=== PATIENT | male | born 1940 | race Two or more races ===

== ENCOUNTER 2021-03-19 23:41 | Inpatient (IN) | payer OTHER, MEDICARE ==
--- NOTE | 2021-03-20 02:20 | XR ---
EXAMINATION TYPE: XR chest 2V DATE OF EXAM: 03/20/2021 COMPARISON: NONE HISTORY: Difficulty breathing TECHNIQUE: 2 views FINDINGS: There is diffuse airspace infiltrate in the right lung. Left lung is relatively clear. Hear t size is normal. There is no heart failure. Bony thorax is intact. IMPRESSION: Diffuse right-sided pneumonia. Normal heart.
[2021-03-20 02:33] LABS: Basophils # (A) 0.1 k/uL (0-0.2); Basophils % (A) 1 %; Eosinophils # (A) 0.2 k/uL (0-0.7); Eosinophils % (A) 2 %; HCT 35.5 % (39.0-53.0); HGB 11.6 gm/dL (13.0-17.5); Lymphocytes # (A) 1.7 k/uL (1.0-4.8); Lymphocytes % (A) 16 %; MCH 30.1 pg (25.0-35.0); MCHC 32.6 g/dL (31.0-37.0); MCV 92.5 fL (80.0-100.0); Mean Platelet Volume 7.7; Monocytes % (A) 10 %; Neutrophils # (A) 7.6 k/uL (1.3-7.7); Neutrophils % (A) 71 %; Platelet Count 550 k/uL (150-450); RBC 3.84 m/uL (4.30-5.90); RDW 12.8 % (11.5-15.5); WBC 10.7 k/uL (3.8-10.6)
[2021-03-20 02:44] LABS: Potassium 4.9 mmol/L (3.5-5.1)
[2021-03-20 02:45] LABS: Albumin 3.5 g/dL (3.5-5.0); Calcium 8.1 mg/dL (8.4-10.2); Magnesium 2.3 mg/dL (1.6-2.3); Total Bilirubin 0.4 mg/dL (0.2-1.3); Total Protein 7.1 g/dL (6.3-8.2)
[2021-03-20 02:46] LABS: INR 1.1 (<1.2); Partial Thromboplastin Time 23.8 sec (22.0-30.0); Prothrombin Time 11.1 sec (9.0-12.0)
[2021-03-20] MEDS ORDERED: AZITHROMYCIN 500 MG in SODIUM CHLORIDE 0.9% 250 ML IVPB STA (03:29)
[2021-03-20] MEDS ORDERED: PNEUMONIA PROTOCOL UTILIZED 1 EACH MISC PO PRN (03:29)
--- NOTE | 2021-03-20 03:29 | ED ---
General Adult HPI - General Chief complaint: Upper Respiratory Infection Stated complaint: SOB Time Seen by Provider: 03/20/21 00:22 Source: patient, RN notes reviewed Mode of arrival: ambulatory Limitations: no limitations - History of Present Illness Initial comments: Patient is an 80-year-old male with history of hypertension, hyperlipidemia, thyroid disorder, presenting to the emergency department with feeling short of breath over the past 3-4 days. He states he had very mild cough but nothing out of the ordinary. He states he feeling really winded doing his normal activities. He states he normally walks a lot and has not been able to do that. He denies any chest pain over the past couple days. Denies any fevers or chills, no abdominal pain, nausea or vomiting. He states he feels like he has still been eating his normal amount. He has had no changes in the medications. He denies history of heart disease, no blood clots in the past, no recent travel. He is not on blood thinners. Patient has no further complaints. Upon arrival to the ER, he was 89% on room air, rest of vitals normal. - Related Data Home Medications Medication Instructions Recorded Confirmed Aspirin EC [Ecotrin Low Dose] 81 mg PO Q48H 03/20/21 03/20/21 Carboxymethylcellulose Sodium 1 drop BOTH EYES QID PRN 03/20/21 03/20/21 [Refresh Tears] Levothyroxine Sodium [Synthroid] 125 mcg PO DAILY 03/20/21 03/20/21 Sildenafil Citrate [Viagra] 100 mg PO DAILY PRN 03/20/21 03/20/21 Simvastatin [Zocor] 40 mg PO HS 03/20/21 03/20/21 lisinopriL [Prinivil] 20 mg PO DAILY 03/20/21 03/20/21 metFORMIN HCL 500 mg PO BID 03/20/21 03/20/21 Previous Rx's Medication Instructions Recorded Acetaminophen Tab [Tylenol] 650 mg PO Q6HR PRN tab 03/23/21 Azithromycin [Zithromax] 500 mg PO DAILY 3 Days #3 tab 03/23/21 Cefdinir [Omnicef] 300 mg PO BID 5 Days #10 cap 03/23/21 Furosemide [Lasix] 40 mg PO DAILY 30 Days #30 tab 03/23/21 Metoprolol Tartrate [Lopressor] 25 mg PO BID 30 Days #60 tab 03/23/21 Allergies Allergy/AdvReac Type Severity Reaction Status Date / Time No Known Allergies Allergy Verified 03/20/21 00:02 Review of Systems ROS Statement: Those systems with pertinent positive or pertinent negative responses have been documented in the HPI. ROS Other: All systems not noted in ROS Statement are negative. Past Medical History Past Medical History: Hyperlipidemia, Hypertension, Thyroid Disorder History of Any Multi-Drug Resistant Organisms: None Reported Additional Past Surgical History / Comment(s): Thyroidectomy Past Psychological History: No Psychological Hx Reported Smoking Status: Current every day smoker Past Alcohol Use History: None Reported Past Drug Use History: None Reported - Past Family History Mother Family Medical History: Dementia Additional Family Medical History / Comment(s): alzheimers Father Family Medical History: Congestive Heart Failure (CHF) General Exam - General Exam Comments Initial Comments: GENERAL: Patient is well-developed and well-nourished. Patient is nontoxic and in no acute distress. HEAD: Atraumatic, normocephalic. EYES: Pupils equal round and reactive to light, extraocular movements intact, sclera anicteric, conjunctiva are normal. Eyelids were unremarkable. ENT: Nares patent, oropharynx clear without exudates. Moist mucous membranes. NECK: Normal range of motion, supple without lymphadenopathy or JVD. LUNGS: Unlabored respirations. Breath sounds clear to auscultation bilaterally and equal. No wheezes rales or rhonchi. HEART: Regular rate and rhythm without murmurs, rubs or gallops. ABDOMEN: Soft, nontender, normoactive bowel sounds. No guarding, no rebound. No masses appreciated. MUSCULOSKELETAL: Normal extremities with adequate strength and normal range of motion, no pitting or edema. No clubbing or cyanosis. NEUROLOGICAL: Patient is alert and oriented x 3. Motor and sensory are also intact. Cranial nerves II through XII grossly intact. Symmetrical smile. Normal speech, normal gait. PSYCH: Normal mood, normal affect. SKIN: Warm, Dry, normal turgor, no rashes or lesions noted. Limitations: no limitations Course Vital Signs 03/19/21 03/20/21 03/20/21 23:58 01:27 01:45 Temperature 97.4 F L Pulse Rate 66 75 Pulse Rate [ Right Pulse Oximetery] Respiratory 18 20 20 Rate Blood Pressure 134/58 135/89 Blood Pressure [Right Arm Supine] O2 Sat by Pulse 89 L 93 L Oximetry 03/20/21 03/20/21 03/20/21 02:00 03:00 04:00 Temperature Pulse Rate 77 72 80 Pulse Rate [ Right Pulse Oximetery] Respiratory 18 20 18 Rate Blood Pressure 150/64 139/73 147/76 Blood Pressure [Right Arm Supine] O2 Sat by Pulse 93 L 95 94 L Oximetry 03/20/21 03/20/21 03/20/21 06:38 08:00 11:57 Temperature 99.0 F 97.5 F L 97.8 F Pulse Rate 70 Pulse Rate [ 79 79 Right Pulse Oximetery] Respiratory 18 22 22 Rate Blood Pressure 146/77 Blood Pressure 148/83 151/89 [Right Arm Supine] O2 Sat by Pulse 92 L 92 L 90 L Oximetry 03/20/21 03/20/21 03/20/21 14:00 16:00 19:48 Temperature 99.3 F 98.1 F Pulse Rate 67 Pulse Rate [ 79 65 Right Pulse Oximetery] Respiratory 22 20 16 Rate Blood Pressure 130/60 Blood Pressure 132/65 [Right Arm Supine] O2 Sat by Pulse 95 93 L Oximetry 03/20/21 03/21/21 03/21/21 22:39 01:50 03:29 Temperature 98.5 F Pulse Rate 69 Pulse Rate [ 65 Right Pulse Oximetery] Respiratory 18 18 Rate Blood Pressure Blood Pressure 136/70 [Right Arm Supine] O2 Sat by Pulse 94 L 96 94 L Oximetry 03/21/21 06:00 Temperature Pulse Rate Pulse Rate [ Right Pulse Oximetery] Respiratory Rate Blood Pressure Blood Pressure [Right Arm Supine] O2 Sat by Pulse 91 L Oximetry - Reevaluation(s) Reevaluation #1: 03/20/21 03:33 Patient will be started on fluids at a rate of 100 mL per hour, secondary to heart failure for possible sepsis, dehydration. EKG Findings - EKG Comments: EKG Findings:: Sinus rhythm with occasional premature ventricular complexes, left axis deviation, left bundle branch block, no signs of acute ST segment elevation. There are no previous to compare this to. Ventricular rate 76, IN interval 164, QTC 430. Medical Decision Making - Medical Decision Making Patient is an 80-year-old male with history of hypertension, hyperlipidemia, thyroid disease, presenting with shortness of breath over the past 3-4 days. He said a mild cough. Patient arrived 89% on room air, rest of vitals within normal limits. He has been on 3 L at 94%, resting comfortably. He's had no chest pain over the past [address] segment changes on his EKG, left bundle mariza block. Labs show a white count of 10.7, d-dimer is mildly bumped at 0.91. Mild kidney failure with creatinine at 1.34, BUN is 37. Lactic acid is 2.1, troponin is 0.069 with a BNP almost 6000. Rapid Covid is negative. Ch est x-ray shows diffuse right sided pneumonia. No heart failure. Patient has no chest pain here today. Patient will be admitted for pneumonia, and consult to cardiology, started on antibiotics. Case discussed with Dr. Hernandez. - Lab Data Result diagrams: 03/22/21 11:16 03/22/21 11:16 Lab Results 03/20/21 03/20/21 03/20/21 Range/Units 01:41 01:41 01:41 WBC 10.7 H (3.8-10.6) k/uL RBC 3.84 L (4.30-5.90) m/uL Hgb 11.6 L (13.0-17.5) gm/dL Hct 35.5 L (39.0-53.0) % MCV 92.5 (80.0-100.0) fL MCH 30.1 (25.0-35.0) pg MCHC 32.6 (31.0-37.0) g/dL RDW 12.8 (11.5-15.5) % Plt Count 550 H (150-450) k/uL MPV 7.7 Neutrophils % 71 % Lymphocytes % 16 % Monocytes % 10 % Eosinophils % 2 % Basophils % 1 % Neutrophils # 7.6 (1.3-7.7) k/uL Lymphocytes # 1.7 (1.0-4.8) k/uL Monocytes # 1.0 (0-1.0) k/uL Eosinophils # 0.2 (0-0.7) k/uL Basophils # 0.1 (0-0.2) k/uL PT 11.1 (9.0-12.0) sec INR 1.1 (<1.2) APTT 23.8 (22.0-30.0) sec D-Dimer 0.91 H (<0.60) mg/L FEU Sodium 135 L (137-145) mmol/L Potassium 4.9 (3.5-5.1) mmol/L Chloride 103 (98-107) mmol/L Carbon Dioxide 22 (22-30) mmol/L Anion Gap 10 mmol/L BUN 37 H (9-20) mg/dL Creatinine 1.34 H (0.66-1.25) mg/dL Est GFR (CKD-EPI)AfAm 57 (>60 ml/min/1.73 sqM) Est GFR (CKD-EPI)NonAf 50 (>60 ml/min/1.73 sqM) Glucose 182 H (74-99) mg/dL Lactic Ac Sepsis Rflx Plasma Lactic Acid Rishabh (0.7-2.0) mmol/L Calcium 8.1 L (8.4-10.2) mg/dL Magnesium 2.3 (1.6-2.3) mg/dL Total Bilirubin 0.4 (0.2-1.3) mg/dL AST 32 (17-59) U/L ALT 18 (4-49) U/L Alkaline Phosphatase 120 (38-126) U/L Troponin I (0.000-0.034) ng/mL NT-Pro-B Natriuret Pep pg/mL Total Protein 7.1 (6.3-8.2) g/dL Albumin 3.5 (3.5-5.0) g/dL Coronavirus (PCR) (Not Detectd) 03/20/21 03/20/21 03/20/21 Range/Units 01:41 01:41 01:41 WBC (3.8-10.6) k/uL RBC (4.30-5.90) m/uL Hgb (13.0-17.5) gm/dL Hct (39.0-53.0) % MCV (80.0-100.0) fL MCH (25.0-35.0) pg MCHC (31.0-37.0) g/dL RDW (11.5-15.5) % Plt Count (150-450) k/uL MPV Neutrophils % % Lymphocytes % % Monocytes % % Eosinophils % % Basophils % % Neutrophils # (1.3-7.7) k/uL Lymphocytes # (1.0-4.8) k/uL Monocytes # (0-1.0) k/uL Eosinophils # (0-0.7) k/uL Basophils # (0-0.2) k/uL PT (9.0-12.0) sec INR (<1.2) APTT (22.0-30.0) sec D-Dimer (<0.60) mg/L FEU Sodium (137-145) mmol/L Potassium (3.5-5.1) mmol/L Chloride (98-107) mmol/L Carbon Dioxide (22-30) mmol/L Anion Gap mmol/L BUN (9-20) mg/dL Creatinine (0.66-1.25) mg/dL Est GFR (CKD-EPI)AfAm (>60 ml/min/1.73 sqM) Est GFR (CKD-EPI)NonAf (>60 ml/min/1.73 sqM) Glucose (74-99) mg/dL Lactic Ac Sepsis Rflx Plasma Lactic Acid Rishabh 2.1 H* (0.7-2.0) mmol/L Calcium (8.4-10.2) mg/dL Magnesium (1.6-2.3) mg/dL Total Bilirubin (0.2-1.3) mg/dL AST (17-59) U/L ALT (4-49) U/L Alkaline Phosphatase (38-126) U/L Troponin I 0.069 H* (0.000-0.034) ng/mL NT-Pro-B Natriuret Pep 5980 pg/mL Total Protein (6.3-8.2) g/dL Albumin (3.5-5.0) g/dL Coronavirus (PCR) (Not Detectd) 03/20/21 03/20/21 Range/Units 01:41 02:50 WBC (3.8-10.6) k/uL RBC (4.30-5.90) m/uL Hgb (13.0-17.5) gm/dL Hct (39.0-53.0) % MCV (80.0-100.0) fL MCH (25.0-35.0) pg MCHC (31.0-37.0) g/dL RDW (11.5-15.5) % Plt Count (150-450) k/uL MPV Neutrophils % % Lymphocytes % % Monocytes % % Eosinophils % % Basophils % % Neutrophils # (1.3-7.7) k/uL Lymphocytes # (1.0-4.8) k/uL Monocytes # (0-1.0) k/uL Eosinophils # (0-0.7) k/uL Basophils # (0-0.2) k/uL PT (9.0-12.0) sec INR (<1.2) APTT (22.0-30.0) sec D-Dimer (<0.60) mg/L FEU Sodium (137-145) mmol/L Potassium (3.5-5.1) mmol/L Chloride (98-107) mmol/L Carbon Dioxide (22-30) mmol/L Anion Gap mmol/L BUN (9-20) mg/dL Creatinine (0.66-1.25) mg/dL Est GFR (CKD-EPI)AfAm (>60 ml/min/1.73 sqM) Est GFR (CKD-EPI)NonAf (>60 ml/min/1.73 sqM) Glucose (74-99) mg/dL Lactic Ac Sepsis Rflx Y Plasma Lactic Acid Rishabh (0.7-2.0) mmol/L Calcium (8.4-10.2) mg/dL Magnesium (1.6-2.3) mg/dL Total Bilirubin (0.2-1.3) mg/dL AST (17-59) U/L ALT (4-49) U/L Alkaline Phosphatase (38-126) U/L Troponin I (0.000-0.034) ng/mL NT-Pro-B Natriuret Pep pg/mL Total Protein (6.3-8.2) g/dL Albumin (3.5-5.0) g/dL Coronavirus (PCR) Not Detected (Not Detectd) Disposition Clinical Impression: Pneumonia, Dyspnea, Elevated troponin, Dehydration Disposition: ADMITTED IP TO THIS [facility] Condition: Stable Decision Date: 03/20/21 Decision Time: 03:28
[2021-03-20] MEDS ORDERED: SODIUM CHLORIDE 0.9% 1,000 ML IV SCH (03:30)
[2021-03-20] MEDS ORDERED: ONDANSETRON 4 MG/2 ML VIAL IVP PRN (03:31)
[2021-03-20] MEDS ORDERED: IBUPROFEN 400 MG TAB PO PRN (03:31)
[2021-03-20] MEDS ORDERED: NALOXONE 0.4 MG/ML 1 ML VIAL IV PRN (03:31)
[2021-03-20] MEDS ORDERED: ACETAMINOPHEN TAB 325 MG TAB PO PRN (03:31)
--- NOTE | 2021-03-20 10:01 | ECHOF ---
Referral Reason:LV function MEASUREMENTS -------- HEIGHT: 177.8 cm WEIGHT: 97.5 kg BP: 148/83 RVIDd: 4.0 cm (< 3.3) IVSd: 1.4 cm (0.6 - 1.1) LVIDd: 4.8 cm (3.9 - 5.3) LVPWd: 1.3 cm (0.6 - 1.1) IVSs: 2.1 cm LVIDs: 3.5 cm LVPWs: 1.9 cm LAESV Index (A-L): 27.15 ml/m Ao Diam: 3.0 cm (2.0 - 3.7) AV Cusp: 2.0 cm (1.5 - 2.6) MV EXCURSION: 14.991 mm (> 18.000) MV EF SLOPE: 60 mm/s (70 - 150) EPSS: 1.1 cm MV E Mika: 0.88 m/s MV DecT: 329 ms MV A Mika: 1.28 m/s MV E/A Ratio: 0.69 RAP: 5.00 mmHg RVSP: 56.92 mmHg FINDINGS -------- Sinus rhythm with extra systolic beats. This was a technically difficult study with suboptimal apical views. The left ventricular size is normal. There is moderate concentric left ventricular hypertrophy. O verall left ventricular systolic function is mild-moderately impaired with, an EF between 40 - 45 %. The right ventricle is moderately enlarged. Normal LA size by volume 22+/-6 ml/m2. The right atrium was not well visualized. 5.0mg of Lumason was utilized for enhancement of images Interatrial and interventricular septum intact. There is no evidence of aortic regurgitation. There is no evidence of aortic stenosis. [id number] mitral regurgitation is present. Moderate to severe tricuspid regurgitation present. There is moderate to severe pulmonary hypertens ion. The right ventricular systolic pressure, as measured by Doppler, is 56.92mmHg. There is no pulmonic regurgitation present. The aortic root size is normal. IVC Not well visulized. There is no pericardial effusion. CONCLUSIONS -------- 1. The left ventricular size is normal. 2. There is moderate concentric left ventricular hypertrophy. 3. Overall left ventricular systolic function is mild-moderately impaired with, an EF between 40 - 45 %. 4. The right ventricle is moderately enlarged. 5. [id number] mitral regurgitation is present. 6. Moderate to severe tricuspid regurgitation present. 7. There is moderate to severe pulmonary hypertension. 8. The right ventricular systolic pressure, as measured by Doppler, is 56.92mmHg. [employer] RESIDENTIAL SERVICE TECHNICIAN: Tatum Avila RDCS
[2021-03-20] MEDS ORDERED: ARTIFICIAL TEARS-HYPROMELLOSE DROPS 15 ML BTL BOTH EYES PRN (10:32)
--- NOTE | 2021-03-20 10:41 | P.HPIM ---
History of Present Illness Patient is is a pleasant 80-year-old male came in with complaints of shortness of breath cough with sputum production found to have right upper lobe pneumonia. Patient does have leukocytosis and low-grade fever as well. Patient had a remote history of smoking quit in 1966. Patient does have a elevated BNP denied any significant the proximal nocturnal dyspnea questionable orthopnea. Patient did get an echo cardiac exam which showed mildly decreased EF of around 40-45% and patient doesn't have a known history of can start failure patient does have severe tricuspid regurgitation and the moderate to severe pulmonary hypertens ion. Patient has mildly elevated troponins without any significant chest pain. Troponins are flat. Cardiology will evaluate the patient. REVIEW OF SYSTEMS: CONSTITUTIONAL: no malaise, no fatigue. HEENT: No recent visual problems or hearing problems. Denied any sore throat. CARDIOVASCULAR: No chest pain, orthopnea, PND, no palpitations, no syncope. PULMONARY: As mentioned in HPI GASTROINTESTINAL: No diarrhea, no nausea, no vomiting, no abdominal pain. NEUROLOGICAL: No headaches, no weakness, no numbness. HEMATOLOGICAL: Denies any bleeding or petechiae. GENITOURINARY: Denies any burning micturition, frequency, or urgency. MUSCULOSKELETAL/RHEUMATOLOGICAL: Denies any joint pain, swelling, or any muscle pain. ENDOCRINE: Denies any polyuria or polydipsia. The rest of the 14-point review of systems is negative. PHYSICAL EXAMINATION: GENERAL: The patient is alert and oriented x3, not in any acute distress. Obese HEENT: Pupils are round and equally reacting to light. EOMI. No scleral icterus. No conjunctival pallor. Normocephalic, atraumatic. No pharyngeal erythema. No thyromegaly. CARDIOVASCULAR: S1 and S2 present. No murmurs, rubs, or gallops. PULMONARY: Chest is clear to auscultation, no wheezing or crackles. ABDOMEN: Soft, nontender, nondistended, normoactive bowel sounds. No palpable organomegaly. MUSCULOSKELETAL: No joint swelling or deformity. EXTREMITIES: No cyanosis, clubbing, or pedal edema. NEUROLOGICAL: Gross neurological examination did not reveal any focal deficits. SKIN: No rashes. Assessment and plan -Acute hypoxic respiratory failure probably secondary to pneumonia patient may have a competent of sleep apnea and does have pulmonary hypertension of as well because of which are patient is requiring oxygen around 4 L at this time. He continued on Rocephin and azithromycin. Sputum cultures will be obtained. -Mild troponin elevation secondary to hypoxemia and pneumonia cardiology will evaluate the patient. Patient has left bundle branch block on EKG previous EKGs are not available to compare -moderate to severe pulmonary hypertension probably secondary to mitral regurgitation and/or sleep apnea. --Elevated creatinine unsure whether patient has acute renal failure chronic kidney disease possibility of acute failure patient received IV fluids with because of the concerns of her decreased ejection fraction and elevated BNP I'm stopping his IV fluids at this time although patient clinically and presently not in heart failure exacerbation and will be continued on lisinopril if his creatinine continued get was then we'll let this can you. We'll at that time. We'll recheck patient's creatinine tomorrow -Congestive heart failure chronic systolic dysfunction without any acute exacerbation -Severe tricuspid regurgitation -Possibly of pulmonary hypertension -Hypothyroidism Type 2 diabetes mellitus: Hold off on metformin patient will be started on sliding scale insulin DVT prophylaxis: Subcutaneous heparin Past Medical History Past Medical History: Hyperlipidemia, Hypertension, Thyroid Disorder History of Any Multi-Drug Resistant Organisms: None Reported Additional Past Surgical History / Comment(s): Thyroidectomy Past Psychological History: No Psychological Hx Reported Smoking Status: Current every day smoker Past Alcohol Use History: None Reported Past Drug Use History: None Reported Medications and Allergies Home Medications Medication Instructions Recorded Confirmed Type Aspirin EC [Ecotrin Low Dose] 81 mg PO Q48H 03/20/21 03/20/21 History Carboxymethylcellulose Sodium 1 drop BOTH EYES QID PRN 03/20/21 03/20/21 History [Refresh Tears] Levothyroxine Sodium [Synthroid] 125 mcg PO DAILY 03/20/21 03/20/21 History Sildenafil Citrate [Viagra] 100 mg PO DAILY PRN 03/20/21 03/20/21 History Simvastatin [Zocor] 40 mg PO HS 03/20/21 03/20/21 History amLODIPine [Norvasc] 10 mg PO DAILY 03/20/21 03/20/21 History lisinopriL [Prinivil] 20 mg PO DAILY 03/20/21 03/20/21 History metFORMIN HCL 500 mg PO BID 03/20/21 03/20/21 History Allergies Allergy/AdvReac Type Severity Reaction Status Date / Time No Known Allergies Allergy Verified 03/20/21 00:02 Physical Exam Vitals: Vital Signs Temp Pulse Pulse Resp BP BP Pulse Ox 03/20/21 08:00 97.5 F L 78 19 148/83 92 L 03/20/21 06:38 99.0 F 70 18 146/77 92 L 03/20/21 04:00 80 18 147/76 94 L 03/20/21 03:00 72 20 139/73 95 03/20/21 02:00 77 18 150/64 93 L 03/20/21 01:45 75 20 135/89 93 L 03/20/21 01:27 20 03/19/21 23:58 97.4 F L 66 18 134/58 89 L Intake and Output 03/19/21 03/20/21 03/20/21 22:59 06:59 14:59 Other: Weight 97.522 kg Results CBC & Chem 7: 03/20/21 01:41 03/20/21 01:41 Labs: Abnormal Lab Results - Last 24 Hours (Table) 03/20/21 03/20/21 03/20/21 Range/Units 01:41 01:41 01:41 WBC 10.7 H (3.8-10.6) k/uL RBC 3.84 L (4.30-5.90) m/uL Hgb 11.6 L (13.0-17.5) gm/dL Hct 35.5 L (39.0-53.0) % Plt Count 550 H (150-450) k/uL D-Dimer 0.91 H (<0.60) mg/L FEU Sodium 135 L (137-145) mmol/L BUN 37 H (9-20) mg/dL Creatinine 1.34 H (0.66-1.25) mg/dL Glucose 182 H (74-99) mg/dL Plasma Lactic Acid Rishabh (0.7-2.0) mmol/L Calcium 8.1 L (8.4-10.2) mg/dL Troponin I (0.000-0.034) ng/mL 03/20/21 03/20/21 03/20/21 Range/Units 01:41 01:41 05:34 WBC (3.8-10.6) k/uL RBC (4.30-5.90) m/uL Hgb (13.0-17.5) gm/dL Hct (39.0-53.0) % Plt Count (150-450) k/uL D-Dimer (<0.60) mg/L FEU Sodium (137-145) mmol/L BUN (9-20) mg/dL Creatinine (0.66-1.25) mg/dL Glucose (74-99) mg/dL Plasma Lactic Acid Rishabh 2.1 H* (0.7-2.0) mmol/L Calcium (8.4-10.2) mg/dL Troponin I 0.069 H* 0.075 H* (0.000-0.034) ng/mL 03/20/21 Range/Units 08:25 WBC (3.8-10.6) k/uL RBC (4.30-5.90) m/uL Hgb (13.0-17.5) gm/dL Hct (39.0-53.0) % Plt Count (150-450) k/uL D-Dimer (<0.60) mg/L FEU Sodium (137-145) mmol/L BUN (9-20) mg/dL Creatinine (0.66-1.25) mg/dL Glucose (74-99) mg/dL Plasma Lactic Acid Rishabh (0.7-2.0) mmol/L Calcium (8.4-10.2) mg/dL Troponin I 0.056 H* (0.000-0.034) ng/mL
[2021-03-20] MEDS ORDERED: NON FORMULARY DRUG (Aspirin Ec 81 MG Tablet) PO SCH (10:45)
[2021-03-20 11:43] LABS: Glucose,Whole Blood 159 mg/dL (75-99)
--- NOTE | 2021-03-20 12:14 | P.CRDCN ---
History of Present Illness History of present illness: HISTORY OF PRESENTING ILLNESS This is a pleasant 80-year-old male past medical history significant for hypertension, dyslipidemia, hypothyroidism, type 2 diabetes. He does not follow with a oncology pharmacist. We have been asked to see in consultation for elevated troponin. Patient is seen and examined in the emergency department. Patient presents to the emergency department with complaints of shortness of breath and non-productive cough. His symptoms started 03/14 and progressively were getting worse and decided presents emergency department for further evaluation.. He denies any chest pain, nausea, diaphoresis, palpitations, lightheadedness, dizziness, symptoms of presyncope or syncope. Denies symptoms of orthopnea or PND. He denies fevers or chills. He denies any history of [place], stroke, coronary artery disease. He denies a family history of heart disease. He denies smoking, states he quit smoking many years ago. DIAGNOSTICS EKG reveals sinus rhythm with PVCs, left bundle branch block, heart rate 76, Left axis deviation. No prior EKG to compare Echocardiogram revealed an EF 4045 percent, RV is mildly enlarged, mild to moderate mitral regurgitation, moderate severe tricuspid regurgitation, moderate to severe pulmonary hypertension with RVSP of 57 mmHg Telemetry tracings indicate sinus mechanism heart rates 70s80s. Chest xray revealed diffuse right-sided pneumonia. Laboratory reviewed, WBC 10.7, hemoglobin 11.6, platelets 550, d-dimer 0.91, sodium 135, potassium 4., BUN 37, serum creatinine 1.3, lactate 2.1, repeat 1.4, troponin 0.06, 0.7, 0.05, proBNP 5008, COVID-19 PCR negative. Current cardiac medications include simvastatin 40 mg nightly, lisinopril 20 mg daily, aspirin 81 mg daily, amlodipine 10 mg daily REVIEW OF SYSTEMS At the time of my exam: CONSTITUTIONAL: Denies fever or chills. CARDIOVASCULAR: Positive shortness of breath, positive cough Denies chest pain, orthopnea, PND or palpitations. RESPIRATORY: + cough GASTROINTESTINAL: Denies abdominal pain, diarrhea, constipation, nausea or vomiting. MUSCULOSKELETAL: Denies myalgias. NEUROLOGIC: Denies numbness, tingling, headacbe or weakness. ENDOCRINE: Denies fatigue, weight change, polydipsia or polyurina. GENITOURINARY: Denies burning, hematuria or urgency with micturation. HEMATOLOGIC: Denies history of anemia or bleeding. PHYSICAL EXAMINATION Blood pressure 151/89, heart 69, afebrile saturations 90% on 4 L nasal cannula CONSTITUTIONAL: No apparent distress. HEENT: Head is normocephalic. Pupils are equal, round. Sclerae anicteric. Mucous membranes of the mouth are moist. No JVD. No carotid bruit. CHEST EXAMINATION: Lungs are clear to auscultation. No chest wall tenderness is noted on palpation or with deep breathing. HEART EXAMINATION: Regular rate and rhythm. S1, S2 heard.Systolic ejection murmur at apex. ABDOMEN: Soft, nontender. Positive bowel sounds. EXTREMITIES: 2+ peripheral pulses, no lower extremity edema and no calf tenderness. NEUROLOGIC EXAMINATION: Patient is awake, alert and oriented x3. ASSESSMENT Acute hypoxic respiratory failure probably secondary to pneumonia Elevated troponin, mild, likely due to supply an demand mismatch, no consistent with acute coronary syndrome Acute Kidney Injury Severe tricuspid regurgitation History of hypertension Dyslipidemia Type 2 diabetes Echocardiogram revealed cardiomyopathy with EF 40-45%, unclear if ischemic vs non-ischemic at this time, patient appears euvolemic on exam History of hypothyroidism PLAN 2D Echocardiogram obtained and reviewed. Start aspirin 81 mg daily, continue statin. Continue lisinopril 20 mg daily Start metoprolol tartrate 12.5 mg twice a day Further recommendations based on clinical course Nurse Practitioner note has been reviewed, I agree with a documented findings and plan of care. Patient was seen and examined. Past Medical History Past Medical History: Hyperlipidemia, Hypertension, Thyroid Disorder History of Any Multi-Drug Resistant Organisms: None Reported Additional Past Surgical History / Comment(s): Thyroidectomy Past Psychological History: No Psychological Hx Reported Smoking Status: Current every day smoker Past Alcohol Use History: None Reported Past Drug Use History: None Reported Medications and Allergies Home Medications Medication Instructions Recorded Confirmed Type Aspirin EC [Ecotrin Low Dose] 81 mg PO Q48H 03/20/21 03/20/21 History Carboxymethylcellulose Sodium 1 drop BOTH EYES QID PRN 03/20/21 03/20/21 History [Refresh Tears] Levothyroxine Sodium [Synthroid] 125 mcg PO DAILY 03/20/21 03/20/21 History Sildenafil Citrate [Viagra] 100 mg PO DAILY PRN 03/20/21 03/20/21 History Simvastatin [Zocor] 40 mg PO HS 03/20/21 03/20/21 History amLODIPine [Norvasc] 10 mg PO DAILY 03/20/21 03/20/21 History lisinopriL [Prinivil] 20 mg PO DAILY 03/20/21 03/20/21 History metFORMIN HCL 500 mg PO BID 03/20/21 03/20/21 History Allergies Allergy/AdvReac Type Severity Reaction Status Date / Time No Known Allergies Allergy Verified 03/20/21 00:02 Physical Exam Vitals: Vital Signs Temp Pulse Resp BP Pulse Ox 03/20/21 06:38 99.0 F 70 18 146/77 92 L 03/20/21 04:00 80 18 147/76 94 L 03/20/21 03:00 72 20 139/73 95 03/20/21 02:00 77 18 150/64 93 L 03/20/21 01:45 75 20 135/89 93 L 03/20/21 01:27 20 03/19/21 23:58 97.4 F L 66 18 134/58 89 L Intake and Output 03/19/21 03/20/21 03/20/21 22:59 06:59 14:59 Other: Weight 97.522 kg Results 03/20/21 01:41 03/20/21 01:41 Cardiac Enzymes 03/20/21 03/20/21 03/20/21 Range/Units 01:41 01:41 05:34 AST 32 (17-59) U/L Troponin I 0.069 H* 0.075 H* (0.000-0.034) ng/mL Coagulation 03/20/21 Range/Units 01:41 PT 11.1 (9.0-12.0) sec APTT 23.8 (22.0-30.0) sec CBC 03/20/21 Range/Units 01:41 WBC 10.7 H (3.8-10.6) k/uL RBC 3.84 L (4.30-5.90) m/uL Hgb 11.6 L (13.0-17.5) gm/dL Hct 35.5 L (39.0-53.0) % Plt Count 550 H (150-450) k/uL Comprehensive Metabolic Panel 03/20/21 Range/Units 01:41 Sodium 135 L (137-145) mmol/L Potassium 4.9 (3.5-5.1) mmol/L Chloride 103 (98-107) mmol/L Carbon Dioxide 22 (22-30) mmol/L BUN 37 H (9-20) mg/dL Creatinine 1.34 H (0.66-1.25) mg/dL Glucose 182 H (74-99) mg/dL Calcium 8.1 L (8.4-10.2) mg/dL AST 32 (17-59) U/L ALT 18 (4-49) U/L Alkaline Phosphatase 120 (38-126) U/L Total Protein 7.1 (6.3-8.2) g/dL Albumin 3.5 (3.5-5.0) g/dL Current Medications Generic Name Dose Route Start Last Admin Trade Name Freq PRN Reason Stop Dose Admin Acetaminophen 650 mg 03/20/21 03:31 Acetaminophen Tab 325 Mg Tab PO Q6HR PRN Mild Pain or Fever > 100.5 Sodium Chloride 1,000 mls @ 100 mls/hr 03/20/21 03:30 03/20/21 03:55 Saline 0.9% IV 100 mls/hr .Q10H PAPITO Administration Ibuprofen 400 mg 03/20/21 03:31 Ibuprofen 400 Mg Tab PO Q6HR PRN Mild Pain or Fever > 100.5 Miscellaneous Information 1 each 03/20/21 03:29 Pneumonia Protocol Utilized 1 Each Misc PO ONCE PRN Per Protocol Naloxone HCl 0.2 mg 03/20/21 03:31 Naloxone 0.4 Mg/Ml 1 Ml Vial IV Q2M PRN Opioid Reversal Ondansetron HCl 4 mg 03/20/21 03:31 Ondansetron 4 Mg/2 Ml Vial IVP Q8HR PRN Nausea And Vomiting Intake and Output 03/19/21 03/20/21 03/20/21 22:59 06:59 14:59 Other: Weight 97.522 kg 03/20/21 01:41 03/20/21 01:41
[2021-03-20] MEDS: AZITHROMYCIN 500 MG TAB PO SCH (12:40)
[2021-03-20] MEDS: lisinopriL 20 MG TAB PO SCH (12:40)
[2021-03-20] MEDS: ASPIRIN 81 MG PO SCH (12:40)
[2021-03-20] MEDS: METOPROLOL TARTRATE 12.5 MG TAB PO SCH ×2 (12:40→22:41)
[2021-03-20] MEDS: HEPARIN SODIUM,PORCINE/PF 5,000 UNIT/0.5 ML SYRINGE SQ SCH ×2 (12:41→22:41)
[2021-03-20] MEDS: INSULIN ASPART (NovoLOG) 100 UNIT/ML VIAL SQ SCH ×2 (12:41→17:56)
[2021-03-20 16:46] LABS: Glucose,Whole Blood 194 mg/dL (75-99)
[2021-03-20 20:43] LABS: Glucose,Whole Blood 112 mg/dL (75-99)
[2021-03-21] MEDS: INSULIN ASPART (NovoLOG) 100 UNIT/ML VIAL SQ SCH ×5 (01:40→20:14)
[2021-03-21] MEDS: ATORVASTATIN 20 MG TAB PO SCH ×2 (03:42→20:14)
[2021-03-21 08:12] LABS: Glucose,Whole Blood 127 mg/dL (75-99)
[2021-03-21] MEDS: HEPARIN SODIUM,PORCINE/PF 5,000 UNIT/0.5 ML SYRINGE SQ SCH ×2 (09:04→20:14)
[2021-03-21] MEDS: AZITHROMYCIN 500 MG TAB PO SCH (09:04)
[2021-03-21] MEDS: ASPIRIN 81 MG PO SCH (09:05)
[2021-03-21] MEDS: lisinopriL 20 MG TAB PO SCH (09:05)
[2021-03-21] MEDS: LEVOTHYROXINE 125 MCG TAB PO SCH (09:05)
[2021-03-21 09:48] LABS: African American GFR (CKD) 54.7 (60.0-200.0); Anion Gap 14.4 mmol/L (4.00-12.00); BUN/Creat Ratio 23.74 Ratio (12.00-20.00); Calcium 7.5 mg/dL (8.7-10.3); Carbon Dioxide 20.1 mmol/L (21.6-31.8); HCT 32.2 % (39.6-50.0); HGB 10.4 g/dL (13.0-17.0); MCH 30.2 pg (27.0-32.0); MCHC 32.3 g/dL (32.0-37.0); MCV 93.6 fL (80.0-97.0); Non-African American GFR(CKD) 47.2 (60.0-200.0); Platelet Count 530 X 10*3/uL (140-440); Potassium 4.4 mmol/L (3.5-5.5); RBC 3.44 X 10*6/uL (4.40-5.60); RDW 13.2 % (11.5-14.5); WBC 10.62 X 10*3/uL (4.50-10.00)
--- NOTE | 2021-03-21 10:17 | P.PN ---
Subjective Progress Note Date: 03/21/21 HISTORY OF PRESENTING ILLNESS This is a pleasant 80-year-old male past medical history significant for hyp ertension, dyslipidemia, hypothyroidism, type 2 diabetes. He does not follow with a pharmacy grad intern. We have been asked to see in consultation for elevated troponin. Patient is seen and examined in the emergency department. Patient presents to the emergency department with complaints of shortness of breath and non-productive cough. His symptoms started 03/14 and progressively were getting worse and decided presents emergency department for further evaluation.. He denies any chest pain, nausea, diaphoresis, palpitations, lightheadedness, dizziness, symptoms of presyncope or syncope. Denies symptoms of orthopnea or PND. He denies fevers or chills. He denies any history of [place], stroke, coronary artery disease. He denies a family history of heart disease. He denies smoking, states he quit smoking many years ago. DIAGNOSTICS EKG reveals sinus rhythm with PVCs, left bundle branch block, heart rate 76, Left axis deviation. No prior EKG to compare Echocardiogram revealed an EF 4045 percent, RV is mildly enlarged, mild to moderate mitral regurgitation, moderate severe tricuspid regurgitation, moderate to severe pulmonary hypertension with RVSP of 57 mmHg Telemetry tracings indicate sinus mechanism heart rates 70s80s. Chest xray revealed diffuse right-sided pneumonia. Laboratory reviewed, WBC 10.7, hemoglobin 11.6, platelets 550, d-dimer 0.91, sodium 135, potassium 4., BUN 37, serum creatinine 1.3, lactate 2.1, repeat 1.4, troponin 0.06, 0.7, 0.05, proBNP 5008, COVID-19 PCR negative. Current cardiac medications include simvastatin 40 mg nightly, lisinopril 20 mg daily, aspirin 81 mg daily, amlodipine 10 mg daily 03/21/2021 Patient examined this morning with Dr. Rutledge. The patient states he is feeling much better today. He reports improvement in his shortness of breath. He remains on nasal cannula. He does report shortness of breath with exertion. He reports a nonproductive cough. He denies chest pain or pressure. PHYSICAL EXAMINATION CONSTITUTIONAL: No apparent distress. HEENT: Head is normocephalic. Pupils are equal, round. Sclerae anicteric. Mucous membranes of the mouth are moist. No JVD. No carotid bruit. CHEST EXAMINATION: Lungs are clear to auscultation. No chest wall tenderness is noted on palpation or with deep breathing. HEART EXAMINATION: Regular rate and rhythm. S1, S2 heard. Systolic ejection murmur at apex. ABDOMEN: Soft, nontender. Positive bowel sounds. EXTREMITIES: 2+ peripheral pulses, no lower extremity edema and no calf tenderness. NEUROLOGIC EXAMINATION: Patient is awake, alert and oriented x3. ASSESSMENT Acute hypoxic respiratory failure probably secondary to pneumonia Elevated troponin, mild, likely due to supply an demand mismatch, no consistent with acute coronary syndrome Acute Kidney Injury Severe tricuspid regurgitation History of hypertension Dyslipidemia Type 2 diabetes Echocardiogram revealed cardiomyopathy with EF 40-45%, unclear if ischemic vs non-ischemic at this time History of hypothyroidism PLAN Continue current cardiac medications Begin IV lasix 40mg daily Accurate I&O Daily weights Patient to undergo Lexiscan stress test tomorrow secondary to cardiomyopathy (EF 40-45%) and abnormal troponins Further recommendations pending patient course Nurse Practitioner note has been reviewed, I agree with a documented findings and plan of care. Patient was seen and examined. Objective - Vital Signs Vital signs: Vital Signs Temp 97.5 F L 03/21/21 07:31 Pulse 69 03/21/21 08:00 Resp 18 03/21/21 08:00 BP 129/66 03/21/21 07:31 Pulse Ox 91 L 03/21/21 08:14 Intake & Output 03/20/21 03/21/21 03/21/21 18:59 06:59 18:59 Output Total 200 Balance -200 Weight 97.522 kg Output: Urine 200 Other: Voiding Method Toilet Toilet Toilet # Voids 3 # Bowel Movements 2 - Labs CBC & Chem 7: 03/21/21 03:24 03/21/21 03:24 Labs: Abnormal Lab Results - Last 24 Hours (Table) 03/20/21 03/20/21 03/20/21 Range/Units 11:42 16:45 20:41 WBC (4.50-10.00) X 10*3/uL RBC (4.40-5.60) X 10*6/uL Hgb (13.0-17.0) g/dL Hct (39.6-50.0) % Plt Count (140-440) X 10*3/uL Carbon Dioxide (21.6-31.8) mmol/L Anion Gap (4.00-12.00) mmol/L BUN (9.0-27.0) mg/dL Est GFR (CKD-EPI)AfAm (60.0-200.0) Est GFR (CKD-EPI)NonAf (60.0-200.0) BUN/Creatinine Ratio (12.00-20.00) Ratio Glucose (70-110) mg/dL POC Glucose (mg/dL) 159 H 194 H 112 H (75-99) mg/dL Calcium (8.7-10.3) mg/dL 03/21/21 03/21/21 03/21/21 Range/Units 03:24 03:24 08:02 WBC 10.62 H (4.50-10.00) X 10*3/uL RBC 3.44 L (4.40-5.60) X 10*6/uL Hgb 10.4 L (13.0-17.0) g/dL Hct 32.2 L (39.6-50.0) % Plt Count 530 H (140-440) X 10*3/uL Carbon Dioxide 20.1 L (21.6-31.8) mmol/L Anion Gap 14.40 H (4.00-12.00) mmol/L BUN 33.0 H (9.0-27.0) mg/dL Est GFR (CKD-EPI)AfAm 54.7 L (60.0-200.0) Est GFR (CKD-EPI)NonAf 47.2 L (60.0-200.0) BUN/Creatinine Ratio 23.74 H (12.00-20.00) Ratio Glucose 128 H (70-110) mg/dL POC Glucose (mg/dL) 127 H (75-99) mg/dL Calcium 7.5 L (8.7-10.3) mg/dL Microbiology - Last 24 Hours (Table) 03/20/21 03:45 Blood Culture - Preliminary Blood No Growth after 24 hours 03/20/21 03:30 Blood Culture - Preliminary Blood No Growth after 24 hours
[2021-03-21] MEDS: METOPROLOL TARTRATE 12.5 MG TAB PO SCH ×2 (10:18→20:14)
[2021-03-21] MEDS: FUROSEMIDE 10 MG/ML 4 ML VIAL IV SCH (10:18)
[2021-03-21 11:34] LABS: Glucose,Whole Blood 174 mg/dL (75-99)
--- NOTE | 2021-03-21 13:12 | XR ---
EXAMINATION TYPE: XR chest 2V DATE OF EXAM: 03/21/2021 COMPARISON: Chest x-ray 03/20/2021 HISTORY: Pneumonia TECHNIQUE: Frontal and lateral views of the chest are obtained. FINDINGS: Airspace disease seen within the right lung shows a similar appearance. No significant int erval change. Region is rotated. Cardiac mediastinal silhouette is stable. No evident pneumothorax or pleural effusion. IMPRESSION: Findings consistent with patient's history of pneumonia.
--- NOTE | 2021-03-21 13:52 | P.PN ---
Subjective Progress Note Date: 03/21/21 Patient is is a pleasant 80-year-old male came in with complaints of shortness of breath cough with sputum production found to have right upper lobe pneumonia. Patient does have leukocytosis and low-grade fever as well. Patient had a remote history of smoking quit in 1966. Patient does have a elevated BNP denied any significant the proximal nocturnal dyspnea questionable orthopnea. Patient did get an echo cardiac exam which showed mildly decreased EF of around 40-45% and patient doesn't have a known history of can start failure patient does have severe tricuspid regurgitation and the moderate to severe pulmonary hypertension. Patient has mildly elevated troponins without any significant chest pain. Troponins are flat. Cardiology will evaluate the patient. 03/21/2020 Patient is evaluated today resting the bed. He is dyspneic however he states that he was just getting back from the bathroom. There is no wheezing noted. Plan is for patient to undergo a stress test tomorrow. He is 91% on 4 L nasal cannula. Does not wear any oxygen at home. Blood pressure today is 110/66, heart rate 69, temp 97.5. Labs today show a white count of 10.62, hemoglobin 10.4. CO2 is 20, BUN 33, creatinine 1.4, glucoses in the 170s. Patient continues on IV Rocephin, IV Lasix. Chest x-ray completed this afternoon shows findings consistent with history of pneumonia. ROS Constitutional: Denied any fatigue denied any fever. Cardio vascular: denied any chest pain, palpitations Gastrointestinal denied any nausea vomiting Pulmonary: Denies cough, reports shortness of breath with exertion Neurologic denied any new focal deficits All inpatient medications were reviewed and appropriate changes in these medications as dictated in the interval history and assessment and plan. PHYSICAL EXAMINATION: GENERAL: The patient is alert and oriented x3, not in any acute distress. Obese HEENT: Pupils are round and equally reacting to light. EOMI. No scleral icterus. No conjunctival pallor. Normocephalic, atraumatic. No pharyngeal erythema. No thyromegaly. CARDIOVASCULAR: S1 and S2 present. No murmurs, rubs, or gallops. PULMONARY: Chest is clear to auscultation, no wheezing or crackles. ABDOMEN: Soft, nontender, nondistended, normoactive bowel sounds. No palpable organomegaly. MUSCULOSKELETAL: No joint swelling or deformity. EXTREMITIES: No cyanosis, clubbing, or pedal edema. NEUROLOGICAL: Gross neurological examination did not reveal any focal deficits. SKIN: No rashes. Assessment and plan -Acute hypoxic respiratory failure probably secondary to pneumonia, chest x-ray demonstrates pneumonia, white count trending down -Mild troponin elevation secondary to hypoxemia from pneumonia, not suggestive of ACS, stress test planned for tomorrow -moderate to severe pulmonary hypertension probably secondary to mitral regurgitation and/or sleep apnea. 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% -Severe tricuspid regurgitation -Hypothyroidism Type 2 diabetes mellitus: Hold off on metformin patient will be started on sliding scale insulin DVT prophylaxis: Subcutaneous heparin Plan Repeat labs tomorrow IV Lasix daily Continue with IV and PO antibiotics Continue nasal cannula, wean as tolerated Stress test planned for tomorrow Continue all other supportive care Objective - Vital Signs Vital signs: Vital Signs Temp 97.5 F L 03/21/21 07:31 Pulse 69 03/21/21 07:31 Resp 18 03/21/21 07:31 BP 129/66 03/21/21 07:31 Pulse Ox 91 L 03/21/21 08:14 Intake & Output 03/20/21 03/21/21 03/21/21 18:59 06:59 18:59 Output Total 200 Balance -200 Weight 97.522 kg Output: Urine 200 Other: Voiding Method Toilet Toilet # Voids 3 # Bowel Movements 2 - Labs CBC & Chem 7: 03/21/21 03:24 03/21/21 03:24 Labs: Abnormal Lab Results - Last 24 Hours (Table) 03/20/21 03/20/21 03/20/21 Range/Units 08:25 11:42 16:45 POC Glucose (mg/dL) 159 H 194 H (75-99) mg/dL Troponin I 0.056 H* (0.000-0.034) ng/mL 03/20/21 03/21/21 Range/Units 20:41 08:02 POC Glucose (mg/dL) 112 H 127 H (75-99) mg/dL Troponin I (0.000-0.034) ng/mL Microbiology - Last 24 Hours (Table) 03/20/21 03:45 Blood Culture - Preliminary Blood No Growth after 24 hours 03/20/21 03:30 Blood Culture - Preliminary Blood No Growth after 24 hours Assessment and Plan Time with Patient: Greater than 30
[2021-03-21 20:04] LABS: Glucose,Whole Blood 210 mg/dL (75-99)
[2021-03-22 05:51] LABS: Glucose,Whole Blood 128 mg/dL (75-99)
[2021-03-22] MEDS ORDERED: AMINOPHYLLINE 500 MG/20 ML VIAL IV PRN (06:00)
[2021-03-22] MEDS ORDERED: REGADENOSON 0.4 MG/5 ML SYRINGE IV PRN (06:00)
[2021-03-22] MEDS ORDERED: CAFFEINE CITRATE 60 MG/3 ML VIAL IV PRN (06:00)
[2021-03-22] MEDS: INSULIN ASPART (NovoLOG) 100 UNIT/ML VIAL SQ SCH ×4 (06:11→22:10)
[2021-03-22] MEDS: LEVOTHYROXINE 125 MCG TAB PO SCH ×2 (06:12→11:47)
[2021-03-22] MEDS: lisinopriL 20 MG TAB PO SCH (11:47)
[2021-03-22] MEDS: HEPARIN SODIUM,PORCINE/PF 5,000 UNIT/0.5 ML SYRINGE SQ SCH ×2 (11:47→22:10)
[2021-03-22] MEDS: ASPIRIN 81 MG PO SCH (11:47)
[2021-03-22] MEDS: AZITHROMYCIN 500 MG TAB PO SCH (11:48)
[2021-03-22] MEDS: METOPROLOL TARTRATE 12.5 MG TAB PO SCH ×2 (11:48→22:10)
[2021-03-22 12:01] LABS: Glucose,Whole Blood 145 mg/dL (75-99)
[2021-03-22 12:01] LABS: Basophils # (A) 0.1 k/uL (0-0.2); Basophils % (A) 1 %; Eosinophils # (A) 0.5 k/uL (0-0.7); Eosinophils % (A) 6 %; HCT 36.9 % (39.0-53.0); HGB 11.8 gm/dL (13.0-17.5); Lymphocytes # (A) 1.8 k/uL (1.0-4.8); Lymphocytes % (A) 20 %; MCH 30.3 pg (25.0-35.0); MCHC 31.9 g/dL (31.0-37.0); Mean Platelet Volume 7.1; Monocytes # (A) 0.9 k/uL (0-1.0); Monocytes % (A) 10 %; Neutrophils # (A) 5.6 k/uL (1.3-7.7); Neutrophils % (A) 62 %; Platelet Count 587 k/uL (150-450); RBC 3.88 m/uL (4.30-5.90); RDW 12.8 % (11.5-15.5); WBC 9.1 k/uL (3.8-10.6)
[2021-03-22 12:02] LABS: Calcium 7.8 mg/dL (8.4-10.2); Potassium 4.5 mmol/L (3.5-5.1)
[2021-03-22] MEDS: FUROSEMIDE 10 MG/ML 4 ML VIAL IV SCH (12:04)
--- NOTE | 2021-03-22 12:34 | P.STRESS ---
- Stress Test Note Stress Test Results/Findings: Exam Performed: NM stress lexiscan cardiolite Exam Date: 03/22/21 Reason for Exam: CARDIOMYOPATHY Height: 5 ft 10 in Weight: 101.9 kg Protocol: LEXISCAN CARDIOLITE Stage: NA Duration of Exercise: NA Resting Heart Rate: 62 Resting Blood Pressure: 150/67 Maximum Achieved Heart Rate: 71 Maximum Achieved Blood Pressure: 150/67 85% PMHR: 118 100% PMHR: 139 METS: NA Technologist Comment: Stress Test Results/Findings: At baseline EKG showed normal sinus rhythm, left bundle branch block. Patient recieved IV infusion of Lexiscan 0.4mg and at peak infusion EKG showed no significant change from baseline. Conclusions: 1. Nonspecific EKG portion secondary baseline EKG abnormalities with a left bundle-branch block. 2. Nuclear imaging to be reported separately.
--- NOTE | 2021-03-22 12:39 | NM ---
EXAMINATION TYPE: NM stress lexiscan cardiolite DATE OF EXAM: 03/22/2021 COMPARISON: NONE HISTORY: Cardiomyopathy TECHNIQUE: After the intravenous administration of 10.4 mCi Tc 99m Sestamibi - Cardiolite resting SP ECT images acquired 65 minutes post injection. The patient received 0.4mg Lexiscan, 27.1 mCi Tc 99m Sestamibi - Stress images obtained [address] injection FINDINGS: Review of stress and rest SPECT images demonstrates question of a small reversible perfusion defect i nvolving the apical lateral portion of the myocardium. Gated analysis shows normal wall motion with an estimated left ventricular ejection fraction of 49 %. IMPRESSION: 1. Cannot exclude a small stress-induced reversible ischemia involving the apical lateral myocardium. Correlate clinically.
--- NOTE | 2021-03-22 13:28 | P.PN ---
Subjective Progress Note Date: 03/22/21 Patient is is a pleasant 80-year-old male came in with complaints of shortness of breath cough with sputum production found to have right upper lobe pneumonia. Patient does have leukocytosis and low-grade fever as well. Patient had a remote history of smoking quit in 1966. Patient does have a elevated BNP denied any significant the proximal nocturnal dyspnea questionable orthopnea. Patient did get an echo cardiac exam which showed mildly decreased EF of around 40-45% and patient doesn't have a known history of can start failure patient does have severe tricuspid regurgitation and the moderate to severe pulmonary hypertension. Patient has mildly elevated troponins without any significant chest pain. Troponins are flat. Cardiology will evaluate the patient. 03/21/2020 Patient is evaluated today resting the bed. He is dyspneic however he states that he was just getting back from the bathroom. There is no wheezing noted. Plan is for patient to undergo a stress test tomorrow. He is 91% on 4 L nasal cannula. Does not wear any oxygen at home. Blood pressure today is 110/66, heart rate 69, temp 97.5. Labs today show a white count of 10.62, hemoglobin 10.4. CO2 is 20, BUN 33, creatinine 1.4, glucoses in the 170s. Patient continues on IV Rocephin, IV Lasix. Chest x-ray completed this afternoon shows findings consistent with history of pneumonia. 03/22/2021 Patient evaluated today status post Lexiscan stress test. Vital signs today show a temp of 98.9, heart rate 69 sinus rhythm, blood pressure 163/68 and he is 91% 3 L nasal cannula. Breathing is improved as compared to yesterday, there is no wheezing noted. Labs today show a hemoglobin of 11.8, sodium 137, potassium 4.5, BUN 28, creatinine 1.27. Sugars are running in the 160s. Nuclear imaging stress test results cannot exclude a small stress-induced reversible ischemia involving the apical lateral myocardium. There was nonspecific EKG portion secondary baseline EKG abnormalities with a left bundle branch block. Echocardiogram showed an EF of 40-45% with [id number] mitral regurgitation and moderate to severe tricuspid regurgitation, moderate to severe pulmonary hypertension. Further recommendations from cardiology. ROS Constitutional: Denied any fatigue denied any fever. Cardio vascular: denied any chest pain, palpitations Gastrointestinal denied any nausea vomiting Pulmonary: Denies cough, reports shortness of breath with exertion Neurologic denied any new focal deficits All inpatient medications were reviewed and appropriate changes in these medications as dictated in the interval history and assessment and plan. PHYSICAL EXAMINATION: GENERAL: The patient is alert and oriented x3, not in any acute distress. Obese HEENT: Pupils are round and equally reacting to light. EOMI. No scleral icterus. No conjunctival pallor. Normocephalic, atraumatic. No pharyngeal erythema. No thyromegaly. CARDIOVASCULAR: S1 and S2 present. No murmurs, rubs, or gallops. PULMONARY: Chest is clear to auscultation, no wheezing or crackles. ABDOMEN: Soft, nontender, nondistended, normoactive bowel sounds. No palpable organomegaly. MUSCULOSKELETAL: No joint swelling or deformity. EXTREMITIES: No cyanosis, clubbing, or pedal edema. NEUROLOGICAL: Gross neurological examination did not reveal any focal deficits. SKIN: No rashes. Assessment and plan -Acute hypoxic respiratory failure probably secondary to pneumonia, chest x-ray demonstrates pneumonia, white count trending down -Mild troponin elevation secondary to hypoxemia from pneumonia, unable to rule out ACS, possible stress-induced reversible ischemia found on stress test -moderate to severe pulmonary hypertension probably secondary to mitral regurgitation and/or sleep apnea. 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 Objective - Vital Signs Vital signs: Vital Signs Temp 99.3 F 03/22/21 04:00 Pulse 59 L 03/22/21 04:00 Resp 18 03/22/21 04:00 BP 146/56 03/22/21 04:00 Pulse Ox 92 L 03/22/21 04:00 Intake & Output 03/21/21 03/22/21 03/22/21 18:59 06:59 18:59 Intake Total 10 Balance 10 Weight 101.9 kg Intake: IV 10 Invasive Line 2 10 Other: Voiding Method Toilet Toilet # Voids 1 - Labs CBC & Chem 7: 03/22/21 11:16 03/22/21 11:16 Labs: Abnormal Lab Results - Last 24 Hours (Table) 03/21/21 03/21/21 03/21/21 Range/Units 03:24 03:24 11:31 WBC 10.62 H (4.50-10.00) X 10*3/uL RBC 3.44 L (4.40-5.60) X 10*6/uL Hgb 10.4 L (13.0-17.0) g/dL Hct 32.2 L (39.6-50.0) % Plt Count 530 H (140-440) X 10*3/uL Carbon Dioxide 20.1 L (21.6-31.8) mmol/L Anion Gap 14.40 H (4.00-12.00) mmol/L BUN 33.0 H (9.0-27.0) mg/dL Est GFR (CKD-EPI)AfAm 54.7 L (60.0-200.0) Est GFR (CKD-EPI)NonAf 47.2 L (60.0-200.0) BUN/Creatinine Ratio 23.74 H (12.00-20.00) Ratio Glucose 128 H (70-110) mg/dL POC Glucose (mg/dL) 174 H (75-99) mg/dL Calcium 7.5 L (8.7-10.3) mg/dL 03/21/21 03/22/21 Range/Units 20:02 05:49 WBC (4.50-10.00) X 10*3/uL RBC (4.40-5.60) X 10*6/uL Hgb (13.0-17.0) g/dL Hct (39.6-50.0) % Plt Count (140-440) X 10*3/uL Carbon Dioxide (21.6-31.8) mmol/L Anion Gap (4.00-12.00) mmol/L BUN (9.0-27.0) mg/dL Est GFR (CKD-EPI)AfAm (60.0-200.0) Est GFR (CKD-EPI)NonAf (60.0-200.0) BUN/Creatinine Ratio (12.00-20.00) Ratio Glucose (70-110) mg/dL POC Glucose (mg/dL) 210 H 128 H (75-99) mg/dL Calcium (8.7-10.3) mg/dL Microbiology - Last 24 Hours (Table) 03/20/21 03:30 Blood Culture - Preliminary Blood No Growth after 48 hours 03/20/21 03:45 Blood Culture - Preliminary Blood No Growth after 48 hours Assessment and Plan Time with Patient: Greater than 30
--- NOTE | 2021-03-22 13:43 | P.PN ---
Subjective HISTORY OF PRESENTING ILLNESS This is a pleasant 80-year-old male past medical history significant for hypertension, dyslipidemia, hypothyroidism, type 2 diabetes. He does not follow with a test desk trouble locator. We have been asked to see in consultation for elevated troponin. Patient is seen and examined in the emergency department. Patient presents to the emergency department with complaints of shortness of breath and non-productive cough. His symptoms started 03/14 and progressively were getting worse and decided presents emergency department for further evaluation.. He denies any chest pain, nausea, diaphoresis, palpitations, lightheadedness, di zziness, symptoms of presyncope or syncope. Denies symptoms of orthopnea or PND. He denies fevers or chills. He denies any history of CT, stroke, coronary artery disease. He denies a family history of heart disease. He denies smoking, states he quit smoking many years ago. DIAGNOSTICS EKG reveals sinus rhythm with PVCs, left bundle branch block, heart rate 76, Left axis deviation. No prior EKG to compare Echocardiogram revealed an EF 4045% RV is mildly enlarged, mild to moderate mitral regurgitation, moderate severe tricuspid regurgitation, moderate to severe pulmonary hypertension with RVSP of 57 mmHg 03/22/21 Patient seen at bedside after stress test. His Lexiscan revealed cannot exclude small stress-induced reversible ischemia involving the apical lateral mycoardium. He reports improvement in his shortness of breath. He is on 3L Nasal cannula SpO2 90%. He does report shortness of breath with exertion. He reports a nonproductive cough. He denies chest pain or pressure. PHYSICAL EXAMINATION CONSTITUTIONAL: No apparent distress. HEENT: Neck Supple No JVD. CHEST EXAMINATION: Lungs are clear to auscultation. No chest wall tenderness is noted on palpation or with deep breathing. HEART EXAMINATION: Regular rate and rhythm. S1, S2 heard. Systolic ejection murmur at apex. ABDOMEN: Soft, nontender. Positive bowel sounds. EXTREMITIES: 2+ peripheral pulses, no lower extremity edema and no calf tenderness. NEUROLOGIC EXAMINATION: Patient is awake, alert and oriented x3. ASSESSMENT Acute hypoxic respiratory failure probably secondary to pneumonia Elevated troponin, mild, likely due to supply an demand mismatch Acute Kidney Injury Severe tricuspid regurgitation History of hypertension Dyslipidemia Type 2 diabetes Echocardiogram revealed cardiomyopathy with EF 40-45%, unclear if ischemic vs non-ischemic at this time History of hypothyroidism Lexiscan stresst test 03/22 cannot exclude small stress-induced reversible ischemia involving the apical lateral myocardium. PLAN -At this time, we will continue with current medical therapy with aspirin, statin, ACEI, and beta josette -Transition to PO Lasix 40mg daily -Patient will need a cardiac catheterization, most likely will let patient recover from Pneumonia with hypoxia and this can be performed at a later day. Discussed Lexiscan stress test results with Dr. Vides. -I also discussed the risks, benefits and alternative therapies for left heart catheterization with patient and for both sedation/analgesia to this patient. The patient has indicated understanding of the risks and procedures discussed. At this time, he is not interested in the cardiac catheterization during this hospitalization, however, recommend monitor patient overnight due to hypoxia and will address again with patient tomorrow. -Further recommendations based on clinical course. Nurse Practitioner note has been reviewed, I agree with a documented findings and plan of care. Patient was seen and examined. Objective - Vital Signs Vital signs: Vital Signs Temp 98.9 F 03/22/21 11:40 Pulse 69 03/22/21 11:40 Resp 19 03/22/21 12:01 BP 163/68 03/22/21 11:40 Pulse Ox 91 L 03/22/21 12:01 Intake & Output 03/21/21 03/22/21 03/22/21 18:59 06:59 18:59 Intake Total 10 240 Balance 10 240 Weight 101.9 kg 101.9 kg Intake: IV 10 Invasive Line 2 10 Oral 240 Other: Voiding Method Toilet Toilet Toilet # Voids 1 # Bowel Movements 1 - Labs CBC & Chem 7: 03/22/21 11:16 03/22/21 11:16 Labs: Abnormal Lab Results - Last 24 Hours (Table) 03/21/21 03/22/21 03/22/21 Range/Units 20:02 05:49 11:16 RBC 3.88 L (4.30-5.90) m/uL Hgb 11.8 L (13.0-17.5) gm/dL Hct 36.9 L (39.0-53.0) % Plt Count 587 H (150-450) k/uL BUN (9-20) mg/dL Creatinine (0.66-1.25) mg/dL Glucose (74-99) mg/dL POC Glucose (mg/dL) 210 H 128 H (75-99) mg/dL Calcium (8.4-10.2) mg/dL 03/22/21 03/22/21 Range/Units 11:16 11:38 RBC (4.30-5.90) m/uL Hgb (13.0-17.5) gm/dL Hct (39.0-53.0) % Plt Count (150-450) k/uL BUN 28 H (9-20) mg/dL Creatinine 1.27 H (0.66-1.25) mg/dL Glucose 161 H (74-99) mg/dL POC Glucose (mg/dL) 145 H (75-99) mg/dL Calcium 7.8 L (8.4-10.2) mg/dL Microbiology - Last 24 Hours (Table) 03/20/21 03:30 Blood Culture - Preliminary Blood No Growth after 48 hours 03/20/21 03:45 Blood Culture - Preliminary Blood No Growth after 48 hours
[2021-03-22 16:49] LABS: Glucose,Whole Blood 148 mg/dL (75-99)
[2021-03-22 20:59] LABS: Glucose,Whole Blood 133 mg/dL (75-99)
[2021-03-22] MEDS: ATORVASTATIN 20 MG TAB PO SCH (22:10)
[2021-03-23] MEDS: LEVOTHYROXINE 125 MCG TAB PO SCH (06:30)
[2021-03-23 06:44] LABS: Glucose,Whole Blood 137 mg/dL (75-99)
[2021-03-23] MEDS: INSULIN ASPART (NovoLOG) 100 UNIT/ML VIAL SQ SCH ×2 (07:04→12:15)
[2021-03-23] MEDS ORDERED: FUROSEMIDE 40 MG TAB PO SCH (09:00)
[2021-03-23] MEDS ORDERED: METOPROLOL TARTRATE 25 MG TAB PO SCH (09:00)
[2021-03-23] MEDS: lisinopriL 20 MG TAB PO SCH (09:55)
[2021-03-23] MEDS: HEPARIN SODIUM,PORCINE/PF 5,000 UNIT/0.5 ML SYRINGE SQ SCH (09:56)
[2021-03-23] MEDS: AZITHROMYCIN 500 MG TAB PO SCH (09:56)
[2021-03-23] MEDS: ASPIRIN 81 MG PO SCH (09:56)
[2021-03-23 12:14] LABS: Glucose,Whole Blood 141 mg/dL (75-99)
--- NOTE | 2021-03-23 12:25 | PN ---
PROGRESS NOTE Mr. Moore is an 80-year-old gentleman admitted to the hospital with shortness of breath, was found to have a pneumonia and is on antibiotics. Because of mildly elevated troponin, and a slightly abnormal echo with mild lateral wall hypokinesia, he was advised a Lexiscan stress test which revealed a questionable area of reversible defect. I have reviewed the scan myself. The area that is in question is very small and to me does not seem significant. Patient however has significant risk factors. I am recommending that we will treat him with medications at this time and upon discharge I will see him in the office on the tieth of this month. Once his pneumonia is cleared, I will re-evaluate him in the office and make further recommendations. He will be on aspirin, statin, and beta blockers. He is asymptomatic. He has not had any episodes of chest pain. He is resting comfortably without symptoms. Vital signs stable. No JVD. S1-S2 heard normally. Short systolic murmur noted. Lungs are clear. Abdomen is soft, nontender. Lower extremities reveal normal pulses. No edema. Central nervous system is normal. RECOMMENDATIONS: Plan is to treat him medically and after discharge I will see him in the office on the and we will then discuss different options including cardiac catheterization. MMODL / IJN: [id number] /
[2021-03-23 12:51] VITALS: BP 161/73; PULSE 68; RESP 19; TEMP 98
[2021-03-23] MEDS ORDERED: ATORVASTATIN 40 MG TAB PO SCH (21:00)
[2021-03-24] MEDS ORDERED: CEFDINIR 300 MG CAP PO SCH (09:00)
--- NOTE | 2021-03-24 11:38 | P.DS ---
Providers Date of admission: 03/20/21 03:15 Expected date of discharge: 03/23/21 Attending physician: Aureliano Ford Consults: 03/20/21 03:34 Consult Physician Urgent Consulting Provider: [facility] Consult Reason/Comments: elevated trop, CHF Do you want consulting provider notified?: Yes, Notify in am Primary care physician: [facility] Hospital Course: Final Diagnosis -Acute hypoxic respiratory failure secondary to pneumonia -Mild troponin elevation secondary to hypoxemia from pneumonia, unable to rule out ACS, possible stress-induced reversible ischemia found on stress test -moderate to severe pulmonary hypertension probably secondary to mitral regurgitation and/or sleep apnea. 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 Patient to follow- up with primary care provider at the [facility] upon discharge along with cardiology in the outpatient setting. Patient to complete a short course of cefdinir and zithromax to complete the course. Total time taken is greater than 35 minutes. Hospital Course Patient is is a pleasant 80-year-old male came in with complaints of shortness of breath cough with sputum production found to have right upper lobe pneumonia. Patient does have leukocytosis and low-grade fever as well. Patient had a remote history of smoking quit in 1966. Patient does have a elevated BNP denied any significant the proximal nocturnal dyspnea questionable orthopnea. Patient did get an echo cardiac exam which showed mildly decreased EF of around 40-45% and patient doesn't have a known history of can start failure patient does have severe tricuspid regurgitation and the moderate to severe pulmonary hypertension. Patient has mildly elevated troponins without any significant chest pain. Troponins are flat. Cardiology will evaluate the patient. 03/21/2020 Patient is evaluated today resting the bed. He is dyspneic however he states that he was just getting back from the bathroom. There is no wheezing noted. Plan is for patient to undergo a stress test tomorrow. He is 91% on 4 L nasal cannula. Does not wear any oxygen at home. Blood pressure today is 110/66, heart rate 69, temp 97.5. Labs today show a white count of 10.62, hemoglobin 10.4. CO2 is 20, BUN 33, creatinine 1.4, glucoses in the 170s. Patient continues on IV Rocephin, IV Lasix. Chest x-ray completed this afternoon shows findings consistent with history of pneumonia. 03/22/2021 Patient evaluated today status post Lexiscan stress test. Vital signs today show a temp of 98.9, heart rate 69 sinus rhythm, blood pressure 163/68 and he is 91% 3 L nasal cannula. Breathing is improved as compared to yesterday, there is no wheezing noted. Labs today show a hemoglobin of 11.8, sodium 137, potassium 4.5, BUN 28, creatinine 1.27. Sugars are running in the 160s. Nuclear imaging stress test results cannot exclude a small stress-induced reversible ischemia involving the apical lateral myocardium. There was nonspecific EKG portion secondary baseline EKG abnormalities with a left bundle branch block. Echocardiogram showed an EF of 40-45% with [id number] mitral regurgitation and moderate to severe tricuspid regurgitation, moderate to severe pulmonary hypertension. Further recommendations from cardiology. 03/23/2021 Patient is seen in follow up this morning and anticipating discharge. Patient was evaluated by cardiology and recommending cardiac catheterization and patient has opted to continue current medication regimen and discuss outpatient cardiac catheterization. Patient is requiring oxygen at 2 Liter via NC secondary to CHF and is being planned with case management for delivery to the room. Patient will continue on oral cefdinir and zithromax for the next few days to complete the course. Currently no reports of chest pain, shortness of breath, or pa lpitations. Patient is afebrile. No reports of nausea or vomiting and patient is tolerating diet. Patient will be discharged home today with home care. Guarded prognosis. GENERAL: The patient is alert and oriented x3, Well developed, well nourished. HEENT: Pupils are round and equally reacting to light. EOMI. No scleral icterus. Does have conjunctival pallor. Normocephalic, atraumatic. No pharyngeal erythema. No thyromegaly. CARDIOVASCULAR: S1 and S2 muffled PULMONARY: diminished breath sounds bilaterally with coarse rhonchi noted. ABDOMEN: Soft, non-tender, normoactive bowel sounds. No palpable organomegaly. MUSCULOSKELETAL: No joint swelling or deformity. EXTREMITIES: No cyanosis, clubbing, or pedal edema. NEUROLOGICAL: Gross neurological examination did not reveal any focal deficits. SKIN: No rashes. Please see medication reconcilation for list of current medications. Patient Condition at Discharge: Stable Plan - Discharge Summary Discharge Rx Participant: No New Discharge Prescriptions: New Metoprolol Tartrate [Lopressor] 25 mg PO BID 30 Days #60 tab Acetaminophen Tab [Tylenol] 650 mg PO Q6HR PRN tab PRN Reason: Mild Pain Or Fever > 100.5 Azithromycin [Zithromax] 500 mg PO DAILY 3 Days #3 tab Furosemide [Lasix] 40 mg PO DAILY 30 Days #30 tab Cefdinir [Omnicef] 300 mg PO BID 5 Days #10 cap Continue lisinopriL [Prinivil] 20 mg PO DAILY Levothyroxine Sodium [Synthroid] 125 mcg PO DAILY Carboxymethylcellulose Sodium [Refresh Tears] 1 drop BOTH EYES QID PRN PRN Reason: Dry Eye(S) Aspirin EC [Ecotrin Low Dose] 81 mg PO Q48H Sildenafil Citrate [Viagra] 100 mg PO DAILY PRN PRN Reason: sexual intercourse metFORMIN HCL 500 mg PO BID Simvastatin [Zocor] 40 mg PO HS Discontinued amLODIPine [Norvasc] 10 mg PO DAILY Discharge Medication List Aspirin EC [Ecotrin Low Dose] 81 mg PO Q48H 03/20/21 [History] Carboxymethylcellulose Sodium [Refresh Tears] 1 drop BOTH EYES QID PRN 03/20/21 [History] Levothyroxine Sodium [Synthroid] 125 mcg PO DAILY 03/20/21 [History] Sildenafil Citrate [Viagra] 100 mg PO DAILY PRN 03/20/21 [History] Simvastatin [Zocor] 40 mg PO HS 03/20/21 [History] lisinopriL [Prinivil] 20 mg PO DAILY 03/20/21 [History] metFORMIN HCL 500 mg PO BID 03/20/21 [History] Acetaminophen Tab [Tylenol] 650 mg PO Q6HR PRN tab 03/23/21 [Rx] Azithromycin [Zithromax] 500 mg PO DAILY 3 Days #3 tab 03/23/21 [Rx] Cefdinir [Omnicef] 300 mg PO BID 5 Days #10 cap 03/23/21 [Rx] Furosemide [Lasix] 40 mg PO DAILY 30 Days #30 tab 03/23/21 [Rx] Metoprolol Tartrate [Lopressor] 25 mg PO BID 30 Days #60 tab 03/23/21 [Rx] Follow up Appointment(s)/Referral(s): Gene Vides MD [STAFF PHYSICIAN] - 04/03/21 3:15 pm (At [facility], by the [employer]) [facility] [Primary Care Provider] - 04/02/21 2:30 pm Patient Instructions/Handouts: Heart Attack (DC), Community Acquired Pneumonia (DC) Activity/Diet/Wound Care/Special Instructions: Patient will require home oxygen at discharge to manage CHF Activity Limited until follow-up Follow-up with primary care provider on discharge Continue taking medications as prescribed Continue antibiotics until finished Follow-up cardiology as discussed and scheduled continue with heart healthy diabetic diet Discharge/Stand Alone Forms: Personal Right Of Way Man Discharge Disposition: HOME SELF-CARE
== END 2021-03-23 14:06 | disposition home or self-care (01) | DRG 193 ==
LOC: EC 23:41 → 3SCARD 03-20 03:15 → 1SOBS 03-20 11:44 → 4SSUR 03-20 14:53 → 1SOBS 03-21 04:10 → 3SCARD 03-21 18:31
PROVIDERS: ADMIT Hospitalist; ATTEND Hospitalist
DX: J18.9 Pneumonia, unspecified organism (principal); J96.01 Acute respiratory failure with hypoxia; I50.22 Chronic systolic (congestive) heart failure; I42.9 Cardiomyopathy, unspecified; N17.9 Acute kidney failure, unspecified; I24.9 Acute ischemic heart disease, unspecified; E11.9 Type 2 diabetes mellitus without complications; E78.5 Hyperlipidemia, unspecified; E86.0 Dehydration; E89.0 Postprocedural hypothyroidism; F17.200 Nicotine dependence, unspecified, uncomplicated; I08.1 Rheumatic disorders of both mitral and tricuspid valves; I11.0 Hypertensive heart disease with heart failure; I27.20 Pulmonary hypertension, unspecified; I44.7 Left bundle-branch block, unspecified; Z20.822 Contact with and (suspected) exposure to COVID-19; Z79.82 Long term (current) use of aspirin; Z79.84 Long term (current) use of oral hypoglycemic drugs; Z79.890 Hormone replacement therapy; Z79.899 Other long term (current) drug therapy; Z82.0 Family history of epilepsy and other diseases of the nervous system; Z82.49 Family history of ischemic heart disease and other diseases of the circulatory system; Z87.01 Personal history of pneumonia (recurrent)
CPT/HCPCS: 36415; 71046; 78452; 80048; 80053; 83605; 83735; 83880; 84484; 85025; 85027; 85379; 85610; 85730; 87040; 87635; 93005; 93017; 93306; 94760; 96361; 96365; 96366; 96367; 99285

== ENCOUNTER 2021-07-27 02:12 | Inpatient (IN) | payer OTHER, MEDICARE ==
--- NOTE | 2021-07-27 02:46 | XR ---
EXAMINATION TYPE: XR chest 2V DATE OF EXAM: 07/27/2021 COMPARISON: 03/21/2021 HISTORY: Short of breath TECHNIQUE: FINDINGS: There is some pulmonary interstitial and airspace edema. There is fluid in the major fissur es. There is mild blunting of the costophrenic angles. Heart size is normal. Bony thorax is intact. IMPRESSION: Pulmonary edema and pleural fluid similar to last exam and could relate to chronic conges tive heart failure. There is some improvement in the right upper lobe compared to last exam.
[2021-07-27] MEDS ORDERED: NITROGLYCERIN SL TABS 0.4 MG TAB SUBLINGUAL STA (03:22)
[2021-07-27] MEDS ORDERED: FUROSEMIDE 10 MG/ML 4 ML VIAL IV STA (03:22)
--- NOTE | 2021-07-27 03:26 | ED ---
SOB HPI - General Chief Complaint: Shortness of Breath Stated Complaint: SOB Time Seen by Provider: 07/27/21 02:53 Source: patient Mode of arrival: wheelchair Limitations: no limitations - History of Present Illness Initial Comments: This patient is an 81-year-old man who presents with cough and shortness of breath is been going on for number days up to a week. He states that the breathing is worse if he lies flat. He had not noted any congestion. No fever or chills. Cough is nonproductive. No chest pain. He has not had leg pain or swelling. No change in urination or bowel movements. MD Complaint: shortness of breath, cough Onset/Timin -: week(s) Consistency: constant Improves With: nothing Worsens With: lying flat Associated Symptoms: cough Treatments Prior to Arrival: none - Related Data Home Medications Medication Instructions Recorded Confirmed Aspirin EC [Ecotrin Low Dose] 81 mg PO Q48H 03/20/21 07/27/21 Carboxymethylcellulose Sodium 1 drop BOTH EYES QID PRN 03/20/21 07/27/21 [Refresh Tears] Levothyroxine Sodium [Synthroid] 125 mcg PO DAILY 03/20/21 07/27/21 Sildenafil Citrate [Viagra] 100 mg PO DAILY PRN 03/20/21 07/27/21 Simvastatin [Zocor] 40 mg PO HS 03/20/21 07/27/21 lisinopriL [Prinivil] 20 mg PO DAILY 03/20/21 07/27/21 metFORMIN HCL 500 mg PO BID 03/20/21 07/27/21 Previous Rx's Medication Instructions Recorded Acetaminophen Tab [Tylenol] 650 mg PO Q6HR PRN tab 03/23/21 Furosemide [Lasix] 40 mg PO DAILY 30 Days #30 tab 03/23/21 Metoprolol Tartrate [Lopressor] 25 mg PO BID 30 Days #60 tab 03/23/21 Allergies Allergy/AdvReac Type Severity Reaction Status Date / Time No Known Allergies Allergy Verified 07/27/21 06:47 Review of Systems ROS Statement: Those systems with pertinent positive or pertinent negative responses have been documented in the HPI. ROS Other: All systems not noted in ROS Statement are negative. Constitutional: Denies: fever, chills Respiratory: Reports: cough, dyspnea. Denies: wheezes, hemoptysis Cardiovascular: Reports: orthopnea. Denies: chest pain, palpitations, edema, syncope Gastrointestinal: Denies: abdominal pain, vomiting, diarrhea Genitourinary: Denies: dysuria Musculoskeletal: Denies: back pain Neurological: Denies: headache, weakness Past Medical History Past Medical History: Hyperlipidemia, Hypertension, Thyroid Disorder History of Any Multi-Drug Resistant Organisms: None Reported Additional Past Surgical History / Comment(s): Thyroidectomy Past Anesthesia/Blood Transfusion Reactions: No Reported Reaction Past Psychological History: No Psychological Hx Reported Smoking Status: Former smoker Past Alcohol Use History: None Reported Past Drug Use History: None Reported - Past Family History Mother Family Medical History: Dementia Additional Family Medical History / Comment(s): alzheimers Father Family Medical History: Congestive Heart Failure (CHF) General Exam Limitations: no limitations General appearance: alert, in no apparent distress Head exam: Present: atraumatic, normocephalic Eye exam: Present: normal appearance Neck exam: Present: normal inspection Respiratory exam: Present: rales (Bilateral lower lung schafer). Absent: respiratory distress, wheezes, rhonchi, stridor, chest wall tenderness, accessory muscle use, decreased breath sounds Cardiovascular Exam: Present: regular rate, normal rhythm, normal heart sounds. Absent: systolic murmur, diastolic murmur, rubs, gallop GI/Abdominal exam: Present: soft. Absent: distended, tenderness, guarding, rebound, rigid, mass Extremities exam: Present: normal inspection, normal capillary refill. Absent: pedal edema, calf tenderness Back exam: Present: normal inspection Neurological exam: Present: alert Skin exam: Present: warm, dry, intact, normal color. Absent: rash Course Vital Signs 07/27/21 07/27/21 07/27/21 02:18 03:54 06:50 Temperature 97.6 F Pulse Rate 75 61 70 Respiratory 24 18 18 Rate Blood Pressure 186/63 168/103 157/78 O2 Sat by Pulse 96 95 94 L Oximetry Medical Decision Making - Lab Data Result diagrams: 07/27/21 03:09 07/27/21 03:10 Lab Results 07/27/21 07/27/21 07/27/21 Range/Units 03:09 03:09 03:09 WBC 5.9 (3.8-10.6) k/uL RBC 4.64 (4.30-5.90) m/uL Hgb 13.2 (13.0-17.5) gm/dL Hct 41.5 (39.0-53.0) % MCV 89.5 (80.0-100.0) fL MCH 28.5 (25.0-35.0) pg MCHC 31.9 (31.0-37.0) g/dL RDW 15.1 (11.5-15.5) % Plt Count 346 (150-450) k/uL MPV 8.0 Neutrophils % 46 % Lymphocytes % 34 % Monocytes % 11 % Eosinophils % 5 % Basophils % 2 % Neutrophils # 2.7 (1.3-7.7) k/uL Lymphocytes # 2.0 (1.0-4.8) k/uL Monocytes # 0.6 (0-1.0) k/uL Eosinophils # 0.3 (0-0.7) k/uL Basophils # 0.1 (0-0.2) k/uL PT 11.2 (9.0-12.0) sec INR 1.0 (<1.2) APTT 25.4 (22.0-30.0) sec Sodium (137-145) mmol/L Potassium (3.5-5.1) mmol/L Chloride (98-107) mmol/L Carbon Dioxide (22-30) mmol/L Anion Gap mmol/L BUN (9-20) mg/dL Creatinine (0.66-1.25) mg/dL Est GFR (CKD-EPI)AfAm (>60 ml/min/1.73 sqM) Est GFR (CKD-EPI)NonAf (>60 ml/min/1.73 sqM) Glucose (74-99) mg/dL Plasma Lactic Acid Rishabh 1.6 (0.7-2.0) mmol/L Calcium (8.4-10.2) mg/dL Total Bilirubin (0.2-1.3) mg/dL AST (17-59) U/L ALT (4-49) U/L Alkaline Phosphatase (38-126) U/L Troponin I (0.000-0.034) ng/mL NT-Pro-B Natriuret Pep pg/mL Total Protein (6.3-8.2) g/dL Albumin (3.5-5.0) g/dL 07/27/21 07/27/2107/27/22 Range/Units 03:09 03:10 03:43 WBC (3.8-10.6) k/uL RBC (4.30-5.90) m/uL Hgb (13.0-17.5) gm/dL Hct (39.0-53.0) % MCV (80.0-100.0) fL MCH (25.0-35.0) pg MCHC (31.0-37.0) g/dL RDW (11.5-15.5) % Plt Count (150-450) k/uL MPV Neutrophils % % Lymphocytes % % Monocytes % % Eosinophils % % Basophils % % Neutrophils # (1.3-7.7) k/uL Lymphocytes # (1.0-4.8) k/uL Monocytes # (0-1.0) k/uL Eosinophils # (0-0.7) k/uL Basophils # (0-0.2) k/uL PT (9.0-12.0) sec INR (<1.2) APTT (22.0-30.0) sec Sodium 138 (137-145) mmol/L Potassium 3.7 (3.5-5.1) mmol/L Chloride 103 (98-107) mmol/L Carbon Dioxide 24 (22-30) mmol/L Anion Gap 11 mmol/L BUN 27 H (9-20) mg/dL Creatinine 1.07 (0.66-1.25) mg/dL Est GFR (CKD-EPI)AfAm 75 (>60 ml/min/1.73 sqM) Est GFR (CKD-EPI)NonAf 65 (>60 ml/min/1.73 sqM) Glucose 156 H (74-99) mg/dL Plasma Lactic Acid Rishabh (0.7-2.0) mmol/L Calcium 7.9 L (8.4-10.2) mg/dL Total Bilirubin 0.8 (0.2-1.3) mg/dL AST 26 (17-59) U/L ALT 12 (4-49) U/L Alkaline Phosphatase 101 (38-126) U/L Troponin I 0.062 H* (0.000-0.034) ng/mL NT-Pro-B Natriuret Pep 00232 pg/mL Total Protein 7.8 (6.3-8.2) g/dL Albumin 3.7 (3.5-5.0) g/dL Disposition Clinical Impression: Congestive heart failure Disposition: ADMITTED IP TO THIS HOSP Condition: Good Is patient prescribed a controlled substance at d/c from ED?: No
[2021-07-27 03:54] LABS: Basophils # (A) 0.1 k/uL (0-0.2); Basophils % (A) 2 %; Eosinophils # (A) 0.3 k/uL (0-0.7); Eosinophils % (A) 5 %; HCT 41.5 % (39.0-53.0); HGB 13.2 gm/dL (13.0-17.5); Lymphocytes % (A) 34 %; MCH 28.5 pg (25.0-35.0); MCHC 31.9 g/dL (31.0-37.0); MCV 89.5 fL (80.0-100.0); Monocytes # (A) 0.6 k/uL (0-1.0); Monocytes % (A) 11 %; Neutrophils # (A) 2.7 k/uL (1.3-7.7); Neutrophils % (A) 46 %; Platelet Count 346 k/uL (150-450); RBC 4.64 m/uL (4.30-5.90); RDW 15.1 % (11.5-15.5); WBC 5.9 k/uL (3.8-10.6)
[2021-07-27 04:03] LABS: Partial Thromboplastin Time 25.4 sec (22.0-30.0); Prothrombin Time 11.2 sec (9.0-12.0)
[2021-07-27 04:09] LABS: Albumin 3.7 g/dL (3.5-5.0); Calcium 7.9 mg/dL (8.4-10.2); Potassium 3.7 mmol/L (3.5-5.1); Total Bilirubin 0.8 mg/dL (0.2-1.3); Total Protein 7.8 g/dL (6.3-8.2)
[2021-07-27] MEDS ORDERED: NON FORMULARY DRUG (Sildenafil Citrate [Viagra] 100 MG Tablet) PO PRN (07:32)
[2021-07-27] MEDS ORDERED: ARTIFICIAL TEARS-HYPROMELLOSE DROPS 15 ML BTL BOTH EYES PRN (07:32)
[2021-07-27] MEDS ORDERED: ACETAMINOPHEN TAB 325 MG TAB PO PRN (07:32)
[2021-07-27] MEDS ORDERED: POTASSIUM CHLORIDE ER 20 MEQ TAB.ER PO STA (08:05)
--- NOTE | 2021-07-27 08:38 | P.CRDCN ---
History of Present Illness Consult date: 07/27/21 History of present illness: History of Present Illness: The patient is an 81-year-old male who presents with symptoms of progressive dyspnea. He was in the hospital in March with pneumonia and dyspnea and at that time his echocardiogram showed an ejection fraction of 40-45% with [id number] mitral and moderate to severe tricuspid regurgitation was moderate to severe pulmonary hypertension. He had mild elevation of his troponin at that time and had an MPI that showed an apical lateral wall small area of possible ischemia. His ejection fraction was 49%. The patient was scheduled to be seen by Dr. Vides for discussing cardiac catheterization but he did not keep his appointment. For the last couple weeks he's been complaining of dyspnea on exertion without any chest discomfort. He has a mild cough, nonproductive. He denies any fever, PND or orthopnea. He denies any peripheral edema. On the monitor he is in sinus mechanism with episodes of frequent PVCs, asymptomatic. The patient has no prior history of documented ischemic heart disease in the past. He denies any dizziness or syncope. He is relatively compliant with low salt intake. His coronary risk factors are positive for hypertension and hyperlipidemia, he stopped smoking over 30 years ago. He is diabetic. His medication at home include metformin 500 mg twice a day, Prinivil 20 mg daily, simvastatin 40 mg daily, metoprolol tartrate 25 mg twice a day, Lasix 40 mg daily, levothyroxine and aspirin once a day. Review of Systems: Respiratory: He has a history of dyspnea with no significant cough GI: She had nausea and vomiting today. No history of peptic ulcer disease. No recent GI bleed. : No hematuria or dysuria. Nervous System: No stroke or seizure. Physical Examination: 81-year-old male, alert oriented no apparent distress. Blood pressure running in the 160s to 180s, heart rate in the 70s Head: Normocephalic. Eyes: Sclerae nonicteric. Neck: Good carotid upstroke, no bruit, no jugular venous distention. Lungs: Few crackles at the bases Heart: Regular rate and rhythm, S1-S2, no S3, no rub. Systolic murmur at the apex, 2/6. Abdomen: Soft nontender, positive bowel sounds no organomegaly. Extremities: No edema, intact distal pulses. Labs: BUN 27, creatinine 1.07, hemoglobin 13.2, NT proBNP 10,300. Troponin 0.062. EKG shows sinus mechanism with left bundle branch block, first-degree AV block and left axis deviation. Chest x-ray consistent was lung congestion Impression: 1. Progressive dyspnea with evidence of congestive heart failure with moderate ly impaired systolic function in the past and evidence of pulmonary hypertension 2. Mild troponin elevation of unclear etiology, no evidence to suggest acute coronary syndrome. Probably type II event. Patient had an MPI in March and was scheduled to be evaluated for possible cardiac catheterization 3. Hypertension, elevated 4. Hyperlipidemia 5. Diabetes mellitus Plan: 1. Continue IV diuretics for 24 hours 2. Follow renal functions 3. Adjust antihypertensive regimen 4. Patient would require cardiac catheterization to further assess his status and guide his treatment. He will be reassessed in the next 24-48 hours regarding the timing of his cardiac catheterization.If he has no evidence of obstructive coronary disease and continues to have symptoms of CHF he may be a candidate for biventricular pacing 5. Depending on his progress further recommendations will be made. Thank you for this consult we will follow with you. Past Medical History Past Medical History: Hyperlipidemia, Hypertension, Thyroid Disorder History of Any Multi-Drug Resistant Organisms: None Reported Additional Past Surgical History / Comment(s): Thyroidectomy Past Anesthesia/Blood Transfusion Reactions: No Reported Reaction Past Psychological History: No Psychological Hx Reported Smoking Status: Former smoker Past Alcohol Use History: None Reported Past Drug Use History: None Reported - Past Family History Mother Family Medical History: Dementia Additional Family Medical History / Comment(s): alzheimers Father Family Medical History: Congestive Heart Failure (CHF) Medications and Allergies Home Medications Medication Instructions Recorded Confirmed Type Aspirin EC [Ecotrin Low Dose] 81 mg PO Q48H 03/20/21 07/27/21 History Carboxymethylcellulose Sodium 1 drop BOTH EYES QID PRN 03/20/21 07/27/21 History [Refresh Tears] Levothyroxine Sodium [Synthroid] 125 mcg PO DAILY 03/20/21 07/27/21 History Sildenafil Citrate [Viagra] 100 mg PO DAILY PRN 03/20/21 07/27/21 History Simvastatin [Zocor] 40 mg PO HS 03/20/21 07/27/21 History lisinopriL [Prinivil] 20 mg PO DAILY 03/20/21 07/27/21 History metFORMIN HCL 500 mg PO BID 03/20/21 07/27/21 History Acetaminophen Tab [Tylenol] 650 mg PO Q6HR PRN tab 03/23/21 07/27/21 Rx Furosemide [Lasix] 40 mg PO DAILY 30 Days #30 tab 03/23/21 07/27/21 Rx Metoprolol Tartrate [Lopressor] 25 mg PO BID 30 Days #60 tab 03/23/21 07/27/21 Rx Allergies Allergy/AdvReac Type Severity Reaction Status Date / Time No Known Allergies Allergy Verified 07/27/21 06:47 Physical Exam Vitals: Vital Signs Temp Pulse Resp BP Pulse Ox 07/27/21 06:50 70 18 157/78 94 L 07/27/21 03:54 61 18 168/103 95 07/27/21 02:18 97.6 F 75 24 186/63 96 Intake and Output 07/26/21 07/27/21 07/27/21 22:59 06:59 14:59 Other: Weight 89.358 kg Results 07/27/21 03:09 07/27/21 03:10 Cardiac Enzymes 07/27/21 07/27/21 Range/Units 03:09 03:10 AST 26 (17-59) U/L Troponin I 0.062 H* (0.000-0.034) ng/mL Coagulation 07/27/21 Range/Units 03:09 PT 11.2 (9.0-12.0) sec APTT 25.4 (22.0-30.0) sec CBC 07/27/21 Range/Units 03:09 WBC 5.9 (3.8-10.6) k/uL RBC 4.64 (4.30-5.90) m/uL Hgb 13.2 (13.0-17.5) gm/dL Hct 41.5 (39.0-53.0) % Plt Count 346 (150-450) k/uL Comprehensive Metabolic Panel 07/27/21 Range/Units 03:10 Sodium 138 (137-145) mmol/L Potassium 3.7 (3.5-5.1) mmol/L Chloride 103 (98-107) mmol/L Carbon Dioxide 24 (22-30) mmol/L BUN 27 H (9-20) mg/dL Creatinine 1.07 (0.66-1.25) mg/dL Glucose 156 H (74-99) mg/dL Calcium 7.9 L (8.4-10.2) mg/dL AST 26 (17-59) U/L ALT 12 (4-49) U/L Alkaline Phosphatase 101 (38-126) U/L Total Protein 7.8 (6.3-8.2) g/dL Albumin 3.7 (3.5-5.0) g/dL Current Medications Generic Name Dose Route Start Last Admin Trade Name Freq PRN Reason Stop Dose Admin Acetaminophen 650 mg 07/27/21 07:32 Acetaminophen Tab 325 Mg Tab PO Q6HR PRN Mild Pain or Fever > 100.5 Artificial Tears 1 drops 07/27/21 07:32 Artificial Tears-Hypromellose Drops 15 Ml Btl BOTH EYES QID PRN Dry Eye(s) Aspirin 81 mg 07/28/21 09:00 Aspirin 81 Mg PO Q48H [facility] Atorvastatin Calcium 20 mg 07/27/21 21:00 Atorvastatin 20 Mg Tab PO HS PAPITO Famotidine 20 mg 07/27/21 09:00 Famotidine 20 Mg/2 Ml Vial IV Q12HR [facility] Furosemide 40 mg 07/27/21 18:00 Furosemide 10 Mg/Ml 4 Ml Vial IV Q12H [facility] Heparin Sodium (Porcine) 5,000 unit 07/27/21 09:00 Heparin Sodium,Porcine/Pf 5,000 Unit/0.5 Ml Syringe SQ Q12HR [facility] Levothyroxine Sodium 125 mcg 07/27/21 09:00 Levothyroxine 125 Mcg Tab PO DAILY@0630 [facility] Lisinopril 20 mg 07/27/21 09:00 Lisinopril 20 Mg Tab PO DAILY [facility] Metformin HCl 500 mg 07/27/21 09:00 Metformin 500 Mg Tab PO BID [facility] Metoprolol Tartrate 25 mg 07/27/21 09:00 Metoprolol Tartrate 25 Mg Tab PO BID [facility] Nitroglycerin 0.5 inch 07/27/21 09:00 Nitroglycerin Oint 1 Inch/Gm Packet TOPICAL QID [facility] Sodium Chloride 10 ml 07/27/21 09:00 Sodium Chloride 0.9% Flush 10 Ml Syringe IV BID PAPITO Intake and Output 07/26/21 07/27/21 07/27/21 22:59 06:59 14:59 Other: Weight 89.358 kg 07/27/21 03:09 07/27/21 03:10
[2021-07-27] MEDS ORDERED: HEPARIN SODIUM,PORCINE/PF 5,000 UNIT/0.5 ML SYRINGE SQ SCH (09:00)
[2021-07-27] MEDS ORDERED: lisinopriL 20 MG TAB PO SCH (09:00)
[2021-07-27] MEDS ORDERED: METOPROLOL TARTRATE 25 MG TAB PO SCH (09:00)
[2021-07-27] MEDS ORDERED: NITROGLYCERIN OINT 1 INCH/GM PACKET TOPICAL SCH (09:00)
[2021-07-27] MEDS: lisinopriL 20 MG TAB PO SCH ×2 (09:06→20:53)
[2021-07-27] MEDS: metFORMIN 500 MG TAB PO SCH ×2 (09:06→20:53)
[2021-07-27] MEDS: SPIRONOLACTONE 25 MG TAB PO SCH (09:06)
[2021-07-27] MEDS: LEVOTHYROXINE 125 MCG TAB PO SCH (09:06)
[2021-07-27] MEDS: FAMOTIDINE 20 MG/2 ML VIAL IV SCH ×2 (09:07→20:54)
[2021-07-27] MEDS: METOPROLOL TARTRATE 25 MG TAB PO SCH ×3 (09:07→20:53)
[2021-07-27] MEDS: HEPARIN SODIUM,PORCINE/PF 5,000 UNIT/0.5 ML SYRINGE SQ SCH ×2 (09:07→20:54)
[2021-07-27 10:02] LABS: Magnesium 1.8 mg/dL (1.6-2.3)
[2021-07-27 10:42] VITALS: BMI 28.3
--- NOTE | 2021-07-27 12:54 | P.HPIM ---
History of Present Illness this is a pleasant 81 yo Female with past medical history of hypertension , hyperlipidemia, and hypothyoridism . she follow up with the [facility] clinic this time she presents to the hospital with dyspnea and orthopnea, worsening ove r the last few days Associated with little dry cough. Patient denies chest pain or epigastric pain. No history of heart disease before, he saw a tariff publishing agent before [facility] where he was in the hospital for pneumonia Vitals are stable and she is saturating 94-96% on room air. Labs including CBC, INR, BMP and liver enzymes are unremarkable. Troponin is elevated at 0.06. ProBNP is elevated at 10 300 Chest x-ray: Pulmonary edema and pleural fluid similar to last exam and could be related to chronic congestive heart failure In the emergency room patient was started on Lasix Review of Systems CONSTITUTIONAL: No fever, no malaise, no fatigue. HEENT: No recent visual problems or hearing problems. Denied any sore throat. CARDIOVASCULAR: No orthopnea, PND, no palpitations, no syncope. PULMONARY: No chest wall tenderness, no hemoptysis. GASTROINTESTINAL: No diarrhea, no nausea, no vomiting, no abdominal pain. Normoactive bowel sounds. NEUROLOGICAL: No headaches, no weakness, no numbness. HEMATOLOGICAL: Denies any bleeding or petechiae. GENITOURINARY: Denies any burning micturition, frequency, or urgency. MUSCULOSKELETAL/RHEUMATOLOGICAL: Denies any joint pain, swelling, or any muscle pain. ENDOCRINE: Denies any polyuria or polydipsia. Past Medical History Past Medical History: Hyperlipidemia, Hypertension, Thyroid Disorder History of Any Multi-Drug Resistant Organisms: None Reported Additional Past Surgical History / Comment(s): Thyroidectomy Past Anesthesia/Blood Transfusion Reactions: No Reported Reaction Past Psychological History: No Psychological Hx Reported Smoking Status: Former smoker Past Alcohol Use History: None Reported Past Drug Use History: None Reported - Past Family History Mother Family Medical History: Dementia Additional Family Medical History / Comment(s): alzheimers Father Family Medical History: Congestive Heart Failure (CHF) Medications and Allergies Home Medications Medication Instructions Recorded Confirmed Type Aspirin EC [Ecotrin Low Dose] 81 mg PO Q48H 03/20/21 07/27/21 History Carboxymethylcellulose Sodium 1 drop BOTH EYES QID PRN 03/20/21 07/27/21 History [Refresh Tears] Levothyroxine Sodium [Synthroid] 125 mcg PO DAILY 03/20/21 07/27/21 History Sildenafil Citrate [Viagra] 100 mg PO DAILY PRN 03/20/21 07/27/21 History Simvastatin [Zocor] 40 mg PO HS 03/20/21 07/27/21 History lisinopriL [Prinivil] 20 mg PO DAILY 03/20/21 07/27/21 History metFORMIN HCL 500 mg PO BID 03/20/21 07/27/21 History Acetaminophen Tab [Tylenol] 650 mg PO Q6HR PRN tab 03/23/21 07/27/21 Rx Furosemide [Lasix] 40 mg PO DAILY 30 Days #30 tab 03/23/21 07/27/21 Rx Metoprolol Tartrate [Lopressor] 25 mg PO BID 30 Days #60 tab 03/23/21 07/27/21 Rx Allergies Allergy/AdvReac Type Severity Reaction Status Date / Time No Known Allergies Allergy Verified 07/27/21 06:47 Physical Exam Vitals: Vital Signs Temp Pulse Resp BP Pulse Ox 07/27/21 06:50 70 18 157/78 94 L 07/27/21 03:54 61 18 168/103 95 07/27/21 02:18 97.6 F 75 24 186/63 96 Intake and Output 07/26/21 07/27/21 07/27/21 22:59 06:59 14:59 Other: Weight 89.358 kg GENERAL: The patient is alert and oriented x3, not in any acute distress. Well developed, well nourished. HEENT: Pupils are round and equally reacting to light. EOMI. No scleral icterus. No conjunctival pallor. Normocephalic, atraumatic. No pharyngeal erythema. No thyromegaly. CARDIOVASCULAR: S1 and S2 present. No murmurs, rubs, or gallops. -PULMONARY: Chest is clear to auscultation, no wheezing. Bilateral basal crepitation ABDOMEN: Soft, nontender, nondistended, normoactive bowel sounds. No palpable organomegaly. MUSCULOSKELETAL: No joint swelling or deformity. -EXTREMITIES: No cyanosis, clubbing, mild bilateral pitting like edema NEUROLOGICAL: Gross neurological examination did not reveal any focal deficits. SKIN: No rashes. No petechiae Results CBC & Chem 7: 07/27/21 03:09 07/27/21 03:10 Labs: Abnormal Lab Results - Last 24 Hours (Table) 07/27/21 07/27/21 Range/Units 03:09 03:10 BUN 27 H (9-20) mg/dL Glucose 156 H (74-99) mg/dL Calcium 7.9 L (8.4-10.2) mg/dL Troponin I 0.062 H* (0.000-0.034) ng/mL Assessment and Plan Assessment: Acute CHF exacerbation Elevated troponin Hypertension Hyperlipidemia Hypothyroidism Plan: This is a pleasant 81 years old female who presents with CHF and elevated troponin Continue with IV Lasix Cardiology consult Continue with aspirin 81 mg Monitor input and output. Check TSH, hemoglobin A1c and procalcitonin Labs and medication were reviewed.. Continue same treatment. Continue with symptomatic treatment. Resume home medication. Monitor lytes and vitals. DVT and GI prophylaxis. Further recommendations depends on the clinical course of the patient DVT prophylaxis: Subcutaneous heparin GI Prophylaxis: Pepcid PT/OT: Pending Prognosis is guarded
[2021-07-27] MEDS: FUROSEMIDE 10 MG/ML 4 ML VIAL IV SCH (17:10)
[2021-07-27 20:28] LABS: Glucose,Whole Blood 143 mg/dL (75-99)
[2021-07-27] MEDS: ATORVASTATIN 20 MG TAB PO SCH (20:53)
[2021-07-28 06:12] LABS: Glucose,Whole Blood 132 mg/dL (75-99)
[2021-07-28] MEDS: FUROSEMIDE 10 MG/ML 4 ML VIAL IV SCH (06:33)
[2021-07-28] MEDS: LEVOTHYROXINE 125 MCG TAB PO SCH (06:33)
[2021-07-28] MEDS: METOPROLOL TARTRATE 25 MG TAB PO SCH (08:24)
[2021-07-28] MEDS: HEPARIN SODIUM,PORCINE/PF 5,000 UNIT/0.5 ML SYRINGE SQ SCH ×2 (08:24→20:47)
[2021-07-28] MEDS: FAMOTIDINE 20 MG/2 ML VIAL IV SCH (08:24)
[2021-07-28] MEDS: ASPIRIN 81 MG PO SCH (08:24)
[2021-07-28] MEDS: lisinopriL 20 MG TAB PO SCH ×2 (08:24→20:46)
[2021-07-28] MEDS: SPIRONOLACTONE 25 MG TAB PO SCH (08:24)
[2021-07-28 10:08] LABS: Calcium 7.7 mg/dL (8.4-10.2); Magnesium 1.7 mg/dL (1.6-2.3); Potassium 3.5 mmol/L (3.5-5.1)
[2021-07-28 11:44] LABS: Glucose,Whole Blood 105 mg/dL (75-99)
[2021-07-28] MEDS: metFORMIN 500 MG TAB PO SCH (12:53)
--- NOTE | 2021-07-28 15:45 | P.PN ---
Subjective Progress Note Date: 07/28/21 PROGRESS NOTE The patient is a 81-year-old male who presents with progressive dyspnea. He had an abnormal MPI recently and was scheduled to be followed by Dr. Vides for possible coronary angiography. He is feeling better today. His breathing is better. He denies any chest discomfort, dizziness or palpitations. He denies any PND or orthopnea. He continues to be on aspirin once a day, Lasix 40 mg IV every 12 hours, lisinopril 20 mg twice a day, Glucophage 500 mg twice a day, metoprolol 25 mg 3 times a day, spironolactone 25 mg daily PHYSICAL EXAMINATION: Blood pressure 148/60 heart rate 63 LUNGS: Clear to auscultation HEART: Regular rate and rhythm, S1, S2. No S3. Systolic murmur at the apex ABDOMEN: Soft, nontender, no organomegaly EXTREMETIES: No edema LAB: Potassium 3.5, creatinine 1.38, NT proBNP 7740. Improved IMPRESSION: 1. Congestive heart failure with impaired systolic function 2. Worsening renal function 3. Abnormal MPI 4. History of hypertension PLAN: 1. Changed to oral diuretics 2. Follow renal functions 3. If stable proceed with cardiac catheterization on Friday by Dr. Vides, if renal functions have not improved then consider cardiac catheterization as an outpatient. Objective - Vital Signs Vital signs: Vital Signs Temp 98.1 F 07/28/21 15:34 Pulse 63 07/28/21 15:34 Resp 18 07/28/21 15:34 BP 148/67 07/28/21 15:34 Pulse Ox 96 07/28/21 15:34 Intake & Output 07/27/21 07/28/21 07/28/21 18:59 06:59 18:59 Intake Total 240 480 Output Total 575 500 150 Balance -335 -500 330 Weight 89.358 kg 90.2 kg Intake: Oral 240 480 Output: Urine 575 500 150 Other: # Bowel Movements 2 - Labs CBC & Chem 7: 07/27/21 03:09 07/28/21 09:29 Labs: Abnormal Lab Results - Last 24 Hours (Table) 07/27/21 07/28/21 07/28/21 Range/Units 20:27 06:11 09:29 Sodium 136 L (137-145) mmol/L BUN 30 H (9-20) mg/dL Creatinine 1.38 H (0.66-1.25) mg/dL Glucose 288 H (74-99) mg/dL POC Glucose (mg/dL) 143 H 132 H (75-99) mg/dL Calcium 7.7 L (8.4-10.2) mg/dL 07/28/21 Range/Units 11:42 Sodium (137-145) mmol/L BUN (9-20) mg/dL Creatinine (0.66-1.25) mg/dL Glucose (74-99) mg/dL POC Glucose (mg/dL) 105 H (75-99) mg/dL Calcium (8.4-10.2) mg/dL
[2021-07-28 16:32] LABS: Glucose,Whole Blood 132 mg/dL (75-99)
[2021-07-28] MEDS: FUROSEMIDE 40 MG TAB PO SCH (16:55)
--- NOTE | 2021-07-28 19:10 | P.PN ---
Subjective this is a pleasant 81 yo Female with past medical history of hypertension , hyperlipidemia, and hypothyoridism . she follow up with the [facility] clinic this time she presents to the hospital with dyspnea and orthopnea, worsening over the last few days Associated with little dry cough. Patient denies chest pain or epigastric pain. No history of heart disease before, he saw a hog scraper before [place] where he was in the hospital for pneumonia Vitals are stable and she is saturating 94-96% on room air. Labs including CBC, INR, BMP and liver enzymes are unremarkable. Troponin is elevated at 0.06. ProBNP is elevated at 10 300 Chest x-ray: Pulmonary edema and pleural fluid similar to last exam and could be related to chronic congestive heart failure In the emergency room patient was started on Lasix 07/28/2021 Patient only with mild exertional dyspnea, he is able to walk freely by himself back and forth to the restroom and in his room with no difficulty. He denies any chest pain and he denies any other symptoms other than exertional dyspnea which looks improving and mild now. His creatinine increased 1.0 (21.3, most likely secondary to diuretics, his IV Lasix 40 mg twice a day switched to by mouth 20 daily Check creatinine tomorrow [employer] team are considering cardiac cath on Friday, if kidney function does not improve then this could be postponed outpatient. Objective - Vital Signs Vital signs: Vital Signs Temp 97.9 F 07/28/21 11:52 Pulse 62 07/28/21 11:52 Resp 18 07/28/21 11:52 BP 143/74 07/28/21 11:52 Pulse Ox 95 07/28/21 11:52 Intake & Output 07/27/21 07/28/21 07/28/21 18:59 06:59 18:59 Intake Total 240 240 Output Total 575 500 150 Balance -335 -500 90 Weight 89.358 kg 90.2 kg Intake: Oral 240 240 Output: Urine 575 500 150 Other: # Bowel Movements 2 - Exam GENERAL: The patient is alert and oriented x3, not in any acute distress. Well developed, well nourished. HEENT: Pupils are round and equally reacting to light. EOMI. No scleral icterus. No conjunctival pallor. Normocephalic, atraumatic. No pharyngeal erythema. No thyromegaly. CARDIOVASCULAR: S1 and S2 present. No murmurs, rubs, or gallops. PULMONARY: Chest is clear to auscultation, no wheezing or crackles. ABDOMEN: Soft, nontender, nondistended, normoactive bowel sounds. No palpable organomegaly. MUSCULOSKELETAL: No joint swelling or deformity. EXTREMITIES: No cyanosis, clubbing, or pedal edema. NEUROLOGICAL: Gross neurological examination did not reveal any focal deficits. SKIN: No rashes. no petechiae. - Labs CBC & Chem 7: 07/27/21 03:09 07/28/21 09:29 Labs: Abnormal Lab Results - Last 24 Hours (Table) 07/27/21 07/27/21 07/27/21 Range/Units 08:09 12:15 20:27 Sodium (137-145) mmol/L BUN (9-20) mg/dL Creatinine (0.66-1.25) mg/dL Glucose (74-99) mg/dL POC Glucose (mg/dL) 143 H (75-99) mg/dL Hemoglobin A1c 7.5 H (0.0-6.0) % Calcium (8.4-10.2) mg/dL Troponin I 0.050 H* (0.000-0.034) ng/mL 07/28/21 07/28/21 07/28/21 Range/Units 06:11 09:29 11:42 Sodium 136 L (137-145) mmol/L BUN 30 H (9-20) mg/dL Creatinine 1.38 H (0.66-1.25) mg/dL Glucose 288 H (74-99) mg/dL POC Glucose (mg/dL) 132 H 105 H (75-99) mg/dL Hemoglobin A1c (0.0-6.0) % Calcium 7.7 L (8.4-10.2) mg/dL Troponin I (0.000-0.034) ng/mL Assessment and Plan Assessment: Acute CHF exacerbation Elevated troponin Diabetes mellitus, with uncontrolled glucose and in the globe an A1c 7.5% Hypertension Hyperlipidemia Hypothyroidism Plan: This is a pleasant 81 years old female who presents with CHF and elevated troponin Change IV Lasix and to oral dose 20 mg daily Cardiology consult Continue with aspirin 81 mg [employer] team are considering cardiac cath on Friday, if kidney function does not improve then this could be postponed outpatient. Hold metformin until creatinine improved. At the neck lifting anyway because of uncontrolled diabetes and A1c of 7.4%. Continue with ISS Labs and medication were reviewed.. Continue same treatment. Continue with symptomatic treatment. Resume home medication. Monitor lytes and vitals. DVT and GI prophylaxis. Further recommendations depends on the clinical course of the patient DVT prophylaxis: Subcutaneous heparin GI Prophylaxis: Pepcid PT/OT: Pending Prognosis is guarded
[2021-07-28 20:26] LABS: Glucose,Whole Blood 140 mg/dL (75-99)
[2021-07-28] MEDS: ATORVASTATIN 20 MG TAB PO SCH (20:45)
[2021-07-28] MEDS: METOPROLOL TARTRATE 50 MG TAB PO SCH (20:45)
[2021-07-28] MEDS: LINAGLIPTIN 5 MG TABLET PO SCH (20:46)
[2021-07-29 04:17] VITALS: RESP 18
[2021-07-29] MEDS: LEVOTHYROXINE 125 MCG TAB PO SCH (06:24)
[2021-07-29 06:40] LABS: Glucose,Whole Blood 137 mg/dL (75-99)
[2021-07-29 07:42] LABS: Potassium 3.8 mmol/L (3.5-5.1)
[2021-07-29] MEDS: HEPARIN SODIUM,PORCINE/PF 5,000 UNIT/0.5 ML SYRINGE SQ SCH ×2 (07:46→20:23)
[2021-07-29] MEDS: METOPROLOL TARTRATE 50 MG TAB PO SCH ×2 (08:40→20:23)
[2021-07-29] MEDS: LINAGLIPTIN 5 MG TABLET PO SCH (08:40)
[2021-07-29] MEDS: lisinopriL 20 MG TAB PO SCH ×2 (08:40→20:23)
[2021-07-29] MEDS: FUROSEMIDE 40 MG TAB PO SCH (08:40)
[2021-07-29] MEDS: SPIRONOLACTONE 25 MG TAB PO SCH (08:40)
[2021-07-29] MEDS: FAMOTIDINE 20 MG TAB PO SCH (08:40)
[2021-07-29 11:38] LABS: Glucose,Whole Blood 115 mg/dL (75-99)
--- NOTE | 2021-07-29 11:55 | P.NPCON ---
History of Present Illness - Reason for Consult Consult date: 07/29/21 acute renal failure - Chief Complaint Acute kidney injury - History of Present Illness This is a 81-year-old male seen in consultation because of acute kidney injury that occurred after he was hospitalized. His creatinine was 1.07 on admission has gone up to 1.47 likely related to diuresis. Is on Lasix 40 by mouth twice a day, his lisinopril was also increased from 20 daily to 20 twice a day He came in because of shortness of breath and a dry cough. Chest x-ray is suggestive congestive heart failure. He was diuresed 107 5 mL for today and 150 mL today last 24 hours. Patient is feeling much better. Denies any dizziness on standing up. Good appetite no chest pain no nausea vomiting diarrhea. Blood pressures are 137/65 heart rate in the 50s to 60s is afebrile Patient denies taking any nonsteroidals, no history suggestive of prostatism Past Medical History Past Medical History: Hyperlipidemia, Hypertension, Thyroid Disorder History of Any Multi-Drug Resistant Organisms: None Reported Additional Past Surgical History / Comment(s): Thyroidectomy Past Anesthesia/Blood Transfusion Reactions: No Reported Reaction Past Psychological History: No Psychological Hx Reported Smoking Status: Former smoker Past Alcohol Use History: None Reported Past Drug Use History: None Reported - Past Family History Mother Family Medical History: Dementia Additional Family Medical History / Comment(s): alzheimers Father Family Medical History: Congestive Heart Failure (CHF) Medications and Allergies Home Medications Medication Instructions Recorded Confirmed Type Aspirin EC [Ecotrin Low Dose] 81 mg PO Q48H 03/20/21 07/27/21 History Carboxymethylcellulose Sodium 1 drop BOTH EYES QID PRN 03/20/21 07/27/21 History [Refresh Tears] Levothyroxine Sodium [Synthroid] 125 mcg PO DAILY 03/20/21 07/27/21 History Sildenafil Citrate [Viagra] 100 mg PO DAILY PRN 03/20/21 07/27/21 History Simvastatin [Zocor] 40 mg PO HS 03/20/21 07/27/21 History lisinopriL [Prinivil] 20 mg PO DAILY 03/20/21 07/27/21 History metFORMIN HCL 500 mg PO BID 03/20/21 07/27/21 History Acetaminophen Tab [Tylenol] 650 mg PO Q6HR PRN tab 03/23/21 07/27/21 Rx Furosemide [Lasix] 40 mg PO DAILY 30 Days #30 tab 03/23/21 07/27/21 Rx Metoprolol Tartrate [Lopressor] 25 mg PO BID 30 Days #60 tab 03/23/21 07/27/21 Rx Allergies Allergy/AdvReac Type Severity Reaction Status Date / Time No Known Allergies Allergy Verified 07/27/21 06:47 Physical Exam Vitals: Vital Signs Temp Pulse Resp BP Pulse Ox 07/29/21 11:17 63 07/29/21 08:00 98 F 63 18 137/65 97 07/29/21 07:38 58 L 18 07/29/21 04:00 58 L 18 152/81 95 07/28/21 23:44 97.9 F 54 L 16 150/75 96 07/28/21 19:42 98.5 F 63 18 147/70 96 07/28/21 15:34 98.1 F 63 18 148/67 96 07/28/21 11:52 97.9 F 62 18 143/74 95 07/28/21 11:47 68 18 Intake and Output 07/28/21 07/29/21 07/29/21 22:59 06:59 14:59 Intake Total 240 180 Balance 240 180 Intake: Oral 240 180 Other: # Voids 2 6 Weight 89.7 kg Examination he is sitting out in a chair comfortable on room air HEENT exam no JVP neck is supple no facial asymmetry Lungs are clear to auscultation good air entry bilaterally Heart sounds unremarkable for any murmur rub gallop Abdomen is soft nontender Extremity exam was trace edema Neurologically awake alert oriented Results - Lab Results Most recent lab results Calcium 8.0 mg/dL (8.4-10.2) L 07/29/21 07:15 Magnesium 1.7 mg/dL (1.6-2.3) 07/28/21 09:29 07/27/21 03:09 07/29/21 07:15 Assessment and Plan Plan: Impression 1. Acute kidney injury likely secondary to diuresis. 2. Chronic kidney disease stage III with GFR of 53 mL per minute a creatinine of on 03/22/2021 but on admission his GFR was 65 and per minute and creatinine was 1.07 etiology is nephrosclerosis. Rule out diabetic nephropathy urinalysis is not available 3. Congestive heart failure improved 4. Pulmonary hypertension with severe tricuspid regurg with a ventricle pressure of 56 mm by echocardiogram dated 03/20/2021 5. Cardiomyopathy ejection fraction is 45%. Recommendation 1. Hold Lasix for 1 day 2. Maintain spironolactone 25 daily 3. Check orthostatic changes 4. Check postvoid residual 5. Check urinalysis and urine protein to creatinine ratio. Thank you for this consultation we will follow closely follow closely
--- NOTE | 2021-07-29 13:16 | P.PN ---
Subjective The patient is a pleasant 81-year-old male who presents with progressive dyspnea. He had an abnormal MPI recently and was scheduled to be followed by Dr. Vides for possible coronary angiography. He is feeling better today. His breathing is better. He denies any chest discomfort, dizziness or palpitations. He denies any PND or orthopnea. His renal function is worse. He continues to be on aspirin once a day, lisinopril 20 mg twice a day, Glucophage 500 mg twice a day, metoprolol 25 mg 3 times a day, spironolactone 25 mg daily. He has been seen and evaluated by nephrology and his Lasix has been decreased. Objective - Vital Signs Vital signs: Vital Signs Temp 98 F 07/29/21 12:00 Pulse 59 L 07/29/21 12:00 Resp 18 07/29/21 12:00 BP 141/76 07/29/21 12:00 Pulse Ox 98 07/29/21 12:00 Intake & Output 07/28/21 07/29/21 07/29/21 18:59 06:59 18:59 Intake Total 720 180 Output Total 150 Balance 570 180 Weight 89.7 kg Intake: Oral 720 180 Output: Urine 150 Other: # Voids 2 6 - Exam PHYSICAL EXAMINATION: HEENT: Head is atraumatic, normocephalic. Pupils equal, round. Neck is supple. There is no elevated jugular venous pressure. HEART EXAMINATION: Heart sounds regular, S1 and S2 normal. A systolic murmur at the apex. CHEST EXAMINATION: Lungs are clear to auscultation. No chest wall tenderness is noted on palpation or with deep breathing. ABDOMEN: Soft, nontender. Bowel sounds are heard. No organomegaly noted. EXTREMITIES: No evidence of peripheral edema and no calf tenderness noted. NEUROLOGIC patient is awake, alert and oriented x3. . - Labs CBC & Chem 7: 07/27/21 03:09 07/29/21 07:15 Labs: Abnormal Lab Results - Last 24 Hours (Table) 07/28/21 07/28/21 07/29/21 Range/Units 16:30 20:10 06:39 Carbon Dioxide (22-30) mmol/L BUN (9-20) mg/dL Creatinine (0.66-1.25) mg/dL Glucose (74-99) mg/dL POC Glucose (mg/dL) 132 H 140 H 137 H (75-99) mg/dL Calcium (8.4-10.2) mg/dL 07/29/21 07/29/21 Range/Units 07:15 11:34 Carbon Dioxide 32 H (22-30) mmol/L BUN 32 H (9-20) mg/dL Creatinine 1.47 H (0.66-1.25) mg/dL Glucose 140 H (74-99) mg/dL POC Glucose (mg/dL) 115 H (75-99) mg/dL Calcium 8.0 L (8.4-10.2) mg/dL Assessment and Plan Assessment: 1. Congestive heart failure with impaired systolic function 2. Worsening renal function 3. Abnormal MPI 4. History of hypertension Plan: From cardiology's perspective continue to follow nephrology is recommendations. Continue to follow renal function closely. Depending on the patient's status and renal function may consider cardiac catheterization on Friday by Dr. ELIN Vides. Will be reevaluated in the morning. INDUSTRIAL MAINTENANCE MANAGER note has been reviewed, I agree with a documented findings and plan of care. Patient was seen and examined.
[2021-07-29 13:56] LABS: Appearance,Urine Clear (Clear); Bilirubin,Urine Negative (Negative); Blood,Urine Negative (Negative); Color,Urine Yellow; Glucose,Urine (UA) Negative (Negative); Ketones,Urine Negative (Negative); Leukocyte Esterase,Urine Negative (Negative); Mucus,Urine Rare /hpf; Nitrite,Urine Negative (Negative); Protein,Urine 1+ (Negative); RBC,Urine <1 /hpf (0-5); Specific Gravity,Urine 1.017 (1.001-1.035); Squamous Epithelial Cell,Urine <1 /hpf (0-4); Urobilinogen,Urine <2.0 mg/dL (<2.0); WBC,Urine 1 /hpf (0-5)
[2021-07-29 14:12] LABS: Creatinine,Urine Random 152.4 mg/dL; Protein/Creatinine Ratio,Urine 0.302
[2021-07-29 16:57] LABS: Glucose,Whole Blood 124 mg/dL (75-99)
--- NOTE | 2021-07-29 17:05 | P.PN ---
Subjective this is a pleasant 81 yo Female with past medical history of hypertension , hyperlipidemia, and hypothyoridism . she follow [facility] with [facility] this time she presents to the hospital with dyspnea and orthopnea, worsening over the last few days Associated with little dry cough. Patient denies chest pain or epigastric pain. 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 Labs including CBC, INR, BMP and liver enzymes are unremarkable. Troponin is elevated at 0.06. ProBNP is elevated at 10 300 Chest x-ray: Pulmonary edema and pleural fluid similar to last exam and could be related to chronic congestive heart failure In the emergency room patient was started on Lasix 07/28/2021 Patient only with mild exertional dyspnea, he is able to walk freely by himself back and forth to the restroom and in his room with no difficulty. He denies any chest pain and he denies any other symptoms other than exertional dyspnea which looks improving and mild now. His creatinine increased 1.0 (21.3, most likely secondary to diuretics, his IV Lasix 40 mg twice a day switched to by mouth 20 daily Check creatinine tomorrow [employer] team are considering cardiac cath on Friday, if kidney function does not improve then this could be postponed outpatient. 07/29/2021 Patient's exertional dyspnea significantly improvement but does not completely resolved, no other symptoms. Patient looks board and wants to go home, explained to him the need to monitor his kidney function and need to be reevaluated for possible cardiac cath tomorrow and he agrees to stay. Creatinine is 1.39, urinalysis is negative, lecturer in marketing recommendation is appreciated, hold Lasix today and resume tomorrow at 20 mg daily. Metformin is on hold secondary to high creatinine, started on the medical team and was controlled. Informed patient needed to better control his diabetes, hemoglobin A1c 7.5% and patient informed and he agrees. Cardiology will evaluate the patient tomorrow for possible inpatient versus outpatient cardiac cath Objective - Vital Signs Vital signs: Vital Signs Temp 98 F 07/29/21 08:00 Pulse 63 07/29/21 11:17 Resp 18 07/29/21 08:00 BP 137/65 07/29/21 08:00 Pulse Ox 97 07/29/21 08:00 Intake & Output 07/28/21 07/29/21 07/29/21 18:59 06:59 18:59 Intake Total 720 180 Output Total 150 Balance 570 180 Weight 89.7 kg Intake: Oral 720 180 Output: Urine 150 Other: # Voids 2 6 - Exam GENERAL: The patient is alert and oriented x3, not in any acute distress. Well developed, well nourished. HEENT: Pupils are round and equally reacting to light. EOMI. No scleral icterus. No conjunctival pallor. Normocephalic, atraumatic. No pharyngeal erythema. No thyromegaly. CARDIOVASCULAR: S1 and S2 present. No murmurs, rubs, or gallops. PULMONARY: Chest is clear to auscultation, no wheezing or crackles. ABDOMEN: Soft, nontender, nondistended, normoactive bowel sounds. No palpable organomegaly. MUSCULOSKELETAL: No joint swelling or deformity. EXTREMITIES: No cyanosis, clubbing, or pedal edema. NEUROLOGICAL: Gross neurological examination did not reveal any focal deficits. SKIN: No rashes. no petechiae. - Labs CBC & Chem 7: 07/27/21 03:09 07/29/21 07:15 Labs: Abnormal Lab Results - Last 24 Hours (Table) 07/28/21 07/28/21 07/29/21 Range/Units 16:30 20:10 06:39 Carbon Dioxide (22-30) mmol/L BUN (9-20) mg/dL Creatinine (0.66-1.25) mg/dL Glucose (74-99) mg/dL POC Glucose (mg/dL) 132 H 140 H 137 H (75-99) mg/dL Calcium (8.4-10.2) mg/dL 07/29/21 07/29/21 Range/Units 07:15 11:34 Carbon Dioxide 32 H (22-30) mmol/L BUN 32 H (9-20) mg/dL Creatinine 1.47 H (0.66-1.25) mg/dL Glucose 140 H (74-99) mg/dL POC Glucose (mg/dL) 115 H (75-99) mg/dL Calcium 8.0 L (8.4-10.2) mg/dL Assessment and Plan Assessment: Acute CHF exacerbation Elevated troponin Diabetes mellitus, with uncontrolled glucose and in the globe an A1c 7.5% Hypertension Hyperlipidemia Hypothyroidism Plan: This is a pleasant 81 years old female who presents with CHF and elevated troponin Change IV Lasix and to oral dose 20 mg daily Cardiology consult Continue with aspirin 81 mg [employer] team are considering cardiac cath on Friday, if kidney function does not improve then this could be postponed outpatient. Hold metformin until creatinine improved. At the neck lifting anyway because of uncontrolled diabetes and A1c of 7.4%. Continue with ISS Labs and medication were reviewed.. Continue same treatment. Continue with symptomatic treatment. Resume home medication. Monitor lytes and vitals. DVT and GI prophylaxis. Further recommendations depends on the clinical course of the patient DVT prophylaxis: Subcutaneous heparin GI Prophylaxis: Pepcid PT/OT: Pending Prognosis is guarded
[2021-07-29] MEDS: ATORVASTATIN 20 MG TAB PO SCH (20:23)
[2021-07-29 21:13] LABS: Glucose,Whole Blood 154 mg/dL (75-99)
[2021-07-30 05:57] LABS: Glucose,Whole Blood 146 mg/dL (75-99)
[2021-07-30] MEDS: LEVOTHYROXINE 125 MCG TAB PO SCH (06:06)
[2021-07-30 07:37] VITALS: BP 157/71; PULSE 54; TEMP 97.8
[2021-07-30 08:22] LABS: Calcium 7.5 mg/dL (8.4-10.2); Magnesium 1.8 mg/dL (1.6-2.3); Potassium 3.9 mmol/L (3.5-5.1)
[2021-07-30] MEDS: SPIRONOLACTONE 25 MG TAB PO SCH (08:26)
[2021-07-30] MEDS: ASPIRIN 81 MG PO SCH (08:26)
[2021-07-30] MEDS: lisinopriL 20 MG TAB PO SCH (08:27)
[2021-07-30] MEDS: LINAGLIPTIN 5 MG TABLET PO SCH (08:27)
[2021-07-30] MEDS: METOPROLOL TARTRATE 50 MG TAB PO SCH (08:27)
[2021-07-30] MEDS: FAMOTIDINE 20 MG TAB PO SCH (08:27)
[2021-07-30] MEDS: HEPARIN SODIUM,PORCINE/PF 5,000 UNIT/0.5 ML SYRINGE SQ SCH (08:27)
[2021-07-30] MEDS ORDERED: FUROSEMIDE 20 MG TAB PO SCH (09:00)
--- NOTE | 2021-07-30 10:17 | P.PN ---
Subjective HISTORY OF PRESENTING ILLNESS The patient is a pleasant 81-year-old male who presents with progressive dyspnea. He had an abnormal MPI recently and was scheduled to be followed by Dr. Vides for possible coronary angiography. He is feeling better today. His breathing is better. He denies any chest discomfort, dizziness or palpitations. He denies any PND or orthopnea. His renal function is worse. He continues to be on aspirin once a day, lisinopril 20 mg twice a day, Glucophage 500 mg twice a day, metoprolol 25 mg 3 times a day, spironolactone 25 mg daily. He has been seen and evaluated by nephrology and his Lasix has been decreased. 07/30 Patient seen and examined. Patient states overall he has been feeling much better. He denies any chest pain or pressure. States his shortness breath is nearly at his baseline however not quite. He still does have mild crackles at the bases on exam. He was decreased to Lasix 20 mg oral daily. Creatinine has been stable, mildly improved to 1.2 today. PHYSICAL EXAMINATION Vital signs reviewed. CONSTITUTIONAL: No apparent distress. HEENT: Head is normocephalic. Pupils are equal, round. Sclerae anicteric. Mucous membranes of the mouth are moist. No JVD. No carotid bruit. CHEST EXAMINATION: Lungs are clear to auscultation. +mild crackles ar bases HEART EXAMINATION: Regular rate and rhythm. S1, S2 heard. No murmurs, gallops or rub. ABDOMEN: Soft, nontender. Positive bowel sounds. EXTREMITIES: 2+ peripheral pulses, no lower extremity edema and no calf tenderness. NEUROLOGIC EXAMINATION: Patient is awake, alert and oriented x3. Assessment: 1. Acute on chronic systolic heart failure ejection fraction 40-45% 2. Chronic kidney disease appears stable 3. Abnormal MPI from March however has been fairly stable 4. History of hypertension 5. Mildly elevated troponins, chronically elevated related to chronic kidney disease do not suspect acute coronary syndrome Plan: Patient overall feels much better after diuresis and main presentation of shortness breath appears related to congestive heart failure and has improved af ter diuretics. He still does have mild crackles at the bases and given his CKD would recommend Lasix 80 mg daily going home. He appears stable for discharge home. Discussed possible heart catheterization however given improvement in symptoms and stress test with questionable small area of ischemia without any symptoms suggestive of acute coronary syndrome continue with medical therapy and outpatient follow-up and may consider heart catheterization in the future. Stable for DC home on Lasix 80mg daily. Objective - Vital Signs Vital signs: Vital Signs Temp 97.8 F 07/30/21 07:36 Pulse 54 L 07/30/21 07:36 Resp 18 07/30/21 07:36 BP 157/71 07/30/21 07:36 Pulse Ox 98 07/30/21 07:36 Intake & Output 07/29/21 07/30/21 07/30/21 18:59 06:59 18:59 Intake Total 360 Output Total 50 600 Balance 310 -600 Weight 90.9 kg Intake: Oral 360 Output: Urine 50 600 Other: Voiding Method Urinal # Bowel Movements 0 - Labs CBC & Chem 7: 07/27/21 03:09 07/30/21 07:12 Labs: Abnormal Lab Results - Last 24 Hours (Table) 07/29/21 07/29/21 07/29/21 Range/Units 11:34 13:40 16:54 Sodium (137-145) mmol/L BUN (9-20) mg/dL Creatinine (0.66-1.25) mg/dL Glucose (74-99) mg/dL POC Glucose (mg/dL) 115 H 124 H (75-99) mg/dL Calcium (8.4-10.2) mg/dL Urine Protein 1+ H (Negative) Urine Mucus Rare H (None) /hpf 07/29/21 07/30/21 07/30/21 Range/Units 21:02 05:42 07:12 Sodium 136 L (137-145) mmol/L BUN 34 H (9-20) mg/dL Creatinine 1.28 H (0.66-1.25) mg/dL Glucose 144 H (74-99) mg/dL POC Glucose (mg/dL) 154 H 146 H (75-99) mg/dL Calcium 7.5 L (8.4-10.2) mg/dL Urine Protein (Negative) Urine Mucus (None) /hpf
--- NOTE | 2021-07-30 10:27 | P.PN ---
Subjective Patient is seen in follow-up for acute kidney injury. Renal function better. Denies chest pain or shortness of breath. Good urine output. No vomiting or diarrhea. Blood pressure stable this morning. Vital signs are stable. General: The patient appeared well nourished and normally developed. HEENT: Head exam is unremarkable. LUNGS: Breath sounds decreased. HEART: Rate and Rhythm are regular. ABDOMEN: Soft, no distention. EXTREMITITES: No edema. Objective - Vital Signs Vital signs: Vital Signs Temp 97.8 F 07/30/21 07:36 Pulse 54 L 07/30/21 07:36 Resp 18 07/30/21 07:36 BP 157/71 07/30/21 07:36 Pulse Ox 98 07/30/21 07:36 Intake & Output 07/29/21 07/30/21 07/30/21 18:59 06:59 18:59 Intake Total 360 Output Total 50 600 Balance 310 -600 Weight 90.9 kg Intake: Oral 360 Output: Urine 50 600 Other: Voiding Method Urinal # Bowel Movements 0 - Labs CBC & Chem 7: 07/27/21 03:09 07/30/21 07:12 Labs: Abnormal Lab Results - Last 24 Hours (Table) 07/29/21 07/29/21 07/29/21 Range/Units 11:34 13:40 16:54 Sodium (137-145) mmol/L BUN (9-20) mg/dL Creatinine (0.66-1.25) mg/dL Glucose (74-99) mg/dL POC Glucose (mg/dL) 115 H 124 H (75-99) mg/dL Calcium (8.4-10.2) mg/dL Urine Protein 1+ H (Negative) Urine Mucus Rare H (None) /hpf 07/29/21 07/30/21 07/30/21 Range/Units 21:02 05:42 07:12 Sodium 136 L (137-145) mmol/L BUN 34 H (9-20) mg/dL Creatinine 1.28 H (0.66-1.25) mg/dL Glucose 144 H (74-99) mg/dL POC Glucose (mg/dL) 154 H 146 H (75-99) mg/dL Calcium 7.5 L (8.4-10.2) mg/dL Urine Protein (Negative) Urine Mucus (None) /hpf Assessment and Plan Plan: Assessment: 1. Acute kidney injury mostly prerenal secondary to diuresis. Renal function better today. Creatinine 1.28. 2. Chronic kidney disease stage III secondary to nephrosclerosis with baseline creatinine 1.1-1.2. 3. Hypertension with chronic kidney disease. 4. Acute on chronic systolic CHF with ejection fraction of 40-55% with mild to moderate mitral regurgitation, moderate to severe tricuspid regurgitation and pulmonary hypertension. 5. Diabetes mellitus. Plan: Lasix increased to 80 mg orally once today by cardiology. Check renal ultrasound. Avoid nephrotoxins. Monitor renal function with increased dose of diuretic. Repeat BMP and magnesium level 2-3 days postdischarge. Follow up outpatient in 1 week. Advised patient to monitor his weight closely at home and to call physician if gains more than 3 pounds in 1 week duration or edema worsens. He was also advised to follow low salt diet upon discharge.
[2021-07-30] MEDS ORDERED: FUROSEMIDE 80 MG TAB PO SCH (10:30)
--- NOTE | 2021-07-30 14:02 | P.EN ---
Patient normally takes metformin in the outpatient setting although kidney functions are elevated and also adjustments to cardiac medications including lisinopril have been increased and patient is at increased risk for worsening kidney functions and was started on tradjenta 5mg and blood sugars fairly controlled and prescription provided for this in the outpatient setting. Per nursing staff co-pays are over $5-$600 and unable to afford and patient normally goes to the [facility] pharmacy in medical supply and will provide prescription along with a 2-3 day supply of tradjenta in order for the patient to bring it to the [place] to be covered. The impression and plan of care has been dictated by Sara Pettit, Nurse Practitioner as directed. Dr. Kumar MD I have performed a history and examination and MDM of this patient, discussed the same with the dictator, and agree with the dictator's assessment and plan as written ,documented as a scribe. Based on total visit time, I have performed more than 50% of the visit.
--- NOTE | 2021-07-30 21:31 | P.DS ---
Providers Date of admission: 07/27/21 06:05 Attending physician: Berhane Heath MD Consults: 07/27/21 06:10 Consult Physician Routine Consulting Provider: Cesar Benton Consult Reason/Comments: CHF exacerbation Do you want consulting provider notified?: Yes 07/29/21 09:06 Consult Physician Routine Consulting Provider: Elayne Avilez Consult Reason/Comments: elevated kidney function Do you want consulting provider notified?: Yes Primary care physician: [facility] Hospital Course: Diagnoses: Acute systolic CHF exacerbation, ejection fraction 40-45% Elevated troponin, with no EKG changes or chest pain. Patient instructed to follow up with [facility] for stress test/cardiac cath as an outpatient and he agrees Diabetes mellitus, with uncontrolled glucose and hemoglobin A1c 7.5% Hypertension Hyperlipidemia Hypothyroidism Hospital course: his is a pleasant 81 yo Female with past medical history of hypertension , hyperlipidemia, and hypothyoridism . she follow up with the [facility] this time she presents to the hospital with dyspnea and orthopnea, worsening over the last few days. Patient was found and heart failure with elevated proBNP. EF was 40-45% and [facility] evaluated the patient, patient responded to therapy with IV Lasix which is used was to oral Lasix 80 mg daily upon discharge. Because of his worsening creatinine thought secondary to diuresis and possible other medication patient instructed to do ischemic workup for his heart as an outpatient and he agrees. Client Care Specialist at the [facility] will follow the patient closely, his creatinine went up yesterday to 1.4, today improved to 1.2. However patient is still at- risk of worsening kidney function after doubling the dose of lisinopril, Lasix and add Aldactone, because of these we held his home dose of metformin and placed him on linagliptin, his sugars controlled [facility] prescription for linagliptin to be covered therefore a prescription for 2-3 days was provided for him upon discharge for out of pocket cost and instructed to follow up with his [facility] for further coverage of the linagliptin . Patient informed and he agrees. Patient was cleared for [facility] for discharge with recommendation to check BMP and magnesium in 2-3 days, I made an appointment for him with his PCP on 08/07 and he agrees to follow-up as recommended with his PCP Dr.tery james, was not available in the office so I spoke with his nurse Ms. Solorio and discussed the case with her and she kindly took note of this to check his blood test in 2-3 days That patient was fairly asymptomatic on the day of discharge with no chest pain or dyspnea, no GI or urinary symptoms. No fever. No neurological complaints. Problems and management plan were discussed with the patient and he verbalized understanding and acceptance Patient was found stable and can be discharged home however he needs follow-up as an outpatient. Patient was instructed to follow up with PCP within one week and patient agrees with the appointments made for him on 08/07 Patient was instructed to follow up with his skip [facility] Dr. Elmore in one week and he agrees to call and make appointment Patient also instructed to follow up with pumper helper Dr. Jewell in one week and he agrees Physical exam Gen: patient is a AAOx3, no distress CVS: S1-S2, RRR, no murmur Lungs: B/L CTA, no wheezing Abdomen: soft, no distention, no tenderness, positive bowel sounds Extremity: no leg edema or induration Time spent more than 35 minutes Patient Condition at Discharge: Good Plan - Discharge Summary New Discharge Prescriptions: New RX: Spironolactone [Aldactone] 25 mg PO DAILY #30 tab RX: Furosemide [Lasix] 80 mg PO DAILY #30 tab RX: Metoprolol Tartrate [Lopressor] 50 mg PO BID #60 tab RX: Linagliptin [Tradjenta] 5 mg PO DAILY #30 tablet RX: lisinopriL [Zestril] 20 mg PO BID #60 tab Continue RX: lisinopriL [Prinivil] 20 mg PO DAILY RX: Levothyroxine Sodium [Synthroid] 125 mcg PO DAILY RX: Carboxymethylcellulose Sodium [Refresh Tears] 1 drop BOTH EYES QID PRN PRN Reason: Dry Eye(S) RX: Aspirin EC [Ecotrin Low Dose] 81 mg PO Q48H RX: Acetaminophen Tab [Tylenol] 650 mg PO Q6HR PRN tab PRN Reason: Mild Pain Or Fever > 100.5 RX: Simvastatin [Zocor] 40 mg PO HS Discontinued RX: Metoprolol Tartrate [Lopressor] 25 mg PO BID 30 Days #60 tab RX: Sildenafil Citrate [Viagra] 100 mg PO DAILY PRN PRN Reason: sexual intercourse RX: metFORMIN HCL 500 mg PO BID RX: Furosemide [Lasix] 40 mg PO DAILY 30 Days #30 tab Discharge Medication List RX: Aspirin EC [Ecotrin Low Dose] 81 mg PO Q48H 03/20/21 [History] RX: Carboxymethylcellulose Sodium [Refresh Tears] 1 drop BOTH EYES QID PRN 03/20/21 [History] RX: Levothyroxine Sodium [Synthroid] 125 mcg PO DAILY 03/20/21 [History] RX: Simvastatin [Zocor] 40 mg PO HS 03/20/21 [History] RX: lisinopriL [Prinivil] 20 mg PO DAILY 03/20/21 [History] RX: Acetaminophen Tab [Tylenol] 650 mg PO Q6HR PRN tab 03/23/21 [Rx] RX: Furosemide [Lasix] 80 mg PO DAILY #30 tab 07/30/21 [Rx] RX: Linagliptin [Tradjenta] 5 mg PO DAILY #30 tablet 07/30/21 [Rx] RX: Metoprolol Tartrate [Lopressor] 50 mg PO BID #60 tab 07/30/21 [Rx] RX: Spironolactone [Aldactone] 25 mg PO DAILY #30 tab 07/30/21 [Rx] RX: lisinopriL [Zestril] 20 mg PO BID #60 tab 07/30/21 [Rx] Follow up Appointment(s)/Referral(s): Anand Jewell DO [STAFF PHYSICIAN] - 1 Week Steven Elmore MD [STAFF PHYSICIAN] - 1 Week [facility],Clinic [Primary Care Provider] - 08/07/21 3:30 am Patient Instructions/Handouts: Heart Failure (DC), Dyspnea (DC) Activity/Diet/Wound Care/Special Instructions: Heart healthy diet with fluid and salt restriction Activity is restricted until you see your doctor We recommend to check her glucose 4 times a day, before each meal and at bedtime, keep the results in a log book and bring it to your doctor on your appointment date if your glucose less than 70 or more than 400 been call 911 and come to emergency room discharge instructions: We recommend to check your basic metabolic panel (BMP) and magnesium level (Mg) in 2-3 days if possible. Please follow-up with your [facility] clinic for this purpose Discharge Disposition: HOME SELF-CARE
== END 2021-07-30 13:59 | disposition home or self-care (01) | DRG 291 ==
LOC: EC 02:12 → 3SCARD 06:05
PROVIDERS: ADMIT Internal Medicine; ATTEND Internal Medicine
DX: I13.0 Hypertensive heart and chronic kidney disease with heart failure and stage 1 through stage 4 chronic kidney disease, or unspecified chronic kidney disease (principal); I50.23 Acute on chronic systolic (congestive) heart failure; N17.9 Acute kidney failure, unspecified; E11.22 Type 2 diabetes mellitus with diabetic chronic kidney disease; E78.5 Hyperlipidemia, unspecified; E89.0 Postprocedural hypothyroidism; I08.1 Rheumatic disorders of both mitral and tricuspid valves; I27.20 Pulmonary hypertension, unspecified; I42.9 Cardiomyopathy, unspecified; I49.3 Ventricular premature depolarization; N18.30 Chronic kidney disease, stage 3 unspecified; T50.2X5A Adverse effect of carbonic-anhydrase inhibitors, benzothiadiazides and other diuretics, initial encounter; Z79.84 Long term (current) use of oral hypoglycemic drugs; Z79.890 Hormone replacement therapy; Z79.899 Other long term (current) drug therapy; Z82.0 Family history of epilepsy and other diseases of the nervous system; Z82.49 Family history of ischemic heart disease and other diseases of the circulatory system; Z87.891 Personal history of nicotine dependence; Z87.01 Personal history of pneumonia (recurrent); R77.8 Other specified abnormalities of plasma proteins
CPT/HCPCS: 36415; 71046; 80048; 80053; 81001; 82570; 83036; 83605; 83735; 83880; 84145; 84156; 84439; 84443; 84484; 85025; 85610; 85730; 93005; 96374; 99285

== ENCOUNTER → 2021-09-25 | Outpatient (CLI) | payer OTHER ==
--- NOTE | 2021-09-25 12:58 | US ---
EXAMINATION TYPE: US kidneys/renal and bladder DATE OF EXAM: 09/25/2021 COMPARISON: NONE CLINICAL HISTORY: 81-year-old male N17.9 Acute kidney failure. Abnormal labs TECHNIQUE: Multiple sonographic images of the kidneys and bladder are obtained. FINDINGS: EXAM MEASUREMENTS: Right Kidney: 11.2 x 5.1 x 5.4 cm Left Kidney: 9.6 x 5.6 x 4.9 cm Right Kidney: Tiny upper pole cortical cyst measuring 0.8 x 0.7 x 0.9 cm. Internal echoes felt to be artifactual. No hydronephrosis. Left Kidney: Cyst upper [place] 3.8 x 3.9 x 3.9 cm, cyst mid/lateral= 3.8 x 3.8 x 2.8 cm. No hydronephros is. Bladder: Possible small bladder wall diverticula/trabeculations, otherwise appeared wnl Bilateral Jets seen: Only right jet visualized IMPRESSION: No hydronephrosis. Renal cysts measuring up to 3.9 cm on the left. Somewhat trabeculated appearance t o the bladder. Correlate for any potential chronic bladder outlet obstruction/BPH.
== END | disposition home or self-care (01) ==
LOC: RADUSWWP 08:53
PROVIDERS: ATTEND Family Medicine
DX: N17.9 Acute kidney failure, unspecified (principal)
CPT/HCPCS: 76770

== ENCOUNTER 2022-01-23 10:52 | Inpatient (IN) | payer OTHER ==
[2022-01-23] MEDS ORDERED: SODIUM CHLORIDE 0.9% 500 ML 500 ML IV ONE (11:08)
[2022-01-23 11:36] LABS: Basophils # (A) 0.1 k/uL (0-0.2); Basophils % (A) 1 %; Eosinophils # (A) 0.4 k/uL (0-0.7); Eosinophils % (A) 6 %; HCT 37.7 % (39.0-53.0); Lymphocytes # (A) 2.1 k/uL (1.0-4.8); Lymphocytes % (A) 29 %; MCH 31.5 pg (25.0-35.0); MCHC 31.9 g/dL (31.0-37.0); MCV 98.7 fL (80.0-100.0); Mean Platelet Volume 8.1; Monocytes # (A) 0.4 k/uL (0-1.0); Monocytes % (A) 5 %; Neutrophils # (A) 4.1 k/uL (1.3-7.7); Neutrophils % (A) 56 %; Platelet Count 273 k/uL (150-450); RBC 3.82 m/uL (4.30-5.90); RDW 13.2 % (11.5-15.5); WBC 7.2 k/uL (3.8-10.6)
[2022-01-23 11:46] LABS: Calcium 8.5 mg/dL (8.4-10.2); Magnesium 1.8 mg/dL (1.6-2.3); Total Bilirubin 0.3 mg/dL (0.2-1.3)
[2022-01-23 12:20] LABS: Albumin 4.6 g/dL (3.5-5.0)
[2022-01-23 12:25] LABS: Potassium 8.2 mmol/L (3.5-5.1)
[2022-01-23] MEDS ORDERED: DEXTROSE 50% SYRINGE 50 ML IVP ONE (12:27)
[2022-01-23] MEDS ORDERED: INSULIN REGULAR 100 UNIT/ML VIAL (IV) IV ONE ×2 (12:27→20:11)
[2022-01-23] MEDS ORDERED: SODIUM BICARB 8.4% 50 ML SYR (1 MEQ/ML) IV ONE (12:27)
[2022-01-23] MEDS ORDERED: CALCIUM GLUCONATE IN NACL 1 GM in SALINE 1 100ML.BAG IVPB ONE (12:27)
[2022-01-23] MEDS: SODIUM POLYSTYRENE SULFONATE 15 GM/60 ML BOTTLE PO ONE (12:46)
--- NOTE | 2022-01-23 12:53 | ED ---
General Adult HPI - General Chief complaint: Recheck/Abnormal Lab/Rx Stated complaint: high potassium Time Seen by Provider: 01/23/22 11:07 Source: patient, RN notes reviewed Mode of arrival: ambulatory Limitations: no limitations - History of Present Illness Initial comments: This a 81-year-old male presents emergency Department chief complaint of abnor mal labs. Patient states is at his PCPs office in which she was told his potassium was elevated. Patient states that he was on potassium supplements states that he was on Lasix also. Patient states he does feel that they. Patient has noted that he's had some renal dysfunction versus has been evaluated in the past. Appears to be worsening. Patient states she is currently symptomatic denies chest pain palpitations dizziness nausea vomiting diarrhea constipation or fevers chills no other associated complaints. - Related Data Home Medications Medication Instructions Recorded Confirmed Aspirin EC [Ecotrin Low Dose] 81 mg PO Q48H 03/20/21 07/27/21 Carboxymethylcellulose Sodium 1 drop BOTH EYES QID PRN 03/20/21 07/27/21 [Refresh Tears] Levothyroxine Sodium [Synthroid] 125 mcg PO DAILY 03/20/21 07/27/21 Simvastatin [Zocor] 40 mg PO HS 03/20/21 07/27/21 lisinopriL [Prinivil] 20 mg PO DAILY 03/20/21 07/27/21 Previous Rx's Medication Instructions Recorded Acetaminophen Tab [Tylenol] 650 mg PO Q6HR PRN tab 03/23/21 Furosemide [Lasix] 80 mg PO DAILY #30 tab 07/30/21 Linagliptin [Tradjenta] 5 mg PO DAILY #30 tablet 07/30/21 Metoprolol Tartrate [Lopressor] 50 mg PO BID #60 tab 07/30/21 Spironolactone [Aldactone] 25 mg PO DAILY #30 tab 07/30/21 lisinopriL [Zestril] 20 mg PO BID #60 tab 07/30/21 Allergies Allergy/AdvReac Type Severity Reaction Status Date / Time No Known Allergies Allergy Verified 01/23/22 12:59 Review of Systems ROS Statement: Those systems with pertinent positive or pertinent negative responses have been documented in the HPI. ROS Other: All systems not noted in ROS Statement are negative. Past Medical History Past Medical History: Hyperlipidemia, Thyroid Disorder History of Any Multi-Drug Resistant Organisms: None Reported Additional Past Surgical History / Comment(s): Thyroidectomy Past Anesthesia/Blood Transfusion Reactions: No Reported Reaction Past Psychological History: No Psychological Hx Reported Smoking Status: Former smoker Past Alcohol Use History: None Reported Past Drug Use History: None Reported - Past Family History Mother Family Medical History: Dementia Additional Family Medical History / Comment(s): alzheimers Father Family Medical History: Congestive Heart Failure (CHF) General Exam Limitations: no limitations General appearance: alert, in no apparent distress Head exam: Present: atraumatic, normocephalic, normal inspection Eye exam: Present: normal appearance, PERRL, EOMI. Absent: scleral icterus, conjunctival injection, periorbital swelling ENT exam: Present: normal exam, normal oropharynx, mucous membranes moist Neck exam: Present: normal inspection, full ROM. Absent: tenderness, meningismus, lymphadenopathy Respiratory exam: Present: normal lung sounds bilaterally. Absent: respiratory distress, wheezes, rales, rhonchi, stridor Cardiovascular Exam: Present: normal rhythm, bradycardia, normal heart sounds. Absent: systolic murmur, diastolic murmur, rubs, gallop, clicks GI/Abdominal exam: Present: soft, normal bowel sounds. Absent: distended, t enderness, guarding, rebound, rigid Back exam: Absent: CVA tenderness (R), CVA tenderness (L) Neurological exam: Present: alert Skin exam: Present: warm, dry, intact, normal color. Absent: rash Course Vital Signs 01/23/22 01/23/22 01/23/22 10:58 11:56 12:54 Temperature 98.4 F Pulse Rate 62 60 68 Respiratory 16 16 16 Rate Blood Pressure 94/62 104/69 130/68 O2 Sat by Pulse 99 99 98 Oximetry Medical Decision Making - Medical Decision Making 81-year-old male presented for hyperkalemia. Patient is asymptomatic was likely cause for acute kidney injury, potassium supplement. Patient was given hype rkalemic cocktail will be admitted for further monitoring. - Lab Data Result diagrams: 01/23/22 11:27 01/23/22 11:27 Lab Results 01/23/22 01/23/22 Range/Units 11:27 11:27 WBC 7.2 (3.8-10.6) k/uL RBC 3.82 L (4.30-5.90) m/uL Hgb 12.0 L (13.0-17.5) gm/dL Hct 37.7 L (39.0-53.0) % MCV 98.7 (80.0-100.0) fL MCH 31.5 (25.0-35.0) pg MCHC 31.9 (31.0-37.0) g/dL RDW 13.2 (11.5-15.5) % Plt Count 273 (150-450) k/uL MPV 8.1 Neutrophils % 56 % Lymphocytes % 29 % Monocytes % 5 % Eosinophils % 6 % Basophils % 1 % Neutrophils # 4.1 (1.3-7.7) k/uL Lymphocytes # 2.1 (1.0-4.8) k/uL Monocytes # 0.4 (0-1.0) k/uL Eosinophils # 0.4 (0-0.7) k/uL Basophils # 0.1 (0-0.2) k/uL Sodium 135 L (137-145) mmol/L Potassium 8.2 H* (3.5-5.1) mmol/L Chloride 103 (98-107) mmol/L Carbon Dioxide 16 L (22-30) mmol/L Anion Gap 16 mmol/L BUN 72 H (9-20) mg/dL Creatinine 2.54 H (0.66-1.25) mg/dL Est GFR (CKD-EPI)AfAm 26 (>60 ml/min/1.73 sqM) Est GFR (CKD-EPI)NonAf 23 (>60 ml/min/1.73 sqM) Glucose 196 H (74-99) mg/dL Calcium 8.5 (8.4-10.2) mg/dL Magnesium 1.8 (1.6-2.3) mg/dL Total Bilirubin 0.3 (0.2-1.3) mg/dL AST 24 (17-59) U/L ALT 20 (4-49) U/L Alkaline Phosphatase 82 (38-126) U/L Total Protein 8.0 (6.3-8.2) g/dL Albumin 4.6 (3.5-5.0) g/dL Critical Care Time Critical Care Time: Yes Total Critical Care Time: 30 Disposition Clinical Impression: Acute kidney injury, Hyperkalemia Disposition: ADMITTED IP TO THIS HOSP Condition: Fair Referrals: [facility],Clinic [Primary Care Provider] - 1-2 days Time of Disposition: 13:13
[2022-01-23] MEDS ORDERED: NALOXONE 0.4 MG/ML 1 ML VIAL IV PRN (13:14)
[2022-01-23] MEDS ORDERED: ACETAMINOPHEN TAB 325 MG TAB PO PRN (13:14)
[2022-01-23] MEDS ORDERED: ALBUTEROL NEBULIZED 2.5 MG/3 ML INHALATION STA (14:18)
[2022-01-23] MEDS ORDERED: SODIUM POLYSTYRENE SULFONATE 15 GM/60 ML BOTTLE PO STA (15:32)
[2022-01-23] MEDS ORDERED: DEXTROSE 50% SYRINGE 50 ML IVP PRN ×2 (15:43)
[2022-01-23] MEDS: SODIUM CHLORIDE 0.9% 1,000 ML IV SCH ×2 (15:59→19:56)
--- NOTE | 2022-01-23 16:31 | P.HPIM ---
History of Present Illness H&P Date: 01/23/22 Chief Complaint: Abnormal labs This a 81-year-old male presents to [facility] emergency Department chief complaint of abnormal labs. Patient states is at his PCPs office in which she was told his potassium was elevated. Patient states that he was on potassium supplements states that he was on Lasix also. Patient has noted that he's had some renal dysfunction versus has been evaluated in the past. Appears to be worsening. Patient states he is currently asymptomatic denies chest pain palpitations dizziness nausea vomiting diarrhea constipation or fevers chills no other associated complaints. Patient lives alone. However, his daughter lives a short distance away. She is alert and oriented 4 and states he does not want to bother his family with his medical issues at this time. Patient's daughter Geno is on vacation in [place] and does not want to worry her. Patient states he is a DO NOT RESUSCITATE. Patient has no complaints and is sitting in bed comfortably. She denies history of heart failure. Patient has a past medical history of hypertension, hyperlipidemia, renal insufficiency, and [id number] diabetes mellitus. Review of Systems A 14 point review of systems was assessed patient was only positive for those pertinent in HPI. Past Medical History Past Medical History: Hyperlipidemia, Thyroid Disorder History of Any Multi-Drug Resistant Organisms: None Reported Additional Past Surgical History / Comment(s): Thyroidectomy Past Anesthesia/Blood Transfusion Reactions: No Reported Reaction Past Psychological History: No Psychological Hx Reported Smoking Status: Former smoker Past Alcohol Use History: None Reported Past Drug Use History: None Reported - Past Family History Mother Family Medical History: Dementia Additional Family Medical History / Comment(s): alzheimers Father Family Medical History: Congestive Heart Failure (CHF) Medications and Allergies Home Medications Medication Instructions Recorded Confirmed Type Aspirin EC [Ecotrin Low Dose] 81 mg PO Q48H 03/20/21 01/23/22 History Levothyroxine Sodium [Synthroid] 125 mcg PO DAILY 03/20/21 01/23/22 History Simvastatin [Zocor] 40 mg PO HS 03/20/21 01/23/22 History Metoprolol Tartrate [Lopressor] 50 mg PO BID #60 tab 07/30/21 01/23/22 Rx Spironolactone [Aldactone] 25 mg PO DAILY #30 tab 07/30/21 01/23/22 Rx lisinopriL [Zestril] 20 mg PO BID #60 tab 07/30/21 01/23/22 Rx Furosemide [Lasix] 80 mg PO DAILY 01/23/22 01/23/22 History Potassium Chloride ER [K-Dur 20] 20 meq PO DAILY 01/23/22 01/23/22 History metFORMIN HCL [Glucophage] 500 mg PO BID 01/23/22 01/23/22 History Allergies Allergy/AdvReac Type Severity Reaction Status Date / Time No Known Allergies Allergy Verified 01/23/22 13:16 Physical Exam Osteopathic Statement: *. No significant issues noted on an osteopathic structural exam other than those noted in the History and Physical/Consult. Vitals: Vital Signs Temp Pulse Resp BP Pulse Ox 01/23/22 12:54 68 16 130/68 98 01/23/22 11:56 60 16 104/69 99 01/23/22 10:58 98.4 F 62 16 94/62 99 Intake and Output 01/23/22 01/23/22 01/23/22 06:59 14:59 22:59 Other: Weight 91.172 kg General: [non toxic], [no distress], [appears at stated age] Derm: [warm], [dry] Head: [atraumatic], [normocephalic], [symmetric] Eyes: [EOMI], [no lid lag], [anicteric sclera] Mouth: [no lip lesion], [mucus membranes moist] Cardiovascular: [S1S2 reg], [no murmur], [positive posterior tibial pulse bilateral], Lungs: [CTA bilateral], [no rhonchi, no rales] , [no accessory muscle use] Abdominal: [soft], [ nontender to palpation], [no guarding], [no appreciable organomegaly] Ext: [no gross muscle atrophy], [no edema], [no contractures] Neuro: [ CN II-XI grossly intact], [no focal neuro deficits] Psych: [Alert], [oriented], [appropriate affect] Results CBC & Chem 7: 01/23/22 11:27 01/23/22 14:28 Labs: Abnormal Lab Results - Last 24 Hours (Table) 01/23/22 01/23/22 01/23/22 Range/Units 11:27 11:27 14:28 RBC 3.82 L (4.30-5.90) m/uL Hgb 12.0 L (13.0-17.5) gm/dL Hct 37.7 L (39.0-53.0) % Sodium 135 L (137-145) mmol/L Potassium 8.2 H* 6.6 H* (3.5-5.1) mmol/L Carbon Dioxide 16 L (22-30) mmol/L BUN 72 H (9-20) mg/dL Creatinine 2.54 H (0.66-1.25) mg/dL Glucose 196 H (74-99) mg/dL Thrombosis Risk Factor Assmnt - DVT/VTE Prophylaxis DVT/VTE Prophylaxis: Pharmacologic Prophylaxis ordered Assessment and Plan Assessment: 1. Hyperkalemia likely caused by dehydration and medications Hold all nephrotoxic agents Lasix, Metformin, spironolactone, lisinopril all held Consult nephrology placed Patient given insulin, calcium gluconate, Kayexalate Repeat potassium level was 6.6 from 8.2 Repeat potassium level ordered IV fluids placed Telemetry Vitals every 4 2. Lbd-arjalgk-dpdloljci diabetes mellitus Hold metformin Insulin sliding scale with long-acting insulin placed Hypoglycemic protocol ordered 3. History of hypertension currently controlled Diuretics and SURI inhibitor held Metoprolol continued with parameters placed 4. History of hyperlipidemia resume statin 5. GI DVT prophylaxis 6. A.m. labs 7. PT OT Patient is a DO NOT RESUSCITATE Admit to medical telemetry Anticipated length of stay greater than 2 days Greater than 45 minutes spent coordinating care, counseling, and documenting Time with Patient: Greater than 30
[2022-01-23] MEDS: HEPARIN SODIUM,PORCINE/PF 5,000 UNIT/0.5 ML SYRINGE SQ SCH ×2 (16:39→23:12)
[2022-01-23 19:46] LABS: Albumin 3.8 g/dL (3.5-5.0); Total Bilirubin 0.1 mg/dL (0.2-1.3); Total Protein 6.6 g/dL (6.3-8.2)
[2022-01-23 19:48] LABS: Potassium 6.2 mmol/L (3.5-5.1)
[2022-01-23] MEDS: ATORVASTATIN 20 MG TAB PO SCH (19:56)
[2022-01-23] MEDS: METOPROLOL TARTRATE 50 MG TAB PO SCH (19:56)
--- NOTE | 2022-01-23 20:08 | US ---
EXAMINATION TYPE: US kidneys/renal and bladder DATE OF EXAM: 01/23/2022 COMPARISON: 09/25/21 CLINICAL HISTORY: ENA. EXAM MEASUREMENTS: Right Kidney: 11.0 x 4.2 x 5.5 cm Left Kidney: 11.7 x 5.7 x 6.2 cm Right Kidney: No hydronephrosis or masses seen Left Kidney: Cyst seen in superior pole measuring 3.9 x 3.6 x 3.4 cm Bladder: wnl Bilateral Jets seen: Only right jet seen IMPRESSION: 1. No evidence of obstructive uropathy. 2. Left renal cyst.
[2022-01-23] MEDS ORDERED: DEXTROSE 50% SYRINGE 50 ML IVP STA (20:11)
[2022-01-23 20:21] LABS: Glucose,Whole Blood 181 mg/dL (70-110)
[2022-01-23] MEDS ORDERED: METOPROLOL TARTRATE 50 MG TAB PO SCH (21:00)
[2022-01-23 23:30] LABS: % Iron Saturation 35.71 (15.00-50.00)
[2022-01-24 00:34] LABS: Potassium 5.7 mmol/L (3.5-5.1)
[2022-01-24 05:57] LABS: Glucose,Whole Blood 123 mg/dL (70-110)
[2022-01-24] MEDS: INSULIN DETEMIR (LEVEMIR) 100 UNIT/ML SYR SQ SCH (06:09)
[2022-01-24] MEDS: LEVOTHYROXINE 125 MCG TAB PO SCH (06:09)
[2022-01-24] MEDS ORDERED: SODIUM POLYSTYRENE SULFONATE 15 GM/60 ML BOTTLE PO STA (07:27)
[2022-01-24] MEDS ORDERED: CALCIUM GLUCONATE IN NACL 1 GM in SALINE 1 100ML.BAG IVPB ONE (08:00)
[2022-01-24] MEDS: HEPARIN SODIUM,PORCINE/PF 5,000 UNIT/0.5 ML SYRINGE SQ SCH ×3 (08:29→22:57)
[2022-01-24] MEDS: METOPROLOL TARTRATE 50 MG TAB PO SCH ×2 (08:29→20:00)
[2022-01-24] MEDS: SODIUM CHLORIDE 0.9% 1,000 ML IV SCH ×2 (08:34→20:00)
[2022-01-24 09:52] LABS: Basophils % (A) 1 %; Eosinophils # (A) 0.3 k/uL (0-0.7); Eosinophils % (A) 6 %; HCT 31.7 % (39.0-53.0); Hypochromasia Slight; Lymphocytes # (A) 1.5 k/uL (1.0-4.8); Lymphocytes % (A) 28 %; MCH 31.4 pg (25.0-35.0); MCHC 31.4 g/dL (31.0-37.0); MCV 99.8 fL (80.0-100.0); Mean Platelet Volume 8.1; Monocytes # (A) 0.4 k/uL (0-1.0); Monocytes % (A) 8 %; Neutrophils % (A) 55 %; Platelet Count 198 k/uL (150-450); RBC 3.18 m/uL (4.30-5.90); RDW 13.2 % (11.5-15.5); WBC 5.5 k/uL (3.8-10.6)
[2022-01-24 09:59] LABS: Albumin 3.4 g/dL (3.5-5.0); Calcium 7.5 mg/dL (8.4-10.2); Magnesium 1.6 mg/dL (1.6-2.3); Phosphorus 3.9 mg/dL (2.5-4.5); Potassium 5.6 mmol/L (3.5-5.1); Total Bilirubin 0.3 mg/dL (0.2-1.3); Total Protein 6.2 g/dL (6.3-8.2)
[2022-01-24 11:44] LABS: Glucose,Whole Blood 110 mg/dL (70-110)
--- NOTE | 2022-01-24 12:21 | P.NPCON ---
History of Present Illness - Reason for Consult acute renal failure - History of Present Illness Patient is an 81-year-old male with history of hyperlipidemia. He was admitted from his primary care physician's office due to abnormal labs. Serum potassium was at 8.2 and equal as per liter. Serum creatinine 2.5. Previous creatinine at 1.2 on 07/30/2021. Patient states that he was recently started on potassium supplementation. He did admit to increase potassium intake in diet as well. Maintained on SURI inhibitor's and Aldactone. Blood pressure was low with systolic in the 90s on initial admission Patient denies any nausea vomiting or diarrhea No history of fever chills or cough. Patient denies any significant history of kidney diseases although he states that his kidney function has been week on and off since he was started on diuretics. No history of use of NSAIDs Review of Systems As per HPI Past Medical History Past Medical History: Hyperlipidemia, Thyroid Disorder History of Any Multi-Drug Resistant Organisms: None Reported Additional Past Surgical History / Comment(s): Thyroidectomy Past Anesthesia/Blood Transfusion Reactions: No Reported Reaction Past Psychological History: No Psychological Hx Reported Smoking Status: Former smoker Past Alcohol Use History: None Reported Past Drug Use History: None Reported - Past Family History Mother Family Medical History: Dementia Additional Family Medical History / Comment(s): alzheimers Father Family Medical History: Congestive Heart Failure (CHF) Medications and Allergies Home Medications Medication Instructions Recorded Confirmed Type Aspirin EC [Ecotrin Low Dose] 81 mg PO Q48H 03/20/21 01/23/22 History Levothyroxine Sodium [Synthroid] 125 mcg PO DAILY 03/20/21 01/23/22 History Simvastatin [Zocor] 40 mg PO HS 03/20/21 01/23/22 History Metoprolol Tartrate [Lopressor] 50 mg PO BID #60 tab 07/30/21 01/23/22 Rx Spironolactone [Aldactone] 25 mg PO DAILY #30 tab 07/30/21 01/23/22 Rx lisinopriL [Zestril] 20 mg PO BID #60 tab 07/30/21 01/23/22 Rx Furosemide [Lasix] 80 mg PO DAILY 01/23/22 01/23/22 History Potassium Chloride ER [K-Dur 20] 20 meq PO DAILY 01/23/22 01/23/22 History metFORMIN HCL [Glucophage] 500 mg PO BID 01/23/22 01/23/22 History Allergies Allergy/AdvReac Type Severity Reaction Status Date / Time No Known Allergies Allergy Verified 01/23/22 13:16 Physical Exam Vitals: Vital Signs Temp Pulse Pulse Resp BP BP Pulse Ox 01/24/22 11:56 98.2 F 60 16 135/72 99 01/24/22 11:19 55 L 18 148/65 100 01/24/22 08:25 98.2 F 71 16 120/54 99 01/24/22 08:00 97.6 F 70 17 118/68 100 01/24/22 03:42 98.1 F 63 16 109/56 97 01/23/22 23:53 97.6 F 61 16 119/57 98 01/23/22 20:00 97.8 F 62 18 102/61 99 01/23/22 17:19 64 16 136/85 97 01/23/22 16:40 63 16 139/58 97 01/23/22 16:36 56 L 01/23/22 16:26 56 L 01/23/22 16:03 64 16 104/64 98 01/23/22 15:49 98.0 F 87 18 124/77 97 01/23/22 14:00 66 16 110/60 98 01/23/22 12:54 68 16 130/68 98 Intake and Output 01/23/22 01/24/22 01/24/22 22:59 06:59 14:59 Intake Total 240 180 Balance 240 180 Intake: Oral 240 180 Other: Voiding Method Toilet Toilet Toilet # Voids 1 2 # Bowel Movements 0 Weight 91.172 kg Awake, comfortable, not in any acute distress Examination of the heart S1 and S2 Examination of the lungs bilateral breath sounds are heard Abdomen is soft nontender Examination of the lower extremity shows no significant edema 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 Acute kidney injury secondary to hypotension, nonoliguric with ischemic ATN in the setting of use of SURI inhibitor's. Currently improving. Check UA. Ultrasound shows no evidence of obstructive uropathy 2. Hyperkalemia associated with acute kidney injury, recent potassium supplementation in the setting of use of SURI inhibitor's and Aldactone. Rule out urine retention. 3. Metabolic acidosis associated with acute kidney injury currently improved 4. Type 2 diabetes maintained on metformin as outpatient 5. Hypertension with blood pressures low on admission Plan: Continue to hold off on SURI inhibitor's and Aldactone. Continue with IV fluids Avoid use of Kayexalate, rather we can use lokema if needed for hyperkalemia due to associated risk of colonic necrosis with Kayexalate especially in the elderly. Repeat labs in a.m. Check bladder scan and rule out urine retention. Next Thank you for the consultation. We'll continue to follow the patient with you during his hospitalization
--- NOTE | 2022-01-24 15:54 | P.PN ---
Subjective Progress Note Date: 01/24/22 Patient seen and examined at bedside. Patient denies chest pain shortness of breath nausea vomiting fevers or chills. Patient's dates he feels good. Objective - Vital Signs Vital signs: Vital Signs Temp 98.2 F 01/24/22 11:56 Pulse 60 01/24/22 11:56 Resp 16 01/24/22 11:56 BP 135/72 01/24/22 11:56 Pulse Ox 99 01/24/22 11:56 FiO2 Intake & Output 01/23/22 01/24/22 01/24/22 18:59 06:59 18:59 Intake Total 240 360 Balance 240 360 Weight 91.172 kg Intake: Oral 240 360 Other: Voiding Method Toilet Toilet # Voids 0 2 # Bowel Movements 0 - Exam General: [non toxic], [no distress], [appears at stated age] Derm: [warm], [dry] Head: [atraumatic], [normocephalic], [symmetric] Eyes: [EOMI], [no lid lag], [anicteric sclera] Mouth: [no lip lesion], [mucus membranes moist] Cardiovascular: [S1S2 reg], [no murmur], [positive posterior tibial pulse bilateral], Lungs: [CTA bilateral], [no rhonchi, no rales] , [no accessory muscle use] Abdominal: [soft], [ nontender to palpation], [no guarding], [no appreciable organomegaly] Ext: [no gross muscle atrophy], [no edema], [no contractures] Neuro: [ CN II-XI grossly intact], [no focal neuro deficits] Psych: [Alert], [oriented], [appropriate affect] - Labs CBC & Chem 7: 01/24/22 09:00 01/24/22 09:00 Labs: Abnormal Lab Results - Last 24 Hours (Table) 01/23/22 01/23/22 01/23/22 Range/Units 11:27 19:17 20:21 RBC (4.30-5.90) m/uL Hgb (13.0-17.5) gm/dL Hct (39.0-53.0) % Sodium 136 L (137-145) mmol/L Potassium 6.2 H* (3.5-5.1) mmol/L Carbon Dioxide 17 L (22-30) mmol/L BUN 72 H (9-20) mg/dL Creatinine 2.43 H (0.66-1.25) mg/dL Glucose 200 H (74-99) mg/dL POC Glucose (mg/dL) 181 H (70-110) mg/dL Hemoglobin A1c 7.3 H (0.0-6.0) % Calcium 8.0 L (8.4-10.2) mg/dL Total Bilirubin 0.1 L (0.2-1.3) mg/dL Total Protein (6.3-8.2) g/dL Albumin (3.5-5.0) g/dL 01/24/22 01/24/22 01/24/22 Range/Units 00:01 05:54 09:00 RBC 3.18 L (4.30-5.90) m/uL Hgb 10.0 L D (13.0-17.5) gm/dL Hct 31.7 L (39.0-53.0) % Sodium (137-145) mmol/L Potassium 5.7 H (3.5-5.1) mmol/L Carbon Dioxide 21 L (22-30) mmol/L BUN 68 H (9-20) mg/dL Creatinine 2.32 H (0.66-1.25) mg/dL Glucose 127 H (74-99) mg/dL POC Glucose (mg/dL) 123 H (70-110) mg/dL Hemoglobin A1c (0.0-6.0) % Calcium 8.0 L (8.4-10.2) mg/dL Total Bilirubin (0.2-1.3) mg/dL Total Protein (6.3-8.2) g/dL Albumin (3.5-5.0) g/dL 01/24/22 Range/Units 09:00 RBC (4.30-5.90) m/uL Hgb (13.0-17.5) gm/dL Hct (39.0-53.0) % Sodium (137-145) mmol/L Potassium 5.6 H (3.5-5.1) mmol/L Carbon Dioxide 21 L (22-30) mmol/L BUN 58 H (9-20) mg/dL Creatinine 1.96 H (0.66-1.25) mg/dL Glucose 192 H (74-99) mg/dL POC Glucose (mg/dL) (70-110) mg/dL Hemoglobin A1c (0.0-6.0) % Calcium 7.5 L (8.4-10.2) mg/dL Total Bilirubin (0.2-1.3) mg/dL Total Protein 6.2 L (6.3-8.2) g/dL Albumin 3.4 L (3.5-5.0) g/dL Assessment and Plan Assessment: 1. Hyperkalemia likely caused by dehydration and medications Hold all nephrotoxic agents Lasix, Metformin, spironolactone, lisinopril all held Nephrology following Repeat potassium level was 6.6 from 8.2 Repeat potassium level ordered IV fluids placed Telemetry Vitals every 4 2. Rem-vljryke-llbllwjuc diabetes mellitus Hold metformin Insulin sliding scale with long-acting insulin placed Hypoglycemic protocol ordered 3. History of hypertension currently controlled Diuretics and SURI inhibitor held Metoprolol continued with parameters placed 4. History of hyperlipidemia resume statin 5. GI DVT prophylaxis 6. A.m. labs 7. PT OT Patient is a DO NOT RESUSCITATE Admit to medical telemetry Anticipated discharge the next 24 hours Greater than 45 minutes spent coordinating care, counseling, and documenting Time with Patient: Greater than 30
[2022-01-24 16:25] LABS: Glucose,Whole Blood 85 mg/dL (70-110)
[2022-01-24] MEDS: ATORVASTATIN 20 MG TAB PO SCH (20:00)
[2022-01-24 20:04] LABS: Glucose,Whole Blood 130 mg/dL (70-110)
[2022-01-25 05:48] LABS: Glucose,Whole Blood 118 mg/dL (70-110)
[2022-01-25] MEDS: SODIUM CHLORIDE 0.9% 1,000 ML IV SCH (06:12)
[2022-01-25] MEDS: LEVOTHYROXINE 125 MCG TAB PO SCH (06:12)
[2022-01-25] MEDS: INSULIN DETEMIR (LEVEMIR) 100 UNIT/ML SYR SQ SCH (06:12)
[2022-01-25] MEDS: METOPROLOL TARTRATE 50 MG TAB PO SCH (08:08)
[2022-01-25] MEDS: HEPARIN SODIUM,PORCINE/PF 5,000 UNIT/0.5 ML SYRINGE SQ SCH (08:08)
[2022-01-25 08:55] LABS: Basophils % (A) 1 %; Eosinophils # (A) 0.3 k/uL (0-0.7); Eosinophils % (A) 7 %; HCT 31.2 % (39.0-53.0); HGB 9.8 gm/dL (13.0-17.5); Hypochromasia Slight; Lymphocytes # (A) 1.6 k/uL (1.0-4.8); Lymphocytes % (A) 33 %; MCH 31.6 pg (25.0-35.0); MCHC 31.3 g/dL (31.0-37.0); MCV 100.8 fL (80.0-100.0); Mean Platelet Volume 7.9; Monocytes # (A) 0.4 k/uL (0-1.0); Monocytes % (A) 8 %; Neutrophils # (A) 2.5 k/uL (1.3-7.7); Neutrophils % (A) 50 %; Platelet Count 192 k/uL (150-450); RDW 13.3 % (11.5-15.5)
[2022-01-25] MEDS ORDERED: ASPIRIN 81 MG PO SCH (09:00)
[2022-01-25 09:05] LABS: Albumin 3.3 g/dL (3.5-5.0); Calcium 7.3 mg/dL (8.4-10.2); Potassium 5.1 mmol/L (3.5-5.1); Total Bilirubin 0.3 mg/dL (0.2-1.3); Total Protein 5.9 g/dL (6.3-8.2)
[2022-01-25 11:40] VITALS: BP 128/60; PULSE 50; RESP 16; TEMP 97.9
[2022-01-25 11:44] LABS: Glucose,Whole Blood 107 mg/dL (70-110)
--- NOTE | 2022-01-25 11:47 | P.PN ---
Subjective Patient is seen for follow-up for acute kidney injury and hyperkalemia. Renal function has improved Serum potassium is down to I 0.1. Creatinine decreased to 1.7 today from 2.5 on initial admission. No complaints today Objective - Vital Signs Vital signs: Vital Signs Temp 97.9 F 01/25/22 11:39 Pulse 50 L 01/25/22 11:39 Resp 16 01/25/22 11:39 BP 128/60 01/25/22 11:39 Pulse Ox 99 01/25/22 11:39 FiO2 Intake & Output 01/24/22 01/25/22 01/25/22 18:59 06:59 18:59 Intake Total 540 240 Output Total 300 Balance 540 -60 Intake: Oral 540 240 Output: Urine 300 Other: Voiding Method Toilet Toilet Toilet Urinal Urinal # Voids 2 - Exam Patient is awake, comfortable, not in any acute distress Examination of the heart S1 and S2 Examination of the lungs bilateral breath sounds are heard Abdomen is soft nontender Examination of the lower extremities shows no evidence of edema CHIEF CRNA exam grossly intact - Labs CBC & Chem 7: 01/25/22 08:01 01/25/22 08:01 Labs: Abnormal Lab Results - Last 24 Hours (Table) 01/24/22 01/25/22 01/25/22 Range/Units 20:01 05:46 08:01 RBC 3.10 L (4.30-5.90) m/uL Hgb 9.8 L (13.0-17.5) gm/dL Hct 31.2 L (39.0-53.0) % MCV 100.8 H (80.0-100.0) fL BUN (9-20) mg/dL Creatinine (0.66-1.25) mg/dL Glucose (74-99) mg/dL POC Glucose (mg/dL) 130 H 118 H (70-110) mg/dL Calcium (8.4-10.2) mg/dL Total Protein (6.3-8.2) g/dL Albumin (3.5-5.0) g/dL 01/25/22 Range/Units 08:01 RBC (4.30-5.90) m/uL Hgb (13.0-17.5) gm/dL Hct (39.0-53.0) % MCV (80.0-100.0) fL BUN 41 H (9-20) mg/dL Creatinine 1.77 H (0.66-1.25) mg/dL Glucose 181 H (74-99) mg/dL POC Glucose (mg/dL) (70-110) mg/dL Calcium 7.3 L (8.4-10.2) mg/dL Total Protein 5.9 L (6.3-8.2) g/dL Albumin 3.3 L (3.5-5.0) g/dL Assessment and Plan Assessment: 1. Acute kidney injury secondary to hypotension, nonoliguric with ischemic ATN in the setting of use of SURI inhibitor's. Currently improving. Check UA. Ultrasound shows no evidence of obstructive uropathy 2. Hyperkalemia associated with acute kidney injury, recent potassium funez pplementation in the setting of use of SURI inhibitor's and Aldactone. Rule out urine retention. 3. Metabolic acidosis associated with acute kidney injury currently improved 4. Type 2 diabetes maintained on metformin as outpatient 5. Hypertension with blood pressures low on admission Plan: Continue to hold off on SURI inhibitor's and Aldactone. Patient is stable for discharge Repeat labs in 2-3 days post discharge Recommend follow-up for CK D.
--- NOTE | 2022-01-25 13:45 | P.DS ---
Providers Date of admission: 01/23/22 13:14 Attending physician: Du Fernandez MD Consults: 01/23/22 13:14 Consult Physician Urgent Consulting Provider: Dyana Warner Consult Reason/Comments: Hyperkalemia, acute kidney injury Do you want consulting provider notified?: Yes Primary care physician: [facility] Course: Admitting diagnoses: Abnormal lab Discharge diagnoses: Hyperkalemia resolved ENA on CKD improved Hypertension controlled Hyperlipidemia stable Rav-rlgfigy-czauadkel diabetes mellitus Hospital course: This a 81-year-old male presents to [facility] emergency Department chief complaint of abnormal labs. Patient states is at his PCPs office in which she was told his potassium was elevated. Patient states that he was on potassium supplements states that he was on Lasix also. Patient has noted that he's had some renal dysfunction versus has been evaluated in the past. Appears to be worsening. Patient states he is currently asymptomatic denies chest pain palpitations dizziness nausea vomiting diarrhea constipation or fevers chills no other associated complaints. Patient lives alone. However, his daughter lives a short distance away. She is alert and oriented 4 and states he does not want to bother his family with his medical issues at this time. Patient's daughter Geno is on vacation in [place] and does not want to worry her. Patient states he is a DO NOT RESUSCITATE. Patient has no complaints and is sitting in bed comfortably. She denies history of heart failure. Patient has a past medical history of hypertension, hyperlipidemia, renal insufficiency, and mxz-bnjbetk-zlqlgxnbq diabetes mellitus. Physical exam: General: [non toxic], [no distress], [appears at stated age] Derm: [warm], [dry] Head: [atraumatic], [normocephalic], [symmetric] Eyes: [EOMI], [no lid lag], [anicteric sclera] Mouth: [no lip lesion], [mucus membranes moist] Cardiovascular: [S1S2 reg], [no murmur], [positive posterior tibial pulse bilateral], Lungs: [CTA bilateral], [no rhonchi, no rales] , [no accessory muscle use] Abdominal: [soft], [ nontender to palpation], [no guarding], [no appreciable organomegaly] Ext: [no gross muscle atrophy], [no edema], [no contractures] Neuro: [ CN II-XI grossly intact], [no focal neuro deficits] Psych: [Alert], [oriented], [appropriate affect] Clinical course: 1. Hyperkalemia likely caused by dehydration and medications Hold all nephrotoxic agents Lasix, Metformin, spironolactone, lisinopril all held during hospital stay Nephrology closely follow Patient given insulin, calcium gluconate, Kayexalate Repeat potassium level today was 5.1 Repeat levels in the next 2-3 days if patient 2. Pzq-kavsmpg-dschdbbwn diabetes mellitus Hold metformin Insulin sliding scale with long-acting insulin placed during hospital stay Hypoglycemic protocol ordered Restart metformin as an outpatient 3. History of hypertension currently controlled Diuretics and SURI inhibitor held Metoprolol continued with parameters placed 4. History of hyperlipidemia resume statin Disposition: Home with home care Activity: As tolerated Diet: Diabetic Condition: Fair Follow-up with PCP in the next 2-3 days Follow-up with nephrology within 1 week Patient Condition at Discharge: Fair Plan - Discharge Summary Discharge Rx Participant: Yes New Discharge Prescriptions: New Metoprolol Tartrate [Lopressor] 50 mg PO BID #0 tab Continue Levothyroxine Sodium [Synthroid] 125 mcg PO DAILY Aspirin EC [Ecotrin Low Dose] 81 mg PO Q48H metFORMIN HCL [Glucophage] 500 mg PO BID Simvastatin [Zocor] 40 mg PO HS Metoprolol Tartrate [Lopressor] 50 mg PO BID #60 tab Discontinued Spironolactone [Aldactone] 25 mg PO DAILY #30 tab Potassium Chloride ER [K-Dur 20] 20 meq PO DAILY Furosemide [Lasix] 80 mg PO DAILY lisinopriL [Zestril] 20 mg PO BID #60 tab Discharge Medication List Aspirin EC [Ecotrin Low Dose] 81 mg PO Q48H 03/20/21 [History] Levothyroxine Sodium [Synthroid] 125 mcg PO DAILY 03/20/21 [History] Simvastatin [Zocor] 40 mg PO HS 03/20/21 [History] Metoprolol Tartrate [Lopressor] 50 mg PO BID #60 tab 07/30/21 [Rx] metFORMIN HCL [Glucophage] 500 mg PO BID 01/23/22 [History] Metoprolol Tartrate [Lopressor] 50 mg PO BID #0 tab 01/25/22 [Rx] Follow up Appointment(s)/Referral(s): [facility],Clinic [Primary Care Provider] - 1-2 days Dyana Warner MD [STAFF PHYSICIAN] - 1 Week Patient Instructions/Handouts: Heart Failure (ER), Hyperkalemia (GEN), Acute Kidney Injury (GEN) Discharge Disposition: HOME WITH HOME HEALTH SERVICES
--- NOTE | 2022-01-28 08:50 | CDI ---
Documentation Clarification Form Date: 01/2622 From: Camille Abrams Admit Date: 01/23/2022 01:14:00 PM Patient Name: Volodymyr Moore Visit Number: [id number] Discharge Date: 01/25/2022 02:42:00 PM ATTENTION: The Clinical Documentation Specialists (CDI) and [facility] Coding Staff appreciate your assistance in clarifying documentation. Please respond to the clarification below the line at the bottom and electronically sign. The CDI & [facility] Coding staff will review the response and follow-up if needed. Please note: Queries are made part of the Legal Health Record. If you have any questions, please contact the author of this message via ITS. Dr. Palomo Wills, Unspecified CKD is documented in the discharge summary. Additional clarification regarding the stage of CKD is requested. History/Risk Factors: T2DM w CKD, hyperkalemia caused by dehydration and medications. Patients Historical BUN/CR/GFR: none available Clinical Indicators: Current BUN: 72, 72, 68, 58, 41 Current CR: 2.54, 2.43, 2.32, 1.96, 1.77 Current GFR: 23, 24, 25, 31, 35 Treatment: IV fluids, IV calcium gluconate, IV Sod Bicarb Consults Hyperkalemia likely caused by dehydration and medications. Hold all nephrotoxic agents: Lasix, Metformin, spironolactone, lisinopril all held. Please clarify the stage of the CKD, if known: [ ] CKD Stage 1 (GFR > 90) [ ] CKD Stage 2 (GFR 60-89) [ ] CKD Stage 3 (GFR 30-59) [ ] CKD Stage 3a (GFR 45-59) [ ] CKD Stage 3b (GFR 30-44) [ X ] CKD Stage 4 (GFR 15-29) [ ] CKD Stage 5 (GFR <15) [ ] ESRD [ ] Other, please specify [ ] Unable to determine MTDD
== END 2022-01-25 14:42 | disposition home or self-care (01) | DRG 640 ==
LOC: EC 10:52 → 3SCARD 13:14
PROVIDERS: ADMIT Internal Medicine; ATTEND Internal Medicine
DX: E87.5 Hyperkalemia (principal); N17.0 Acute kidney failure with tubular necrosis; N18.4 Chronic kidney disease, stage 4 (severe); E11.22 Type 2 diabetes mellitus with diabetic chronic kidney disease; E87.2 Acidosis; I95.9 Hypotension, unspecified; I12.9 Hypertensive chronic kidney disease with stage 1 through stage 4 chronic kidney disease, or unspecified chronic kidney disease; E86.0 Dehydration; T46.4X5A Adverse effect of angiotensin-converting-enzyme inhibitors, initial encounter; Z28.310 Unvaccinated for COVID-19; E78.5 Hyperlipidemia, unspecified; E89.0 Postprocedural hypothyroidism; Z66 Do not resuscitate; Z79.890 Hormone replacement therapy; Z79.82 Long term (current) use of aspirin; Z79.84 Long term (current) use of oral hypoglycemic drugs; Z79.899 Other long term (current) drug therapy; Z87.891 Personal history of nicotine dependence; Z60.2 Problems related to living alone
CPT/HCPCS: 36415; 76770; 80048; 80053; 83036; 83540; 83550; 83735; 84100; 84132; 85025; 93005; 96361; 96365; 96366; 96372; 96375; 99291

== ENCOUNTER 2022-02-08 01:35 | Inpatient (IN) | payer OTHER, MEDICARE ==
[2022-02-08 02:28] LABS: Basophils # (A) 0.1 k/uL (0-0.2); Basophils % (A) 1 %; Eosinophils # (A) 0.4 k/uL (0-0.7); Eosinophils % (A) 6 %; HCT 31.1 % (39.0-53.0); HGB 10.2 gm/dL (13.0-17.5); Hypochromasia Slight; Lymphocytes # (A) 2.5 k/uL (1.0-4.8); Lymphocytes % (A) 34 %; MCH 31.8 pg (25.0-35.0); MCHC 32.9 g/dL (31.0-37.0); MCV 96.8 fL (80.0-100.0); Mean Platelet Volume 7.9; Monocytes # (A) 0.6 k/uL (0-1.0); Monocytes % (A) 8 %; Neutrophils # (A) 3.5 k/uL (1.3-7.7); Neutrophils % (A) 48 %; Platelet Count 321 k/uL (150-450); RBC 3.22 m/uL (4.30-5.90); RDW 13.4 % (11.5-15.5); WBC 7.2 k/uL (3.8-10.6)
--- NOTE | 2022-02-08 02:38 | ED ---
General Adult HPI - General Chief complaint: Shortness of Breath Stated complaint: SOB Time Seen by Provider: 02/08/22 02:04 Source: patient Mode of arrival: ambulatory - History of Present Illness Initial comments: Dictation was produced using [employer] dictation software. please excuse any grammatical, word or spelling errors. Chief Complaint: 81-year-old male with recent admission for hyperkalemia presents emergency department for dyspnea History of Present Illness: 81-year-old male who has past medical history dyslipidemia, hypertension. Presents emergency department for 3-5 days of shortness of breath. Patient states that he feels short of breath whenever he tries to exert himself or bend forward. Denies any cough. No chest pain. Patient denies any lower extremity symptoms. Patient was recently discharged to the hospital for hyperkalemia about 2 weeks ago. At that time he had baseline labs drawn which when the hyperkalemia was discovered. The timing is asymptomatic. Patient has any fever constitutional symptoms. The ROS documented in this emergency department record has been reviewed and confirmed by me. Those systems with pertinent positive or negative responses have been documented in the HPI. All other systems are other negative and/or noncontributory. PHYSICAL EXAM: General Impression: Alert and oriented x3, not in acute distress HEENT: Normocephalic atraumatic, extra-ocular movements intact, pupils equal and reactive to light bilaterally, mucous membranes moist. Cardiovascular: Heart regular rate and rhythm Chest: Able to complete full sentences, no retractions, no tachypnea, clear to auscultation bilaterally Abdomen: abdomen soft, non-tender, non-distended, no organomegaly Musculoskeletal: Pulses present and equal in all extremities, no peripheral edema Motor: no focal deficits noted Neurological: CN II-XII grossly intact, no focal motor or sensory deficits noted Skin: Intact with no visualized rashes Psych: Normal affect and mood ED course: 81-year-old male presents to the emergency department for dyspnea. On arrival are within acceptable limits. Patient does not appear dyspneic. He is not hypoxic. His lung exam is unremarkable. Clear to auscultation. EKG appears to be baseline. Laboratory evaluation obtained. CBC unremarkable. Metabolic panel within acceptable limits. Troponin is 0.034. Patient is a history of troponin leak. Prematurity peptide is significantly elevated at 15,000. Patient has history of elevated BNP though not this high. Chest x-ray is unremarkable for any acute processes. Patient reevaluated bedside at 3:00 AM. Does not appear winded until he starts to exert himself. Patient would benefit from observation admission for gentle diuresis. Patient given dose of Lasix. Patient will be admitted to [facility] emergency department physician group. EKG interpretation: Ventricular rate 59, sinus bradycardia,. Interval 186, QS 149, QTC 476.. No CT prolongation, no QTC prolongation, no ST or T-wave changes noted. EKG compared to the tender 2021 showing no changes. Overall, this EKG is unremarkable - Related Data Home Medications Medication Instructions Recorded Confirmed Aspirin EC [Ecotrin Low Dose] 81 mg PO Q48H 03/20/21 01/23/22 Levothyroxine Sodium [Synthroid] 125 mcg PO DAILY 03/20/21 01/23/22 Simvastatin [Zocor] 40 mg PO HS 03/20/21 01/23/22 metFORMIN HCL [Glucophage] 500 mg PO BID 01/23/22 01/23/22 Previous Rx's Medication Instructions Recorded Metoprolol Tartrate [Lopressor] 50 mg PO BID #60 tab 07/30/21 Metoprolol Tartrate [Lopressor] 50 mg PO BID #0 tab 01/25/22 Allergies Allergy/AdvReac Type Severity Reaction Status Date / Time No Known Allergies Allergy Verified 02/08/22 01:56 Review of Systems ROS Statement: Those systems with pertinent positive or pertinent negative responses have been documented in the HPI. ROS Other: All systems not noted in ROS Statement are negative. Past Medical History Past Medical History: Hyperlipidemia, Thyroid Disorder Additional Past Medical History / Comment(s): abnormal K+ History of Any Multi-Drug Resistant Organisms: None Reported Additional Past Surgical History / Comment(s): Thyroidectomy Past Anesthesia/Blood Transfusion Reactions: No Reported Reaction Past Psychological History: No Psychological Hx Reported Smoking Status: Former smoker Past Alcohol Use History: None Reported Past Drug Use History: None Reported - Past Family History Mother Family Medical History: Dementia Additional Family Medical History / Comment(s): alzheimers Father Family Medical History: Congestive Heart Failure (CHF) Course Vital Signs 02/08/22 02/08/22 01:54 02:21 Temperature 98.1 F Pulse Rate 58 L Respiratory 19 16 Rate Blood Pressure 174/66 O2 Sat by Pulse 98 Oximetry Medical Decision Making - Lab Data Result diagrams: 02/08/22 02:15 02/08/22 02:15 Lab Results 02/08/22 02/08/22 02/08/22 Range/Units 02:15 02:15 02:15 WBC 7.2 (3.8-10.6) k/uL RBC 3.22 L (4.30-5.90) m/uL Hgb 10.2 L (13.0-17.5) gm/dL Hct 31.1 L (39.0-53.0) % MCV 96.8 (80.0-100.0) fL MCH 31.8 (25.0-35.0) pg MCHC 32.9 (31.0-37.0) g/dL RDW 13.4 (11.5-15.5) % Plt Count 321 (150-450) k/uL MPV 7.9 Neutrophils % 48 % Lymphocytes % 34 % Monocytes % 8 % Eosinophils % 6 % Basophils % 1 % Neutrophils # 3.5 (1.3-7.7) k/uL Lymphocytes # 2.5 (1.0-4.8) k/uL Monocytes # 0.6 (0-1.0) k/uL Eosinophils # 0.4 (0-0.7) k/uL Basophils # 0.1 (0-0.2) k/uL Hypochromasia Slight Sodium 138 (137-145) mmol/L Potassium 4.6 (3.5-5.1) mmol/L Chloride 103 (98-107) mmol/L Carbon Dioxide 24 (22-30) mmol/L Anion Gap 11 mmol/L BUN 24 H (9-20) mg/dL Creatinine 1.45 H (0.66-1.25) mg/dL Est GFR (CKD-EPI)AfAm 52 (>60 ml/min/1.73 sqM) Est GFR (CKD-EPI)NonAf 45 (>60 ml/min/1.73 sqM) Glucose 135 H (74-99) mg/dL Calcium 8.1 L (8.4-10.2) mg/dL Troponin I 0.034 (0.000-0.034) ng/mL NT-Pro-B Natriuret Pep pg/mL 02/08/22 Range/Units 02:15 WBC (3.8-10.6) k/uL RBC (4.30-5.90) m/uL Hgb (13.0-17.5) gm/dL Hct (39.0-53.0) % MCV (80.0-100.0) fL MCH (25.0-35.0) pg MCHC (31.0-37.0) g/dL RDW (11.5-15.5) % Plt Count (150-450) k/uL MPV Neutrophils % % Lymphocytes % % Monocytes % % Eosinophils % % Basophils % % Neutrophils # (1.3-7.7) k/uL Lymphocytes # (1.0-4.8) k/uL Monocytes # (0-1.0) k/uL Eosinophils # (0-0.7) k/uL Basophils # (0-0.2) k/uL Hypochromasia Sodium (137-145) mmol/L Potassium (3.5-5.1) mmol/L Chloride (98-107) mmol/L Carbon Dioxide (22-30) mmol/L Anion Gap mmol/L BUN (9-20) mg/dL Creatinine (0.66-1.25) mg/dL Est GFR (CKD-EPI)AfAm (>60 ml/min/1.73 sqM) Est GFR (CKD-EPI)NonAf (>60 ml/min/1.73 sqM) Glucose (74-99) mg/dL Calcium (8.4-10.2) mg/dL Troponin I (0.000-0.034) ng/mL NT-Pro-B Natriuret Pep 53550 pg/mL Disposition Clinical Impression: Heart failure Disposition: ADMITTED IP TO THIS HOSP Condition: Fair [facility]errals: [facility] [Primary Care Provider] - 1-2 days Decision Time: 03:05
--- NOTE | 2022-02-08 02:41 | XR ---
EXAMINATION TYPE: XR chest 2V DATE OF EXAM: 02/07/2022 COMPARISON: 07/27/2021 HISTORY: Pain TECHNIQUE: 2 view FINDINGS: There is bilateral patchy areas of pulmonary infiltrate. There is thickening along the righ t major fissure. No heart failure seen. Heart size is normal. IMPRESSION: There is chronic pleural thickening and pulmonary infiltrates not significantly different than old exam. No evidence of any new infiltrate. No obvious heart failure.
[2022-02-08 02:42] LABS: Calcium 8.1 mg/dL (8.4-10.2); Potassium 4.6 mmol/L (3.5-5.1)
[2022-02-08] MEDS ORDERED: FUROSEMIDE 10 MG/ML 4 ML VIAL IV STA (02:57)
--- NOTE | 2022-02-08 04:59 | P.HPIM ---
History of Present Illness H&P Date: 02/08/22 Chief Complaint: exertional SOB 81 year old male with CHF , hypertension , DM patient comes in due to 5 day history of progressive exertional dyspnea, and today he was short of breath at rest. he reports orthopnea and PNDs. and getting SOB by just walking to the bathroom. he denies any leg swelling, coughing, fever, chills, chest pain , abd pain , nausea or vomting , denies any changes in bowel or urinary habits. he was recently hospitalized for ENA and hyperkalemia. he was discharged on 01/25 to home, he lives alone, independent , still drives and take care of himself he feels better at time of my evaluation , he can rest in the bed with the head up, without having SOB. however, when he tried to walk to the bathroom while in the ED, he got SOB quickly . he claims to be compliant with meds, but he is not currently on diuretics. he also is trying to drink a lot of water while at home, to help the kidneys recover workup inthe ED showed stable CKD, and chronic anemia . Review of Systems Pertinent positives as noted in HPI. All other systems were reviewed and are negative Past Medical History Past Medical History: Diabetes Mellitus, Hyperlipidemia, Thyroid Disorder Additional Past Medical History / Comment(s): abnormal K+ History of Any Multi-Drug Resistant Organisms: None Reported Additional Past Surgical History / Comment(s): Thyroidectomy Past Anesthesia/Blood Transfusion Reactions: No Reported Reaction Past Psychological History: No Psychological Hx Reported Smoking Status: Former smoker Past Alcohol Use History: None Reported Past Drug Use History: None Reported - Past Family History Mother Family Medical History: Dementia Additional Family Medical History / Comment(s): alzheimers Father Family Medical History: Congestive Heart Failure (CHF) Medications and Allergies Home Medications Medication Instructions Recorded Confirmed Type Aspirin EC [Ecotrin Low Dose] 81 mg PO Q48H 03/20/21 01/23/22 History Levothyroxine Sodium [Synthroid] 125 mcg PO DAILY 03/20/21 01/23/22 History Simvastatin [Zocor] 40 mg PO HS 03/20/21 01/23/22 History Metoprolol Tartrate [Lopressor] 50 mg PO BID #60 tab 07/30/21 01/23/22 Rx metFORMIN HCL [Glucophage] 500 mg PO BID 01/23/22 01/23/22 History Metoprolol Tartrate [Lopressor] 50 mg PO BID #0 tab 01/25/22 Rx Allergies Allergy/AdvReac Type Severity Reaction Status Date / Time No Known Allergies Allergy Verified 02/08/22 01:56 Physical Exam Vitals: Vital Signs Temp Pulse Resp BP Pulse Ox 02/08/22 02:21 16 02/08/22 01:54 98.1 F 58 L 19 174/66 98 Intake and Output 02/07/22 02/07/22 02/08/22 14:59 22:59 06:59 Other: Weight 90.718 kg Constitutional: No acute distress, conversant, pleasant Eyes: Anicteric sclerae, moist conjunctiva, Pupils equal round reactive to light ENMT: NC/AT Oropharynx clear, no erythema, or exudates Neck: Supple no masses, or JVD No carotid bruits No thyromegaly Lungs: Decreased breath sounds at lung bases with inspiratory rales b ilaterally Clear to percussion Normal respiratory effort, no accessory muscle use Cardiovascular: Heart regular in rate and rhythm, No murmurs, gallops, or rubs No peripheral edema Abdominal: Soft Nontender, no guarding, rebound or rigidity Abdomen moving with respiration Normoactive bowel sounds No hepatomegaly, No splenomegaly No palpable mass No abdominal wall hernia noted Skin: Normal temperature, tone, texture, turgor No induration No subcutaneous nodules No rash, lesions No ulcers Extremities: No digital cyanosis No clubbing Pedal pulses intact and symmetrical Radial pulses intact and symmetrical No calf tenderness Psychiatric: Alert and oriented to person, place and time Appropriate affect fair judgement Neuro Muscles Strength 5/5 in all 4 extremities Sensation to light touch grossly present throughout Cranial nerves II-XII grossly intact No focal sensory deficits Lymphatics: no palpable cervical or supraclavicular , or inguinal lymph nodes Results CBC & Chem 7: 02/08/22 02:15 02/08/22 02:15 Labs: Abnormal Lab Results - Last 24 Hours (Table) 02/08/22 02/08/22 02/08/22 Range/Units 02:15 02:15 02:15 RBC 3.22 L (4.30-5.90) m/uL Hgb 10.2 L (13.0-17.5) gm/dL Hct 31.1 L (39.0-53.0) % D-Dimer 1.72 H (<0.60) mg/L FEU BUN 24 H (9-20) mg/dL Creatinine 1.45 H (0.66-1.25) mg/dL Glucose 135 H (74-99) mg/dL Calcium 8.1 L (8.4-10.2) mg/dL Assessment and Plan Assessment: Acute mild CHF exacerbation Patient counseled regarding fluid restrictions 2 L per day Initiated on IV Lasix Daily weights Check ambulatory oxygen saturation Resume metoprolol and lisinopril Continue with by mouth diuresis summer analyst Monitor vital signs Cardiology consult Most recent left ventricular ejection fraction 40% Chronic conditions Chronic anemia secondary to chronic disease stable denies any bleeding CK D stage III stable Diabetes mellitus continue with insulin sliding scale Hypothyroidism continue levothyroxine dvt prophylaxis heparin subcu 3 times a day Full code
[2022-02-08 07:53] LABS: Glucose,Whole Blood 135 mg/dL (70-110)
[2022-02-08] MEDS ORDERED: FUROSEMIDE 40 MG TAB PO SCH (08:00)
[2022-02-08] MEDS ORDERED: HEPARIN SODIUM,PORCINE/PF 5,000 UNIT/0.5 ML SYRINGE SQ SCH (08:00)
[2022-02-08] MEDS: INSULIN ASPART (NovoLOG) 100 UNIT/ML VIAL SQ SCH ×4 (08:22→20:27)
[2022-02-08] MEDS: METOPROLOL TARTRATE 50 MG TAB PO SCH ×2 (08:27→20:31)
[2022-02-08] MEDS: LEVOTHYROXINE 125 MCG TAB PO SCH (08:27)
[2022-02-08] MEDS ORDERED: ASPIRIN 81 MG PO SCH (09:00)
[2022-02-08] MEDS ORDERED: METOPROLOL TARTRATE 50 MG TAB PO SCH (09:00)
[2022-02-08] MEDS ORDERED: FUROSEMIDE 10 MG/ML 4 ML VIAL IV SCH (10:00)
[2022-02-08] MEDS ORDERED: HEPARIN SODIUM 1,000 UN/ML (10ML VL) IV PRN (10:23)
[2022-02-08] MEDS ORDERED: HEPARIN SODIUM 1,000 UN/ML (10ML VL) IV ONE (10:23)
[2022-02-08] MEDS ORDERED: HEPARIN SOD,PORK IN 0.45% NACL 25,000 UNIT in 0.45% NACL 1 250ML.BAG IV SCH (10:30)
[2022-02-08 10:44] LABS: Basophils # (A) 0.1 k/uL (0-0.2); Basophils % (A) 1 %; Eosinophils # (A) 0.3 k/uL (0-0.7); Eosinophils % (A) 5 %; HCT 32.1 % (39.0-53.0); HGB 10.3 gm/dL (13.0-17.5); Hypochromasia Slight; Lymphocytes # (A) 1.8 k/uL (1.0-4.8); Lymphocytes % (A) 28 %; MCH 31.3 pg (25.0-35.0); MCV 97.9 fL (80.0-100.0); Mean Platelet Volume 7.6; Monocytes # (A) 0.7 k/uL (0-1.0); Monocytes % (A) 10 %; Neutrophils # (A) 3.6 k/uL (1.3-7.7); Neutrophils % (A) 54 %; Platelet Count 349 k/uL (150-450); RBC 3.28 m/uL (4.30-5.90); RDW 13.4 % (11.5-15.5); WBC 6.6 k/uL (3.8-10.6)
[2022-02-08 10:54] LABS: Partial Thromboplastin Time 25.6 sec (22.0-30.0); Prothrombin Time 10.8 sec (9.0-12.0)
--- NOTE | 2022-02-08 11:40 | P.CRDCN ---
History of Present Illness Consult date: 02/08/22 History of present illness: HISTORY OF PRESENT ILLNESS: This is a 81-year-old male with a past medical history significant for congestive heart failure, diabetes, hypertension, and hyperlipidemia. 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 We have been asked to see the patient in consultation for congestive heart failure. Patient examined at the bedside. Patient presented to the hospital with a chief complaint of shortness of breath. He states he has been feeling short of breath over the past 5 days. He denies having any lower extremity edema. He reports taking a water pill at home but states he is unsure of the name. He denies any chest pain or pressure. Patient underwent a Lexiscan stress test in March 2021 revealing possibility of small stress-induced reversible ischemia involving the apical lateral myocardium. Patient was supposed to follow up on an outpatient basis regarding this however he has not followed up in office. * EKG reveals sinus bradycardia with left bundle branch block. Left axis deviation. PVCs. * Chest xray chronic pleural thickening and pulmonary infiltrates not significantly different an old exam. No evidence of any infiltrate. No obvious heart failure. * Laboratory data: WBC 6.6. Hemoglobin 10.3. Platelet count 349. D-dimer 1.72. Sodium 138. Potassium 4.6. BUN 24. Creatinine 1.45. Troponin negative 1. ProBNP 15,000. * Current home cardiac medications include simvastatin 40 mg at night, metoprolol titrate 50 mg twice a day, aspirin 81 mg every 48 hours * Most recent echocardiogram obtained in March 2021 revealed ejection fraction 40-45%, [id number] mitral regurgitation, moderate to severe tricuspid regurgitation, moderate to severe pulmonary hypertension * Cardiac catheterization history: Patient denies REVIEW OF SYSTEMS: At the time of my exam: CONSTITUTIONAL: Denies fever or chills. HEENT: Denies blurred vision, vision changes, or eye pain. Denies hemoptysis CARDIOVASCULAR: Denies chest pain. Denies orthopnea. Denies PND. Denies palpitations RESPIRATORY: Denies shortness of breath. GASTROINTESTINAL: Denies abdominal pain. Denies nausea or vomiting. HEMATOLOGIC: Denies bleeding disorders. GENITOURINARY: Denies any blood in urine. SKIN: Denies pruitis. Denies rash. PHYSICAL EXAM: VITAL SIGNS: Reviewed. GENERAL: Well-developed in no acute distress. HEENT: Head is normocephalic. Pupils are equal, round. Sclerae anicteric. Mucous membranes of the mouth are moist. Neck supple. No JVD or thyromegaly LUNGS: Respirations even and unlabored. Lungs essentially clear to auscultation bilaterally. HEART: Regular rate and rhythm. S1 and S2 heard. + systolic murmur. ABDOMEN: Soft. Nondistended. Nontender. EXTREMITIES: Normal range of motion. No clubbing or cyanosis. Peripheral pulses intact. No lower extremity edema NEUROLOGIC: Awake and alert. Oriented x 3. ASSESSMENT: Shortness of breath Elevated d-dimer, rule out PE Acute on chronic heart failure with mildly reduced EF, 40-45% Chronic kidney disease Cardiomyopathy, unclear if ischemic or nonischemic Hypertension Hyperlipidemia Diabetes PLAN: Obtain 2D echo to assess cardiac structure and function Obtain VQ scan to rule out PE Begin IV heparin. May DC if VQ scan negative. Continue IV lasix Resume home cardiac medications Add Losartan 25mg daily Monitor kidney function Patient will require further outpatient workup regarding cardiomyopathy and abnormal stress test from last year Further recommendations pending patient course Nurse practitioner note has been reviewed by physician. Signing provider agrees with the documented findings, assessment, and plan of care. Past Medical History Past Medical History: Diabetes Mellitus, Hyperlipidemia, Thyroid Disorder Additional Past Medical History / Comment(s): abnormal K+ History of Any Multi-Drug Resistant Organisms: None Reported Additional Past Surgical History / Comment(s): Thyroidectomy Past Anesthesia/Blood Transfusion Reactions: No Reported Reaction Past Psychological History: No Psychological Hx Reported Smoking Status: Former smoker Past Alcohol Use History: None Reported Past Drug Use History: None Reported - Past Family History Mother Family Medical History: Dementia Additional Family Medical History / Comment(s): alzheimers Father Family Medical History: Congestive Heart Failure (CHF) Medications and Allergies Home Medications Medication Instructions Recorded Confirmed Type Aspirin EC [Ecotrin Low Dose] 81 mg PO Q48H 03/20/21 02/08/22 History Levothyroxine Sodium [Synthroid] 125 mcg PO DAILY 03/20/21 02/08/22 History Simvastatin [Zocor] 40 mg PO HS 03/20/21 02/08/22 History Metoprolol Tartrate [Lopressor] 50 mg PO BID #60 tab 07/30/21 02/08/22 Rx metFORMIN HCL [Glucophage] 500 mg PO BID 01/23/22 02/08/22 History Allergies Allergy/AdvReac Type Severity Reaction Status Date / Time No Known Allergies Allergy Verified 02/08/22 07:59 Physical Exam Vitals: Vital Signs Temp Pulse Resp BP Pulse Ox 02/08/22 07:25 50 L 26 H 141/71 20 L 02/08/22 05:29 50 L 18 164/89 02/08/22 02:21 16 02/08/22 01:54 98.1 F 58 L 19 174/66 98 Intake and Output 02/07/22 02/08/22 02/08/22 22:59 06:59 14:59 Other: Weight 90.718 kg Results 02/08/22 10:28 02/08/22 02:15 Cardiac Enzymes 02/08/22 Range/Units 02:15 Troponin I 0.034 (0.000-0.034) ng/mL Coagulation 02/08/22 Range/Units 10: PT 10.8 (9.0-12.0) sec APTT 25.6 (22.0-30.0) sec CBC 02/08/22 02/08/22 Range/Units 02:15 10:28 WBC 7.2 6.6 (3.8-10.6) k/uL RBC 3.22 L 3.28 L (4.30-5.90) m/uL Hgb 10.2 L 10.3 L (13.0-17.5) gm/dL Hct 31.1 L 32.1 L (39.0-53.0) % Plt Count 321 349 (150-450) k/uL Comprehensive Metabolic Panel 02/08/22 Range/Units 02:15 Sodium 138 (137-145) mmol/L Potassium 4.6 (3.5-5.1) mmol/L Chloride 103 (98-107) mmol/L Carbon Dioxide 24 (22-30) mmol/L BUN 24 H (9-20) mg/dL Creatinine 1.45 H (0.66-1.25) mg/dL Glucose 135 H (74-99) mg/dL Calcium 8.1 L (8.4-10.2) mg/dL Current Medications Generic Name Dose Route Start Last Admin Trade Name Freq PRN Reason Stop Dose Admin Aspirin 81 mg 02/08/22 09:00 02/08/22 08:27 Aspirin 81 Mg PO 81 mg Q48H PAPITO Administration Atorvastatin Calcium 20 mg 02/08/22 21:00 Atorvastatin 20 Mg Tab PO HS PAPITO Furosemide 40 mg 02/08/22 21:00 Furosemide 10 Mg/Ml 4 Ml Vial IV Q12HR [facility] Heparin Sodium (Porcine) 0 unit 02/08/22 10:23 Heparin Sodium 1,000 Un/Ml (10ml Vl) IV PER PROTOCOL PRN Low PTT Protocol Heparin Sodium/Sodium Chloride 250 mls @ 9.979 mls/hr 02/08/22 10:30 25,000 unit/ Sodium Chloride IV .Q24H [facility] Protocol 11 UNITS/KG/HR Insulin Aspart 0 unit 02/08/22 07:30 02/08/22 08:22 Insulin Aspart (Novolog) 100 Unit/Ml Vial SQ Not Given ACHS [facility] Protocol Levothyroxine Sodium 125 mcg 02/08/22 06:30 02/08/22 08:27 Levothyroxine 125 Mcg Tab PO 125 mcg DAILY@0630 PAPITO Administration Losartan Potassium 25 mg 02/08/22 10:30 Losartan 25 Mg Tab PO DAILY [facility] Metoprolol Tartrate 50 mg 02/08/22 09:00 02/08/22 08:27 Metoprolol Tartrate 50 Mg Tab PO 50 mg BID PAPITO Administration Intake and Output 02/07/22 02/08/22 02/08/22 22:59 06:59 14:59 Other: Weight 90.718 kg 02/08/22 10:28 02/08/22 02:15
[2022-02-08 12:51] LABS: Glucose,Whole Blood 107 mg/dL (70-110)
[2022-02-08] MEDS: LOSARTAN 25 MG TAB PO SCH (15:29)
--- NOTE | 2022-02-08 15:34 | NM ---
EXAMINATION TYPE: NM pul vent and perfuse DATE OF EXAM: 02/08/2022 COMPARISON: None HISTORY: Shortness of breath TECHNIQUE: Utilizing inhalation of 38.4 mCi Tc 99m DTPA aerosol and intravenous injection of 4.7 mCi of Tc 99m MAA, ventilation and perfusion images are acquired post injection in multiple projections. FINDINGS: There are multiple scattered matched perfusion and ventilation defects throughout both lungs. There a re no large mismatch perfusion defects. IMPRESSION: Low probability for pulmonary embolism.
--- NOTE | 2022-02-08 16:01 | P.PN ---
Subjective Progress Note Date: 02/08/22 Hospital course: Patient is a very pleasant 81-year-old male with a past medical history of congestive heart failure, hypertension, hyperlipidemia, fro-jafniis-tegrlssug diabetes mellitus, chronic kidney disease stage III, anemia of chronic disease, and hypothyroidism. He presented to the emergency department with reports of progressively worsening shortness of breath 5 days. Patient reports significant exertional dyspnea with any activity such as walking to the restroom accompanied by orthopnea resulting in him having to sleep upright in his chair. The emergency department, patient underwent full evaluation. CBC revealed mild normocytic anemia with hemoglobin stable at 10.2 at baseline levels. BMP consistent with stage III chronic kidney disease with BUN of 24, creatinine 1.45, GFR 45. Troponin 0.034 and pro-BMP 15,000. EKG completed revealing sinus bradycardia at 59 bpm with frequent PVCs. Chest x-ray revealing chronic pleural thickening and pulmonary infiltrates. Physical exam: Vital signs reviewed and stable. General: Nontoxic, no distress and appears stated age. Derm: Skin warm and dry, normal coloration for ethnicity. Head: Atraumatic, normocephalic and symmetric. Eyes: EOMs intact, no lid lag, and anicteric sclera Mouth: no lip lesions, mucus membranes moist Cardiovascular: regular rate and rhythm with normal S1S2, systolic murmur, positive posterior tibial pulses bilaterally, and cap refill < 2 seconds. Lungs: Respirations even, regular, and unlabored on room air. Lungs bibasilar crackles, no rhonchi, no rales, no wheezing, and no accessory muscle usage. Abdominal: soft, nontender to palpation, no guarding, no appreciable organom egaly Ext: ROM intact. No gross muscle atrophy, 1+ pitting edema, no contractures Neuro: Speech clear, face symmetrical and CN II-XII grossly intact with no noted focal neuro deficits Psych: Alert and oriented to person, place, time, and situation. Appropriate and pleasant affect. Assessment and Plan of Care: Acute mild congestive heart failure exacerbation Exertional dyspnea Orthopnea -Cardiology consulted, appreciate recommendations. -Telemetry monitoring -ProBNP 15,000 -Daily weights -Close monitoring of I's and O's -Cardiac diet -Lasix 40 mg IVP every 12 hours -Continuation of daily medications including: Aspirin, atorvastatin, and metoprolol -Continued close monitoring of electrolytes while diuresing. -Echocardiogram CODE STATUS: Full code DVT prophylaxis: Heparin Discussed with: Patient and RN Anticipated discharge date: Clinical course to determine Anticipated discharge place: Home A total of 38 minutes was spent on the care of this complex patient more than 50% of the time was spent in counseling and care coordination. Objective - Vital Signs Vital signs: Vital Signs Temp 98.1 F 02/08/22 01:54 Pulse 50 L 02/08/22 07:25 Resp 26 H 02/08/22 07:25 BP 141/71 02/08/22 07:25 Pulse Ox 20 L 02/08/22 07:25 FiO2 Intake & Output 02/07/22 02/08/22 02/08/22 18:59 06:59 18:59 Weight 90.718 kg - Labs CBC & Chem 7: 02/08/22 10:28 02/08/22 02:15 Labs: Abnormal Lab Results - Last 24 Hours (Table) 02/08/22 02/08/22 02/08/22 Range/Units 02:15 02:15 02:15 RBC 3.22 L (4.30-5.90) m/uL Hgb 10.2 L (13.0-17.5) gm/dL Hct 31.1 L (39.0-53.0) % D-Dimer 1.72 H (<0.60) mg/L FEU BUN 24 H (9-20) mg/dL Creatinine 1.45 H (0.66-1.25) mg/dL Glucose 135 H (74-99) mg/dL POC Glucose (mg/dL) (70-110) mg/dL Calcium 8.1 L (8.4-10.2) mg/dL 02/08/22 Range/Units 07:52 RBC (4.30-5.90) m/uL Hgb (13.0-17.5) gm/dL Hct (39.0-53.0) % D-Dimer (<0.60) mg/L FEU BUN (9-20) mg/dL Creatinine (0.66-1.25) mg/dL Glucose (74-99) mg/dL POC Glucose (mg/dL) 135 H (70-110) mg/dL Calcium (8.4-10.2) mg/dL
[2022-02-08 20:21] LABS: Glucose,Whole Blood 116 mg/dL (70-110)
[2022-02-08] MEDS: ATORVASTATIN 20 MG TAB PO SCH (20:30)
[2022-02-08] MEDS: FUROSEMIDE 10 MG/ML 4 ML VIAL IV SCH (20:30)
[2022-02-09] MEDS: LEVOTHYROXINE 125 MCG TAB PO SCH (05:54)
[2022-02-09 06:06] LABS: Glucose,Whole Blood 146 mg/dL (70-110)
[2022-02-09] MEDS: INSULIN ASPART (NovoLOG) 100 UNIT/ML VIAL SQ SCH ×4 (06:32→20:27)
--- NOTE | 2022-02-09 07:58 | P.PN ---
Subjective Progress Note Date: 02/09/22 Principal diagnosis: Heart failure with reduced ejection fraction The patient is a pleasant 81-year-old gentleman with a past medical history significant for hypertension and dyslipidemia and also cardiomyopathy was EF around 40-45% who presented to the hospital with shortness of breath. He was diagnosed with heart failure. He was started on Lasix IV. Also there was a concern about pulmonary embolic treatment for that reason VQ scan was ordered and showed low priority for PE. In 2020 when he had the echo which showed an EF between 40-45% he underwent myocardial perfusion imaging stress is and that showed an ischemia and for some reason further investigation including heart catheterization was not performed. The patient was seen this morning. He is feeling better indeterminable shortness of breath. He reports no pain in the chest. No lower extremities edema. He his hemodynamic the stable with mildly elevated blood pressure. Currently he is on Lasix IV. On examination he still have a few crackles bilaterally but no lower except his edema noted. I advised the patient to stay on Lasix for one more day but he is somewhat reluctant. An echocardiogram still pending. Objective - Vital Signs Vital signs: Vital Signs Temp 98.4 F 02/09/22 04:00 Pulse 52 L 02/09/22 04:00 Resp 16 02/09/22 04:00 BP 157/79 02/09/22 04:00 Pulse Ox 98 02/08/22 15:27 FiO2 Intake & Output 02/08/22 02/09/22 02/09/22 18:59 06:59 18:59 Weight 94 kg Other: Voiding Method Toilet - Constitutional General appearance: Present: no acute distress - Respiratory Respiratory: bilateral: rales - Cardiovascular Rhythm: regular Heart sounds: normal: S1, S2 - Labs CBC & Chem 7: 02/08/22 10:28 02/08/22 02:15 Labs: Abnormal Lab Results - Last 24 Hours (Table) 02/08/22 02/08/22 02/08/22 Range/Units 10: 16:37 20:20 RBC 3.28 L (4.30-5.90) m/uL Hgb 10.3 L (13.0-17.5) gm/dL Hct 32.1 L (39.0-53.0) % APTT 47.1 H (22.0-30.0) sec POC Glucose (mg/dL) 116 H (70-110) mg/dL 02/09/22 Range/Units 06:04 RBC (4.30-5.90) m/uL Hgb (13.0-17.5) gm/dL Hct (39.0-53.0) % APTT (22.0-30.0) sec POC Glucose (mg/dL) 146 H (70-110) mg/dL Assessment and Plan Assessment: Assessment #1 heart failure with reduced ejection fraction exacerbation #2 cardiomyopathy with EF between 40-45% and known to be ischemic and nonischemic #3 abnormal myocardial perfusion imaging stress test #4 hypertension #5 dyslipidemia Plan #1 follow-up on the echo to assess the ejection fraction. Last echo was in 2020 #2 continue IV Lasix for additional 24 hours #3 coronary angiogram to be done to rule out severe CAD #4 follow-up with the patient
[2022-02-09] MEDS: METOPROLOL TARTRATE 50 MG TAB PO SCH ×2 (09:42→20:22)
[2022-02-09] MEDS: FUROSEMIDE 10 MG/ML 4 ML VIAL IV SCH ×2 (09:42→20:27)
[2022-02-09] MEDS: LOSARTAN 25 MG TAB PO SCH (09:42)
[2022-02-09] MEDS: ASPIRIN 81 MG PO SCH (09:42)
[2022-02-09 10:07] LABS: Basophils % (A) 1 %; Eosinophils # (A) 0.4 k/uL (0-0.7); Eosinophils % (A) 6 %; HCT 31.2 % (39.0-53.0); HGB 9.8 gm/dL (13.0-17.5); Hypochromasia Moderate; Lymphocytes % (A) 30 %; MCH 31.1 pg (25.0-35.0); MCHC 31.3 g/dL (31.0-37.0); MCV 99.6 fL (80.0-100.0); Mean Platelet Volume 8.2; Monocytes # (A) 0.5 k/uL (0-1.0); Monocytes % (A) 8 %; Neutrophils # (A) 3.5 k/uL (1.3-7.7); Neutrophils % (A) 54 %; Platelet Count 332 k/uL (150-450); RBC 3.13 m/uL (4.30-5.90); RDW 13.5 % (11.5-15.5); WBC 6.5 k/uL (3.8-10.6)
[2022-02-09 10:15] LABS: Partial Thromboplastin Time 28.7 sec (22.0-30.0); Prothrombin Time 10.8 sec (9.0-12.0)
[2022-02-09 10:31] LABS: Calcium 7.9 mg/dL (8.4-10.2); Potassium 4.9 mmol/L (3.5-5.1)
[2022-02-09 11:53] LABS: Glucose,Whole Blood 138 mg/dL (70-110)
--- NOTE | 2022-02-09 12:40 | P.PN ---
Subjective Progress Note Date: 02/09/22 Hospital course: Patient is a very pleasant 81-year-old male with a past medical history of congestive heart failure, hypertension, hyperlipidemia, [id number]-quzbativa diabetes mellitus, chronic kidney disease stage III, anemia of chronic disease, and hypothyroidism. He presented to the emergency department with reports of progressively worsening shortness of breath 5 days. Patient reports significant exertional dyspnea with any activity such as walking to the restroom accompanied by orthopnea resulting in him having to sleep upright in his chair. The emergency department, patient underwent full evaluation. CBC revealed mild normocytic anemia with hemoglobin stable at 10.2 at baseline levels. BMP consistent with stage III chronic kidney disease with BUN of 24, creatinine 1.45, GFR 45. Troponin 0.034 and pro-BMP 15,000. EKG completed revealing sinus bradycardia at 59 bpm with frequent PVCs. Chest x-ray revealing chronic pleural thickening and pulmonary infiltrates. Physical exam: Patient was seen and fully evaluated at bedside this morning. Patient reports he is doing well and feels as though he is breathing much better. Documented urinary output over the past 24 hours was 800 mL. Patient currently resting in bed and denies having any headache, lightheadedness, dizziness, chest pain, p alpitations, or any other complaint at this time. Bilateral lower extremity pitting edema is nearly resolved. Renal function slightly elevated with BUN 29 creatinine 1.68, and GFR 37. We will continue to monitor closely with repeat a.m. labs. Vital signs reviewed and stable. General: Nontoxic, no distress and appears stated age. Derm: Skin warm and dry, normal coloration for ethnicity. Head: Atraumatic, normocephalic and symmetric. Eyes: EOMs intact, no lid lag, and anicteric sclera Mouth: no lip lesions, mucus membranes moist Cardiovascular: regular rate and rhythm with normal S1S2, systolic murmur, positive posterior tibial pulses bilaterally, and cap refill < 2 seconds. Lungs: Respirations even, regular, and unlabored on room air. Lungs slightly diminished with no crackles, no rhonchi, no rales, no wheezing, and no accessory muscle usage. Abdominal: soft, nontender to palpation, no guarding, no appreciable organomegaly Ext: ROM intact. No gross muscle atrophy, scant bilateral lower extremity pitting edema, no contractures Neuro: Speech clear, face symmetrical and CN II-XII grossly intact with no noted focal neuro deficits Psych: Alert and oriented to person, place, time, and situation. Appropriate and pleasant affect. Assessment and Plan of Care: Acute systolic congestive heart failure exacerbation Cardiomyopathy with EF between 40-45% Exertional dyspnea Orthopnea -Cardiology consulted, appreciate recommendations. -Telemetry monitoring -ProBNP 15,000 -Daily weights -Close monitoring of I's and O's -Cardiac diet -Lasix 40 mg IVP every 12 hours -Continuation of daily medications including: Aspirin, atorvastatin, and metoprolol -Continued close monitoring of electrolytes while diuresing. -Echocardiogram CODE STATUS: Full code DVT prophylaxis: Heparin Discussed with: Patient and RN Anticipated discharge date: Clinical course to determine Anticipated discharge place: Home A total of 36 minutes was spent on the care of this complex patient more than 50% of the time was spent in counseling and care coordination. I reviewed the documentation as provided by the CONY above, who is the original author of this note. I agree with the documented assessment and plan, with the following changes: none Objective - Vital Signs Vital signs: Vital Signs Temp 98.4 F 02/09/22 04:00 Pulse 52 L 02/09/22 04:00 Resp 16 02/09/22 04:00 BP 157/79 02/09/22 04:00 Pulse Ox 98 02/08/22 15:27 FiO2 Intake & Output 02/08/22 02/09/22 02/09/22 18:59 06:59 18:59 Weight 94 kg Other: Voiding Method Toilet - Labs CBC & Chem 7: 02/09/22 09:22 02/09/22 09:22 Labs: Abnormal Lab Results - Last 24 Hours (Table) 02/08/22 02/08/22 02/08/22 Range/Units 10:28 16:37 20:20 RBC 3.28 L (4.30-5.90) m/uL Hgb 10.3 L (13.0-17.5) gm/dL Hct 32.1 L (39.0-53.0) % APTT 47.1 H (22.0-30.0) sec POC Glucose (mg/dL) 116 H (70-110) mg/dL 02/09/22 Range/Units 06:04 RBC (4.30-5.90) m/uL Hgb (13.0-17.5) gm/dL Hct (39.0-53.0) % APTT (22.0-30.0) sec POC Glucose (mg/dL) 146 H (70-110) mg/dL
[2022-02-09 12:54] VITALS: BMI 29.7
--- NOTE | 2022-02-09 16:09 | CA ---
Transthoracic Echo Report Name: Volodymyr Moore Age: 81 Gender: M : 1940 Exam Date: 02/08/2022 13:33 Exam Location: [place] Echo Ht (in): 70 Wt (lb): 200 Ordering Physician: Nuzhat Dallas Attending/Referring Phys: [id number], [facility] Sushma Espinal, ESSIE Procedure CPT: Indications: LV function Cardiac Hx: Technical Quality: Good Contrast 1: Total Dose (mL): Contrast 2: Total Dose (mL): MEASUREMENTS (Male / Female) Normal Values 2D ECHO LV Diastolic Diameter PLAX 5.0 cm 4.2 - 5.9 / 3.9 - 5.3 cm LV Systolic Diameter PLAX 3.9 cm IVS Diastolic Thickness 1.4 cm 0.6 - 1.0 / 0.6 - 0.9 cm LVPW Diastolic Thickness 1.3 cm 0.6 - 1.0 / 0.6 - 0.9 cm LV Relative Wall Thickness 0.5 RV Internal Dim ED PLAX 3.1 cm LA Systolic Diameter LX 3.7 cm 3.0 - 4.0 / 2.7 - 3.8 cm LA Volume 57.2 cm??? 18 - 58 / 22 - 52 cm??? M-MODE Aortic Root Diameter MM 3.6 cm MV E Point Septal Separation 1.2 cm AV Cusp Separation MM 2.3 cm DOPPLER AV Peak Velocity 149.7 cm/s AV Peak Gradient 9.0 mmHg MV Area PHT 1.5 cm??? Mitral E Point Velocity 71.3 cm/s Mitral A Point Velocity 99.0 cm/s Mitral E to A Ratio 0.7 MV Deceleration Time 496.9 ms MV E' Velocity 3.1 cm/s Mitral E to MV E' Ratio 22.8 TR Peak Velocity 341.7 cm/s TR Peak Gradient 46.7 mmHg Right Ventricular Systolic Press 51.7 mmHg FINDINGS Left Ventricle Left ventricular ejection fraction is estimated at 40-45 %. Left ventricular cavity size normal. Moderate concentric left ventricular hypertrophy. Right Ventricle Normal right ventricular size and function. Moderate pulmonary hypertension. Right Atrium Normal right atrial size. Left Atrium Normal left atrial size. No evidence for an atrial septal defect. Mitral Valve Mitral annular calcification. Mild mitral regurgitation. Aortic Valve Trileaflet aortic valve. Mild aortic regurgitation. Tricuspid Valve Mild tricuspid regurgitation. Pulmonic Valve Structurally normal pulmonic valve. Pericardium Normal pericardium. No pericardial effusion. Aorta Normal size aortic root and proximal ascending aorta. CONCLUSIONS Mildly impaired LV function with EF between 40-45% Previewed by: Dr. Cesar Benton MD (Electronically Signed) Final Date: 09 February 2022 16:08
[2022-02-09 17:15] LABS: Glucose,Whole Blood 116 mg/dL (70-110)
[2022-02-09 20:08] LABS: Glucose,Whole Blood 153 mg/dL (70-110)
[2022-02-09] MEDS: ATORVASTATIN 20 MG TAB PO SCH (20:28)
[2022-02-10] MEDS: LEVOTHYROXINE 125 MCG TAB PO SCH (06:10)
[2022-02-10 06:29] LABS: Glucose,Whole Blood 141 mg/dL (70-110)
[2022-02-10] MEDS: INSULIN ASPART (NovoLOG) 100 UNIT/ML VIAL SQ SCH ×2 (06:37→11:57)
--- NOTE | 2022-02-10 07:45 | P.PN ---
Subjective Progress Note Date: 02/10/22 Principal diagnosis: Heart failure with reduced ejection fraction The patient is a pleasant 81-year-old gentleman with a past medical history significant for hypertension and dyslipidemia and also cardiomyopathy was EF around 40-45% who presented to the hospital with shortness of breath. He was diagnosed with heart failure. He was started on Lasix IV. Also there was a concern about pulmonary embolic treatment for that reason VQ scan was ordered and showed low priority for PE. In 2020 when he had the echo which showed an EF between 40-45% he underwent myocardial perfusion imaging stress is and that showed an ischemia and for some reason further investigation including heart catheterization was not performed. The patient was seen this morning. He is feeling better indeterminable shortness of breath. He reports no pain in the chest. No lower extremities edema. He his hemodynamic the stable with mildly elevated blood pressure. Currently he is on Lasix IV. On examination he still have a few crackles bilaterally but no lower except his edema noted. I advised the patient to stay on Lasix for one more day but he is somewhat reluctant. An echocardiogram still pending. February 102021 The patient was seen this morning. He is overall feeling better. The shortness of breath has improved significantly. No lower extremities edema. No symptoms of chest pain or chest discomfort. On examination he seems to be euvolemic. He underwent an echo which showed an EF between 40-45% with moderate pulmonary hypertension. From the cardiac standpoint of view, going to stop the Lasix IV and start the patient on Lasix by mouth. He potentially can be discharged later on today and follow-up with his primary travel counselor [employer]. Further investigation needed including a heart catheterization to rule out severe CAD in the light off abnormal myocardial perfusion imaging stress is and that can be done as an outpatient. Objective - Vital Signs Vital signs: Vital Signs Temp 97.9 F 02/10/22 04:00 Pulse 59 L 02/10/22 04:00 Resp 16 02/10/22 04:00 BP 146/81 02/10/22 04:00 Pulse Ox 98 02/10/22 04:00 FiO2 Intake & Output 02/09/22 02/10/22 02/10/22 18:59 06:59 18:59 Intake Total 480 20 Output Total 1200 950 Balance -720 -930 Weight 94 kg 92.4 kg Intake: IV 20 Invasive Line 1 20 Oral 480 Output: Urine 1200 950 Other: Voiding Method Toilet Toilet - Constitutional General appearance: Present: no acute distress - Respiratory Respiratory: bilateral: CTA - Cardiovascular Rhythm: regular Abnormal Heart Sounds: Present: systolic murmur - Labs CBC & Chem 7: 02/09/22 09:22 02/09/22 09:22 Labs: Abnormal Lab Results - Last 24 Hours (Table) 02/09/22 02/09/22 02/09/22 Range/Units 09:22 09:22 11:47 RBC 3.13 L (4.30-5.90) m/uL Hgb 9.8 L (13.0-17.5) gm/dL Hct 31.2 L (39.0-53.0) % Sodium 136 L (137-145) mmol/L Chloride 97 L (98-107) mmol/L BUN 29 H (9-20) mg/dL Creatinine 1.68 H (0.66-1.25) mg/dL Glucose 277 H (74-99) mg/dL POC Glucose (mg/dL) 138 H (70-110) mg/dL Calcium 7.9 L (8.4-10.2) mg/dL 02/09/22 02/09/22 02/10/22 Range/Units 16:49 20:07 06:28 RBC (4.30-5.90) m/uL Hgb (13.0-17.5) gm/dL Hct (39.0-53.0) % Sodium (137-145) mmol/L Chloride (98-107) mmol/L BUN (9-20) mg/dL Creatinine (0.66-1.25) mg/dL Glucose (74-99) mg/dL POC Glucose (mg/dL) 116 H 153 H 141 H (70-110) mg/dL Calcium (8.4-10.2) mg/dL Assessment and Plan Assessment: Assessment #1 heart failure with reduced ejection fraction exacerbation #2 cardiomyopathy with EF between 40-45% and known to be ischemic and non ischemic #3 abnormal myocardial perfusion imaging stress test #4 hypertension #5 dyslipidemia Plan #1 DC Lasix IV and start the patient on Lasix by mouth #2 the echo was reviewed and showed an EF between 40-45% with moderate pulmonary hypertension #3 further investigation regarding abnormal myocardial perfusion imaging stress test need to be done including possibly heart catheterization #4 the patient can be discharged home.
--- NOTE | 2022-02-10 08:43 | P.DS ---
Providers Date of admission: 02/08/22 03:03 Expected date of discharge: 02/10/22 Attending physician: Tobi Pena MD Consults: 02/08/22 03:03 Consult Physician Routine Consulting Provider: Avery Rutledge Consult Reason/Comments: heart failure Do you want consulting provider notified?: Yes Primary care physician: [facility] Hospital Course: Discharge Diagnosis: Acute systolic congestive heart failure exacerbation. patient discharged home on Lasix 40 mg daily. Patient to follow up outpatient with cardiology as discussed for scheduling of a cardiac catheterization. 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 Orthopnea, secondary to acute systolic congestive heart failure exacerbation.Improved. Bradycardia, asymptomatic. Metoprolol was decreased from 50 mg twice daily to 25 mg twice daily. Hypertension, metoprolol decreased from 50 mg twice daily to 25 mg twice daily and patient was started on amlodipine 5 mg daily. Hyperlipidemia, Continue daily medication regimen with simvastatin. Cio-dxwowat-fefornrok diabetes mellitus. continue daily medication regimen with Glucophage. Stage III chronic kidney disease. Creatinine increased from 1.45-1.94 throughout hospitalization and administration of IV diuretics. Lasix decreased upon discharge to 40 mg orally once daily and patient given prescription to have BMP redrawn in 3 days to ensure improvement of renal function with decrease of Lasix. Results to go to PCP for follow-up. Anemia of chronic disease, stable Hypothyroidism, continue home medication regimen with levothyroxine. Hospital Course: Patient is a very pleasant 81-year-old male with a past medical history of congestive heart failure, hypertension, hyperlipidemia, ngi-qzjvaeg-zjwgqjggi diabetes mellitus, chronic kidney disease stage III, anemia of chronic disease, and hypothyroidism. He presented to the emergency department with reports of progressively worsening shortness of breath 5 days. Patient reports significant exertional dyspnea with any activity such as walking to the restroom accompanied by orthopnea resulting in him having to sleep upright in his chair. The emergency department, patient underwent full evaluation. CBC revealed mild normocytic anemia with hemoglobin stable at 10.2 at baseline levels. BMP consistent with stage III chronic kidney disease with BUN of 24, creatinine 1.45, GFR 45. Troponin 0.034 and pro-BMP 15,000. EKG completed revealing sinus bradycardia at 59 bpm with frequent PVCs. Chest x-ray revealing chronic pleural thickening and pulmonary infiltrates. Pt was admitted under our services with consultation to cardiology. He underwent an inpatient hospitalization for treatment of acute systolic heart failure and received IV diuretics. An echocardiogram was completed revealing EF of 40-45% with moderate concentric left ventricular hypertrophy. Creatinine increased from 1.45-1.94 throughout hospitalization due to administration of IV diuretics. Lasix decreased down to 40 mg orally once daily and patient given prescription to have BMP redrawn in 3 days to ensure improvement of renal function with decrease of Lasix. Cardiology recommended patient follow-up outpatient in their office for outpatient cardiac cath to be completed. medically, patient is stable for discharge at this time. Patient instructed he will need to follow-up with PCP and 1-2 days and cardiology in 1 week. Physical exam: Vital signs reviewed and stable. General: Nontoxic, no distress and appears stated age. Derm: Skin warm and dry, normal coloration for ethnicity. Head: Atraumatic, normocephalic and symmetric. Eyes: EOMs intact, no lid lag, and anicteric sclera Mouth: no lip lesions, mucus membranes moist Cardiovascular: regular rate and rhythm with normal S1S2, systolic murmur, positive posterior tibial pulses bilaterally, and cap refill < 2 seconds. Lungs: Respirations even, regular, and unlabored on room air. Lungs slightly diminished with no crackles, no rhonchi, no rales, no wheezing, and no accessory muscle usage. Abdominal: soft, nontender to palpation, no guarding, no appreciable organomegaly Ext: ROM intact. No gross muscle atrophy, scant bilateral lower extremity pitting edema, no contractures Neuro: Speech clear, face symmetrical and CN II-XII grossly intact with no noted focal neuro deficits Psych: Alert and oriented to person, place, time, and situation. Appropriate and pleasant affect. A total of 38 minutes of time were spent preparing this complex discharge summary. Pt was discharged on 02/10/2022 at 9:50 AM. .I reviewed the documentation as provided by the CONY above, who is the original author of this note. I agree with the documented assessment and plan, with the following changes: none Patient Condition at Discharge: Stable Plan - Discharge Summary Discharge Rx Participant: No New Discharge Prescriptions: New amLODIPine [Norvasc] 5 mg PO DAILY 60 Days #60 tab Furosemide [Lasix] 40 mg PO DAILY 30 Days #30 tab Continue Levothyroxine Sodium [Synthroid] 125 mcg PO DAILY Aspirin EC [Ecotrin Low Dose] 81 mg PO Q48H metFORMIN HCL [Glucophage] 500 mg PO BID Simvastatin [Zocor] 40 mg PO HS Changed Metoprolol Tartrate [Lopressor] 25 mg PO BID #60 tab Discharge Medication List Aspirin EC [Ecotrin Low Dose] 81 mg PO Q48H 03/20/21 [History] Levothyroxine Sodium [Synthroid] 125 mcg PO DAILY 03/20/21 [History] Simvastatin [Zocor] 40 mg PO HS 03/20/21 [History] metFORMIN HCL [Glucophage] 500 mg PO BID 01/23/22 [History] Furosemide [Lasix] 40 mg PO DAILY 30 Days #30 tab 02/10/22 [Rx] Metoprolol Tartrate [Lopressor] 25 mg PO BID #60 tab 02/10/22 [Rx] amLODIPine [Norvasc] 5 mg PO DAILY 60 Days #60 tab 02/10/22 [Rx] Follow up Appointment(s)/Referral(s): Gene Vides MD [STAFF PHYSICIAN] - 1 Week [facility],Clinic [Primary Care Provider] - 1-2 days Ambulatory/Diagnostic Orders: Basic Metabolic Panel [LAB.AMB] Time Frame: 3 Days, Location: None Selected Magnesium [LAB.AMB] Location: None Selected Patient Instructions/Handouts: Heart Failure (DC) Activity/Diet/Wound Care/Special Instructions: Activity: As tolerated. Take breaks as needed. Diet: Heart healthy and carb consistent diet. Avoid salts, or foods with hidden salts such as canned or boxed foods and frozen dinners. Extra salt makes your heart work harder and traps the fluid in your body for longer. Special Instructions: Take all of your medications as directed and remember to keep all of your doctor's appointments and follow-up as needed. You will need to follow up as Dr. Benton, Winter Sports Manager disussed with you to schedule an outpatient cardiac cath. Please call the office first thing Friday morning to schedule an appointment with Dr. Vides. I want to thank you for your service, it is always an honor caring for a [place]!!!!!!! Thank you for allowing us to participate in your care, it was truly a pleasure having you for our patient!!! Discharge Disposition: HOME SELF-CARE
[2022-02-10] MEDS ORDERED: FUROSEMIDE 40 MG TAB PO SCH (09:00)
[2022-02-10] MEDS ORDERED: amLODIPine 5 MG TAB PO SCH (09:00)
[2022-02-10] MEDS: METOPROLOL TARTRATE 50 MG TAB PO SCH (09:11)
[2022-02-10] MEDS: ASPIRIN 81 MG PO SCH (09:11)
[2022-02-10 09:27] VITALS: RESP 17
[2022-02-10 10:39] LABS: Albumin 3.9 g/dL (3.5-5.0); Calcium 7.6 mg/dL (8.4-10.2); Magnesium 1.8 mg/dL (1.6-2.3); Potassium 4.6 mmol/L (3.5-5.1); Total Bilirubin 0.4 mg/dL (0.2-1.3)
[2022-02-10 10:41] LABS: HCT 31.7 % (39.0-53.0); HGB 10.4 gm/dL (13.0-17.5); Hypochromasia Slight; MCH 32.1 pg (25.0-35.0); MCHC 32.7 g/dL (31.0-37.0); MCV 98.3 fL (80.0-100.0); Mean Platelet Volume 8.7; Platelet Count 352 k/uL (150-450); RBC 3.23 m/uL (4.30-5.90); RDW 13.3 % (11.5-15.5)
[2022-02-10 11:25] VITALS: BP 118/72; PULSE 51; TEMP 98
[2022-02-10 11:43] LABS: Glucose,Whole Blood 118 mg/dL (70-110)
== END 2022-02-10 13:04 | disposition home or self-care (01) | DRG 291 ==
LOC: EC 01:35 → 3SCARD 03:03
PROVIDERS: ADMIT Internal Medicine; ATTEND Internal Medicine
PROC: B246ZZ4 Ultrasonography of Right and Left Heart, Transesophageal (ICD-10-PCS; principal; 2022-02-08)
DX: I13.0 Hypertensive heart and chronic kidney disease with heart failure and stage 1 through stage 4 chronic kidney disease, or unspecified chronic kidney disease (principal); I50.23 Acute on chronic systolic (congestive) heart failure; R00.1 Bradycardia, unspecified; D63.8 Anemia in other chronic diseases classified elsewhere; E11.22 Type 2 diabetes mellitus with diabetic chronic kidney disease; N18.30 Chronic kidney disease, stage 3 unspecified; E78.5 Hyperlipidemia, unspecified; I49.3 Ventricular premature depolarization; I08.3 Combined rheumatic disorders of mitral, aortic and tricuspid valves; E89.0 Postprocedural hypothyroidism; I42.8 Other cardiomyopathies; I25.5 Ischemic cardiomyopathy; I27.20 Pulmonary hypertension, unspecified; I44.7 Left bundle-branch block, unspecified; Z79.84 Long term (current) use of oral hypoglycemic drugs; Z79.890 Hormone replacement therapy; Z82.49 Family history of ischemic heart disease and other diseases of the circulatory system; Z87.891 Personal history of nicotine dependence; Z79.899 Other long term (current) drug therapy
CPT/HCPCS: 36415; 71046; 78582; 80048; 80053; 83735; 83880; 84484; 85025; 85027; 85379; 85610; 85730; 93005; 93306; 96365; 96366; 96372; 96375; 99285

== ENCOUNTER 2022-12-10 05:01 | Inpatient (IN) | payer OTHER, MEDICARE ==
--- NOTE | 2022-12-10 05:26 | ED ---
General Adult HPI - General Chief complaint: Shortness of Breath Stated complaint: Possible pneumonia Time Seen by Provider: 12/10/22 05:02 Source: patient, RN notes reviewed, old records reviewed Mode of arrival: ambulatory Limitations: no limitations - History of Present Illness Initial comments: 82-year-old male presenting for evaluation of increasing dyspnea. Patient states his symptoms have progressed over the past several days. He denies centr al chest pain. Denies fever. He reports a minor cough. Cough is nonproductive. No history of asthma or COPD. Patient does have history of congestive heart failure. - Related Data Home Medications Medication Instructions Recorded Confirmed Aspirin EC [Ecotrin Low Dose] 81 mg PO Q48H 03/20/21 02/08/22 Levothyroxine Sodium [Synthroid] 125 mcg PO DAILY 03/20/21 02/08/22 Simvastatin [Zocor] 40 mg PO HS 03/20/21 02/08/22 metFORMIN HCL [Glucophage] 500 mg PO BID 01/23/22 02/08/22 Previous Rx's Medication Instructions Recorded Furosemide [Lasix] 40 mg PO DAILY 30 Days #30 tab 02/10/22 Metoprolol Tartrate [Lopressor] 25 mg PO BID #60 tab 02/10/22 amLODIPine [Norvasc] 5 mg PO DAILY 60 Days #60 tab 02/10/22 Allergies Allergy/AdvReac Type Severity Reaction Status Date / Time No Known Allergies Allergy Verified 12/10/22 05:08 Review of Systems ROS Statement: Those systems with pertinent positive or pertinent negative responses have been documented in the HPI. ROS Other: All systems not noted in ROS Statement are negative. Past Medical History Past Medical History: Heart Failure, Diabetes Mellitus, Hyperlipidemia, Thyroid Disorder Additional Past Medical History / Comment(s): abnormal K+ History of Any Multi-Drug Resistant Organisms: None Reported Additional Past Surgical History / Comment(s): Thyroidectomy Past Anesthesia/Blood Transfusion Reactions: No Reported Reaction Past Psychological History: No Psychological Hx Reported Smoking Status: Former smoker Past Alcohol Use History: None Reported Past Drug Use History: None Reported - Past Family History Mother Family Medical History: Dementia Additional Family Medical History / Comment(s): alzheimers Father Family Medical History: Congestive Heart Failure (CHF) General Exam Limitations: no limitations General appearance: alert, in no apparent distress Head exam: Present: atraumatic, normocephalic Eye exam: Present: normal appearance, PERRL ENT exam: Present: normal exam Neck exam: Present: normal inspection. Absent: tenderness Respiratory exam: Present: rales (Right lung base). Absent: wheezes Cardiovascular Exam: Present: regular rate, normal rhythm GI/Abdominal exam: Present: soft Course Vital Signs 12/10/22 12/10/22 12/10/22 05:05 05:11 05:30 Temperature 97.8 F Pulse Rate 63 55 L Respiratory 20 22 24 Rate Blood Pressure 127/66 O2 Sat by Pulse 95 94 L Oximetry 12/10/22 06:37 Temperature 98.0 F Pulse Rate 57 L Respiratory 20 Rate Blood Pressure 141/71 O2 Sat by Pulse 95 Oximetry Medical Decision Making - Medical Decision Making Was pt. sent in by a medical professional or institution (, PA, PARTS SPECIALIST, urgent care, hospital, or penitentiary...) When possible be specific @ -No Did you speak to anyone other than the patient for history (EMS, parent, family, police, friend...)? What history was obtained from this source @ -No Did you review nursing and triage notes (agree or disagree)? Why? @ -I reviewed and agree with nursing and triage notes Were old charts reviewed (outside hosp., previous admission, EMS record, old EKG, old radiological studies, urgent care reports/EKG's, penitentiary records)? Report findings @ -No old charts were reviewed Differential Diagnosis (chest pain, altered mental status, abdominal pain women, abdominal pain men, vaginal bleeding, weakness, fever, dyspnea, syncope, headache, dizziness, GI bleed, back pain, seizure, CVA, palpatations, mental health, musculoskeletal)? @ -not applicable EKG interpreted by me (3pts min.). @ Sinus bradycardia with PVC left bundle branch block, rate 58, IN interval 196, QRS duration 169, QTC 501 X-rays interpreted by me (1pt min.). @ -Chest x-ray showing concern for mass in the left upper lung, cardiomegaly, and increased pulmonary vascular congestion CT interpreted by me (1pt min.). @ -None done U/S interpreted by me (1pt. min.). @ -None done What testing was considered but not performed or refused? (CT, X-rays, U/S, labs)? Why? @ -None What meds were considered but not given or refused? Why? @ -None Did you discuss the management of the patient with other professionals (professionals i.e. , PA, PARTS SPECIALIST, lab, RT, psych nurse, vp digital marketing social media and crm, heel packer, teacher, parking regulation enforcement officer, bottle caser)? Give summary @ -No Was smoking cessation discussed for >3mins.? @ -No Was critical care preformed (if so, how long)? @ -No Were there social determinants of health that impacted care today? How? (Homelessness, low income, unemployed, alcoholism, drug addiction, transportation, low edu. Level, literacy, decrease access to med. care, custodial, rehab)? @ -No Was there de-escalation of care discussed even if they declined (Discuss DNR or withdrawal of care, Hospice)? DNR status @ -No What co-morbidities impacted this encounter? (DM, HTN, Smoking, COPD, CAD, Cancer, CVA, ARF, Chemo, Hep., AIDS, mental health diagnosis, sleep apnea, morbid obesity)? @ -CHF Was patient admitted / discharged? Hospital course, mention meds given and route, prescriptions, significant lab abnormalities, going to OR and other pertinent info. @ -[82-year-old male with increased exertional dyspnea, Rales on lung auscultation and elevated BNP and minimally elevated troponin. Will be admitted to [facility] with cardiology on consult. Troponin level will be trended. No active chest pain. Undiagnosed new problem with uncertain prognosis? @ -No Drug Therapy requiring intensive monitoring for toxicity (Heparin, Nitro, Insulin, Cardizem)? @ -No Were any procedures done? @ -No Diagnosis/symptom? @CHF, lung mass Acute, or Chronic, or Acute on Chronic? @ -Acute Uncomplicated (without systemic symptoms) or Complicated (systemic symptoms)? @ -default Side effects of treatment? @ -No Exacerbation, Progression, or Severe Exacerbation? @ -No Poses a threat to life or bodily function? How? (Chest pain, [place], [place], pneumonia, PE, COPD, DKA, ARF, appy, cholecystitis, CVA, Diverticulitis, Homicidal, Suicidal, threat to staff... and all critical care pts) @, Yes, CHF - Lab Data Result diagrams: 12/10/22 05:14 12/10/22 05:14 Lab Results 12/10/22 12/10/22 12/10/22 Range/Units 05:14 05:14 05:14 WBC 7.3 (3.8-10.6) k/uL RBC 4.06 L (4.30-5.90) m/uL Hgb 11.9 L (13.0-17.5) gm/dL Hct 36.6 L (39.0-53.0) % MCV 90.3 (80.0-100.0) fL MCH 29.3 (25.0-35.0) pg MCHC 32.5 (31.0-37.0) g/dL RDW 14.6 (11.5-15.5) % Plt Count 339 (150-450) k/uL MPV 8.4 Neutrophils % 59 % Lymphocytes % 24 % Monocytes % 9 % Eosinophils % 4 % Basophils % 1 % Neutrophils # 4.3 (1.3-7.7) k/uL Lymphocytes # 1.8 (1.0-4.8) k/uL Monocytes # 0.6 (0-1.0) k/uL Eosinophils # 0.3 (0-0.7) k/uL Basophils # 0.1 (0-0.2) k/uL PT 11.0 (9.0-12.0) sec INR 1.1 (<1.2) APTT 22.2 (22.0-30.0) sec Sodium 139 (137-145) mmol/L Potassium 4.3 (3.5-5.1) mmol/L Chloride 103 (98-107) mmol/L Carbon Dioxide 24 (22-30) mmol/L Anion Gap 12 mmol/L BUN 36 H (9-20) mg/dL Creatinine 1.67 H (0.66-1.25) mg/dL Est GFR (CKD-EPI)AfAm 43 (>60 ml/min/1.73 sqM) Est GFR (CKD-EPI)NonAf 37 (>60 ml/min/1.73 sqM) Glucose 164 H (74-99) mg/dL Calcium 7.4 L (8.4-10.2) mg/dL Magnesium 2.2 (1.6-2.3) mg/dL Total Bilirubin 0.9 (0.2-1.3) mg/dL AST 32 (17-59) U/L ALT 22 (4-49) U/L Alkaline Phosphatase 104 (38-126) U/L Troponin I (0.000-0.034) ng/mL NT-Pro-B Natriuret Pep 68453 pg/mL Total Protein 7.7 (6.3-8.2) g/dL Albumin 3.9 (3.5-5.0) g/dL 12/10/22 Range/Units 05:14 WBC (3.8-10.6) k/uL RBC (4.30-5.90) m/uL Hgb (13.0-17.5) gm/dL Hct (39.0-53.0) % MCV (80.0-100.0) fL MCH (25.0-35.0) pg MCHC (31.0-37.0) g/dL RDW (11.5-15.5) % Plt Count (150-450) k/uL MPV Neutrophils % % Lymphocytes % % Monocytes % % Eosinophils % % Basophils % % Neutrophils # (1.3-7.7) k/uL Lymphocytes # (1.0-4.8) k/uL Monocytes # (0-1.0) k/uL Eosinophils # (0-0.7) k/uL Basophils # (0-0.2) k/uL PT (9.0-12.0) sec INR (<1.2) APTT (22.0-30.0) sec Sodium (137-145) mmol/L Potassium (3.5-5.1) mmol/L Chloride (98-107) mmol/L Carbon Dioxide (22-30) mmol/L Anion Gap mmol/L BUN (9-20) mg/dL Creatinine (0.66-1.25) mg/dL Est GFR (CKD-EPI)AfAm (>60 ml/min/1.73 sqM) Est GFR (CKD-EPI)NonAf (>60 ml/min/1.73 sqM) Glucose (74-99) mg/dL Calcium (8.4-10.2) mg/dL Magnesium (1.6-2.3) mg/dL Total Bilirubin (0.2-1.3) mg/dL AST (17-59) U/L ALT (4-49) U/L Alkaline Phosphatase (38-126) U/L Troponin I 0.045 H* (0.000-0.034) ng/mL NT-Pro-B Natriuret Pep pg/mL Total Protein (6.3-8.2) g/dL Albumin (3.5-5.0) g/dL Disposition Clinical Impression: Elevated troponin, Congestive heart failure Disposition: ADMITTED IP TO THIS HOSP Condition: Stable Is patient prescribed a controlled substance at d/c from ED?: No Referrals: [facility],Clinic [Primary Care Provider] - 1-2 days Time of Disposition: 07:07
[2022-12-10 05:41] LABS: Basophils # (A) 0.1 k/uL (0-0.2); Basophils % (A) 1 %; Eosinophils # (A) 0.3 k/uL (0-0.7); Eosinophils % (A) 4 %; HCT 36.6 % (39.0-53.0); HGB 11.9 gm/dL (13.0-17.5); Lymphocytes # (A) 1.8 k/uL (1.0-4.8); Lymphocytes % (A) 24 %; MCH 29.3 pg (25.0-35.0); MCHC 32.5 g/dL (31.0-37.0); MCV 90.3 fL (80.0-100.0); Mean Platelet Volume 8.4; Monocytes # (A) 0.6 k/uL (0-1.0); Monocytes % (A) 9 %; Neutrophils # (A) 4.3 k/uL (1.3-7.7); Neutrophils % (A) 59 %; Platelet Count 339 k/uL (150-450); RBC 4.06 m/uL (4.30-5.90); RDW 14.6 % (11.5-15.5); WBC 7.3 k/uL (3.8-10.6)
[2022-12-10 05:51] LABS: INR 1.1 (<1.2); Partial Thromboplastin Time 22.2 sec (22.0-30.0)
[2022-12-10 06:01] LABS: ALT 22 U/L (4-49); AST 32 U/L (17-59); African American GFR (CKD) 43 (>60 ml/min/1.73 sqM); Albumin 3.9 g/dL (3.5-5.0); Alkaline Phosphatase 104 U/L (38-126); Anion Gap 12 mmol/L; Blood Urea Nitrogen 36 mg/dL (9-20); Calcium 7.4 mg/dL (8.4-10.2); Carbon Dioxide 24 mmol/L (22-30); Chloride 103 mmol/L (98-107); Glucose 164 mg/dL (74-99); Magnesium 2.2 mg/dL (1.6-2.3); Non-African American GFR(CKD) 37 (>60 ml/min/1.73 sqM); Sodium 139 mmol/L (137-145); Total Bilirubin 0.9 mg/dL (0.2-1.3); Total Protein 7.7 g/dL (6.3-8.2)
[2022-12-10 06:09] LABS: NT-Pro-B-Type Natriuretic Pept 21400 pg/mL; Potassium 4.3 mmol/L (3.5-5.1)
[2022-12-10] MEDS ORDERED: FUROSEMIDE 10 MG/ML 4 ML VIAL IV STA (06:44)
--- NOTE | 2022-12-10 06:57 | XR ---
EXAMINATION TYPE: XR chest 2V DATE OF EXAM: 12/10/2022 COMPARISON: 02/08/2022 HISTORY: Shortness of breath TECHNIQUE: Frontal and lateral views of the chest are obtained. FINDINGS: Scattered senescent parenchymal changes noted. Hyperinflation compatible with COPD. There is left upper lobe masslike area measuring approximately 8.[address] is recommended for fu rther evaluation. There is stable interstitial change throughout the right lung likely reflecting seq uela of prior infection. Heart size is stable. Mediastinal structures are stable and grossly unremarkable. No evidence for hilar prominence. Degenerative changes dorsal spine. IMPRESSION: 1. There is left upper lobe masslike area measuring approximately 8.[address] is recommended for further evaluation. There is stable interstitial change throughout the right lung likely reflecting sequela of prior infection.
[2022-12-10] MEDS ORDERED: NALOXONE 0.4 MG/ML 1 ML VIAL IV PRN (07:00)
[2022-12-10] MEDS ORDERED: DEXTROSE 50% SYRINGE 50 ML IVP PRN ×2 (08:10)
[2022-12-10] MEDS ORDERED: METOPROLOL TARTRATE 25 MG TAB PO SCH (09:00)
[2022-12-10] MEDS ORDERED: ASPIRIN 81 MG PO SCH (09:00)
[2022-12-10] MEDS ORDERED: amLODIPine 5 MG TAB PO SCH (09:00)
--- NOTE | 2022-12-10 09:41 | P.HPIM ---
History of Present Illness H&P Date: 12/10/22 History of Presenting Illness: Patient is a pleasant 82-year-old male with a past medical history of cardiomyopathy, chronic systolic heart failure with previously known EF of 40- 45%, hypertension, hyperlipidemia, chronic kidney disease stage IIIB hypothyro idism, and xeg-bbszdne-sltbiltqi diabetes mellitus. He presented to the emergency department with a chief complaint of shortness of breath. Patient reports he has noticed increasing shortness of breath over the past few days, almost 1 week. He reports this shortness of breath has been accompanied by cough But denies any other associated symptoms including headache, lightheadedness, dizziness, fever, chills, diaphoresis, chest pain or palpitations, abdominal pain, nausea, vomiting, or experiencing any noted swelling/weakness/tingling in his extremities. Patient does report that his left lower extremity has been swollen for approximately 2 weeks but states he thinks he might have "twisted his ankle". He underwent full evaluation in the emergency department. Vital signs reviewed. Blood pressure 127/66, heart rate 63, respiratory rate 20, temp 97.8F, and SpO2 of 95% on room air. EKG completed showing sinus bradycardia at 58 bpm with frequent PVCs and a left bundle branch block, left bundle branch block previously known and showing no changes when compared to EKG completed on 02/08/22 upon personal review and interpretation. Chest x-ray completed showing left upper lobe masslike area measuring approximately 8.9 x 6.4 cm. Labs completed and reviewed. Initial troponin 0.045. Normocytic anemia with hemoglobin 11.9. Coagulation profile normal findings. BMP consistent with stage III chronic kidney disease with BUN of 36, creatinine 1.67, and GFR of 37 which is at baseline creatinine levels. Liver profile showing no significant abnormalities. ProBNP elevated at 21,400. Discussed patient complains, physical exam findings, laboratory analysis, and imaging results in detail with the ED physician. Patient admitted under our services with consultation to cardiology. Review of systems: Pertinent positives and negatives as discussed in HPI, a complete review of systems was performed and all other systems are negative. Physical exam: Vital signs reviewed and stable. General: Nontoxic, no distress and appears stated age. Derm: Skin warm and dry, normal coloration for ethnicity. Head: Atraumatic, normocephalic and symmetric. Eyes: EOMs intact, no lid lag, and anicteric sclera Mouth: no lip lesions, mucus membranes moist Cardiovascular: regular rate and rhythm with normal S1S2, systolic murmur, positive posterior tibial pulses bilaterally, and cap refill < 2 seconds. Lungs: Respirations even, regular, and unlabored on room air. Lungs CTA bilaterally, no rhonchi, no rales, no wheezing, and no accessory muscle usage. Abdominal: soft, nontender to palpation, no guarding, no appreciable organomegaly Ext: ROM intact. No gross muscle atrophy, left lower extremity 1+ pitting edema right lower extremity no edema. no contractures Neuro: Speech clear, face symmetrical and CN II-XII grossly intact with no noted focal neuro deficits Psych: Alert and oriented to person, place, time, and situation. Appropriate and pleasant affect. Assessment and Plan of Care: Patient is a pleasant 82-year-old male with a past medical history of chronic systolic heart failure with previously known EF 40-45% and presented to the emergency department with progressively worsening shortness of breath over the past few days. -Vital signs reviewed. Blood pressure 127/66, heart rate 63, respiratory rate 20, temp 97.8F, and SpO2 of 95% on room air. -EKG completed showing sinus bradycardia at 58 bpm with frequent PVCs and a left bundle branch block, left bundle branch block previously known and showing no changes when compared to EKG completed on 02/08/22 upon personal review and interpretation. -Chest x-ray completed showing left upper lobe masslike area measuring approximately 8.9 x 6.4 cm. -Labs completed and reviewed. Initial troponin 0.045. Normocytic anemia with hemoglobin 11.9. Coagulation profile normal findings. BMP consistent with stage III chronic kidney disease with BUN of 36, creatinine 1.67, and GFR of 37 which is at baseline creatinine levels. Liver profile showing no significant abnormalities. ProBNP elevated at 21,400. -Discussed patient complains, physical exam findings, laboratory analysis, and imaging results in detail with the ED physician. -Patient admitted under our services to general medical unit with telemetry with consultation to cardiology. Acute on chronic systolic heart failure with previously known EF of 40-45% Elevated troponin, chronic likely secondary to chronic kidney disease and chronic systolic heart failure Cardiomyopathy History of CAD Hypertension Hyperlipidemia Chronic kidney disease stage IIIB Hypothyroidism Vuw-fapoobg-nzjlvdtdl diabetes mellitus -Cardiology consulted, appreciate further recommendations -Telemetry monitoring -Trend troponins -Daily weights -Close monitoring of I's and O's -Cardiac diet -Lasix 40 mg IVP every 12 hours -Hold Juardiance and Glucophage and place patient on glycemic protocol with NovoLog sliding scale -Lipid profile and Hgb A1c with a.m. labs. -Continued close monitoring of electrolytes while diuresing. 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 This document was prepared using [employer] dictation software. Please allow for errors in dumper while rare they do occur. Dakota Rogel NP rendered care for this patient independently, reviewed the findings and plan as documented in the note above. I did not physically speak with or examine the patient on this date. Past Medical History Past Medical History: Heart Failure, Diabetes Mellitus, Hyperlipidemia, Thyroid Disorder Additional Past Medical History / Comment(s): abnormal K+ History of Any Multi-Drug Resistant Organisms: None Reported Additional Past Surgical History / Comment(s): Thyroidectomy Past Anesthesia/Blood Transfusion Reactions: No Reported Reaction Past Psychological History: No Psychological Hx Reported Smoking Status: Former smoker Past Alcohol Use History: None Reported Past Drug Use History: None Reported - Past Family History Mother Family Medical History: Dementia Additional Family Medical History / Comment(s): alzheimers Father Family Medical History: Congestive Heart Failure (CHF) Medications and Allergies Home Medications Medication Instructions Recorded Confirmed Type Levothyroxine Sodium [Synthroid] 125 mcg PO DAILY 03/20/21 12/10/22 History Simvastatin [Zocor] 40 mg PO HS 03/20/21 12/10/22 History metFORMIN HCL [Glucophage] 500 mg PO BID 01/23/22 12/10/22 History amLODIPine [Norvasc] 5 mg PO DAILY 60 Days #60 tab 02/10/22 12/10/22 Rx Empagliflozin [Jardiance] 25 mg PO DAILY 12/10/22 12/10/22 History Furosemide [Lasix] 80 mg PO DAILY 12/10/22 12/10/22 History Allergies Allergy/AdvReac Type Severity Reaction Status Date / Time No Known Allergies Allergy Verified 12/10/22 09:53 Physical Exam Vitals: Vital Signs Temp Pulse Resp BP Pulse Ox 12/10/22 07:19 98.1 F 55 L 18 145/71 92 L 12/10/22 06:37 98.0 F 57 L 20 141/71 95 12/10/22 05:30 55 L 24 94 L 12/10/22 05:11 22 12/10/22 05:05 97.8 F 63 20 127/66 95 Intake and Output 12/09/22 12/10/22 12/10/22 22:59 06:59 14:59 Other: Weight 95.254 kg Results CBC & Chem 7: 12/13/22 05:57 12/13/22 05:57 Labs: Abnormal Lab Results - Last 24 Hours (Table) 12/10/22 12/10/22 12/10/22 Range/Units 05:14 05:14 05:14 RBC 4.06 L (4.30-5.90) m/uL Hgb 11.9 L (13.0-17.5) gm/dL Hct 36.6 L (39.0-53.0) % BUN 36 H (9-20) mg/dL Creatinine 1.67 H (0.66-1.25) mg/dL Glucose 164 H (74-99) mg/dL Calcium 7.4 L (8.4-10.2) mg/dL Troponin I 0.045 H* (0.000-0.034) ng/mL
--- NOTE | 2022-12-10 10:42 | P.CRDCN ---
History of Present Illness History of present illness: HISTORY OF PRESENT ILLNESS: This is a 82-year-old male with a past medical history significant for congestive heart failure, diabetes, hypertension, hyperlipidemia, and cardiomyopathy. Patient does not follow with a gin inspector. We have been asked to see the patient in consultation for congestive heart failure. Patient examined at the bedside. Patient presented to the hospital with a chief complaint of shortness of breath. Patient was found to be in congestive heart failure. He was started on IV Lasix. He denies any chest pain or pressure. He denies any dizziness or lightheadedness. Patient states he has been compliant with his medications. Patient underwent Lexiscan stress testing in March 2021 revealing possibility of small stress-induced reversible ischemia involving the apical lateral myocardium. Patient was posterior follow up on an outpatient basis regarding this however he has not followed up in the office. When the patient was asked about this, he states that he is not interested in seeing a gin inspector and does not want to pursue any further cardiac testing. * EKG reveals sinus bradycardia with PVCs. Left axis deviation. Left bundle branch block. * Chest xray there is left upper lobe masslike area measuring 8.9 x 6.4 cm. S table interstitial change throughout the right lung likely reflecting sequela of prior infection * Laboratory data: WBC 7.3. Hemoglobin 11.9. Platelet count 339. Sodium 139. Potassium 4.3. BUN 36. Creatinine 1.67. Troponin 0.045. ProBNP 21,400. * Current home cardiac medications include amlodipine 5 mrem daily, Lasix 80 mg daily, simvastatin 40 mg at night * Most recent echocardiogram obtained in February 2022 revealing ejection fraction 40-45%, moderate pulmonary hypertension, mild mitral regurgitation, mild aortic regurgitation, mild tricuspid regurgitation * Cardiac catheterization history: Patient denies REVIEW OF SYSTEMS: At the time of my exam: CONSTITUTIONAL: Denies fever or chills. HEENT: Denies blurred vision, vision changes, or eye pain. Denies hemoptysis CARDIOVASCULAR: Denies chest pain. Denies orthopnea. Denies PND. Denies palpitations RESPIRATORY: Denies shortness of breath. GASTROINTESTINAL: Denies abdominal pain. Denies nausea or vomiting. HEMATOLOGIC: Denies bleeding disorders. GENITOURINARY: Denies any blood in urine. SKIN: Denies pruitis. Denies rash. PHYSICAL EXAM: VITAL SIGNS: Reviewed. GENERAL: Well-developed in no acute distress. HEENT: Head is normocephalic. Pupils are equal, round. Sclerae anicteric. Mucous membranes of the mouth are moist. Neck supple. No JVD or thyromegaly LUNGS: Respirations even and unlabored. Lungs diminished to auscultation bilaterally. HEART: Regular rate and rhythm. S1 and S2 heard. ABDOMEN: Soft. Nondistended. Nontender. EXTREMITIES: Normal range of motion. No clubbing or cyanosis. Peripheral pulses intact. Minimal lower extremity edema NEUROLOGIC: Awake and alert. Oriented x 3. ASSESSMENT: Shortness of breath Acute on chronic heart failure with reduced ejection fraction Cardiomyopathy, ejection fraction 40-45%, unknown if ischemic or nonischemic Chronic kidney disease Hypertension Hyperlipidemia Diabetes PLAN: Obtain 2-D echo to assess cardiac structure and function Continue IV Lasix Daily weights, accurate I&O, and monitoring of kidney function Discontinue metoprolol. Add carvedilol 3.125 mg twice a day Add losartan 25 mg daily Patient had abnormal stress test in 2020 and further ischemic workup was recommended. Patient has not followed up in the office since that time. When asked about this, patient states that he does not want to see a gin inspector and has no interest in pursuing further cardiac testing. Further recommendations pending patient's course Nurse practitioner note has been reviewed by physician. Signing provider agrees with the documented findings, assessment, and plan of care. Past Medical History Past Medical History: Heart Failure, Diabetes Mellitus, Hyperlipidemia, Thyroid Disorder Additional Past Medical History / Comment(s): abnormal K+ History of Any Multi-Drug Resistant Organisms: None Reported Additional Past Surgical History / Comment(s): Thyroidectomy Past Anesthesia/Blood Transfusion Reactions: No Reported Reaction Past Psychological History: No Psychological Hx Reported Smoking Status: Former smoker Past Alcohol Use History: None Reported Past Drug Use History: None Reported - Past Family History Mother Family Medical History: Dementia Additional Family Medical History / Comment(s): alzheimers Father Family Medical History: Congestive Heart Failure (CHF) Medications and Allergies Home Medications Medication Instructions Recorded Confirmed Type Levothyroxine Sodium [Synthroid] 125 mcg PO DAILY 03/20/21 12/10/22 History Simvastatin [Zocor] 40 mg PO HS 03/20/21 12/10/22 History metFORMIN HCL [Glucophage] 500 mg PO BID 01/23/22 12/10/22 History amLODIPine [Norvasc] 5 mg PO DAILY 60 Days #60 tab 02/10/22 12/10/22 Rx Furosemide [Lasix] 80 mg PO DAILY 12/10/22 12/10/22 History Allergies Allergy/AdvReac Type Severity Reaction Status Date / Time No Known Allergies Allergy Verified 12/10/22 09:53 Physical Exam Vitals: Vital Signs Temp Pulse Pulse Resp BP BP Pulse Ox 12/10/22 08:45 97.7 F 59 L 19 153/75 95 12/10/22 07:19 98.1 F 55 L 18 145/71 92 L 12/10/22 06:37 98.0 F 57 L 20 141/71 95 12/10/22 05:30 55 L 24 94 L 12/10/22 05:11 22 12/10/22 05:05 97.8 F 63 20 127/66 95 Intake and Output 12/09/22 12/10/22 12/10/22 22:59 06:59 14:59 Other: Weight 95.254 kg Results 12/10/22 05:14 12/10/22 05:14 Cardiac Enzymes 12/10/22 12/10/22 Range/Units 05:14 05:14 AST 32 (17-59) U/L Troponin I 0.045 H* (0.000-0.034) ng/mL Coagulation 12/10/22 Range/Units 05:14 PT 11.0 (9.0-12.0) sec APTT 22.2 (22.0-30.0) sec CBC 12/10/22 Range/Units 05:14 WBC 7.3 (3.8-10.6) k/uL RBC 4.06 L (4.30-5.90) m/uL Hgb 11.9 L (13.0-17.5) gm/dL Hct 36.6 L (39.0-53.0) % Plt Count 339 (150-450) k/uL Comprehensive Metabolic Panel 12/10/22 Range/Units 05:14 Sodium 139 (137-145) mmol/L Potassium 4.3 (3.5-5.1) mmol/L Chloride 103 (98-107) mmol/L Carbon Dioxide 24 (22-30) mmol/L BUN 36 H (9-20) mg/dL Creatinine 1.67 H (0.66-1.25) mg/dL Glucose 164 H (74-99) mg/dL Calcium 7.4 L (8.4-10.2) mg/dL AST 32 (17-59) U/L ALT 22 (4-49) U/L Alkaline Phosphatase 104 (38-126) U/L Total Protein 7.7 (6.3-8.2) g/dL Albumin 3.9 (3.5-5.0) g/dL Current Medications Generic Name Dose Route Start Last Admin Trade Name Freq PRN Reason Stop Dose Admin Aspirin 81 mg 12/10/22 09:00 Aspirin 81 Mg PO DAILY [facility] Atorvastatin Calcium 20 mg 12/10/22 21:00 Atorvastatin 20 Mg Tab PO HS [facility] Carvedilol 3.125 mg 12/10/22 09:00 Carvedilol 3.125 Mg Tab PO BID-W/MEALS [facility] Dextrose/Water 25 ml 12/10/22 08:10 Dextrose 50% Syringe 50 Ml IVP PER PROTOCOL PRN Hypoglycemia Protocol Dextrose/Water 50 ml 12/10/22 08:10 Dextrose 50% Syringe 50 Ml IVP PER PROTOCOL PRN Hypoglycemia Protocol Furosemide 40 mg 12/10/22 09:00 Furosemide 10 Mg/Ml 4 Ml Vial IV Q12HR [facility] Heparin Sodium (Porcine) 5,000 unit 12/10/22 09:00 Heparin Sodium,Porcine 5,000 Unit/Ml 1 Ml Vial SQ Q12HR [facility] Insulin Aspart 0 unit 12/10/22 12:30 Insulin Aspart (Novolog) 100 Unit/Ml Vial SQ ACHS [facility] Protocol Levothyroxine Sodium 125 mcg 12/11/22 06:30 Levothyroxine 125 Mcg Tab PO DAILY@0630 [facility] Losartan Potassium 25 mg 12/10/22 09:00 Losartan 25 Mg Tab PO DAILY [facility] Naloxone HCl 0.2 mg 12/10/22 07:00 Naloxone 0.4 Mg/Ml 1 Ml Vial IV Q2M PRN Opioid Reversal Intake and Output 12/09/22 12/10/22 12/10/22 22:59 06:59 14:59 Other: Weight 95.254 kg 12/10/22 05:14 12/10/22 05:14
[2022-12-10 11:28] LABS: Glucose,Whole Blood 169 mg/dL (70-110)
--- NOTE | 2022-12-10 11:30 | CA ---
Transthoracic Echo Report Name: Volodymyr Moore Age: 82 Gender: M : 1940 Exam Date: 12/10/2022 10:40 Exam Location: [place] [facility] Ht (in): 70 Wt (lb): 210 Ordering Physician: Dakota Rogel Attending/Referring Phys: Ferry Engineer Sushma Espinal RDCS Procedure CPT: Indications: chf exacerbation, previous EF 40-45% Cardiac Hx: Technical Quality: Good Contrast 1: Total Dose (mL): Contrast 2: Total Dose (mL): MEASUREMENTS (Male / Female) Normal Values 2D ECHO LV Diastolic Diameter PLAX 5.9 cm 4.2 - 5.9 / 3.9 - 5.3 cm LV Systolic Diameter PLAX 4.0 cm IVS Diastolic Thickness 1.3 cm 0.6 - 1.0 / 0.6 - 0.9 cm LVPW Diastolic Thickness 1.1 cm 0.6 - 1.0 / 0.6 - 0.9 cm LV Relative Wall Thickness 0.4 RV Internal Dim ED PLAX 2.7 cm LA Systolic Diameter LX 4.2 cm 3.0 - 4.0 / 2.7 - 3.8 cm LV Diastolic Volume MOD 4C 113.5 cm??? LV Systolic Volume MOD 4C 59.8 cm??? LV Ejection Fraction MOD 4C 47.3 % LV Cardiac Index MOD 4C 1935.1 cm???/min???m??? LV Diastolic Length 4C 9.0 cm LV Systolic Length 4C 7.8 cm LV Diastolic Volume MOD 2C 114.7 cm??? LV Systolic Volume MOD 2C 61.6 cm??? LV Ejection Fraction MOD 2C 46.3 % LV Cardiac Index MOD 2C 1912.2 cm???/min???m??? LV Diastolic Length 2C 9.5 cm LV Systolic Length 2C 7.8 cm LA Volume 56.3 cm??? 18 - 58 / 22 - 52 cm??? M-MODE Aortic Root Diameter MM 3.4 cm MV E Point Septal Separation 1.0 cm AV Cusp Separation MM 2.0 cm DOPPLER AV Peak Velocity 208.8 cm/s AV Peak Gradient 17.4 mmHg AV Mean Velocity 135.8 cm/s AV Mean Gradient 8.6 mmHg AV Velocity Time Integral 49.5 cm LVOT Peak Velocity 121.7 cm/s LVOT Peak Gradient 5.9 mmHg MV Area PHT 4.0 cm??? Mitral E Point Velocity 134.6 cm/s Mitral A Point Velocity 110.9 cm/s Mitral E to A Ratio 1.2 MV Deceleration Time 191.7 ms MV E' Velocity 5.8 cm/s Mitral E to MV E' Ratio 23.1 TR Peak Velocity 360.0 cm/s TR Peak Gradient 51.9 mmHg Right Ventricular Systolic Press 55.3 mmHg FINDINGS Left Ventricle Mildly increased septal wall thickness. Left ventricular ejection fraction is estimated at 40-45 %. Left ventricular cavity size uppear normal. There is atypical septal motion noted. There is inferior wall hypokinesia Right Ventricle Normal right ventricular size. Moderate to severe pulmonary hypertension. Right ventricular systolic pressure estimated at 50 mm hg. Right Atrium Normal right atrial size. Left Atrium Mildly increased left atrial diameter. Mitral Valve Structurally normal mitral valve. [id number] mitral regurgitation. Aortic Valve Trileaflet aortic valve. There is mild AOV gradient of 9 mmHg Tricuspid Valve Structurally normal tricuspid valve. [id number] tricuspid regurgitation. Pulmonic Valve Structurally normal pulmonic valve. No pulmonic regurgitation. Pericardium Normal pericardium. No pericardial effusion. Aorta Normal size aortic root and proximal ascending aorta. CONCLUSIONS Left ventricle is at upper limits of normal with atypical septal motion inferior wall hypokinesia ejection fraction is about 40-45%. There is a lot of ectopy. Right ventricle is at upper limits of normal with moderate pulmonary hypertension. There is mild to moderate mitral and tricuspid regurgitation. No significant gradient across aortic valve no pericardial effusion. Previewed by: Dr. Gene Vides MD (Electronically Signed) Final Date: 10 December 2022 11:29
[2022-12-10] MEDS: LOSARTAN 25 MG TAB PO SCH (11:54)
[2022-12-10] MEDS: FUROSEMIDE 10 MG/ML 4 ML VIAL IV SCH ×2 (11:54→22:30)
[2022-12-10] MEDS: ASPIRIN 81 MG PO SCH (11:54)
[2022-12-10] MEDS: carvediloL 3.125 MG TAB PO SCH ×2 (11:54→17:26)
[2022-12-10] MEDS: HEPARIN SODIUM,PORCINE 5,000 UNIT/ML 1 ML VIAL SQ SCH ×2 (11:55→22:30)
[2022-12-10] MEDS: INSULIN ASPART (NovoLOG) 100 UNIT/ML VIAL SQ SCH ×3 (13:03→22:31)
--- NOTE | 2022-12-10 13:55 | US ---
EXAMINATION TYPE: US venous doppler duplex LE LT DATE OF EXAM: 12/10/2022 11:20 AM COMPARISON: NONE CLINICAL INDICATION: Male, 82 years old with history of LLE swelling x 1 week; No hx of DVT. Swelling x 1 week. SIDE PERFORMED: Left TECHNIQUE: The lower extremity deep venous system is examined utilizing real time linear array sonog namrata with graded compression, doppler sonography and color-flow sonography. VESSELS IMAGED: Common Femoral Vein Deep Femoral Vein Greater Saphenous Vein * Femoral Vein Popliteal Vein Small Saphenous Vein * Proximal Calf Veins (* superficial vessels) Left Leg: No evidence of DVT. IMPRESSION: No evidence for DVT at this time.
[2022-12-10] MEDS ORDERED: hydrALAZINE HCL 25 MG TAB PO STA (14:04)
[2022-12-10] MEDS: ISOSORBIDE DINITRATE 10 MG TAB PO SCH ×2 (16:05→22:32)
[2022-12-10] MEDS: hydrALAZINE HCL 25 MG TAB PO SCH ×2 (16:06→22:30)
[2022-12-10 16:47] LABS: Glucose,Whole Blood 160 mg/dL (70-110)
[2022-12-10 19:45] LABS: Glucose,Whole Blood 201 mg/dL (70-110)
[2022-12-10] MEDS ORDERED: RX INFO: IV CONTRAST WAS GIVEN 1 EACH MISC MISCELLANE PRN (19:55)
[2022-12-10] MEDS: ATORVASTATIN 20 MG TAB PO SCH (22:30)
[2022-12-11 06:12] LABS: Glucose,Whole Blood 156 mg/dL (70-110)
[2022-12-11 06:24] LABS: HCT 33.1 % (39.0-53.0); HGB 10.8 gm/dL (13.0-17.5); MCH 29.3 pg (25.0-35.0); MCHC 32.6 g/dL (31.0-37.0); MCV 89.8 fL (80.0-100.0); Mean Platelet Volume 8.3; Platelet Count 283 k/uL (150-450); RBC 3.68 m/uL (4.30-5.90); RDW 14.5 % (11.5-15.5); WBC 7.7 k/uL (3.8-10.6)
[2022-12-11 06:36] LABS: ALT 17 U/L (4-49); AST 19 U/L (17-59); African American GFR (CKD) 34 (>60 ml/min/1.73 sqM); Albumin 3.5 g/dL (3.5-5.0); Alkaline Phosphatase 109 U/L (38-126); Anion Gap 12 mmol/L; Blood Urea Nitrogen 42 mg/dL (9-20); Calcium 7.2 mg/dL (8.4-10.2); Carbon Dioxide 26 mmol/L (22-30); Chloride 100 mmol/L (98-107); Glucose 146 mg/dL (74-99); Magnesium 2.2 mg/dL (1.6-2.3); Non-African American GFR(CKD) 30 (>60 ml/min/1.73 sqM); Potassium 3.5 mmol/L (3.5-5.1); Sodium 138 mmol/L (137-145); Total Bilirubin 0.6 mg/dL (0.2-1.3); Total Protein 6.9 g/dL (6.3-8.2)
[2022-12-11] MEDS: INSULIN ASPART (NovoLOG) 100 UNIT/ML VIAL SQ SCH ×4 (07:05→21:26)
[2022-12-11] MEDS: carvediloL 3.125 MG TAB PO SCH (07:05)
[2022-12-11] MEDS: LEVOTHYROXINE 125 MCG TAB PO SCH (07:05)
[2022-12-11] MEDS ORDERED: carvediloL 3.125 MG TAB PO STA (08:37)
[2022-12-11] MEDS ORDERED: carvediloL 3.125 MG TAB PO SCH (08:45)
[2022-12-11] MEDS ORDERED: FUROSEMIDE 80 MG TAB PO SCH (09:00)
[2022-12-11] MEDS: LOSARTAN 25 MG TAB PO SCH (10:29)
[2022-12-11] MEDS: ISOSORBIDE MONONITRATE ER 30 MG TAB.ER.24H PO SCH (10:29)
[2022-12-11] MEDS: HEPARIN SODIUM,PORCINE 5,000 UNIT/ML 1 ML VIAL SQ SCH ×2 (10:30→21:26)
[2022-12-11] MEDS: hydrALAZINE HCL 25 MG TAB PO SCH ×3 (10:30→21:26)
[2022-12-11] MEDS: ASPIRIN 81 MG PO SCH (10:30)
--- NOTE | 2022-12-11 10:58 | P.PN ---
Subjective HISTORY OF PRESENT ILLNESS: This is a 82-year-old male with a past medical history significant for congestive heart failure, diabetes, hypertension, hyperlipidemia, and cardiomyopathy. Patient does not follow with a industrial management teacher. We have been asked to see the patient in consultation for congestive heart failure. Patient ex amined at the bedside. Patient presented to the hospital with a chief complaint of shortness of breath. Patient was found to be in congestive heart failure. He was started on IV Lasix. He denies any chest pain or pressure. He denies any dizziness or lightheadedness. Patient states he has been compliant with his medications. Patient underwent Lexiscan stress testing in March 2021 revealing possibility of small stress-induced reversible ischemia involving the apical lateral myocardium. Patient was posterior follow up on an outpatient basis regarding this however he has not followed up in the office. When the patient was asked about this, he states that he is not interested in seeing a industrial management teacher and does not want to pursue any further cardiac testing. * EKG reveals sinus bradycardia with PVCs. Left axis deviation. Left bundle branch block. * Chest xray there is left upper lobe masslike area measuring 8.9 x 6.4 cm. Stable interstitial change throughout the right lung likely reflecting sequela of prior infection * Laboratory data: WBC 7.3. Hemoglobin 11.9. Platelet count 339. Sodium 139. Potassium 4.3. BUN 36. Creatinine 1.67. Troponin 0.045. ProBNP 21,400. * Current home cardiac medications include amlodipine 5 mrem daily, Lasix 80 mg daily, simvastatin 40 mg at night * Most recent echocardiogram obtained in February 2022 revealing ejection fraction 40-45%, moderate pulmonary hypertension, mild mitral regurgitation, mild aortic regurgitation, mild tricuspid regurgitation * Cardiac catheterization history: Patient denies 12/11/2022 Patient examined this morning. He is sitting up in a chair. Patient denies chest pain or pressure. He denies shortness of breath. He remains on IV Lasix. Creatinine today 2.03. Vital signs are stable. Echocardiogram completed revealing ejection fraction 40-45%, inferior wall hypokinesia, [id number] mitral and tricuspid regurgitation. PHYSICAL EXAM: VITAL SIGNS: Reviewed. GENERAL: Well-developed in no acute distress. HEENT: Head is normocephalic. Pupils are equal, round. Sclerae anicteric. Mucous membranes of the mouth are moist. Neck supple. No JVD or thyromegaly LUNGS: Respirations even and unlabored. Lungs diminished to auscultation bilaterally. HEART: Regular rate and rhythm. S1 and S2 heard. ABDOMEN: Soft. Nondistended. Nontender. EXTREMITIES: Normal range of motion. No clubbing or cyanosis. Peripheral pulses intact. Minimal lower extremity edema NEUROLOGIC: Awake and alert. Oriented x 3. ASSESSMENT: Shortness of breath Acute on chronic heart failure with reduced ejection fraction Cardiomyopathy, ejection fraction 40-45%, unknown if ischemic or nonischemic Chronic kidney disease Hypertension Hyperlipidemia Diabetes PLAN: Discontinue IV Lasix Resume oral Lasix 80 mg daily starting tomorrow Increase carvedilol to 6.25 mg twice a day Discontinue Isordil. Begin Imdur 30 mg daily Continue additional cardiac medications Continue to monitor blood pressure Continue to monitor kidney function Patient had abnormal stress test in 2020 and further ischemic workup was recommended. Patient has not followed up in the office since that time. When asked about this, patient states that he does not want to see a industrial management teacher and has no interest in pursuing further cardiac testing. Patient was asked about this again today on rounds on 12/11/2022 and patient states he still does not want to see a industrial management teacher or have any further testing completed. Patient states "I am 82 years old. I don't want anything else done" Further recommendations pending patient's course Nurse practitioner note has been reviewed by physician. Signing provider agrees with the documented findings, assessment, and plan of care. Objective - Vital Signs Vital signs: Vital Signs Temp 98.2 F 12/10/22 20:00 Pulse 84 12/11/22 04:00 Resp 18 12/11/22 04:00 BP 145/66 12/11/22 04:00 Pulse Ox 96 12/11/22 07:42 FiO2 Intake & Output 12/10/22 12/11/22 12/11/22 18:59 06:59 18:59 Intake Total 118 500 240 Output Total 600 Balance -482 500 240 Weight 97.976 kg 97.8 kg Intake: Oral 118 500 240 Output: Urine 600 Other: Voiding Method Urinal Urinal - Labs CBC & Chem 7: 12/11/22 06:02 12/11/22 06:02 Labs: Abnormal Lab Results - Last 24 Hours (Table) 12/10/22 12/10/2223 Range/Units 11:27 12:10 16:45 RBC (4.30-5.90) m/uL Hgb (13.0-17.5) gm/dL Hct (39.0-53.0) % BUN (9-20) mg/dL Creatinine (0.66-1.25) mg/dL Glucose (74-99) mg/dL POC Glucose (mg/dL) 169 H 160 H (70-110) mg/dL Hemoglobin A1c (<=6.0) % Calcium (8.4-10.2) mg/dL Troponin I 0.045 H* (0.000-0.034) ng/mL 12/10/22 12/11/22 12/11/22 Range/Units 19:42 06:02 06:02 RBC 3.68 L (4.30-5.90) m/uL Hgb 10.8 L (13.0-17.5) gm/dL Hct 33.1 L (39.0-53.0) % BUN (9-20) mg/dL Creatinine (0.66-1.25) mg/dL Glucose (74-99) mg/dL POC Glucose (mg/dL) 201 H (70-110) mg/dL Hemoglobin A1c 8.8 H (<=6.0) % Calcium (8.4-10.2) mg/dL Troponin I (0.000-0.034) ng/mL 12/11/22 12/11/22 Range/Units 06:02 06:10 RBC (4.30-5.90) m/uL Hgb (13.0-17.5) gm/dL Hct (39.0-53.0) % BUN 42 H (9-20) mg/dL Creatinine 2.03 H (0.66-1.25) mg/dL Glucose 146 H (74-99) mg/dL POC Glucose (mg/dL) 156 H (70-110) mg/dL Hemoglobin A1c (<=6.0) % Calcium 7.2 L (8.4-10.2) mg/dL Troponin I (0.000-0.034) ng/mL
--- NOTE | 2022-12-11 11:39 | CT ---
EXAMINATION TYPE: CT chest wo con DATE OF EXAM: 12/11/2022 COMPARISON: Previous day chest x-ray HISTORY: Evaluated for mass CT DLP: [address] of the chest was performed with lung and mediastinal window settings submitted. The la ck of contrast limits evaluation of the vascular, mediastinal and parenchymal structures including th e upper abdomen. LUNGS: There is pseudomass noted within the left upper lobe with fluid trapped within the fissure mary suring 5.8 x 3.5 cm. There is small left-sided pleural effusion with maximal AP dimension of 1.3 cm. [id number] right-sided pleural effusion with maximal AP dimension of 4.7 cm. There is patchy i nfiltrate seen within the upper lobes as well as cardiomegaly and pulmonary venous congestion. Findin gs may reflect congestive failure. Infiltrates of other etiology not excluded. MEDIASTINUM/VINH: Thoracic aorta is of normal caliber with limited evaluation given lack of contrast . The heart is enlarged. No evidence for mediastinal mass. Nonspecific right paratracheal adenopath y measuring 1.9 cm in short axis. Subcarinal fullness may reflect additional adenopathy measuring 1.8 cm. UPPER ABDOMEN: No significant abnormality is seen. OTHER: No significant other abnormality. IMPRESSION: 1. There is pseudomass noted within the left upper lobe with fluid trapped within the fissure measur ing 5.8 x 3.5 cm. 2. Scattered infiltrates with bilateral pleural effusions and pulmonary venous congestion suspicious for congestive failure. Infiltrates of other etiology including pneumonia not excluded. Correlate cli nically and progress studies are advised. 3. Nonspecific mediastinal adenopathy.
[2022-12-11 11:56] LABS: Glucose,Whole Blood 159 mg/dL (70-110)
--- NOTE | 2022-12-11 14:17 | P.PN ---
Subjective Progress Note Date: 12/11/22 Hospital course: Patient is a pleasant 82-year-old male with a past medical history of cardiomyopathy, chronic systolic heart failure with previously known EF of 40- 45%, hypertension, hyperlipidemia, chronic kidney disease stage IIIB hypothyroidism, and ptg-[id number] diabetes mellitus. He presented to the emergency department with a chief complaint of shortness of breath. Patient reports he has noticed increasing shortness of breath over the past few days, almost 1 week. He reports this shortness of breath has been accompanied by cough But denies any other associated symptoms including headache, lightheadedness, dizziness, fever, chills, diaphoresis, chest pain or palpitations, abdominal pain, nausea, vomiting, or experiencing any noted swell ing/weakness/tingling in his extremities. Patient does report that his left lower extremity has been swollen for approximately 2 weeks but states he thinks he might have "twisted his ankle". He underwent full evaluation in the emergency department. Vital signs reviewed. Blood pressure 127/66, heart rate 63, respiratory rate 20, temp 97.8F, and SpO2 of 95% on room air. EKG completed showing sinus bradycardia at 58 bpm with frequent PVCs and a left bundle branch block, left bundle branch block previously known and showing no changes when compared to EKG completed on 02/08/22 upon personal review and interpretation. Chest x-ray completed showing left upper lobe masslike area measuring approximately 8.9 x 6.4 cm. Labs completed and reviewed. Initial troponin 0.045. Normocytic anemia with hemoglobin 11.9. Coagulation profile normal findings. BMP consistent with stage III chronic kidney disease with BUN of 36, creatinine 1.67, and GFR of 37 which is at baseline creatinine levels. Liver profile showing no significant abnormalities. ProBNP elevated at 21,400. Patient was admitted under our services with consultation to cardiology. Left lower extremity Doppler was completed secondary to mild swelling and was negative for DVT. Troponins trended and flat resulting at 0.045, 0.050, and 0.045. Echocardiogram completed and report reviewed showing impaired EF of 40- 45% with inferior wall hypokinesia, moderate pulmonary hypertension and mild to moderate mitral and tricuspid regurgitation. Secondary to initial findings of left upper lobe masslike area measuring approximately 8.9 x 6.4 cm reported on chest x-ray, placed order for CT chest without contrast. CT chest without contrast showing a pseudomass noted within the left upper lobe showing fluid trapped within the fissure measuring approximately 5.8 x 3.5 cm along with scattered infiltrates and bilateral pleural effusions and pulmonary venous congestion consistent with congestive heart failure along with nonspecific mediastinal adenopathy. Pulmonology consulted at this time. Physical exam: Patient seen and fully evaluated at bedside. He reports continued shortness of breath and had noted conversational dyspnea after 4-5 words. Continues with coarse cough. Vital signs reviewed and stable. General: Nontoxic, no distress and appears stated age. Derm: Skin warm and dry, normal coloration for ethnicity. Head: Atraumatic, normocephalic and symmetric. Eyes: EOMs intact, no lid lag, and anicteric sclera Mouth: no lip lesions, mucus membranes moist Cardiovascular: regular rate and rhythm with normal S1S2, systolic murmur, positive posterior tibial pulses bilaterally, and cap refill < 2 seconds. Lungs: Respirations even, regular, and unlabored on room air. Lungs CTA with bibasilar crackles and soft expiratory wheezes. Coarse nonproductive cough noted during assessment. No accessory muscle usage. Patient did have noted conversational dyspnea after 4-5 words. Abdominal: soft, nontender to palpation, no guarding, no appreciable organomegaly Ext: ROM intact. No gross muscle atrophy, left lower extremity 1+ pitting edema right lower extremity no edema. no contractures Neuro: Speech clear, face symmetrical and CN II-XII grossly intact with no noted focal neuro deficits Psych: Alert and oriented to person, place, time, and situation. Appropriate and pleasant affect. Assessment and Plan of Care: Patient is a pleasant 82-year-old male with a past medical history of chronic systolic heart failure with previously known EF 40-45% and presented to the emergency department on 12/10/22 with progressively worsening shortness of breath over the past few days. He was admitted for acute on chronic systolic heart failure exacerbation and underwent IV diuresis with Lasix. Patient had successful diuresis but had elevation in renal function and IV diuretic discontinued at this time and patient started on oral Lasix to begin tomorrow. Acute on chronic systolic heart failure with previously known EF of 40-45% Pseudomass left upper lobe Acute kidney injury on chronic kidney disease Moderate pulmonary hypertension Elevated troponin, chronic secondary to chronic kidney disease and chronic systolic heart failure Cardiomyopathy History of CAD Hypertension Hyperlipidemia Chronic kidney disease stage IIIB Hypothyroidism Vrl-axvlybd-umdeynxvu diabetes mellitus -Patient had successful diuresis with IV Lasix but this also resulted in an acute kidney injury on stage III B chronic kidney disease and therefore IV diuretic discontinued at this time and patient started on oral Lasix to begin tomorrow. -Cardiology following and discussed plan of care with cardiac DEBURR OPERATOR, cardiology recommending holding Lasix 1 day and resuming oral dose of Lasix 80 mg daily beginning tomorrow and also increased Coreg to 6.25 mg twice daily and starting patient on Imdur 30 mg daily. -Echocardiogram completed and report reviewed showing impaired EF of 40-45% with inferior wall hypokinesia, moderate pulmonary hypertension and mild to moderate mitral and tricuspid regurgitation. -Secondary to initial findings of left upper lobe masslike area measuring approximately 8.9 x 6.4 cm reported on chest x-ray, placed order for CT chest without contrast. -CT chest without contrast showing a pseudomass noted within the left upper lobe showing fluid trapped within the fissure measuring approximately 5.8 x 3.5 cm along with scattered infiltrates and bilateral pleural effusions and pulmonary venous congestion consistent with congestive heart failure along with nonspecific mediastinal adenopathy. -Called and discussed with analysis engineer DEBURR OPERATOR and order placed for pulmonary consult. -Continue Telemetry monitoring -Continued Daily weights and Close monitoring of I's and O's -Cardiac diet -Continue glycemic protocol with NovoLog sliding scale -Continued close monitoring of electrolytes while diuresing. -Patient to continue current cardiac medication regimen with aspirin 81 mg d aily, atorvastatin 20 mg daily, carvedilol 6.25 mg twice daily, Lasix 80 mg daily, hydralazine 25 mg 3 times daily, isosorbide mononitrate 30 mg daily, and losartan 25 mg daily. Data review: -Morning labs reviewed. CBC showing normocytic anemia with hemoglobin stable at 10.8. BMP revealing acute kidney injury on stage III B chronic kidney disease with BUN 42, creatinine 2.03, and GFR of 30. -Vital signs stable blood pressure 112/49, heart rate 61, respiratory rate 18, temp 97.8F, and SpO2 of 93% on room air. Imaging reviewed: -Echocardiogram completed and report reviewed showing impaired EF of 40-45% with inferior wall hypokinesia, moderate pulmonary hypertension and mild to moderate mitral and tricuspid regurgitation. -CT chest without contrast showing a pseudomass noted within the left upper lobe showing fluid trapped within the fissure measuring approximately 5.8 x 3.5 cm along with scattered infiltrates and bilateral pleural effusions and pulmonary venous congestion consistent with congestive heart failure along with nonspecific mediastinal adenopathy. The patient is admitted with an anticipated greater than 2 midnight stay for evaluation of acute on chronic systolic heart failure CODE STATUS: Full code DVT prophylaxis: Heparin Discussed with: Patient, RN, cardiac DEBURR OPERATOR and pulmonary DEBURR OPERATOR Anticipated discharge date: Clinical course to determine Anticipated discharge place: Home Patient was seen independently by Nurse Practitioner. This document was prepared using [employer] dictation software. Please allow for errors in automatic i threading machine feeder while rare they do occur. Dakota Rogel, DEBURR OPERATOR rendered care for this patient independently, reviewed the findings and plan as documented in the note above. I did not physically speak with or examine the patient on this date. Objective - Vital Signs Vital signs: Vital Signs Temp 98.2 F 12/10/22 20:00 Pulse 84 12/11/22 04:00 Resp 18 12/11/22 04:00 BP 145/66 12/11/22 04:00 Pulse Ox 96 12/11/22 07:42 FiO2 Intake & Output 12/10/22 12/11/22 12/11/22 18:59 06:59 18:59 Intake Total 118 500 240 Output Total 600 Balance -482 500 240 Weight 97.976 kg 97.8 kg Intake: Oral 118 500 240 Output: Urine 600 Other: Voiding Method Urinal Urinal - Labs CBC & Chem 7: 12/13/22 05:57 12/13/22 05:57 Labs: Abnormal Lab Results - Last 24 Hours (Table) 12/10/22 12/10/22 12/10/22 Range/Units 09:22 11:27 12:10 RBC (4.30-5.90) m/uL Hgb (13.0-17.5) gm/dL Hct (39.0-53.0) % BUN (9-20) mg/dL Creatinine (0.66-1.25) mg/dL Glucose (74-99) mg/dL POC Glucose (mg/dL) 169 H (70-110) mg/dL Calcium (8.4-10.2) mg/dL Troponin I 0.050 H* 0.045 H* (0.000-0.034) ng/mL 12/10/22 12/10/2212/11/23 Range/Units 16:45 19:42 06:02 RBC 3.68 L (4.30-5.90) m/uL Hgb 10.8 L (13.0-17.5) gm/dL Hct 33.1 L (39.0-53.0) % BUN (9-20) mg/dL Creatinine (0.66-1.25) mg/dL Glucose (74-99) mg/dL POC Glucose (mg/dL) 160 H 201 H (70-110) mg/dL Calcium (8.4-10.2) mg/dL Troponin I (0.000-0.034) ng/mL 12/11/22 12/11/22 Range/Units 06:02 06:10 RBC (4.30-5.90) m/uL Hgb (13.0-17.5) gm/dL Hct (39.0-53.0) % BUN 42 H (9-20) mg/dL Creatinine 2.03 H (0.66-1.25) mg/dL Glucose 146 H (74-99) mg/dL POC Glucose (mg/dL) 156 H (70-110) mg/dL Calcium 7.2 L (8.4-10.2) mg/dL Troponin I (0.000-0.034) ng/mL
[2022-12-11 16:55] LABS: Glucose,Whole Blood 128 mg/dL (70-110)
[2022-12-11] MEDS: carvediloL 6.25 MG TAB PO SCH (17:17)
[2022-12-11 20:17] LABS: Glucose,Whole Blood 216 mg/dL (70-110)
[2022-12-11] MEDS: ATORVASTATIN 20 MG TAB PO SCH (21:25)
--- NOTE | 2022-12-12 01:42 | P.CNPUL ---
History of Present Illness Consult date: 12/12/22 Requesting physician: Dakota Rogel Reason for consult: abnormal CXR/CT Chief complaint: Shortness of breath History of present illness: I am seeing this patient in consultation today 12/12/2022 for acute CHF exacerbation. Patient is a 82-year-old white male with past medical history significant for cardiomyopathy, congestive heart failure with a previous known ejection fraction of 40-45%, hypertension, hyperlipidemia, chronic kidney disease stage IIIB, hypothyroidism, and diabetes mellitus. He presented to emergency room December 10 complaining of shortness of breath that started 3-4 days prior. The shortness of breath has progressively worsened, and is worse on exertion. He does admit intermittent non-productive cough. He denies any chest pain, heart palpitations, lightheadedness, syncope, or lower extremity swelling. Denies infectious symptoms such as fever, chills, myalgias, productive cough. Chest CT demonstrated small to moderate bilateral pleural effusions and pulmonary vascular congestion consistent with congestive heart failure. There was also a 5.8 x 3.5 cm pseuodomass within the fissure and nonspecific mediastinal adenopathy. The mass is a fluid collection within the fissure, and not concerning for malignancy. Repeat echocardiogram shows a reduced left ventricular ejection fraction of 40-45%, moderate pulmonary hypertension with and RVSP of 50, and mild to moderate tricuspid regurgitation. NT proBNP was significantly elevated at 21,400. The patient has been started on diuretics. Patient is currently sitting up in bed, on room air, in no acute distress. Patient continues to have some shortness breath on exertion. Reportedly had so me unilateral lower extremity edema on arrival, venous Dopplers negative for left lower extremity DVT. Most recent CBC shows some mild anemia with hemoglobin of 10.8, hematocrit 33.1, platelets 283, WBC 7.7. BMP from yesterday shows a sodium 138, potassium 3.5, chloride 100, serum bicarb 26, BUN 42, creatinine 2.03, glucose 146. Troponins have been mildly elevated at 0.045 and are stable. ECG on arrival shows sinus rhythm with frequent multifocal PVCs. Patient does seem hemodynamically stable at this time. Review of Systems REVIEW OF SYSTEMS: CONSTITUTIONAL: Denies any recent significant weight loss or weight gain, night sweats, hemoptysis EYES: Denies change in vision. EARS, NOSE, MOUTH, THROAT: Denies headaches, denies sore throat. CARDIOVASCULAR: Denies chest pain, palpitations or syncopal episodes. RESPIRATORY: See HPI GASTROINTESTINAL: Denies change in appetite, abdominal pain, nausea and vomiting, or diarrhea GENITOURINARY: Denies hematuria, denies infections. MUSKULOSKELETAL: Denies pain, denies swelling. INTEGUMENTARY: Denies rash, denies eczema. NEUROLOGICAL: Denies recent memory loss, no recent seizure activity. PSYCHIATRIC: Denies anxiety, denies depression. HEMATOLOGIC/LYMPHATIC: Denies anemia, denies enlarged lymph node Past Medical History Past Medical History: Heart Failure, Diabetes Mellitus, Hyperlipidemia, Thyroid Disorder Additional Past Medical History / Comment(s): abnormal K+ History of Any Multi-Drug Resistant Organisms: None Reported Additional Past Surgical History / Comment(s): Thyroidectomy Past Anesthesia/Blood Transfusion Reactions: No Reported Reaction Past Psychological History: No Psychological Hx Reported Smoking Status: Former smoker Past Alcohol Use History: None Reported Past Drug Use History: None Reported - Past Family History Mother Family Medical History: Dementia Additional Family Medical History / Comment(s): alzheimers Father Family Medical History: Congestive Heart Failure (CHF) Medications and Allergies Home Medications Medication Instructions Recorded Confirmed Type Levothyroxine Sodium [Synthroid] 125 mcg PO DAILY 03/20/21 12/10/22 History Simvastatin [Zocor] 40 mg PO HS 03/20/21 12/10/22 History metFORMIN HCL [Glucophage] 500 mg PO BID 01/23/22 12/10/22 History amLODIPine [Norvasc] 5 mg PO DAILY 60 Days #60 tab 02/10/22 12/10/22 Rx Empagliflozin [Jardiance] 25 mg PO DAILY 12/10/22 12/10/22 History Furosemide [Lasix] 80 mg PO DAILY 12/10/22 12/10/22 History Allergies Allergy/AdvReac Type Severity Reaction Status Date / Time No Known Allergies Allergy Verified 12/10/22 09:53 Physical Exam Vitals: Vital Signs Temp Pulse Resp BP Pulse Ox 12/11/22 20:00 98 F 65 18 116/52 95 12/11/22 16:00 62 18 130/52 95 12/11/22 14:00 61 18 12/11/22 12:00 50 L 18 116/52 95 12/11/22 08:00 97.8 F 61 18 112/49 93 L 08/09/23 07:42 96 12/11/22 04:00 84 18 145/66 96 12/11/22 02:00 63 Intake and Output 12/11/22 12/11/22 12/12/22 14:59 22:59 06:59 Intake Total 240 450 Balance 240 450 Intake: Oral 240 450 GENERAL EXAM: Alert, 82-year-old white male appearing stated age, comfortable in no apparent distress. HEAD: Normocephalic and atraumatic EYES: Normal reaction of pupils, equal size. NOSE: Clear with pink turbinates. THROAT: No erythema or exudates. NECK: No masses, no JVD. CHEST: No chest wall deformity. LUNGS: Equal air entry with no crackles, wheeze, rhonchi or dullness. On room air. No conversational dyspnea or accessory muscle use.. CVS: S1 and S2 normal with no audible murmur, regular rhythm. No extra heart jovan nds ABDOMEN: No hepatosplenomegaly, active bowel sounds, no guarding or rigidity. SPINE: No scoliosis or deformity SKIN: No rashes CENTRAL NERVOUS SYSTEM: No focal deficits, tone is normal in all 4 extremities. EXTREMITIES: There is no peripheral edema, clubbing, or cyanosis. Peripheral pulses are intact. Results - Laboratory Findings CBC and BMP: 12/11/22 06:02 12/11/22 06:02 PT/INR, D-dimer PT 11.0 sec (9.0-12.0) 12/10/22 05:14 INR 1.1 (<1.2) 12/10/22 05:14 Abnormal lab findings: Abnormal Labs 12/10/22 12/10/22 12/10/22 05:14 05:14 05:14 RBC 4.06 L Hgb 11.9 L Hct 36.6 L BUN 36 H Creatinine 1.67 H Glucose 164 H POC Glucose (mg/dL) Hemoglobin A1c Calcium 7.4 L Troponin I 0.045 H* 12/10/22 12/10/22 12/10/22 09:22 11:27 12:10 RBC Hgb Hct BUN Creatinine Glucose POC Glucose (mg/dL) 169 H Hemoglobin A1c Calcium Troponin I 0.050 H* 0.045 H* 12/10/22 12/10/22 12/11/22 16:45 19:42 06:02 RBC Hgb Hct BUN Creatinine Glucose POC Glucose (mg/dL) 160 H 201 H Hemoglobin A1c 8.8 H Calcium Troponin I 12/11/22 12/11/22 12/11/22 06:02 06:02 06:10 RBC 3.68 L Hgb 10.8 L Hct 33.1 L BUN 42 H Creatinine 2.03 H Glucose 146 H POC Glucose (mg/dL) 156 H Hemoglobin A1c Calcium 7.2 L Troponin I 12/11/22 12/11/22 12/11/22 11:47 16:54 20:15 RBC Hgb Hct BUN Creatinine Glucose POC Glucose (mg/dL) 159 H 128 H 216 H Hemoglobin A1c Calcium Troponin I - Diagnostic Findings Chest x-ray: image reviewed CT scan - chest: image reviewed Assessment and Plan Assessment: Acute exacerbation of systolic congestive heart failure. Chest CT demonstrated small to moderate bilateral pleural effusions and pulmonary vascular congestion consistent with congestive heart failure. There was also a 5.8 x 3.5 cm pseuodomass within the left lung fissure and nonspecific mediastinal adenopathy. Repeat echocardiogram shows a reduced left ventricular ejection fraction of 40- 45%, moderate pulmonary hypertension with and RVSP of 50, and mild to moderate tricuspid regurgitation. NT proBNP was significantly elevated at 21,400. The patient has been started on diuretics. Pseudomass measuring 5.8 x 3.5 cm, appears to be a fluid collection within the left major fissure, and not particularly concerning for malignancy. Will likely respond with conservative management and diuretics. Cardiomyopathy, with a baseline ejection fraction of 40-45% Elevated troponins, undetermined significance, stable Anemia of chronic disease Chronic kidney disease stage IIIB Diabetes mellitus type 2, [id number]-[id number] Essential hypertension Hyperlipidemia Obesity, with a BMI of 31 kg/m Hypothyroidism Remote ex-smoker, quit in 1966 Plan: Patient's medications, labs, and imaging reviewed On room air Continue with diuresis Cardiology has been following May follow up outpatient for resolution of pseudotumor, doubt malignancy. I have personally seen and examined the patient, performed the documentation and the assessment and plan as written. Number of minutes spent on the visit:20 Time with Patient: Greater than 30
[2022-12-12 05:51] LABS: Glucose,Whole Blood 154 mg/dL (70-110)
[2022-12-12] MEDS: LEVOTHYROXINE 125 MCG TAB PO SCH (06:37)
[2022-12-12] MEDS: INSULIN ASPART (NovoLOG) 100 UNIT/ML VIAL SQ SCH ×4 (06:37→20:00)
[2022-12-12] MEDS: carvediloL 6.25 MG TAB PO SCH ×2 (06:37→18:05)
[2022-12-12 09:09] LABS: African American GFR (CKD) 34 (>60 ml/min/1.73 sqM); Anion Gap 13 mmol/L; Blood Urea Nitrogen 47 mg/dL (9-20); Calcium 6.8 mg/dL (8.4-10.2); Carbon Dioxide 24 mmol/L (22-30); Chloride 99 mmol/L (98-107); Glucose 236 mg/dL (74-99); Magnesium 2.2 mg/dL (1.6-2.3); Non-African American GFR(CKD) 29 (>60 ml/min/1.73 sqM); Potassium 3.9 mmol/L (3.5-5.1); Sodium 136 mmol/L (137-145)
[2022-12-12] MEDS: ISOSORBIDE MONONITRATE ER 30 MG TAB.ER.24H PO SCH (09:12)
[2022-12-12] MEDS: hydrALAZINE HCL 25 MG TAB PO SCH ×3 (09:12→20:00)
[2022-12-12] MEDS: ASPIRIN 81 MG PO SCH (09:12)
[2022-12-12] MEDS: HEPARIN SODIUM,PORCINE 5,000 UNIT/ML 1 ML VIAL SQ SCH ×2 (09:12→20:00)
[2022-12-12] MEDS: LOSARTAN 25 MG TAB PO SCH (09:12)
[2022-12-12] MEDS: FUROSEMIDE 80 MG TAB PO SCH (09:12)
--- NOTE | 2022-12-12 11:06 | CDI ---
Documentation Clarification Form Date: From: Deborah Wolf Phone: [phone] Admit Date: 12/10/2022 07:00:00 AM Patient Name: Volodymyr Moore Visit Number: [id number] Discharge Date: ATTENTION: The Clinical Documentation Specialists (CDI) and [facility] Coding Staff appreciate your assistance in clarifying documentation. Please respond to the clarification below the line at the bottom and electronically sign. The CDI & [facility] Coding staff will review the response and follow-up if needed. Please note: Queries are made part of the Legal Health Record. If you have any questions, please contact the author of this message via ITS. Dr. Michelet Menendez, Your patient has troponin levels noted in the Admission H&P on 12/10. Please clarify if there is an additional diagnosis and/or clinical significance related to this value. Patient history/risk factors: "82-year-old male with a past medical history of cardiomyopathy, chronic systolic heart failure with previously known EF of 40- 45%, hypertension, hyperlipidemia, chronic kidney disease stage IIIB hypothyroidism, and jcd-rpbqadk-ytosmuygm diabetes mellitus. He presented to the emergency department with a chief complaint of shortness of breath." - Per Medical H&P on 12/10 Clinical indicators: "Elevated troponin, chronic secondary to chronic kidney disease and chronic systolic heart failure" - Per Medical H&P on 12/10 "CARDIOVASCULAR: Denies chest pain. Denies orthopnea. Denies PND. Denies palpitations" - Per Cardiology Consult Note on 12/10 ProBNP elevated at 21,400 Troponins trended and flat resulting at 0.045, 0.050, and 0.045. BUN 36. Creatinine 1.67 EKG reveals sinus bradycardia with PVCs. Left axis deviation. Left bundle branch block. Treatment: Per Medical H&P on 12/10 "-Cardiology consulted, appreciate further recommendations -Daily weights -Close monitoring of I's and O's -Lasix 40 mg IVP every 12 hours" Is there an additional diagnosis and/or clinical significance related to the above lab result/information: [ ] Type 2 OR due to (specify cause ____) [ x ] Non-ischemic with acute myocardial injury [ ] No additional diagnosis/Not clinically significant [ ] Other, please specify [ ] Unable to determine MTDD
[2022-12-12 11:55] LABS: Glucose,Whole Blood 181 mg/dL (70-110)
--- NOTE | 2022-12-12 13:34 | P.PN ---
Subjective Progress Note Date: 12/12/22 HISTORY OF PRESENT ILLNESS: This is a 82-year-old male with a past medical history significant for congestive heart failure, diabetes, hypertension, hyperlipidemia, and cardiomyopathy. Patient does not follow with a community product specialist. We have been asked to see the patient in consultation for congestive heart failure. Patient examined at the bedside. Patient presented to the hospital with a chief complaint of shortness of breath. Patient was found to be in congestive heart failure. He was started on IV Lasix. He denies any chest pain or pressure. He denies any dizziness or lightheadedness. Patient states he has been compliant with his medications. Patient underwent Lexiscan stress testing in March 2021 revealing possibility of small stress-induced reversible ischemia involving the apical lateral myocardium. Patient was posterior follow up on an outpatient basis regarding this however he has not followed up in the office. When the patient was asked about this, he states that he is not interested in seeing a community product specialist and does not want to pursue any further cardiac testing. * EKG reveals sinus bradycardia with PVCs. Left axis deviation. Left bundle branch block. * Chest xray there is left upper lobe masslike area measuring 8.9 x 6.4 cm. Stable interstitial change throughout the right lung likely reflecting sequela of prior infection * Laboratory data: WBC 7.3. Hemoglobin 11.9. Platelet count 339. Sodium 139. Potassium 4.3. BUN 36. Creatinine 1.67. Troponin 0.045. ProBNP 21,400. * Current home cardiac medications include amlodipine 5 mrem daily, Lasix 80 mg daily, simvastatin 40 mg at night * Most recent echocardiogram obtained in February 2022 revealing ejection fraction 40-45%, moderate pulmonary hypertension, mild mitral regurgitation, mild aortic regurgitation, mild tricuspid regurgitation * Cardiac catheterization history: Patient denies 12/11/2022 Patient examined this morning. He is sitting up in a chair. Patient denies chest pain or pressure. He denies shortness of breath. He remains on IV Lasix. Creatinine today 2.03. Vital signs are stable. Echocardiogram completed revealing ejection fraction 40-45%, inferior wall hypokinesia, [id number] mitral and tricuspid regurgitation. 12/12/2022 Patient examined this morning. Patient is sitting up in the chair. Patient denies chest pain or pressure. He denies shortness of breath. He remains on oral diuretics. Vital signs are stable. PHYSICAL EXAM: VITAL SIGNS: Reviewed. GENERAL: Well-developed in no acute distress. HEENT: Head is normocephalic. Pupils are equal, round. Sclerae anicteric. Mucous membranes of the mouth are moist. Neck supple. No JVD or thyromegaly LUNGS: Respirations even and unlabored. Lungs diminished to auscultation bilaterally. HEART: Regular rate and rhythm. S1 and S2 heard. ABDOMEN: Soft. Nondistended. Nontender. EXTREMITIES: Normal range of motion. No clubbing or cyanosis. Peripheral pu lses intact. Minimal lower extremity edema NEUROLOGIC: Awake and alert. Oriented x 3. ASSESSMENT: Shortness of breath Acute on chronic heart failure with reduced ejection fraction Cardiomyopathy, ejection fraction 40-45%, unknown if ischemic or nonischemic Chronic kidney disease Hypertension Hyperlipidemia Diabetes PLAN: Continue current cardiac medications Patient is now agreeable to follow-up with Dr. Quintana post discharge. Patient will need a follow up appointment in two weeks. Patient is stable for discharge home today from a cardiac standpoint Nurse practitioner note has been reviewed by physician. Signing provider agrees with the documented findings, assessment, and plan of care. Objective - Vital Signs Vital signs: Vital Signs Temp 97.4 F L 12/12/22 08:00 Pulse 53 L 12/12/22 08:00 Resp 20 12/12/22 08:00 BP 126/60 12/12/22 08:00 Pulse Ox 93 L 12/12/22 08:00 FiO2 Intake & Output 12/11/22 12/12/22 12/12/22 18:59 06:59 18:59 Intake Total 690 240 Balance 690 240 Weight 99.2 kg Intake: Oral 690 240 - Labs CBC & Chem 7: 12/11/22 06:02 12/12/22 08:09 Labs: Abnormal Lab Results - Last 24 Hours (Table) 12/11/22 12/11/22 12/12/22 Range/Units 16:54 20:15 05:49 Sodium (137-145) mmol/L BUN (9-20) mg/dL Creatinine (0.66-1.25) mg/dL Glucose (74-99) mg/dL POC Glucose (mg/dL) 128 H 216 H 154 H (70-110) mg/dL Calcium (8.4-10.2) mg/dL 12/12/22 12/12/22 Range/Units 08:09 11:53 Sodium 136 L (137-145) mmol/L BUN 47 H (9-20) mg/dL Creatinine 2.04 H (0.66-1.25) mg/dL Glucose 236 H (74-99) mg/dL POC Glucose (mg/dL) 181 H (70-110) mg/dL Calcium 6.8 L (8.4-10.2) mg/dL
--- NOTE | 2022-12-12 14:21 | P.PN ---
Subjective Progress Note Date: 12/12/22 Hospital course: Patient is a pleasant 82-year-old male with a past medical history of cardiomyopathy, chronic systolic heart failure with previously known EF of 40- 45%, hypertension, hyperlipidemia, chronic kidney disease stage IIIB hypothyroidism, and dxn-gqqyutg-ofnpblvti diabetes mellitus. He presented to the emergency department with a chief complaint of shortness of breath. Patient reports he has noticed increasing shortness of breath over the past few days, almost 1 week. He reports this shortness of breath has been accompanied by cough But denies any other associated symptoms including headache, lightheadedness, dizziness, fever, chills, diaphoresis, chest pain or palpitations, abdominal pain, nausea, vomiting, or experiencing any noted swell ing/weakness/tingling in his extremities. Patient does report that his left lower extremity has been swollen for approximately 2 weeks but states he thinks he might have "twisted his ankle". He underwent full evaluation in the emergency department. Vital signs reviewed. Blood pressure 127/66, heart rate 63, respiratory rate 20, temp 97.8F, and SpO2 of 95% on room air. EKG completed showing sinus bradycardia at 58 bpm with frequent PVCs and a left bundle branch block, left bundle branch block previously known and showing no changes when compared to EKG completed on 02/08/22 upon personal review and interpretation. Chest x-ray completed showing left upper lobe masslike area measuring approximately 8.9 x 6.4 cm. Labs completed and reviewed. Initial troponin 0.045. Normocytic anemia with hemoglobin 11.9. Coagulation profile normal findings. BMP consistent with stage III chronic kidney disease with BUN of 36, creatinine 1.67, and GFR of 37 which is at baseline creatinine levels. Liver profile showing no significant abnormalities. ProBNP elevated at 21,400. Patient was admitted under our services with consultation to cardiology. Left lower extremity Doppler was completed secondary to mild swelling and was negative for DVT. Troponins trended and flat resulting at 0.045, 0.050, and 0.045. Echocardiogram completed and report reviewed showing impaired EF of 40- 45% with inferior wall hypokinesia, moderate pulmonary hypertension and mild to moderate mitral and tricuspid regurgitation. Secondary to initial findings of left upper lobe masslike area measuring approximately 8.9 x 6.4 cm reported on chest x-ray, placed order for CT chest without contrast. CT chest without contrast showing a pseudomass noted within the left upper lobe showing fluid trapped within the fissure measuring approximately 5.8 x 3.5 cm along with scattered infiltrates and bilateral pleural effusions and pulmonary venous congestion consistent with congestive heart failure along with nonspecific mediastinal adenopathy. Pulmonology consulted at this time. Physical exam: Patient seen and fully evaluated at bedside. He reports continued shortness of breath has improved. Patient reports he was even able to walk a short distance on the [place]. Patient resumed oral Lasix this morning. Renal function remains elevated we'll monitor her for an additional 24 hours and likely pain for discharge home tomorrow morning. Vital signs reviewed and stable. General: Nontoxic, no distress and appears stated age. Derm: Skin warm and dry, normal coloration for ethnicity. Head: Atraumatic, normocephalic and symmetric. Eyes: EOMs intact, no lid lag, and anicteric sclera Mouth: no lip lesions, mucus membranes moist Cardiovascular: regular rate and rhythm with normal S1S2, systolic murmur, positive posterior tibial pulses bilaterally, and cap refill < 2 seconds. Lungs: Respirations even, regular, and unlabored on room air. Lungs CTA with bibasilar crackles and soft expiratory wheezes. Coarse nonproductive cough noted during assessment. No accessory muscle usage. Patient did have noted conversational dyspnea after 4-5 words. Abdominal: soft, nontender to palpation, no guarding, no appreciable organomegaly Ext: ROM intact. No gross muscle atrophy, left lower extremity 1+ pitting edema right lower extremity no edema. no contractures Neuro: Speech clear, face symmetrical and CN II-XII grossly intact with no noted focal neuro deficits Psych: Alert and oriented to person, place, time, and situation. Appropriate and pleasant affect. Assessment and Plan of Care: Patient is a pleasant 82-year-old male with a past medical history of chronic systolic heart failure with previously known EF 40-45% and presented to the emergency department on 12/10/22 with progressively worsening shortness of breath over the past few days. He was admitted for acute on chronic systolic heart failure exacerbation and underwent IV diuresis with Lasix. Patient had successful diuresis but had elevation in renal function and IV diuretic discontinued at this time and patient started on oral Lasix to begin tomorrow. Acute on chronic systolic heart failure with previously known EF of 40-45% Pseudomass left upper lobe Acute kidney injury on chronic kidney disease Moderate pulmonary hypertension Elevated troponin, chronic secondary to chronic kidney disease and chronic systolic heart failure Cardiomyopathy History of CAD Hypertension Hyperlipidemia Chronic kidney disease stage IIIB Hypothyroidism Jyt-fbsvrqr-jjrcadwjf diabetes mellitus type II -Cardiology following, reviewed documentation in chart. -Pulmonology following secondary to large pseudomass in left upper lobe -Continue Telemetry monitoring -Renal function remains elevated with BUN 47, creatinine 2.04, and GFR of 29. -We will hold off on IV diuretics and Patient resumed oral Lasix 80 mg daily this morning. -Continued Daily weights and Close monitoring of I's and O's -Cardiac diet -Continue glycemic protocol with NovoLog sliding scale -We will replace repeat morning BMP and magnesium for continued close monitoring of electrolytes and renal function while diuresing. -Patient to continue current cardiac medication regimen with aspirin 81 mg daily, atorvastatin 20 mg daily, carvedilol 6.25 mg twice daily, Lasix 80 mg daily, hydralazine 25 mg 3 times daily, isosorbide mononitrate 30 mg daily, and losartan 25 mg daily. Data review: -Morning labs reviewed. BMP showing continued elevation of renal function with BUN 47, creatinine 2.04, and GFR of 29. Electrolytes stable with sodium 136, potassium 3.9, and magnesium of 2.2. -Vital signs stable blood pressure 126/60, heart rate 53, respiratory rate 20, temp 97.4F, and SpO2 of 93% on room air. Imaging reviewed: -No new testing for review. CODE STATUS: Full code DVT prophylaxis: Heparin Discussed with: Patient, RN, and pulmonary EQUIP TECH Anticipated discharge date: Likely within the next 24 hours pending improvement of renal function Anticipated discharge place: Home Patient was seen independently by Nurse Practitioner. This document was prepared using [employer] dictation software. Please allow for errors in integration director while rare they do occur. Dakota Rogel, EQUIP TECH rendered care for this patient independently, reviewed the findings and plan as documented in the note above. I did not physically speak with or examine the patient on this date. Objective - Vital Signs Vital signs: Vital Signs Temp 98 F 12/11/22 20:00 Pulse 50 L 12/12/22 04:00 Resp 18 12/12/22 04:00 BP 130/61 12/12/22 04:00 Pulse Ox 95 12/12/22 04:00 FiO2 Intake & Output 12/11/22 12/12/22 12/12/22 18:59 06:59 18:59 Intake Total 690 240 Balance 690 240 Weight 99.2 kg Intake: Oral 690 240 - Labs CBC & Chem 7: 12/13/22 05:57 12/13/22 05:57 Labs: Abnormal Lab Results - Last 24 Hours (Table) 12/11/22 12/11/22 12/11/22 Range/Units 06:02 11:47 16:54 POC Glucose (mg/dL) 159 H 128 H (70-110) mg/dL Hemoglobin A1c 8.8 H (<=6.0) % 12/11/22 12/12/22 Range/Units 20:15 05:49 POC Glucose (mg/dL) 216 H 154 H (70-110) mg/dL Hemoglobin A1c (<=6.0) %
[2022-12-12 16:19] LABS: Glucose,Whole Blood 164 mg/dL (70-110)
[2022-12-12 19:54] LABS: Glucose,Whole Blood 194 mg/dL (70-110)
[2022-12-12] MEDS: ATORVASTATIN 20 MG TAB PO SCH (20:00)
[2022-12-13] MEDS ORDERED: MELATONIN 5 MG TABLET PO ONE (02:20)
[2022-12-13 05:51] LABS: Glucose,Whole Blood 161 mg/dL (70-110)
[2022-12-13] MEDS: LEVOTHYROXINE 125 MCG TAB PO SCH (05:57)
[2022-12-13] MEDS: carvediloL 6.25 MG TAB PO SCH ×2 (05:57→17:31)
[2022-12-13] MEDS: INSULIN ASPART (NovoLOG) 100 UNIT/ML VIAL SQ SCH ×4 (05:58→20:56)
[2022-12-13 06:38] LABS: HCT 32.9 % (39.0-53.0); HGB 10.6 gm/dL (13.0-17.5); Hypochromasia Slight; MCH 28.9 pg (25.0-35.0); MCHC 32.1 g/dL (31.0-37.0); Mean Platelet Volume 8.6; Platelet Count 291 k/uL (150-450); RBC 3.66 m/uL (4.30-5.90); RDW 14.7 % (11.5-15.5)
[2022-12-13 06:43] LABS: African American GFR (CKD) 32 (>60 ml/min/1.73 sqM); Anion Gap 13 mmol/L; Blood Urea Nitrogen 49 mg/dL (9-20); Carbon Dioxide 23 mmol/L (22-30); Chloride 102 mmol/L (98-107); Glucose 159 mg/dL (74-99); Magnesium 2.3 mg/dL (1.6-2.3); Non-African American GFR(CKD) 27 (>60 ml/min/1.73 sqM); Potassium 3.8 mmol/L (3.5-5.1); Sodium 138 mmol/L (137-145)
[2022-12-13] MEDS: LOSARTAN 25 MG TAB PO SCH (08:14)
[2022-12-13] MEDS: ASPIRIN 81 MG PO SCH (08:14)
[2022-12-13] MEDS: ISOSORBIDE MONONITRATE ER 30 MG TAB.ER.24H PO SCH (08:14)
[2022-12-13] MEDS: HEPARIN SODIUM,PORCINE 5,000 UNIT/ML 1 ML VIAL SQ SCH ×2 (08:14→20:55)
[2022-12-13] MEDS: FUROSEMIDE 80 MG TAB PO SCH (08:14)
[2022-12-13] MEDS: hydrALAZINE HCL 25 MG TAB PO SCH ×3 (08:14→20:55)
--- NOTE | 2022-12-13 11:02 | XR ---
EXAMINATION TYPE: XR chest 1V portable DATE OF EXAM: 12/13/2022 Comparison: 12/10/2022 Clinical History: 82-year-old male CHF, pleural effusions Findings: Heart is mildly enlarged. Diffuse patchy interstitial opacities persist without significant change. S uspect trace pleural effusions. Similar signal mass projecting at the left upper lobe compatible with fluid tracking along the left major fissure. Impression: Ongoing CHF with interstitial pulmonary edema and small effusions, some pleural fluid trapped along t he left major fissure again noted.
--- NOTE | 2022-12-13 11:11 | P.PN ---
Subjective HISTORY OF PRESENT ILLNESS: This is a 82-year-old male with a past medical history significant for congestive heart failure, diabetes, hypertension, hyperlipidemia, and cardiomyopathy. Patient does not follow with a amr physician. We have been asked to see the patient in consultation for congestive heart failure. Patient ex amined at the bedside. Patient presented to the hospital with a chief complaint of shortness of breath. Patient was found to be in congestive heart failure. He was started on IV Lasix. He denies any chest pain or pressure. He denies any dizziness or lightheadedness. Patient states he has been compliant with his medications. Patient underwent Lexiscan stress testing in March 2021 revealing possibility of small stress-induced reversible ischemia involving the apical lateral myocardium. Patient was posterior follow up on an outpatient basis regarding this however he has not followed up in the office. When the patient was asked about this, he states that he is not interested in seeing a amr physician and does not want to pursue any further cardiac testing. * EKG reveals sinus bradycardia with PVCs. Left axis deviation. Left bundle branch block. * Chest xray there is left upper lobe masslike area measuring 8.9 x 6.4 cm. Stable interstitial change throughout the right lung likely reflecting sequela of prior infection * Laboratory data: WBC 7.3. Hemoglobin 11.9. Platelet count 339. Sodium 139. Potassium 4.3. BUN 36. Creatinine 1.67. Troponin 0.045. ProBNP 21,400. * Current home cardiac medications include amlodipine 5 mrem daily, Lasix 80 mg daily, simvastatin 40 mg at night * Most recent echocardiogram obtained in February 2022 revealing ejection fraction 40-45%, moderate pulmonary hypertension, mild mitral regurgitation, mild aortic regurgitation, mild tricuspid regurgitation * Cardiac catheterization history: Patient denies 12/11/2022 Patient examined this morning. He is sitting up in a chair. Patient denies chest pain or pressure. He denies shortness of breath. He remains on IV Lasix. Creatinine today 2.03. Vital signs are stable. Echocardiogram completed revealing ejection fraction 40-45%, inferior wall hypokinesia, [id number] mitral and tricuspid regurgitation. 12/12/2022 Patient examined this morning. Patient is sitting up in the chair. Patient denies chest pain or pressure. He denies shortness of breath. He remains on oral diuretics. Vital signs are stable. 12/13/2022 patient examined this morning. Patient is sitting up in the chair. He denies chest pain or pressure. He denies shortness of breath. He remains on oral diuretics. Creatinine today is 2.16. Vital signs are stable. PHYSICAL EXAM: VITAL SIGNS: Reviewed. GENERAL: Well-developed in no acute distress. HEENT: Head is normocephalic. Pupils are equal, round. Sclerae anicteric. Mucous membranes of the mouth are moist. Neck supple. No JVD or thyromegaly LUNGS: Respirations even and unlabored. Lungs diminished to auscultation bilaterally. HEART: Regular rate and rhythm. S1 and S2 heard. ABDOMEN: Soft. Nondistended. Nontender. EXTREMITIES: Normal range of motion. No clubbing or cyanosis. Peripheral pulses intact. No lower extremity edema NEUROLOGIC: Awake and alert. Oriented x 3. ASSESSMENT: Shortness of breath Acute on chronic heart failure with reduced ejection fraction Cardiomyopathy, ejection fraction 40-45%, unknown if ischemic or nonischemic Acute on chronic kidney disease Hypertension Hyperlipidemia Diabetes PLAN: Continue current cardiac medications Continue current dose of Lasix Patient is now agreeable to follow-up with Dr. Quintana post discharge. Patient will need a follow up appointment in two weeks. Patient is stable for discharge home today from a cardiac standpoint We will sign off. Please reconsult if needed. Nurse practitioner note has been reviewed by physician. Signing provider agrees with the documented findings, assessment, and plan of care. Objective - Vital Signs Vital signs: Vital Signs Temp 98.0 F 12/13/22 08:00 Pulse 50 L 12/13/22 08:00 Resp 18 12/13/22 08:00 BP 122/55 12/13/22 08:00 Pulse Ox 93 L 12/13/22 08:00 FiO2 Intake & Output 12/12/22 12/13/22 12/13/22 18:59 06:59 18:59 Intake Total 358 240 Output Total 800 Balance 358 -800 240 Weight 99.1 kg Intake: Oral 358 240 Output: Urine 800 Other: Voiding Method Urinal - Labs CBC & Chem 7: 12/14/22 08:41 12/14/22 08:41 Labs: Abnormal Lab Results - Last 24 Hours (Table) 12/12/22 12/12/22 12/12/22 Range/Units 11:53 16:17 19:53 RBC (4.30-5.90) m/uL Hgb (13.0-17.5) gm/dL Hct (39.0-53.0) % BUN (9-20) mg/dL Creatinine (0.66-1.25) mg/dL Glucose (74-99) mg/dL POC Glucose (mg/dL) 181 H 164 H 194 H (70-110) mg/dL Calcium (8.4-10.2) mg/dL 12/13/22 12/13/22 12/13/22 Range/Units 05:50 05:57 05:57 RBC 3.66 L (4.30-5.90) m/uL Hgb 10.6 L (13.0-17.5) gm/dL Hct 32.9 L (39.0-53.0) % BUN 49 H (9-20) mg/dL Creatinine 2.16 H (0.66-1.25) mg/dL Glucose 159 H (74-99) mg/dL POC Glucose (mg/dL) 161 H (70-110) mg/dL Calcium 7.0 L (8.4-10.2) mg/dL
--- NOTE | 2022-12-13 11:14 | P.NPCON ---
History of Present Illness - Reason for Consult acute renal failure, chronic renal failure - History of Present Illness Reason for consultation: Acute kidney injury on chronic kidney disease History of present illness: Patient is a 82-year-old male seen in renal consultation for acute kidney injury on chronic kidney disease. Patient has chronic kidney disease stage IIIB with baseline creatinine in the range of 1.6-1.9. Creatinine was 1.67 on admission and is at 2.6 today. Patient came to the hospital due to worsening shortness of breath. Patient states he developed a cough about a month ago but noticed dyspnea even with minimal exertion 1 week prior to admission. Patient has been receiving IV Lasix and is now changed to oral Lasix 80 mg once daily. Patient is noted to have an ejection fraction of 40-45% with moderate to severe pulmonary hypertension, mild to moderate mitral and tricuspid regurgitation. Patient does admit to history of diabetes. He denies any history of cardiac stents. Denies family history of renal disease. Denies regular use of nonsteroidals. No vomiting or diarrhea. No chest pain. No gross hematuria or dysuria. Vital signs are stable. General: No acute distress. HEENT: Head exam is unremarkable. LUNGS: No audible rhonchi or wheezes. HEART: Rate and Rhythm are regular. ABDOMEN: Soft, nontender. EXTREMITITES: No edema. Past Medical History Past Medical History: Heart Failure, Diabetes Mellitus, Hyperlipidemia, Thyroid Disorder Additional Past Medical History / Comment(s): abnormal K+ History of Any Multi-Drug Resistant Organisms: None Reported Additional Past Surgical History / Comment(s): Thyroidectomy Past Anesthesia/Blood Transfusion Reactions: No Reported Reaction Past Psychological History: No Psychological Hx Reported Smoking Status: Former smoker Past Alcohol Use History: None Reported Past Drug Use History: None Reported - Past Family History Mother Family Medical History: Dementia Additional Family Medical History / Comment(s): alzheimers Father Family Medical History: Congestive Heart Failure (CHF) Medications and Allergies Home Medications Medication Instructions Recorded Confirmed Type Levothyroxine Sodium [Synthroid] 125 mcg PO DAILY 03/20/21 12/10/22 History Simvastatin [Zocor] 40 mg PO HS 03/20/21 12/10/22 History metFORMIN HCL [Glucophage] 500 mg PO BID 01/23/22 12/10/22 History amLODIPine [Norvasc] 5 mg PO DAILY 60 Days #60 tab 02/10/22 12/10/22 Rx Empagliflozin [Jardiance] 25 mg PO DAILY 12/10/22 12/10/22 History Furosemide [Lasix] 80 mg PO DAILY 12/10/22 12/10/22 History Allergies Allergy/AdvReac Type Severity Reaction Status Date / Time No Known Allergies Allergy Verified 12/10/22 09:53 Physical Exam Vitals: Vital Signs Temp Pulse Resp BP Pulse Ox 12/13/22 08:00 98.0 F 50 L 18 122/55 93 L 12/13/22 03:38 98.3 F 73 20 153/77 92 L 12/12/22 23:30 98.3 F 73 20 125/61 95 12/12/22 19:42 98.5 F 69 18 138/77 94 L 12/12/22 14:00 50 L 18 12/12/22 12:00 50 L 18 121/49 94 L Intake and Output 12/12/22 12/13/22 12/13/22 22:59 06:59 14:59 Intake Total 118 240 Output Total 800 Balance -682 240 Intake: Oral 118 240 Output: Urine 800 Other: Voiding Method Urinal Urinal Weight 99.1 kg Results - Lab Results Most recent lab results Calcium 7.0 mg/dL (8.4-10.2) L 12/13/22 05:57 Magnesium 2.3 mg/dL (1.6-2.3) 12/13/22 05:57 12/13/22 05:57 12/13/22 05:57 Assessment and Plan Plan: Assessment: 1. Acute kidney injury secondary to ATN secondary to cardiorenal syndrome. Creatinine 1.67 on admission and is 2.16 today. Renal ultrasound from January 2022 showed normal-size kidneys without any evidence of hydronephrosis. 2. Chronic kidney disease stage IIIB with baseline creatinine 1.6-1.9 secondary to cardiorenal syndrome. 3. Volume overload. Improving diuresis. 4. Diabetes mellitus. 5. Acute on chronic systolic CHF with ejection fraction of 40-45 percent with mild to moderate mitral and tricuspid regurgitation and moderate to severe pulmonary hypertension. 6. Hypertension with chronic kidney disease. Plan: Maintain oral Lasix. Check UA. Avoid nephrotoxins. Continue to monitor renal function and urine output. Repeat chest x-ray. Cardiac diet. 1500 mL fluid restriction. Thank you for the consultation. I will continue to follow patient with you during his hospital stay.
[2022-12-13 11:45] LABS: Glucose,Whole Blood 186 mg/dL (70-110)
--- NOTE | 2022-12-13 11:46 | P.PN ---
Subjective Progress Note Date: 12/13/22 I am seeing this patient in consultation today 12/12/2022 for acute CHF exacerbation. Patient is a 82-year-old white male with past medical history significant for cardiomyopathy, congestive heart failure with a previous known ejection fraction of 40-45%, hypertension, hyperlipidemia, chronic kidney dise ase stage IIIB, hypothyroidism, and diabetes mellitus. He presented to emergency room December 10 complaining of shortness of breath that started 3-4 days prior. The shortness of breath has progressively worsened, and is worse on exertion. He does admit intermittent non-productive cough. He denies any chest pain, heart palpitations, lightheadedness, syncope, or lower extremity swelling. Denies infectious symptoms such as fever, chills, myalgias, productive cough. Chest CT demonstrated small to moderate bilateral pleural effusions and pulmonary vascular congestion consistent with congestive heart failure. There was also a 5.8 x 3.5 cm pseuodomass within the fissure and nonspecific mediasti nal adenopathy. The mass is a fluid collection within the fissure, and not concerning for malignancy. Repeat echocardiogram shows a reduced left ventricular ejection fraction of 40-45%, moderate pulmonary hypertension with and RVSP of 50, and mild to moderate tricuspid regurgitation. NT proBNP was significantly elevated at 21,400. The patient has been started on diuretics. Patient is currently sitting up in bed, on room air, in no acute distress. Patient continues to have some shortness breath on exertion. Reportedly had some unilateral lower extremity edema on arrival, venous Dopplers negative for left lower extremity DVT. Most recent CBC shows some mild anemia with hemoglobin of 10.8, hematocrit 33.1, platelets 283, WBC 7.7. BMP from yesterday shows a sodium 138, potassium 3.5, chloride 100, serum bicarb 26, BUN 42, creatinine 2.03, glucose 146. Troponins have been mildly elevated at 0.045 and are stable. ECG on arrival shows sinus rhythm with frequent multifocal PVCs. Patient does seem hemodynamically stable at this time. The patient is seen today 12/13/2022 in follow-up on the selective care unit. He is currently sitting up in a chair at the bedside. Awake and alert in no acute distress. He is maintaining good O2 saturations in the 90s on room air. He is making good urine. Chest x-ray reveals evidence of interstitial pulmonary edema with small effusions. Some pleural fluid trapped in the left major fissure. White count 8.0. Hemoglobin 10.6. Platelets 291. Sodium 138. Potassium 3.8. Bicarb 23. BUN 49. Creatinine 2.16. He is continued on Lasix 80 mg daily. Objective - Vital Signs Vital signs: Vital Signs Temp 98.0 F 12/13/22 08:00 Pulse 50 L 12/13/22 08:00 Resp 18 12/13/22 08:00 BP 122/55 12/13/22 08:00 Pulse Ox 93 L 12/13/22 08:00 FiO2 Intake & Output 12/12/22 12/13/22 12/13/22 18:59 06:59 18:59 Intake Total 358 240 Output Total 800 Balance 358 -800 240 Weight 99.1 kg Intake: Oral 358 240 Output: Urine 800 Other: Voiding Method Urinal - Exam GENERAL EXAM: Alert, very pleasant 82-year-old male, stable and on room air, comfortable in no apparent distress. HEAD: Normocephalic and atraumatic EYES: Normal reaction of pupils, equal size. NOSE: Clear with pink turbinates. THROAT: No erythema or exudates. NECK: No masses, no JVD. CHEST: No chest wall deformity. LUNGS: Equal air entry with few crackles in the posterior bases. No conversational dyspnea or accessory muscle use.. CVS: S1 and S2 normal with no audible murmur, regular rhythm. No extra heart sounds ABDOMEN: No hepatosplenomegaly, active bowel sounds, no guarding or rigidity. SPINE: No scoliosis or deformity SKIN: No rashes CENTRAL NERVOUS SYSTEM: No focal deficits, tone is normal in all 4 extremities. EXTREMITIES: There is no peripheral edema, clubbing, or cyanosis. Peripheral pulses are intact. - Labs CBC & Chem 7: 12/13/22 05:57 12/13/22 05:57 Labs: Abnormal Lab Results - Last 24 Hours (Table) 12/12/22 12/12/22 12/12/22 Range/Units 11:53 16:17 19:53 RBC (4.30-5.90) m/uL Hgb (13.0-17.5) gm/dL Hct (39.0-53.0) % BUN (9-20) mg/dL Creatinine (0.66-1.25) mg/dL Glucose (74-99) mg/dL POC Glucose (mg/dL) 181 H 164 H 194 H (70-110) mg/dL Calcium (8.4-10.2) mg/dL 12/13/22 12/13/22 12/13/22 Range/Units 05:50 05:57 05:57 RBC 3.66 L (4.30-5.90) m/uL Hgb 10.6 L (13.0-17.5) gm/dL Hct 32.9 L (39.0-53.0) % BUN 49 H (9-20) mg/dL Creatinine 2.16 H (0.66-1.25) mg/dL Glucose 159 H (74-99) mg/dL POC Glucose (mg/dL) 161 H (70-110) mg/dL Calcium 7.0 L (8.4-10.2) mg/dL Assessment and Plan Assessment: Acute exacerbation of systolic congestive heart failure. Chest CT demonstrated small to moderate bilateral pleural effusions and pulmonary vascular congestion consistent with congestive heart failure. There was also a 5.8 x 3.5 cm pseuodomass within the left lung fissure and nonspecific mediastinal adenopathy. Repeat echocardiogram shows a reduced left ventricular ejection fraction of 40- 45%, moderate pulmonary hypertension with and RVSP of 50, and mild to moderate tricuspid regurgitation. NT proBNP was significantly elevated at 21,400. The patient has been started on diuretics. Pseudomass measuring 5.8 x 3.5 cm, appears to be a fluid collection within the left major fissure, and not particularly concerning for malignancy. Will likely respond with conservative management and diuretics. Cardiomyopathy, with a baseline ejection fraction of 40-45% Elevated troponins, undetermined significance, stable Anemia of chronic disease Chronic kidney disease stage IIIB Diabetes mellitus type 2, [id number] Essential hypertension Hyperlipidemia Obesity, with a BMI of 31 kg/m Hypothyroidism Remote ex-smoker, quit in 1966 Plan: The patient was seen and evaluated Chest x-ray, labs and medications reviewed Currently stable and on room air Cleared for discharge from the pulmonary standpoint Continue diuretics Follow-up in our office in 1 week I have personally seen and examined the patient, performed the documentation and the assessment and plan as written. Number of minutes spent on the visit: 10.
--- NOTE | 2022-12-13 16:04 | P.PN ---
Subjective Progress Note Date: 12/13/22 Hospital course: Patient is a pleasant 82-year-old male with a past medical history of cardiomyopathy, chronic systolic heart failure with previously known EF of 40- 45%, hypertension, hyperlipidemia, chronic kidney disease stage IIIB hypothyroidism, and mgw-uslelfu-uirpittco diabetes mellitus. He presented to the emergency department with a chief complaint of shortness of breath. Patient reports he has noticed increasing shortness of breath over the past few days, almost 1 week. He reports this shortness of breath has been accompanied by cough But denies any other associated symptoms including headache, lightheadedness, dizziness, fever, chills, diaphoresis, chest pain or palpitations, abdominal pain, nausea, vomiting, or experiencing any noted swell ing/weakness/tingling in his extremities. Patient does report that his left lower extremity has been swollen for approximately 2 weeks but states he thinks he might have "twisted his ankle". He underwent full evaluation in the emergency department. Vital signs reviewed. Blood pressure 127/66, heart rate 63, respiratory rate 20, temp 97.8F, and SpO2 of 95% on room air. EKG completed showing sinus bradycardia at 58 bpm with frequent PVCs and a left bundle branch block, left bundle branch block previously known and showing no changes when compared to EKG completed on 02/08/22 upon personal review and interpretation. Chest x-ray completed showing left upper lobe masslike area measuring approximately 8.9 x 6.4 cm. Labs completed and reviewed. Initial troponin 0.045. Normocytic anemia with hemoglobin 11.9. Coagulation profile normal findings. BMP consistent with stage III chronic kidney disease with BUN of 36, creatinine 1.67, and GFR of 37 which is at baseline creatinine levels. Liver profile showing no significant abnormalities. ProBNP elevated at 21,400. Patient was admitted under our services with consultation to cardiology. Left lower extremity Doppler was completed secondary to mild swelling and was negative for DVT. Troponins trended and flat resulting at 0.045, 0.050, and 0.045. Echocardiogram completed and report reviewed showing impaired EF of 40- 45% with inferior wall hypokinesia, moderate pulmonary hypertension and mild to moderate mitral and tricuspid regurgitation. Secondary to initial findings of left upper lobe masslike area measuring approximately 8.9 x 6.4 cm reported on chest x-ray, placed order for CT chest without contrast. CT chest without contrast showing a pseudomass noted within the left upper lobe showing fluid trapped within the fissure measuring approximately 5.8 x 3.5 cm along with scattered infiltrates and bilateral pleural effusions and pulmonary venous congestion consistent with congestive heart failure along with nonspecific mediastinal adenopathy. Pulmonology consulted at this time. Physical exam: Vital signs reviewed and stable. General: Nontoxic, no distress and appears stated age. Derm: Skin warm and dry, normal coloration for ethnicity. Head: Atraumatic, normocephalic and symmetric. Eyes: EOMs intact, no lid lag, and anicteric sclera Mouth: no lip lesions, mucus membranes moist Cardiovascular: regular rate and rhythm with normal S1S2, systolic murmur, positive posterior tibial pulses bilaterally, and cap refill < 2 seconds. Lungs: Respirations even, regular, and unlabored on room air. Lungs with good air entry and exit and continued bibasilar crackles and soft expiratory wheezes with coarse nonproductive cough. No accessory muscle usage And no conv ersational dyspnea noted during examination today. Abdominal: soft, nontender to palpation, no guarding, no appreciable organomegaly Ext: ROM intact. No gross muscle atrophy, left lower extremity 1+ pitting edema right lower extremity no edema. no contractures Neuro: Speech clear, face symmetrical and CN II-XII grossly intact with no noted focal neuro deficits Psych: Alert and oriented to person, place, time, and situation. Appropriate and pleasant affect. Assessment and Plan of Care: Patient is a pleasant 82-year-old male with a past medical history of chronic systolic heart failure with previously known EF 40-45% and presented to the emergency department on 12/10/22 with progressively worsening shortness of breath over the past few days. He was admitted for acute on chronic systolic heart failure exacerbation. Patient seen and fully evaluated at bedside. He reports continued shortness of breath has improved. RN reports patient was only able to walk up to window in room and was noted to have significant shortness of breath and difficulty catching his breath. Cardiology and pulmonology have signed off with patient. Initial plan was for discharge, however will obtain a repeat x-ray of chest and if no improvement or worsening Will place patient back on IV diuresis as discussed with after school driver, however if x-ray shows improvement Plan will be for discharge patient home on oral Lasix 40 mg twice daily. Acute on chronic systolic heart failure with previously known EF of 40-45% Pseudomass left upper lobe Acute kidney injury on chronic kidney disease Moderate pulmonary hypertension Elevated troponin, chronic secondary to chronic kidney disease and chronic systolic heart failure Cardiomyopathy History of CAD Hypertension Hyperlipidemia Chronic kidney disease stage IIIB Hypothyroidism Yav-vqcwjiy-[id number] diabetes mellitus type II -Cardiology evaluated and reviewed documentation in chart. Cardiology clearing patient from cardiac perspective recommending outpatient follow-up in office with Dr. Quintana in 2 weeks. -Pulmonology following secondary to large pseudomass in left upper lobe, and discussed plan of care with pulmonaryNP and they are recommending continued treatment of congestive heart failure as well as congestive heart failure is fully treated pseudomass should improve. -Continue Telemetry monitoring -Renal function continues to slightly elevate BUN 49, creatinine 2.16, and GFR of 27., -Order placed for repeat morning chest x-ray -If chest x-ray shows improvement, we'll plan for discharge home on oral diuretics and if chest x-ray shows little to no improvement or worsening of CHF will place patient back on IV Lasix -Human Resources Analyst following and discussed plan of care at bedside, after school driver in agreement is little to no improvement with chest x-ray patient may return to IV Lasix. -Continued Daily weights and Close monitoring of I's and O's -Cardiac diet with 1500 mg sodium restriction daily -Order placed for urinalysis -Continue glycemic protocol with NovoLog sliding scale -We will replace repeat morning BMP and magnesium for continued close monitoring of electrolytes and renal function while diuresing. -Patient to continue current cardiac medication regimen with aspirin 81 mg daily, atorvastatin 20 mg daily, carvedilol 6.25 mg twice daily, Lasix 80 mg daily, hydralazine 25 mg 3 times daily, isosorbide mononitrate 30 mg daily, and losartan 25 mg daily. Data review: -Morning labs reviewed. CBC showing stable normocytic anemia with hemoglobin of 10.6. BMP revealing continued elevation of renal function with BUN of 49, creatinine 2.16, and GFR of 27. -Vital signs stable blood pressure 122/55, heart rate 50, respiratory rate 18, temp 98.0F, SpO2 of 93% on room air. Imaging reviewed: -No new testing for review. Repeat x-ray was ordered. CODE STATUS: Full code DVT prophylaxis: Heparin Discussed with: Patient, RN, pulmonary TANK HOUSE SUPERVISOR, and after school driver Anticipated discharge date: clinical course to determine Anticipated discharge place: Home Patient was seen independently by Nurse Practitioner. This document was prepared using [employer] dictation software. Please allow for errors in wood grainer while rare they do occur. Dakota Rogel NP rendered care for this patient independently, reviewed the findings and plan as documented in the note above. I did not physically speak with or examine the patient on this date. Objective - Vital Signs Vital signs: Vital Signs Temp 98.0 F 12/13/22 08:00 Pulse 50 L 12/13/22 08:00 Resp 18 12/13/22 08:00 BP 122/55 12/13/22 08:00 Pulse Ox 93 L 12/13/22 08:00 FiO2 Intake & Output 12/12/22 12/13/22 12/13/22 18:59 06:59 18:59 Intake Total 358 240 Output Total 800 Balance 358 -800 240 Weight 99.1 kg Intake: Oral 358 240 Output: Urine 800 Other: Voiding Method Urinal - Labs CBC & Chem 7: 12/13/22 05:57 12/13/22 05:57 Labs: Abnormal Lab Results - Last 24 Hours (Table) 12/12/22 12/12/22 12/12/22 Range/Units 11:53 16:17 19:53 RBC (4.30-5.90) m/uL Hgb (13.0-17.5) gm/dL Hct (39.0-53.0) % BUN (9-20) mg/dL Creatinine (0.66-1.25) mg/dL Glucose (74-99) mg/dL POC Glucose (mg/dL) 181 H 164 H 194 H (70-110) mg/dL Calcium (8.4-10.2) mg/dL 12/13/22 12/13/22 12/13/22 Range/Units 05:50 05:57 05:57 RBC 3.66 L (4.30-5.90) m/uL Hgb 10.6 L (13.0-17.5) gm/dL Hct 32.9 L (39.0-53.0) % BUN 49 H (9-20) mg/dL Creatinine 2.16 H (0.66-1.25) mg/dL Glucose 159 H (74-99) mg/dL POC Glucose (mg/dL) 161 H (70-110) mg/dL Calcium 7.0 L (8.4-10.2) mg/dL
[2022-12-13 16:18] LABS: Glucose,Whole Blood 182 mg/dL (70-110)
[2022-12-13 17:15] LABS: Appearance,Urine Clear (Clear); Bilirubin,Urine Negative (Negative); Blood,Urine Negative (Negative); Color,Urine Light Yellow; Glucose,Urine (UA) 3+ (Negative); Ketones,Urine Negative (Negative); Leukocyte Esterase,Urine Negative (Negative); Nitrite,Urine Negative (Negative); Protein,Urine Negative (Negative); Specific Gravity,Urine 1.011 (1.001-1.035); Urobilinogen,Urine <2.0 mg/dL (<2.0)
[2022-12-13] MEDS: FUROSEMIDE 10 MG/ML 4 ML VIAL IV SCH ×2 (17:31→20:55)
[2022-12-13 20:09] LABS: Glucose,Whole Blood 163 mg/dL (70-110)
[2022-12-13] MEDS: ATORVASTATIN 20 MG TAB PO SCH (20:55)
[2022-12-14 06:03] LABS: Glucose,Whole Blood 161 mg/dL (70-110)
[2022-12-14] MEDS: carvediloL 6.25 MG TAB PO SCH ×2 (06:34→16:36)
[2022-12-14] MEDS: LEVOTHYROXINE 125 MCG TAB PO SCH (06:34)
[2022-12-14] MEDS: INSULIN ASPART (NovoLOG) 100 UNIT/ML VIAL SQ SCH ×4 (06:34→20:22)
[2022-12-14] MEDS: ISOSORBIDE MONONITRATE ER 30 MG TAB.ER.24H PO SCH (08:39)
[2022-12-14] MEDS: FUROSEMIDE 10 MG/ML 4 ML VIAL IV SCH ×2 (08:39→20:22)
[2022-12-14] MEDS: LOSARTAN 25 MG TAB PO SCH (08:39)
[2022-12-14] MEDS: HEPARIN SODIUM,PORCINE 5,000 UNIT/ML 1 ML VIAL SQ SCH ×2 (08:39→20:22)
[2022-12-14] MEDS: hydrALAZINE HCL 25 MG TAB PO SCH ×3 (08:39→20:22)
[2022-12-14] MEDS: ASPIRIN 81 MG PO SCH (08:39)
[2022-12-14 08:57] LABS: HCT 30.5 % (39.0-53.0); Hypochromasia Slight; MCH 29.8 pg (25.0-35.0); MCHC 32.7 g/dL (31.0-37.0); Mean Platelet Volume 8.4; Platelet Count 276 k/uL (150-450); RBC 3.35 m/uL (4.30-5.90); RDW 14.8 % (11.5-15.5); WBC 5.7 k/uL (3.8-10.6)
[2022-12-14 09:11] LABS: ALT 18 U/L (4-49); AST 21 U/L (17-59); African American GFR (CKD) 33 (>60 ml/min/1.73 sqM); Albumin 3.2 g/dL (3.5-5.0); Alkaline Phosphatase 90 U/L (38-126); Anion Gap 11 mmol/L; Blood Urea Nitrogen 50 mg/dL (9-20); Calcium 6.7 mg/dL (8.4-10.2); Carbon Dioxide 26 mmol/L (22-30); Chloride 101 mmol/L (98-107); Glucose 336 mg/dL (74-99); Magnesium 2.3 mg/dL (1.6-2.3); Non-African American GFR(CKD) 29 (>60 ml/min/1.73 sqM); Potassium 3.7 mmol/L (3.5-5.1); Sodium 138 mmol/L (137-145); Total Bilirubin 0.4 mg/dL (0.2-1.3); Total Protein 6.3 g/dL (6.3-8.2)
--- NOTE | 2022-12-14 10:14 | P.PN ---
Subjective Progress Note Date: 12/14/22 Principal diagnosis: Acute congestive heart failure I am seeing this patient in consultation today 12/12/2022 for acute CHF exacerbation. Patient is a 82-year-old white male with past medical history significant for cardiomyopathy, congestive heart failure with a previous known ejection fraction of 40-45%, hypertension, hyperlipidemia, chronic kidney disease stage IIIB, hypothyroidism, and diabetes mellitus. He presented to emergency room December 10 complaining of shortness of breath that started 3-4 days prior. The shortness of breath has progressively worsened, and is worse on exertion. He does admit intermittent non-productive cough. He denies any chest pain, heart palpitations, lightheadedness, syncope, or lower extremity swelling. Denies infectious symptoms such as fever, chills, myalgias, productive cough. Chest CT demonstrated small to moderate bilateral pleural effusions and pulmonary vascular congestion consistent with congestive heart failure. There was also a 5.8 x 3.5 cm pseuodomass within the fissure and nonspecific mediastinal adenopathy. The mass is a fluid collection within the fissure, and not concerning for malignancy. Repeat echocardiogram shows a reduced left ventricular ejection fraction of 40-45%, moderate pulmonary hypertension with and RVSP of 50, and mild to moderate tricuspid regurgitation. NT proBNP was significantly elevated at 21,400. The patient has been started on diuretics. Patient is currently sitting up in bed, on room air, in no acute distress. Patient continues to have some shortness breath on exertion. Reportedly had some unilateral lower extremity edema on arrival, venous Dopplers negative for left lower extremity DVT. Most recent CBC shows some mild anemia with hemoglobin of 10.8, hematocrit 33.1, platelets 283, WBC 7.7. BMP from yesterday shows a sodium 138, potassium 3.5, chloride 100, serum bicarb 26, BUN 42, creatinine 2.03, glucose 146. Troponins have been mildly elevated at 0.045 and are stable. ECG on arrival shows sinus rhythm with frequent multifocal PVCs. Patient does seem hemodynamically stable at this time. The patient is seen today 12/13/2022 in follow-up on the selective care unit. He is currently sitting up in a chair at the bedside. Awake and alert in no acute distress. He is maintaining good O2 saturations in the 90s on room air. He is making good urine. Chest x-ray reveals evidence of interstitial pulmonary edema with small effusions. Some pleural fluid trapped in the left major fissure. White count 8.0. Hemoglobin 10.6. Platelets 291. Sodium 138. Po tassium 3.8. Bicarb 23. BUN 49. Creatinine 2.16. He is continued on Lasix 80 mg daily. Reevaluated today on 12/14/2022, patient is doing great, asymptomatic, lungs are clear, hoping that he will be discharged home today. From my perspective the patient could be discharged as long as he is cleared by cardiology. And his Lasix dose on outpatient basis to be decided upon by cardiology on the case. CBC today is normal basic metabolic profile is normal BUN is 50 creatinine 2.07 Objective - Vital Signs Vital signs: Vital Signs Temp 97.6 F 12/14/22 08:34 Pulse 62 12/14/22 08:34 Resp 15 12/14/22 08:34 BP 120/54 12/14/22 08:34 Pulse Ox 95 12/14/22 08:34 FiO2 Intake & Output 12/13/22 12/14/22 12/14/22 18:59 06:59 18:59 Intake Total 718 118 Output Total 600 1200 250 Balance 118 -1200 -132 Weight 98.2 kg 98.7 kg Intake: Oral 718 118 Output: Urine 600 1200 250 Other: Voiding Method Urinal Urinal # Voids 1 - Exam Physical Exam: Revealed 82-year-old white male in no distress on room air Head: Atraumatic normocephalic. HEENT:[Neck is supple.] [No neck masses.] [No thyromegaly.] [No JVD.] Chest: [Clear throughout, no crackles, no rhonchi, no wheezes.] Cardiac Exam: [Normal S1 and S2, no S3 gallop, no murmur.] Abdomen: [Soft, nontender, no megaly, no rebound, no guarding, normal bowel sounds.] Extremities: [No clubbing, no edema, no cyanosis.] Neurological Exam: [No focal neurologic deficit.] Alert and oriented 3 Psychiatric: Normal mood affect and normal mental status examination. Skin: No rashes - Labs CBC & Chem 7: 12/14/22 08:41 12/14/22 08:41 Labs: Abnormal Lab Results - Last 24 Hours (Table) 12/13/22 12/13/22 12/13/22 Range/Units 11:41 16:08 16:58 RBC (4.30-5.90) m/uL Hgb (13.0-17.5) gm/dL Hct (39.0-53.0) % BUN (9-20) mg/dL Creatinine (0.66-1.25) mg/dL Glucose (74-99) mg/dL POC Glucose (mg/dL) 186 H 182 H (70-110) mg/dL Calcium (8.4-10.2) mg/dL Albumin (3.5-5.0) g/dL Urine Glucose (UA) 3+ H (Negative) 12/13/22 12/14/22 12/14/22 Range/Units 20:07 06:02 08:41 RBC 3.35 L (4.30-5.90) m/uL Hgb 10.0 L (13.0-17.5) gm/dL Hct 30.5 L (39.0-53.0) % BUN (9-20) mg/dL Creatinine (0.66-1.25) mg/dL Glucose (74-99) mg/dL POC Glucose (mg/dL) 163 H 161 H (70-110) mg/dL Calcium (8.4-10.2) mg/dL Albumin (3.5-5.0) g/dL Urine Glucose (UA) (Negative) 12/14/22 Range/Units 08:41 RBC (4.30-5.90) m/uL Hgb (13.0-17.5) gm/dL Hct (39.0-53.0) % BUN 50 H (9-20) mg/dL Creatinine 2.07 H (0.66-1.25) mg/dL Glucose 336 H (74-99) mg/dL POC Glucose (mg/dL) (70-110) mg/dL Calcium 6.7 L (8.4-10.2) mg/dL Albumin 3.2 L (3.5-5.0) g/dL Urine Glucose (UA) (Negative) Assessment and Plan Assessment: Impression: acute exacerbation of systolic congestive heart failure. Pseudotumor, fluid collection, noted on CT of the chest in the left upper lobe area Cardiomyopathy, with a baseline ejection fraction of 40-45% Elevated troponins, undetermined significance, stable Anemia of chronic disease Chronic kidney disease stage IIIB Diabetes mellitus type 2, [id number] Essential hypertension Hyperlipidemia Obesity, with a BMI of 31 kg/m Hypothyroidism Remote ex-smoker, quit in 1966 Recommendation: Clinically the patient Chest x-ray is improving Will clear the patient for discharge planning and follow-up on outpatient basis Would recommend a repeat CT of the chest in few months Again cleared for discharge if cleared by cardiology Time with Patient: Less than 30
[2022-12-14 11:39] LABS: Glucose,Whole Blood 249 mg/dL (70-110)
--- NOTE | 2022-12-14 12:56 | P.PN ---
Subjective Patient is seen for follow-up for acute kidney injury on top of chronic kidney disease. He is currently being diuresed for volume overload. Serum creatinine staying at 2.1-2.0 mg/dL. Lasix was changed to IV yesterday. Patient has had about 1800 mL of urine. Overall feeling slightly better. Objective - Vital Signs Vital signs: Vital Signs Temp 97.6 F 12/14/22 08:34 Pulse 69 12/14/22 11:58 Resp 15 12/14/22 08:34 BP 134/49 12/14/22 11:58 Pulse Ox 94 L 12/14/22 11:58 FiO2 Intake & Output 12/13/22 12/14/22 12/14/22 18:59 06:59 18:59 Intake Total 718 1198 Output Total 600 1200 500 Balance 118 -1200 698 Weight 98.2 kg 98.7 kg Intake: Oral 718 1198 Output: Urine 600 1200 500 Other: Voiding Method Urinal Urinal # Voids 1 - Exam Awake, comfortable, in no acute distress Examination of the heart S1 and S2 Examination of the lungs bilateral breath sounds are heard Abdomen is soft nontender Examination of lower extremities shows no significant edema TOP COLLAR BASTER exam grossly intact - Labs CBC & Chem 7: 12/14/22 08:41 12/14/22 08:41 Labs: Abnormal Lab Results - Last 24 Hours (Table) 12/13/22 12/13/22 12/13/22 Range/Units 16:08 16:58 20:07 RBC (4.30-5.90) m/uL Hgb (13.0-17.5) gm/dL Hct (39.0-53.0) % BUN (9-20) mg/dL Creatinine (0.66-1.25) mg/dL Glucose (74-99) mg/dL POC Glucose (mg/dL) 182 H 163 H (70-110) mg/dL Calcium (8.4-10.2) mg/dL Albumin (3.5-5.0) g/dL Urine Glucose (UA) 3+ H (Negative) 12/14/22 12/14/22 12/14/22 Range/Units 06:02 08:41 08:41 RBC 3.35 L (4.30-5.90) m/uL Hgb 10.0 L (13.0-17.5) gm/dL Hct 30.5 L (39.0-53.0) % BUN 50 H (9-20) mg/dL Creatinine 2.07 H (0.66-1.25) mg/dL Glucose 336 H (74-99) mg/dL POC Glucose (mg/dL) 161 H (70-110) mg/dL Calcium 6.7 L (8.4-10.2) mg/dL Albumin 3.2 L (3.5-5.0) g/dL Urine Glucose (UA) (Negative) 12/14/22 Range/Units 11:37 RBC (4.30-5.90) m/uL Hgb (13.0-17.5) gm/dL Hct (39.0-53.0) % BUN (9-20) mg/dL Creatinine (0.66-1.25) mg/dL Glucose (74-99) mg/dL POC Glucose (mg/dL) 249 H (70-110) mg/dL Calcium (8.4-10.2) mg/dL Albumin (3.5-5.0) g/dL Urine Glucose (UA) (Negative) Assessment and Plan Assessment: 1. Acute kidney injury secondary to ATN secondary to cardiorenal syndrome. Creatinine 1.67 on admission and is 2.16 today. Renal ultrasound from January 2022 showed normal-size kidneys without any evidence of hydronephrosis. 2. Chronic kidney disease stage IIIB with baseline creatinine 1.6-1.9 secondary to cardiorenal syndrome. 3. Volume overload. Improving diuresis. 4. Diabetes mellitus. 5. Acute on chronic systolic CHF with ejection fraction of 40-45 percent with mild to moderate mitral and tricuspid regurgitation and moderate to severe pulmonary hypertension. 6. Hypertension with chronic kidney disease. 7. Pseudomass in the left upper lobe with fluid filled in the fissure. Plan is to maintain diuresis. No intervention needed per pulmonary Plan: Continue with IV Lasix. Repeat labs in a.m.
--- NOTE | 2022-12-14 14:08 | P.PN ---
Subjective Progress Note Date: 12/14/22 Hospital course: Patient is a pleasant 82-year-old male with a past medical history of cardiomyopathy, chronic systolic heart failure with previously known EF of 40- 45%, hypertension, hyperlipidemia, chronic kidney disease stage IIIB hypothyroidism, and dth-phtumii-jdxstsxzb diabetes mellitus. He presented to the emergency department with a chief complaint of progressively worsening shortness of breath along with unilateral leg swelling left lower extremity. He underwent full evaluation in the emergency department. EKG completed showing sinus bradycardia at 58 bpm with frequent PVCs and a left bundle branch block, left bundle branch block previously known and showing no changes when compared to EKG completed on 02/08/22 upon personal review and interpretation. Chest x- ray completed showing left upper lobe masslike area measuring approximately 8.9 x 6.4 cm. Labs completed and reviewed. Initial troponin 0.045. Normocytic anemia with hemoglobin 11.9. Coagulation profile normal findings. BMP consistent with stage III chronic kidney disease with BUN of 36, creatinine 1.67, and GFR of 37 which is at baseline creatinine levels. Liver profile sh owing no significant abnormalities. ProBNP elevated at 21,400. Patient was admitted under our services with consultation to cardiology for CHF exacerbation and pulmonology for left upper lobe pseudomass. Left lower extremity Doppler was completed secondary to mild swelling and was negative for DVT. Patient was admitted under our services with consultation to cardiology. Troponins trended and flat resulting at 0.045, 0.050, and 0.045. Echocardiogram completed showing impaired EF of 40-45% with inferior wall hypokinesia, moderate pulmonary hypertension and mild to moderate mitral and tricuspid regurgitation. CT chest without contrast completed showing a pseudomass noted within the left upper lobe showing fluid trapped within the fissure measuring approximately 5.8 x 3.5 cm along with scattered infiltrates and bilateral pleural effusions and pulmonary venous congestion consistent with congestive heart failure along with nonspecific mediastinal adenopathy. Pulmonology evaluated patient and clearing patient from their perspective on 12/13/22 stating once congestive heart failure is adequately controlled with diuretics pseudomass should resolve on its own and patient can follow-up in their office on an outpatient basis and they will arrange for repeat CT in 2 months. Cardiology evaluated and cleared patient from cardiac standpoint on 12/12/22. However, patient with acute kidney injury with creatinine increasing from 1.67-2.16 and was not medically stable for discharge as he requires diuretics for his congestive heart failure. Nephrology evaluated and recommended patient go back on IV diuresis as acute kidney injury is secondary to ATN resulting from cardiorenal syndrome. Repeat chest x-ray was also completed on 12/13/22 showing ongoing CHF with interstitial pulmonary edema and small bilateral pleural effusions with pleural fluid trapped along the left major fissure unchanged from previous chest x-ray. Patient started back on Lasix 40 mg IVP twice daily. Once placed back on IV Lasix urinary output significantly increased from previous 600-800 daily now to 1800 mL over the past 24 hours, patient is showing improvement and did have slight improvement in renal function as well with creatinine improving to 2.07 and GFR increasing to 29. Physical exam: Patient seen and fully evaluated at bedside this morning. Overall patient does report breathing better but again continues to have significant shortness of breath with exertion per patient and nursing staff at bedside. Patient had successful IV diuresis over the past 24 hours with 1800 mL of output. Vital signs reviewed and stable. General: Nontoxic, no distress and appears stated age. Derm: Skin warm and dry, normal coloration for ethnicity. Head: Atraumatic, normocephalic and symmetric. Eyes: EOMs intact, no lid lag, and anicteric sclera Mouth: no lip lesions, mucus membranes moist Cardiovascular: regular rate and rhythm with normal S1S2, systolic murmur, positive posterior tibial pulses bilaterally, and cap refill < 2 seconds. Lungs: Respirations even, regular, and unlabored on room air. Lungs with good air entry and exit and continued bibasilar crackles and soft expiratory wheezes with coarse nonproductive cough. No accessory muscle usage And no conversational dyspnea noted during examination today. Abdominal: soft, nontender to palpation, no guarding, no appreciable organomegaly Ext: ROM intact. No gross muscle atrophy, left lower extremity 1+ pitting edema right lower extremity no edema. no contractures Neuro: Speech clear, face symmetrical and CN II-XII grossly intact with no noted focal neuro deficits Psych: Alert and oriented to person, place, time, and situation. Appropriate and pleasant affect. Assessment and Plan of Care: Patient is a pleasant 82-year-old male with a past medical history of chronic systolic heart failure with previously known EF 40-45% and presented to the emergency department on 12/10/22 with progressively worsening shortness of breath over the past few days. He was admitted for acute on chronic systolic heart failure exacerbation and pseudomass of left upper lobe. Cardiology and pulmonology were consulted. Acute on chronic systolic heart failure with previously known EF of 40-45% Pseudomass left upper lobe Acute kidney injury on chronic kidney disease Moderate pulmonary hypertension Elevated troponin, chronic secondary to chronic kidney disease and chronic systolic heart failure Cardiomyopathy History of CAD Hypertension Hyperlipidemia Chronic kidney disease stage IIIB Hypothyroidism Pex-qtbcyix-qpmfjqmby diabetes mellitus type II -Cardiology evaluated and cleared patient from cardiac standpoint on 12/12/22 stating patient may resume his oral home dose of Lasix and follow-up outpatient in their office in 2 weeks. -Pulmonology evaluated patient and clearing patient from their perspective on 12/13/22 stating once congestive heart failure is adequately treated with diuretics pseudomass should resolve on its own and patient can follow-up in their office on an outpatient basis and they will arrange for repeat CT in 2 months. -However, patient with acute kidney injury with creatinine increasing from 1.67- 2.16 and was not medically stable for discharge as he requires diuretics for his congestive heart failure. -Nephrology evaluated and recommended patient go back on IV diuresis as acute kidney injury is secondary to ATN resulting from cardiorenal syndrome. -Repeat chest x-ray was also completed on 12/13/22 and radiology report reviewed showing ongoing CHF with interstitial pulmonary edema and small bilateral pleural effusions with pleural fluid trapped along the left major fissure unchanged from previous chest x-ray. -Patient started back on Lasix 40 mg IVP twice daily. -Since being placed back on IV Lasix, patient's urinary output significantly increased from previous 600-800 daily now to 1800 mL over the past 24 hours, beto lew is showing improvement clinically and did have slight improvement in renal function as well with creatinine improving to 2.07 and GFR increasing to 29. -Discussed in detail with non destructive evaluation technician, Dr. Warner and she is recommending another 24 hours of IV diuresis prior to discharging patient home on oral diuretics. Home dose of Lasix will be changed upon discharge. -Continue Daily weights and Close monitoring of I's and O's -Cardiac diet with 1500 mg sodium restriction daily -Order placed for repeat morning BMP and magnesium for continued close monitoring of electrolytes and renal function while diuresing. -Patient to continue current cardiac medication regimen with aspirin 81 mg daily, atorvastatin 20 mg daily, carvedilol 6.25 mg twice daily, hydralazine 25 mg 3 times daily, isosorbide mononitrate 30 mg daily, and losartan 25 mg daily. Dvy-rzszryx-bfbywimso diabetes mellitus type II -Continue glycemic protocol with NovoLog sliding scale Data review: -Morning labs reviewed. CBC showing stable normocytic anemia with hemoglobin of 10.0. BMP revealing slight improvement in renal function with BUN of 50, creatinine 2.07, and GFR of 29. Electrolytes stable with sodium 138, potassium 3.7, chloride 101, and magnesium 2.3. -Vital signs stable blood pressure 120/54, heart rate 62, respiratory rate 15, temp 97.6F, SpO2 of 95% on room air. Imaging reviewed: -No new testing for review. CODE STATUS: Full code DVT prophylaxis: Heparin Discussed with: Patient, RN, and non destructive evaluation technician Anticipated discharge date: Within the next [address]: Home Patient was seen independently by Nurse Practitioner. This document was prepared using [employer] dictation software. Please allow for errors in manager academic while rare they do occur. Dakota Rogel NP rendered care for this patient independently, reviewed the findings and plan as documented in the note above. I did not physically speak with or examine the patient on this date. Objective - Vital Signs Vital signs: Vital Signs Temp 97.6 F 12/14/22 08:34 Pulse 62 12/14/22 08:34 Resp 15 12/14/22 08:34 BP 120/54 12/14/22 08:34 Pulse Ox 95 12/14/22 08:34 FiO2 Intake & Output 12/13/22 12/14/22 12/14/22 18:59 06:59 18:59 Intake Total 718 118 Output Total 600 1200 250 Balance 118 -1200 -132 Weight 98.2 kg Intake: Oral 718 118 Output: Urine 600 1200 250 Other: Voiding Method Urinal Urinal # Voids 1 - Labs CBC & Chem 7: 12/14/22 08:41 12/14/22 08:41 Labs: Abnormal Lab Results - Last 24 Hours (Table) 12/13/22 12/13/22 12/13/22 Range/Units 11:41 16:08 16:58 POC Glucose (mg/dL) 186 H 182 H (70-110) mg/dL Urine Glucose (UA) 3+ H (Negative) 12/13/22 12/14/22 Range/Units 20:07 06:02 POC Glucose (mg/dL) 163 H 161 H (70-110) mg/dL Urine Glucose (UA) (Negative)
[2022-12-14 15:20] VITALS: RESP 18
[2022-12-14 16:14] LABS: Glucose,Whole Blood 136 mg/dL (70-110)
[2022-12-14 19:49] LABS: Glucose,Whole Blood 186 mg/dL (70-110)
[2022-12-14] MEDS: ATORVASTATIN 20 MG TAB PO SCH (20:22)
[2022-12-15 05:52] LABS: Glucose,Whole Blood 163 mg/dL (70-110)
[2022-12-15] MEDS: LEVOTHYROXINE 125 MCG TAB PO SCH (06:10)
[2022-12-15] MEDS: carvediloL 6.25 MG TAB PO SCH (06:10)
[2022-12-15] MEDS: INSULIN ASPART (NovoLOG) 100 UNIT/ML VIAL SQ SCH (06:11)
[2022-12-15 08:56] VITALS: BP 153/78; PULSE 67; TEMP 97.9
[2022-12-15] MEDS: LOSARTAN 25 MG TAB PO SCH (08:58)
[2022-12-15] MEDS: ASPIRIN 81 MG PO SCH (08:58)
[2022-12-15] MEDS: hydrALAZINE HCL 25 MG TAB PO SCH (08:58)
[2022-12-15] MEDS: HEPARIN SODIUM,PORCINE 5,000 UNIT/ML 1 ML VIAL SQ SCH (08:58)
[2022-12-15] MEDS: ISOSORBIDE MONONITRATE ER 30 MG TAB.ER.24H PO SCH (08:58)
[2022-12-15] MEDS: FUROSEMIDE 10 MG/ML 4 ML VIAL IV SCH (08:58)
--- NOTE | 2022-12-15 10:07 | P.DS ---
Providers Date of admission: 12/10/22 07:00 Expected date of discharge: 12/15/22 Attending physician: Heidy Argueta DO Consults: 12/10/22 07:00 Consult Physician Routine Consulting Provider: Duyen Blank Consult Reason/Comments: CHF Do you want consulting provider notified?: Yes 12/11/22 16:13 Consult Physician Routine Consulting Provider: Alicja Gray Consult Reason/Comments: large psuedotumor Do you want consulting provider notified?: Yes 12/13/22 09:15 Consult Physician Routine Consulting Provider: Anand Jewell Consult Reason/Comments: ENA on CKD stage IIIb Do you want consulting provider notified?: Yes Primary care physician: [facility] Hospital Course: Discharge Diagnosis: Acute on chronic systolic heart failure with previously known EF of 40-45%. Patient underwent a 65 night hospitalization for treatment of acute on chronic systolic congestive heart failure. Patient was treated with IV diuresis and sustained an acute kidney injury and adjustments were made to diuretics. Patient had successful diuresis and being discharged home on Lasix 60 mg twice daily, hydralazine 25 mg 3 times daily, aspirin 81 mg daily, losartan 25 mg daily, carvedilol 6.25 mg twice daily, and isosorbide mononitrate 30 mg daily. Pseudomass left upper lobe, injection molding supervisor stating continued successful treatment of heart failure with diuretics should result in resolution of pseudomass. Will need follow-up CT in 2 months. Patient to follow up outpatient with their office in 1-2 weeks. Acute kidney injury on chronic kidney disease stage IIIB secondary to ATN resulting from cardiorenal syndrome. Patient discharged with prescription for repeat labs for BMP in 1-2 days, results to be sent to [facility] for follow-up and further management. Patient to follow-up with helper teacher in 1 week. Moderate pulmonary hypertension Elevated troponin, chronic secondary to chronic kidney disease and chronic systolic heart failure. Cardiomyopathy History of CAD Hypertension Hyperlipidemia Chronic kidney disease stage IIIB Hypothyroidism Rdu-gmocbbm-xiadyjimk diabetes mellitus type II Hospital Course: Patient is a pleasant 82-year-old male with a past medical history of cardiomyopathy, chronic systolic heart failure with previously known EF of 40- 45%, hypertension, hyperlipidemia, chronic kidney disease stage IIIB hypothyroidism, and fbx-xppdeoy-rinqhcnbc diabetes mellitus. He presented to the emergency department with a chief complaint of progressively worsening shortness of breath along with unilateral leg swelling left lower extremity. He underwent full evaluation in the emergency department. EKG completed showing sinus bradycardia at 58 bpm with frequent PVCs and a left bundle branch block, left bundle branch block previously known and showing no changes when compared to EKG completed on 02/08/22 upon personal review and interpretation. Chest x- ray completed showing left upper lobe masslike area measuring approximately 8.9 x 6.4 cm. Labs completed and reviewed. Initial troponin 0.045. Normocytic anemia with hemoglobin 11.9. Coagulation profile normal findings. BMP consistent with stage III chronic kidney disease with BUN of 36, creatinine 1.67, and GFR of 37 which is at baseline creatinine levels. Liver profile showing no significant abnormalities. ProBNP elevated at 21,400. Patient was admitted under our services with consultation to cardiology for CHF exacerbation and pulmonology for left upper lobe pseudomass. Left lower extremity Doppler was completed secondary to mild swelling and was negative for DVT. Patient was admitted under our services with consultation to cardiology. Troponins trended and flat resulting at 0.045, 0.050, and 0.045. Echocardiogram completed showing impaired EF of 40-45% with inferior wall hypokinesia, moderate pulmonary hypertension and mild to moderate mitral and tricuspid regurgitation. CT chest without contrast completed showing a pseudomass noted within the left upper lobe showing fluid trapped within the fissure measuring approximately 5.8 x 3.5 cm along with scattered infiltrates and bilateral pleural effusions and pulmonary venous congestion consistent with congestive heart failure along with nonspecific mediastinal adenopathy. Pulmonology evaluated patient and clearing patient from their perspective on 12/13/22 stating once congestive heart failure is adequately controlled with diuretics pseudomass should resolve on its own and patient can follow-up in their office on an outpatient basis and they will arrange for repeat CT in 2 months. Cardiology evaluated and cleared patient from cardiac standpoint on 12/12/22. However, patient with acute kidney injury with creatinine increasing from 1.67-2.16 and was not medically stable for discharge as he requires diuretics for his congestive heart failure. Nephrology evaluated and recommended patient go back on IV diuresis as acute kidney injury is secondary to ATN resulting from cardiorenal syndrome. Repeat chest x-ray was also completed on 12/13/22 showing ongoing CHF with interstitial pulmonary edema and small bilateral pleural effusions with pleural fluid trapped along the left major fissure unchanged from previous chest x-ray. Patient started back on Lasix 40 mg IVP twice daily. Once placed back on IV Lasix urinary output significantly increased from previous 600-800 daily now to 1800 mL over the past 24 hours, patient is showing improvement and did have slight improvement in renal function as well with creatinine improving to 2.07 and GFR increasing to 29. Patient remained on IV diuresis for an additional 24 hours and again had greater than 1500 mL of urinary output. Morning labs remain pending. Clin ically, patient appears to be doing well and has been able to walk further distances without any difficulties. He reports feeling much better and denies having any needs or complaints. Ambulatory pulse ox completed and patient remained greater than 90% with ambulation. Medically stable for discharge at this time. Patient has been cleared by both banquet bartender and injection molding supervisor in nephrology recommending increasing Lasix to 60 mg twice daily with repeat BMP in 3 days to monitor renal function. Based upon renal function, may discuss decreasing dose back down to 40 mg twice daily. Prescriptions sent to [facility] and patient provided with 2 days of new medications until [facility]. Patient to follow up outpatient with PCP, banquet bartender, injection molding supervisor, and helper teacher. Physical exam: Vital signs reviewed and stable. General: Nontoxic, no distress and appears stated age. Derm: Skin warm and dry, normal coloration for ethnicity. Head: Atraumatic, normocephalic and symmetric. Eyes: EOMs intact, no lid lag, and anicteric sclera Mouth: no lip lesions, mucus membranes moist Cardiovascular: regular rate and rhythm with normal S1S2, systolic murmur, positive posterior tibial pulses bilaterally, and cap refill < 2 seconds. Lungs: Respirations even, regular, and unlabored on room air. Lungs with good ai r entry and exit and continued bibasilar crackles no wheezes, rhonchi, or rales. No accessory muscle usage And no conversational dyspnea noted during examination. Abdominal: soft, nontender to palpation, no guarding, no appreciable organomegaly Ext: ROM intact. No gross muscle atrophy, scant left lower extremity pitting edema right lower extremity no edema. no contractures Neuro: Speech clear, face symmetrical and CN II-XII grossly intact with no noted focal neuro deficits Psych: Alert and oriented to person, place, time, and situation. Appropriate and pleasant affect. A total of 39 minutes of time were spent preparing this complex discharge summary. Pt was discharged on 12/15/22 at 9:59 AM. Patient was seen independently by Nurse Practitioner. This document was prepared using [employer] dictation software. Please allow for errors in division toll wire chief while rare they do occur. I reviewed the documentation as provided by the CONY above, who is the original author of this note. I agree with the documented assessment and plan, with the following changes: none Patient Condition at Discharge: Stable Plan - Discharge Summary Discharge Rx Participant: No New Discharge Prescriptions: New hydrALAZINE HCL [Apresoline] 25 mg PO TID 30 Days #90 tab Aspirin 81 mg PO DAILY 30 Days #30 tab Losartan [Cozaar] 25 mg PO DAILY 30 Days #30 tab carvediloL [Coreg] 6.25 mg PO BID-W/MEALS 30 Days #60 tab Isosorbide Mononitrate ER [Imdur] 30 mg PO DAILY 30 Days #30 tab Furosemide [Lasix] 60 mg PO BID@0900,1600 30 Days #180 tab Continue Levothyroxine Sodium [Synthroid] 125 mcg PO DAILY metFORMIN HCL [Glucophage] 500 mg PO BID amLODIPine [Norvasc] 5 mg PO DAILY 60 Days #60 tab Simvastatin [Zocor] 40 mg PO HS Empagliflozin [Jardiance] 25 mg PO DAILY Discontinued Furosemide [Lasix] 80 mg PO DAILY Discharge Medication List Levothyroxine Sodium [Synthroid] 125 mcg PO DAILY 03/20/21 [History] Simvastatin [Zocor] 40 mg PO HS 03/20/21 [History] metFORMIN HCL [Glucophage] 500 mg PO BID 01/23/22 [History] amLODIPine [Norvasc] 5 mg PO DAILY 60 Days #60 tab 02/10/22 [Rx] Empagliflozin [Jardiance] 25 mg PO DAILY 12/10/22 [History] Aspirin 81 mg PO DAILY 30 Days #30 tab 12/15/22 [Rx] Furosemide [Lasix] 60 mg PO BID@0900,1600 30 Days #180 tab 12/15/22 [Rx] Isosorbide Mononitrate ER [Imdur] 30 mg PO DAILY 30 Days #30 tab 12/15/22 [Rx] Losartan [Cozaar] 25 mg PO DAILY 30 Days #30 tab 12/15/22 [Rx] carvediloL [Coreg] 6.25 mg PO BID-W/MEALS 30 Days #60 tab 12/15/22 [Rx] hydrALAZINE HCL [Apresoline] 25 mg PO TID 30 Days #90 tab 12/15/22 [Rx] Follow up Appointment(s)/Referral(s): Alicja Gray MD [STAFF PHYSICIAN] - 1 Week (please call to make your appt ) Zen Quintana MD [STAFF PHYSICIAN] - 12/23/22 3:00 pm Dyana Warner MD [STAFF PHYSICIAN] - 1 Week [facility] [Primary Care Provider] - 1-2 days (please call to schedule your appt ) Ambulatory/Diagnostic Orders: Basic Metabolic Panel [LAB.AMB] Time Frame: 3 Days, Location: None Selected Patient Instructions/Handouts: Heart Failure (DC) Activity/Diet/Wound Care/Special Instructions: [facility] [place] [phone] for new meds Activity: As tolerated. Take breaks as needed. Diet: Heart healthy and carb consistent diet. Avoid salts, or foods with hidden salts such as canned or boxed foods and frozen dinners. Extra salt makes your heart work harder and traps the fluid in your body for longer. Special Instructions: Take all of your medications as directed and remember to keep all of your doctor's appointments and follow-up as needed. Again, I would like to truly thank you for your service!!!! It is always an honor to provide care for a [place]!!!!!! Thank you for allowing us to participate in your care, it was truly a pleasure having you for our patient!!! Discharge Disposition: HOME SELF-CARE
--- NOTE | 2022-12-15 11:23 | P.PN ---
Subjective Patient is seen for follow-up for acute kidney injury on top of chronic kidney disease. He is currently being diuresed for volume overload. Serum creatinine staying at 2.1-2.0 mg/dL. Lasix was changed to IV and patient has diuresed well. Overall feeling slightly better. Objective - Vital Signs Vital signs: Vital Signs Temp 97.9 F 12/15/22 08:00 Pulse 67 12/15/22 08:00 Resp 18 12/15/22 08:00 BP 153/78 12/15/22 08:00 Pulse Ox 95 12/15/22 08:00 FiO2 Intake & Output 12/14/22 12/15/22 12/15/22 18:59 06:59 18:59 Intake Total 1448 540 118 Output Total 650 900 Balance 798 -360 118 Weight 98.7 kg 97.7 kg Intake: Oral 1448 540 118 Output: Urine 650 900 Other: Voiding Method Urinal Urinal Urinal # Voids 1 - Exam Awake, comfortable, in no acute distress Examination of the heart S1 and S2 Examination of the lungs bilateral breath sounds are heard Abdomen is soft nontender Examination of lower extremities shows no significant edema INBOUND CALL CENTER REPRESENTATIVE exam grossly intact - Labs CBC & Chem 7: 12/14/22 08:41 12/14/22 08:41 Labs: Abnormal Lab Results - Last 24 Hours (Table) 12/14/22 12/14/22 12/14/22 Range/Units 11:37 16:12 19:48 POC Glucose (mg/dL) 249 H 136 H 186 H (70-110) mg/dL 12/15/22 Range/Units 05:51 POC Glucose (mg/dL) 163 H (70-110) mg/dL Assessment and Plan Assessment: 1. Acute kidney injury secondary to ATN secondary to cardiorenal syndrome. Creatinine 1.67 on admission and is staying around 2.1-2.0. Renal ultrasound from January 2022 showed normal-size kidneys without any evidence of hydronephrosis. 2. Chronic kidney disease stage IIIB with baseline creatinine 1.6-1.9 secondary to cardiorenal syndrome. 3. Volume overload. Improving diuresis. 4. Diabetes mellitus. 5. Acute on chronic systolic CHF with ejection fraction of 40-45 percent with mild to moderate mitral and tricuspid regurgitation and moderate to severe pulmonary hypertension. 6. Hypertension with chronic kidney disease. 7. Pseudomass in the left upper lobe with fluid filled in the fissure. Plan is to maintain diuresis. No intervention needed per pulmonary Plan: Okay to discharge patient. Continue with Lasix at 60 mg twice a day post discharge for at least a week and then decrease to 40 mg twice a day based on volume status and renal function. Follow-up as outpatient for CK D.
--- NOTE | 2022-12-15 12:29 | P.PN ---
Subjective Progress Note Date: 12/15/22 I am seeing this patient in consultation today 12/12/2022 for acute CHF exacerbation. Patient is a 82-year-old white male with past medical history significant for cardiomyopathy, congestive heart failure with a previous known ejection fraction of 40-45%, hypertension, hyperlipidemia, chronic kidney dise ase stage IIIB, hypothyroidism, and diabetes mellitus. He presented to emergency room December 10 complaining of shortness of breath that started 3-4 days prior. The shortness of breath has progressively worsened, and is worse on exertion. He does admit intermittent non-productive cough. He denies any chest pain, heart palpitations, lightheadedness, syncope, or lower extremity swelling. Denies infectious symptoms such as fever, chills, myalgias, productive cough. Chest CT demonstrated small to moderate bilateral pleural effusions and pulmonary vascular congestion consistent with congestive heart failure. There was also a 5.8 x 3.5 cm pseuodomass within the fissure and nonspecific mediasti nal adenopathy. The mass is a fluid collection within the fissure, and not concerning for malignancy. Repeat echocardiogram shows a reduced left ventricular ejection fraction of 40-45%, moderate pulmonary hypertension with and RVSP of 50, and mild to moderate tricuspid regurgitation. NT proBNP was significantly elevated at 21,400. The patient has been started on diuretics. Patient is currently sitting up in bed, on room air, in no acute distress. Patient continues to have some shortness breath on exertion. Reportedly had some unilateral lower extremity edema on arrival, venous Dopplers negative for left lower extremity DVT. Most recent CBC shows some mild anemia with hemoglobin of 10.8, hematocrit 33.1, platelets 283, WBC 7.7. BMP from yesterday shows a sodium 138, potassium 3.5, chloride 100, serum bicarb 26, BUN 42, creatinine 2.03, glucose 146. Troponins have been mildly elevated at 0.045 and are stable. ECG on arrival shows sinus rhythm with frequent multifocal PVCs. Patient does seem hemodynamically stable at this time. The patient is seen today 12/13/2022 in follow-up on the selective care unit. He is currently sitting up in a chair at the bedside. Awake and alert in no acute distress. He is maintaining good O2 saturations in the 90s on room air. He is making good urine. Chest x-ray reveals evidence of interstitial pulmonary edema with small effusions. Some pleural fluid trapped in the left major fissure. White count 8.0. Hemoglobin 10.6. Platelets 291. Sodium 138. Potassium 3.8. Bicarb 23. BUN 49. Creatinine 2.16. He is continued on Lasix 80 mg daily. The patient is seen today 12/16/2019 through follow-up on the selective care unit. He sitting up in a chair at the bedside. Awake and alert in no acute distress. He is maintaining good O2 saturations in the mid 90s on room air. Afebrile. Hemodynamically stable. Blood glucose 163. His transition to oral diuretics. Objective - Vital Signs Vital signs: Vital Signs Temp 97.9 F 12/15/22 08:00 Pulse 67 12/15/22 08:00 Resp 18 12/15/22 08:00 BP 153/78 12/15/22 08:00 Pulse Ox 95 12/15/22 08:00 FiO2 Intake & Output 12/14/22 12/15/22 12/15/22 18:59 06:59 18:59 Intake Total 1448 540 118 Output Total 650 900 Balance 798 -360 118 Weight 98.7 kg 97.7 kg Intake: Oral 1448 540 118 Output: Urine 650 900 Other: Voiding Method Urinal Urinal Urinal # Voids 1 - Exam GENERAL EXAM: Alert, 82-year-old male, stable and on room air, comfortable in no apparent distress. HEAD: Normocephalic and atraumatic EYES: Normal reaction of pupils, equal size. NOSE: Clear with pink turbinates. THROAT: No erythema or exudates. NECK: No masses, no JVD. CHEST: No chest wall deformity. LUNGS: Equal air entry with few crackles in the posterior bases. No conversational dyspnea or accessory muscle use.. CVS: S1 and S2 normal with no audible murmur, regular rhythm. No extra heart sounds ABDOMEN: No hepatosplenomegaly, active bowel sounds, no guarding or rigidity. SPINE: No scoliosis or deformity SKIN: No rashes CENTRAL NERVOUS SYSTEM: No focal deficits, tone is normal in all 4 extremities. EXTREMITIES: There is no peripheral edema, clubbing, or cyanosis. Peripheral pulses are intact. - Labs CBC & Chem 7: 12/14/22 08:41 12/14/22 08:41 Labs: Abnormal Lab Results - Last 24 Hours (Table) 12/14/22 12/14/22 12/15/22 Range/Units 16:12 19:48 05:51 POC Glucose (mg/dL) 136 H 186 H 163 H (70-110) mg/dL Assessment and Plan Assessment: Acute exacerbation of systolic congestive heart failure. Chest CT demonstrated small to moderate bilateral pleural effusions and pulmonary vascular congestion consistent with congestive heart failure. There was also a 5.8 x 3.5 cm pseuodomass within the left lung fissure and nonspecific mediastinal adenopathy. Repeat echocardiogram shows a reduced left ventricular ejection fraction of 40- 45%, moderate pulmonary hypertension with and RVSP of 50, and mild to moderate tricuspid regurgitation. NT proBNP was significantly elevated at 21,400. The pa tient has been continued on diuretics. Pseudomass measuring 5.8 x 3.5 cm, appears to be a fluid collection within the left major fissure, and not particularly concerning for malignancy. Follow-up chest x-ray shows improvement Cardiomyopathy, with a baseline ejection fraction of 40-45% Elevated troponins, undetermined significance, stable Anemia of chronic disease Chronic kidney disease stage IIIB Diabetes mellitus type 2, [id number] Essential hypertension Hyperlipidemia Obesity, with a BMI of 31 kg/m Hypothyroidism Remote ex-smoker, quit in 1966 Plan: The patient was seen and evaluated Medications reviewed Currently stable and on room air Cleared for discharge from the pulmonary standpoint Continue diuretics Follow-up in our office in 1 week I have personally seen and examined the patient, performed the documentation and the assessment and plan as written. Number of minutes spent on the visit: 10.
[2022-12-15] MEDS ORDERED: FUROSEMIDE 20 MG TAB PO SCH (16:00)
== END 2022-12-15 11:47 | disposition home or self-care (01) | DRG 291 ==
LOC: EC 05:01 → OBSVTOIN 07:00 → 3SCARD 07:00
PROVIDERS: ADMIT Internal Medicine; ATTEND Internal Medicine
DX: I13.0 Hypertensive heart and chronic kidney disease with heart failure and stage 1 through stage 4 chronic kidney disease, or unspecified chronic kidney disease (principal); I50.23 Acute on chronic systolic (congestive) heart failure; N17.0 Acute kidney failure with tubular necrosis; I27.20 Pulmonary hypertension, unspecified; I5A Non-ischemic myocardial injury (non-traumatic); I42.9 Cardiomyopathy, unspecified; N18.32 Chronic kidney disease, stage 3b; E11.22 Type 2 diabetes mellitus with diabetic chronic kidney disease; D63.1 Anemia in chronic kidney disease; I44.7 Left bundle-branch block, unspecified; E89.0 Postprocedural hypothyroidism; I08.3 Combined rheumatic disorders of mitral, aortic and tricuspid valves; I25.10 Atherosclerotic heart disease of native coronary artery without angina pectoris; R00.1 Bradycardia, unspecified; E78.5 Hyperlipidemia, unspecified; E66.9 Obesity, unspecified; R91.8 Other nonspecific abnormal finding of lung field; Z68.31 Body mass index [BMI] 31.0-31.9, adult; Z79.84 Long term (current) use of oral hypoglycemic drugs; Z79.890 Hormone replacement therapy; Z79.899 Other long term (current) drug therapy; Z87.891 Personal history of nicotine dependence; Z82.49 Family history of ischemic heart disease and other diseases of the circulatory system
CPT/HCPCS: 36415; 71045; 71046; 71250; 80048; 80053; 81003; 83036; 83735; 83880; 84484; 85025; 85027; 85610; 85730; 93005; 93306; 94760; 96374; 99285